=== PATIENT | male | born 1940 | race American Indian/Alaskan Native ===

== ENCOUNTER 2017-05-19 16:24 | Inpatient (IN) | payer MEDICARE, MEDICAID ==
[2017-05-19 16:25] VITALS: BMI 26.3
[2017-05-19 17:36] LABS: BASO # 0.1 K/uL (0.0-0.2); BASO % 0.5 % (0.0-2.0); EOS # 0.3 K/uL (0.0-0.7); EOS % 2.8 % (0.0-4.0); HEMATOCRIT 25.9 % (35.0-51.0); LYMPH # 1.9 K/uL (1.0-4.3); LYMPH % 16.9 % (20.0-40.0); MEAN CORPUSCULAR HEMOGLOBIN 28.7 pg (27.0-31.0); MEAN CORPUSCULAR HGB CONC 33.1 g/dL (33.0-37.0); MEAN PLATELET VOLUME 6.9 fL (7.2-11.7); MONO # 1.1 K/uL (0.0-0.8); MONO % 10.2 % (0.0-10.0); RED CELL DISTRIBUTION WIDTH 15.9 % (11.5-14.5); WHITE BLOOD COUNT 11.1 K/uL (4.8-10.8)
[2017-05-19 17:41] LABS: MEAN CELL VOLUME 86.6 fL (80.0-94.0)
[2017-05-19 17:45] LABS: CHLORIDE 104 mmol/L (98-107); INR 1.1; SODIUM 138 mmol/L (132-148)
[2017-05-19 17:46] LABS: POTASSIUM 4.1 mmol/L (3.6-5.2)
[2017-05-19 17:48] LABS: ALB/GLOB RATIO 0.7 (1.0-2.1); ALKALINE PHOSPHATASE 88 U/L (38-126); ALT/SGPT 19 U/L (21-72); AST/SGOT 24 U/L (17-59); BILIRUBIN,TOTAL 0.6 mg/dL (0.2-1.3); BLOOD UREA NITROGEN 15 mg/dL (9-20); CALCIUM 9.4 mg/dl (8.6-10.4); CARBON DIOXIDE 25 mmol/L (22-30); GFR AFRICAN-AMERICAN > 60; GLUCOSE,RANDOM 157 mg/dL (75-110); TOTAL PROTEIN 7.4 g/dL (6.3-8.3)
--- NOTE | 2017-05-19 18:21 | CT ---
PROCEDURE: CT HEAD WITHOUT CONTRAST. HISTORY: r/o ICH COMPARISON: 08/02/2016 comparison made with prior CT scan brain 08/02/2016 TECHNIQUE: Axial computed tomography images were obtained through the head/brain without intravenous contrast. Radiation dose: Total exam DLP = NA mGy-cm. This CT exam was performed using one or more of the following dose reduction techniques: Automated exposure control, adjustment of the mA and/or kV according to patient size, and/or use of iterative reconstruction technique. Note that the study is limited due to exclusion of a portion of the right thumb maxillofacial skeleton, including the anterior margin of the right orbit and contents as well as the right frontal calvarium and right frontal lobe. . Study is further limited by motion artifact The study should be repeated with proper sedation FINDINGS: HEMORRHAGE: No no acute parenchymal, subarachnoid or extra-axial hemorrhage. . BRAIN: re- demonstrated is old right MCA territory infarct which involves the right temporal, right frontal operculum and right posterior temporoparietal watershed zone. . . Additionally, moderate chronic periventricular white matter ischemic changes are present. Probable dilated perivascular space left inferior basal ganglia/temporal junction. Vascular calcifications are again noted. . . Moderate -significant generalized volume loss. VENTRICLES: The ventricles are dilated felt to be on ex vacuo basis. CALVARIUM: Small localized defect left parietal calvarium unchanged PARANASAL SINUSES: R over the fracture deformities of the left orbital floor as well as the anterior and posterolateral petersen of the left orbit of. Metallic fixation hardware from also noted along the medial margins of the anterior wall left maxillary sinus and nasal bones. MASTOID AIR CELLS: . The mastoid air complexes are clear. OTHER FINDINGS: None. IMPRESSION: Note that the study is limited due to exclusion of a portion of the right thumb maxillofacial skeleton, including the anterior margin of the right orbit and contents as well as the right frontal calvarium and right frontal lobe. This study should be repeated with proper sedation. Study is further limited by motion artifact. No definitive acute intracranial hemorrhage. Small localized defect in the left parietal calvarium seen on prior study. . e- demonstrated is old right MCA territory infarct which involves the right temporal, right frontal operculum and right posterior temporoparietal watershed zone. . . Additionally, moderate chronic periventricular white matter ischemic changes are present. Probable dilated perivascular space left inferior basal ganglia/temporal junction. Moderate to significant atrophy. ORIF changes chronic left facial bone fractures. Note that this study high and recommendations discussed emergency room practitioner Margot at approximately 6:10 p.m. with written down and read back verification.
--- NOTE | 2017-05-19 18:52 | C.PDOC ---
History Of Present Illness <Gabriel Ayala R - Last Filed: 05/20/17 08:57> <Nora STOVERObinna - Last Filed: 05/20/17 12:59> 76 y/o male brought in by EMS increasing confusion at home for 2 weeks. According to live in girlfriend spoken to on the phone, pt has been increasingly agitated and has been throwing his outpatient medication. Pt had a CVA 2 weeks ago and was treated at [facility]. Pt is a poor historian and offered no complaints or pain. (Obinna Melendez DO) <Gabriel Ayala R - Last Filed: 05/20/17 08:57> History Per: Patient, Other (Girlfriend) History/Exam Limitations: Other (Poor historian) Onset/Duration Of Symptoms: Days Current Symptoms Are (Timing): Still Present Speech Is: Normal Severity: Mild Recent travel outside of the [place]: No Additional History Per: Patient Associated Symptoms: denies: Fever, Chills, Sweating, Chest Pain <Nora STOVERObinna - Last Filed: 05/20/17 12:59> Time Seen by Provider: 05/19/17 16:35 Chief Complaint (Nursing): Altered Mental Status Past Medical History Reviewed: Historical Data, Nursing Documentation, Vital Signs - Medical History PMH: Arthritis, Diabetes, HTN, Hypercholesterolemia, Malignancy (renal CA), Chronic Kidney Disease, Seizures () Family History: States: Unknown Family Hx - Social History Hx Tobacco Use: No Hx Alcohol Use: No Hx Substance Use: No - Immunization History Hx Tetanus Toxoid Vaccination: No Hx Influenza Vaccination: Yes (08/2014) Hx Pneumococcal Vaccination: Yes (2012) <Nora STOVERObinna - Last Filed: 05/20/17 12:59> Vital Signs: Last Vital Signs Temp 98 F 05/20/17 08:00 Pulse 102 H 05/20/17 08:00 Resp 20 05/20/17 08:00 BP 179/90 H 05/20/17 08:00 Pulse Ox 96 05/20/17 08:00 - [facility] Procedures INCIS W REM OF FORIEGN BODY OR DEV FROM SKIN & SUBCUT TISSUE (10/12/13) Review Of Systems Review Of Systems: ROS cannot be obtained secondary to pt's inabilty to answer questions. Constitutional: Negative for: Fever, Chills Cardiovascular: Negative for: Chest Pain, Palpitations Gastrointestinal: Negative for: Nausea, Vomiting, Abdominal Pain, Diarrhea Neurological: Positive for: Confusion. Negative for: Headache <Nora STOVERObinna López Last Filed: 05/20/17 12:59> Physical Exam - Physical Exam Appears: Non-toxic, No Acute Distress Skin: Warm, Dry Head: Atraumatic, Normacephalic Eye(s): bilateral: Normal Inspection Oral Mucosa: Moist Chest: Symmetrical Cardiovascular: Rhythm Regular, No Murmur Respiratory: Normal Breath Sounds, No Accessory Muscle Use, No Rales, No Rhonchi , No Wheezing Gastrointestinal/Abdominal: Soft, No Tenderness Back: Normal Inspection, No CVA Tenderness Extremity: Normal ROM Neurological/Psych: Oriented x3, Normal Speech (No slurred speech), Normal Motor (5/5 strength), Normal Sensation, Other (Some questions answered appropriatly, but pt tend to repeat answers. No gaze. No facial droop) Gait: Steady Extremity: Right: No Drift, Left: No Drift, Upper: No Drift, Lower: No Drift <Nora STOVERObinna Last Filed: 05/20/17 12:59> ED Course And Treatment - Laboratory Results Result Diagrams: 05/20/17 07:39 05/20/17 07:39 ECG: Interpreted By Me, Viewed By Me ECG Rhythm: Sinus Tachycardia ECG Interpretation: Abnormal Interpretation Of ECG: poor R-wave prgression from V1 TO V6, LAHB Rate From EC <Gabriel Ayala - Last Filed: 05/20/17 08:57> - Laboratory Results Result Diagrams: 05/20/17 07:39 05/20/17 07:39 O2 Sat by Pulse Oximetry: 97 (RA) Pulse Ox Interpretation: Normal <Obinna Melendez DO Maribel Last Filed: 05/20/17 12:59> Medical Decision Making <Gabriel Ayala - Last Filed: 05/20/17 08:57> <Nora STOVERObinna Last Filed: 05/20/17 12:59> Medical Decision Making: Impression: 76 y/o male brought in by EMS increasing confusion at home for 2 weeks. Plans: EKG Blood labs CXR Catapres Lovenox Neurontin januvia Accuchek IV fluids Reassess Spoke to Dr. Venegas who knows pt well. 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 Dr. Venegas will admit pt to his service under observation. (Obinna Melendez DO) Disposition Discussed With : Nico Venegas - Disposition Disposition Time: 19:00 - POA Present On Arrival: None <Gabriel Ayala - Last Filed: 05/20/17 08:57> <Obinna Melendez DO - Last Filed: 05/20/17 12:59> - Disposition Disposition: HOSPITALIZED Condition: GOOD - Clinical Impression Clinical Impression: Dementia <Gabriel Ayala - Last Filed: 05/20/17 08:57> - Scribe Statement The provider has reviewed the documentation as recorded by the Scribe <Obinna Melendez DO - Last Filed: 05/20/17 12:59> - Scribe Statement Alise silverman All medical record entries made by the Scribe were at my direction and personally dictated by me. I have reviewed the chart and agree that the record accurately reflects my personal performance of the history, physical exam, medical decision making, and the department course for this patient. I have also personally directed, reviewed, and agree with the discharge instructions and disposition. (Obinna Melendez DO)
--- NOTE | 2017-05-19 20:45 | RAD ---
PROCEDURE: CHEST RADIOGRAPH, 1 VIEW HISTORY: r/o infiltrate COMPARISON: 08/02/2016 FINDINGS: LUNGS: Elevated right hemidiaphragm. Confluent increased markings at both lung bases ; right greater than left suggestive for infiltrate and or atelectasis. Question trace right pleural effusion. PLEURA: As above. CARDIOVASCULAR: Cardiomegaly. Tortuous ectatic aorta. OSSEOUS STRUCTURES: Degenerative changes in the spine and shoulders. Likely chronic deformity of the mid left clavicle. VISUALIZED UPPER ABDOMEN: Normal. OTHER FINDINGS: None. IMPRESSION: Elevated right hemidiaphragm. Confluent increased markings at both lung bases ; right greater than left suggestive for infiltrate and or atelectasis. Question trace right pleural effusion.
[2017-05-19] MEDS: (Novolog) Insulin Aspart, Recombinant 100 u/ml 10 ml vial SC SCH (21:57)
--- NOTE | 2017-05-19 23:06 | CP.PCM.HP ---
History of Present Illness - History of Present Illness History of Present Illness: CC: AMS HPI: 76 y/o AA male with h/o HTN, Type 2 DM, brought in by EMS increasing confusion at home for 2 weeks. According to live in girlfriend spoken to on the phone, pt has been increasingly agitated and has been throwing his outpatient medication. Pt had a CVA 2 weeks ago and was treated at [facility]. Pt is a poor historian and dependent on his GF for ADL , he is agitated and non cooperative Present on Admission - Present on Admission Any Indicators Present on Admission: Yes Review of Systems - Review of Systems Systems not reviewed;Unavailable: Altered Mental Status - Constitutional Constitutional: Fatigue, Lethargy, Malaise, Weakness - EENT Eyes: absent: As Per HPI, Blind Spots, Blurred Vision, Change in Vision, Decreased Night Vision, Diplopia, Discharge, Dry Eye, Exophthalmos, Floaters, Irritation, Itchy Eyes, Loss of Peripheral Vision, Pain, Photophobia, Requires Corrective Lenses, Sees Flashes, Spots in Vision, Tunnel Vision, Other Visual Disturbances, Loss of Vision, Other Nose/Mouth/Throat: absent: As Per HPI, Epistaxis, Nasal Congestion, Nasal Discharge, Nasal Obstruction, Nasal Trauma, Nose Pain, Post Nasal Drip, Sinus Pain, Sinus Pressure, Bleeding Gums, Change in Voice, Dental Pain, Dry Mouth, Dysphagia, Halitosis, Hoarsness, Lip Swelling, Mouth Lesions, Mouth Pain, Odynophagia, Sore Throat, Throat Swelling, Tongue Swelling, Facial Pain, Neck Pain, Neck Mass, Other - Gastrointestinal Gastrointestinal: absent: As Per HPI, Abdominal Pain, Belching, Bloating, Change in Bowel Habits, Change in Stool Character, Coffee Ground Emesis, Constipation, Cramping, Diarrhea, Dyspepsia, Dysphagia, Early Satiety, Excessive Flatus, Fecal Incontinence, Heartburn, Hematemesis, Hematochezia, Loose Stools, Melena, Nausea, Odynophagia, Temesmus, Vomiting, Other - Genitourinary Genitourinary: Urinary Frequency - Neurological Neurological: Memory Loss Past Patient History - Infectious Disease Hx of Infectious Diseases: None - Past Medical History & Family History Past Medical History?: Yes - Past Social History Smoking Status: Former Smoker - CARDIAC Hx Hypercholesterolemia: Yes Hx Hypertension: Yes - PULMONARY Hx Respiratory Disorders: No - NEUROLOGICAL Hx Dementia: Yes Hx Seizures: Yes () - HEENT Hx HEENT Problems: No - RENAL Hx Chronic Kidney Disease: Yes - ENDOCRINE/METABOLIC Hx Endocrine Disorders: Yes Hx Diabetes Mellitus Type 1: Yes - HEMATOLOGICAL/ONCOLOGICAL Hx Blood Disorders: Yes Hx Blood Transfusions: Yes Hx Cancer: Yes (RENAL) Hx Chemotherapy: Yes (2012) - INTEGUMENTARY Hx Dermatological Problems: No - MUSCULOSKELETAL/RHEUMATOLOGICAL Hx Arthritis: Yes Hx Falls: No - GASTROINTESTINAL Hx Gastrointestinal Disorders: Yes Hx Gastroesophageal Reflux: Yes - GENITOURINARY/GYNECOLOGICAL Hx Genitourinary Disorders: No - PSYCHIATRIC Hx Substance Use: No - SURGICAL HISTORY Hx Surgeries: Yes Hx Herniorrhaphy: Yes Other/Comment: left nephrectomy, left lung sx, - ANESTHESIA Hx Anesthesia: Yes Hx Anesthesia Reactions: No Hx Malignant Hyperthermia: No Meds Allergies/Adverse Reactions: Allergies Allergy/AdvReac Type Severity Reaction Status Date / Time acetaminophen [From Tylenol] Allergy Intermediate Tinnitus Verified 05/19/17 16: 43 aspirin Allergy Intermediate Tinnitus Verified 05/19/17 16:43 Physical Exam - Constitutional Appears: No Acute Distress, Agitated, Chronically Ill Additional comments: combative - Eye Exam Eye Exam: EOMI, Normal appearance, PERRL Pupil Exam: NORMAL ACCOMODATION, PERRL - Respiratory Exam Respiratory Exam: Clear to Auscultation Bilateral, NORMAL BREATHING PATTERN - Cardiovascular Exam Cardiovascular Exam: +S1, +S2, +S4, Systolic Murmur - GI/Abdominal Exam GI & Abdominal Exam: Normal Bowel Sounds, Soft. absent: Tenderness - Neurological Exam Additional comments: pt is agitated not orented to time, place, person'not able to do complte neuro exam - Psychiatric Exam Psychiatric exam: Agitated, Anxious Results - Vital Signs Recent Vital Signs: Last Vital Signs Temp 98.5 F 05/19/17 20:10 Pulse 70 05/19/17 20:10 Resp 18 05/19/17 20:10 BP 161/97 H 05/19/17 20:10 Pulse Ox 98 05/19/17 20:10 - Labs Result Diagrams: 05/20/17 07:39 05/20/17 07:39 Labs: Laboratory Results - last 24 hr 05/19/17 05/19/17 18:36 21:55 POC Glucose (mg/dL) 250 H Ammonia < 9 L Assessment & Plan (1) Altered mental status Status: Acute (2) Dementia Status: Acute (3) Diabetes Status: Acute
[2017-05-19 23:53] VITALS: RESP 20
[2017-05-20 07:50] LABS: HEMATOCRIT 26.8 % (35.0-51.0); MEAN CELL VOLUME 87.2 fL (80.0-94.0); MEAN CORPUSCULAR HEMOGLOBIN 28.1 pg (27.0-31.0); MEAN CORPUSCULAR HGB CONC 32.2 g/dL (33.0-37.0); MEAN PLATELET VOLUME 7.3 fL (7.2-11.7); RED CELL DISTRIBUTION WIDTH 15.7 % (11.5-14.5); WHITE BLOOD COUNT 10.1 K/uL (4.8-10.8)
[2017-05-20 08:02] LABS: CHLORIDE 101 mmol/L (98-107)
[2017-05-20 08:03] LABS: POTASSIUM 3.6 mmol/L (3.6-5.2); SODIUM 138 mmol/L (132-148)
[2017-05-20 08:05] LABS: GFR AFRICAN-AMERICAN > 60
[2017-05-20 08:06] LABS: BLOOD UREA NITROGEN 12 mg/dL (9-20); CALCIUM 9.2 mg/dl (8.6-10.4); CARBON DIOXIDE 27 mmol/L (22-30); GLUCOSE,RANDOM 156 mg/dL (75-110)
[2017-05-20 08:33] LABS: RBC URINE < 1 /hpf (0-3); URINE BILIRUBIN NEGATIVE (NEGATIVE); URINE BLOOD NEGATIVE (NEGATIVE); URINE COLOR Straw (YELLOW); URINE GLUCOSE (UA) 1+ mg/dL (Normal); URINE KETONE NEGATIVE (NEGATIVE); URINE LEUKOCYTE ESTERASE NEG Leu/uL (Negative); URINE PROTEIN 2+ mg/dL (NEGATIVE); URINE UROBILINOGEN NORMAL mg/dL (0.2-1.0); WBC URINE 1 /hpf (0-5)
[2017-05-20] MEDS: Enoxaparin 40 mg Syringe SC SCH (09:50)
[2017-05-20] MEDS: (Novolog) Insulin Aspart, Recombinant 100 u/ml 10 ml vial SC SCH ×4 (09:51→22:00)
--- NOTE | 2017-05-20 18:52 | CARD ---
APPROVED REPORT EKG Measurement Heart [id number] <Conclusion> Sinus tachycardia Left anterior fascicular block Anteroseptal infarct, age undetermined Abnormal ECG
--- NOTE | 2017-05-20 23:16 | CP.PCM.PN ---
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 Objective - Vital Signs/Intake and Output Vital Signs (last 24 hours): Temp Pulse Resp BP Pulse Ox 97.8 F 106 H 20 156/82 H 96 05/20/17 15:00 05/20/17 15:00 05/20/17 15:00 05/20/17 15:00 05/20/17 15:00 Intake and Output: 05/20/17 05/21/17 18:59 06:59 Intake Total 500 Output Total 400 Balance 100 - Medications Medications: Current Medications Clonidine HCl (Catapres) 0.2 mg PO BID [facility] Last Admin: 05/20/17 17:21 Dose: 0.2 mg Enoxaparin Sodium (Lovenox) 40 mg SC DAILY [facility] Last Admin: 05/20/17 09:50 Dose: 40 mg Gabapentin (Neurontin) 300 mg PO TID [facility] Last Admin: 05/20/17 17:21 Dose: 300 mg Insulin Aspart (Novolog) [address] [facility] PRN Reason: Protocol Last Admin: 05/20/17 22:00 Dose: Not Given Pneumococcal Polyvalent Vaccine (Pneumovax 23 Vaccine) 0.5 ml IM .ONCE ONE Stop: 05/21/17 10:01 Rosuvastatin Calcium (Crestor) 10 mg PO [facility] Last Admin: 05/20/17 21:20 Dose: 10 mg Sitagliptin Phosphate (Januvia) 50 mg PO DAILY [facility] Last Admin: 05/20/17 09:50 Dose: 50 mg - Labs Labs: PT 11.9 SECONDS (9.7-12.2) 05/19/17 17:32 INR 1.1 05/19/17 17:32 APTT 35 SECONDS (21-34) H 05/19/17 17:32 - Constitutional Appears: No Acute Distress - Head Exam Head Exam: ATRAUMATIC, NORMAL INSPECTION, NORMOCEPHALIC - ENT Exam ENT Exam: Mucous Membranes Moist, Normal Exam - Respiratory Exam Respiratory Exam: Clear to Ausculation Bilateral, NORMAL BREATHING PATTERN - Cardiovascular Exam Cardiovascular Exam: REGULAR RHYTHM, +S1, +S2, +S4, Murmur - GI/Abdominal Exam GI & Abdominal Exam: Soft, Normal Bowel Sounds. absent: Tenderness Assessment and Plan (1) Altered mental status Assessment & Plan: most likley due to metabolic encephalopathy Status: Acute (2) Dementia Status: Acute (3) Chronic renal failure Status: Acute (4) Constipation Status: Acute (5) Diabetes Status: Acute
[2017-05-21] MEDS: (Novolog) Insulin Aspart, Recombinant 100 u/ml 10 ml vial SC SCH ×4 (07:30→22:59)
[2017-05-21] MEDS ORDERED: Pneumococcal 23-Valent Vaccine IM ONE (10:00)
[2017-05-21] MEDS: Enoxaparin 40 mg Syringe SC SCH (10:38)
--- NOTE | 2017-05-21 14:53 | CON ---
DATE: 05/21/2017 CHIEF COMPLAINT AND REASON FOR CONSULTATION: The patient referred by Dr. Venegas as patient has hist ory of recent stroke. The patient was admitted here for increasing confusion at home and patient, as per chart, had history of alcohol dependence in the past. HISTORY OF PRESENT ILLNESS: This is the case of a 76-year-old male who lives with his girlfriend. T he patient was brought in by EMS for increasing confusion at home for 2 weeks. According to the girl friend, the patient has been increasingly agitated, has been throwing out his medication. The patien t was recently in a rehab. The patient had history of recent CAV. He was at [facility] for 3 weeks an d went home. The patient has been referred for comanagement as the patient has been having increasin g bouts of agitation. The patient is currently in mittens and wants to get out of bed and wants his mittens to be removed. The patient also states that he used to drink at home half a bottle of wine, but denies that he is an alcoholic. The patient is noted to be having intermittent periods of confus ion. He knows he is in the hospital, but states that he wants to get out of bed. He still has bouts of agitation and was given earlier Ativan. PAST PSYCHIATRIC HISTORY: The patient denies any prior inpatient treatment, although patient has his tory of alcohol dependence in the past. PAST MEDICAL HISTORY: History of diabetes, hypertension, history of recent CVA. The patient has his tory of renal CA, kidney disease. ALLERGIES: THE PATIENT IS ALLERGIC TO TYLENOL AND ASPIRIN. PSYCHOSOCIAL HISTORY: The patient lives with his girlfriend. The patient had a CAT scan of the head done on admission that showed the following results: The anna ent had an old right MCA territory infarct, which involved the right temporal, right frontal operculu m and right posterior temporoparietal watershed zone. Moderate chronic periventricular white matter ischemic changes as well as moderate to significant atrophy. LIST OF CURRENT MEDICATIONS: The patient is currently on clonidine, Januvia, Lovenox, Neurontin. Th e patient at home was taking Ambien 5 mg at bedtime. VITAL SIGNS: Temperature is 97.1, pulse rate is 101, blood pressure 151/84, respiration is 20, oxyge n sat is 97%. LABORATORIES: On review, the patient's blood sugar, the last one is 268. Urine is positive +2 for p rotein and glucose. Drug screen is negative. WBCs 11.1 on admission, H and H is 8.6/25.9. REVIEW OF SYSTEMS: GENERAL: The patient is alert, but with periods of confusion. He was seen in a 4-bedded room. The patient has hand mittens and want his mittens to be removed. He said he wants to eat and he wants to get out of the hospital. SKIN: No pruritus. HEENT: No headache or dizziness, no blurring vision. NECK: Supple. RESPIRATORY: No dyspnea. CARDIOVASCULAR: No chest pain. GASTROINTESTINAL: No nausea, no vomiting. EXTREMITIES: Complaining of weakness, although patient is moving his upper extremities. MUSCULOSKELETAL: Feels weak. NEUROLOGIC: Alert with periods of confusion. GENITOURINARY: No dysuria. MENTAL STATUS EXAMINATION: Elderly male who looks stated age, conversing in Slovenian. Speech spontan eous. Affect is reactive. Mood is irritable. He said he wants to get out of bed. He wants his sahra tens to be removed. Thought process: Confused off and on. Thought content: No paranoia, no hallu cinations. No suicidal or homicidal ideation. Attention and memory seem to be limited. Insight and judgment limited. Impulse control is guarded at this time. IMPRESSION: Possible metabolic encephalopathy superimposed on possible dementia secondary to recent cerebrovascular accident, vascular type, as well as consider mood disorder secondary to medical probl ems. PLAN AND RECOMMENDATION: The patient is seen, meds reviewed. Continue present management. We will keep the patient in the safety observation room for monitoring. We will give him Ambien 5 mg at bedt esteban p.r.n. and then Ativan 1 mg p.o. q. 6 p.r.n. for agitation. I did speak with the social work program coordinator. His girlfriend does not want him to go back for subacute rehab. Once the patient is medically stabl e, patient can go back home. The Ativan may be good for him to control his agitation, especially as the patient has history of alcoholism in the past. The patient states that he is no longer drinking, but did admit that he used to drink half a bottle of wine before. Thank you for the consult. Tera Lozano MD cc: [id number] TT: 05/21/2017 14:52:39 Confirmation # [id number] Dictation # [id number]
--- NOTE | 2017-05-21 15:23 | CON ---
DATE: 05/21/2017 ADDENDUM As the patient has history of chronic alcoholism, we will try to give him thiamine 100 mg p.o. b.i.d. and MVI one tab p.o. daily as supplements. Tera Lozano MD cc: [phone] TT: 05/21/2017 15:22:29 Confirmation # [id number] Dictation # [id number]
--- NOTE | 2017-05-21 16:52 | CP.PCM.PN ---
Subjective - Date & Time of Evaluation Date of Evaluation: 05/21/17 Time of Evaluation: 21:00 - Subjective Subjective: Pt is still disoreinted, is still agitated, seen by psyc and his medications has been adjusted Objective - Vital Signs/Intake and Output Vital Signs (last 24 hours): Temp Pulse Resp BP Pulse Ox 97.1 F L 101 H 20 151/84 H 97 05/20/17 23:38 05/20/17 23:38 05/20/17 23:38 05/20/17 23:38 05/20/17 23:38 Intake and Output: 05/21/17 05/21/17 06:59 18:59 Intake Total 500 Output Total 580 Balance -80 - Medications Medications: Current Medications Clonidine HCl (Catapres) 0.2 mg PO Q8 [facility] Last Admin: 05/21/17 13:37 Dose: 0.2 mg Enoxaparin Sodium (Lovenox) 40 mg SC DAILY [facility] Last Admin: 05/21/17 10:38 Dose: 40 mg Gabapentin (Neurontin) 300 mg PO TID [facility] Last Admin: 05/21/17 13:37 Dose: 300 mg Insulin Aspart (Novolog) 0 unit SC [facility]S [facility] PRN Reason: Protocol Last Admin: 05/21/17 11:30 Dose: 3 unit Lorazepam (Ativan) 1 mg PO Q6H PRN PRN Reason: Agitation Multivitamins (Hexavitamin) 1 tab PO DAILY [facility] Rosuvastatin Calcium (Crestor) 10 mg PO HS [facility] Last Admin: 05/20/17 21:20 Dose: 10 mg Sitagliptin Phosphate (Januvia) 50 mg PO DAILY [facility] Last Admin: 05/21/17 10:00 Dose: 50 mg Thiamine HCl (Vitamin B1 Tab) 100 mg PO BID [facility] Zolpidem Tartrate (Ambien) 5 mg PO HS PRN PRN Reason: Insomnia - Labs Labs: PT 11.9 SECONDS (9.7-12.2) 05/19/17 17:32 INR 1.1 05/19/17 17:32 APTT 35 SECONDS (21-34) H 05/19/17 17:32 - Constitutional Appears: No Acute Distress - Head Exam Head Exam: ATRAUMATIC, NORMAL INSPECTION, NORMOCEPHALIC - Eye Exam Eye Exam: EOMI, Normal appearance, PERRL Pupil Exam: NORMAL ACCOMODATION, PERRL - Respiratory Exam Respiratory Exam: Clear to Ausculation Bilateral, NORMAL BREATHING PATTERN - Cardiovascular Exam Cardiovascular Exam: REGULAR RHYTHM, +S1, +S2. absent: Murmur - GI/Abdominal Exam GI & Abdominal Exam: Soft, Normal Bowel Sounds. absent: Tenderness - Neurological Exam Neurological Exam: Altered - Psychiatric Exam Psychiatric exam: Anxious - Skin Skin Exam: Dry Assessment and Plan (1) Altered mental status Status: Acute (2) Dementia Status: Acute (3) Chronic renal failure Status: Acute (4) Constipation Status: Acute (5) Diabetes Status: Acute
[2017-05-22] MEDS: (Novolog) Insulin Aspart, Recombinant 100 u/ml 10 ml vial SC SCH ×4 (07:30→21:28)
[2017-05-22 07:37] LABS: POTASSIUM 4.1 mmol/L (3.6-5.2)
[2017-05-22] MEDS: Enoxaparin 40 mg Syringe SC SCH (09:43)
[2017-05-22] MEDS: Multiple Vitamins Tab PO SCH (09:49)
--- NOTE | 2017-05-22 15:52 | PN ---
DATE: 05/22/2017 SUBJECTIVE: The patient seen with his girlfriend. The patient has bouts of agitation and on Ativan p.r.n. According to the girlfriend, the patient has history of dementia for 1 year and has been havi ng intermittent bouts of visual hallucinations. He was seeing faces of persons related to him i n the past, even at home and also in the hospital. The patient denies hallucinations when seen. He is also trying to get out of bed and wants his mittens to removed. He is directable for most. His g irlfriend wants to take him home. She said she can handle him at home. 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 VITAL SIGNS: Temperature is 99, pulse rate is 80, blood pressure 110/69, respirations 20, oxygen sat s 96% room air. REVIEW OF SYSTEMS: GENERAL: The patient is alert, still confused, seen in the 4-bedded room. SKIN: No diaphoresis. HEENT: No headache, no dizziness. NECK: Supple. RESPIRATORY: No dyspnea. CARDIOVASCULAR: No chest pain. GASTROINTESTINAL: Very good appetite. EXTREMITIES: The patient moving extremities. MUSCULOSKELETAL: Feels weak. NEUROLOGIC: Alert with periods of confusion. Mental status seems to be waxing and waning. GENITOURINARY: Dysuria. MENTAL STATUS EXAMINATION: Elderly male who looks stated age, oriented to place and person. Seen wi th his girlfriend. Affect is reactive. Mood is irritable at times. Speech spontaneous. Thought pr ocess confused. Thought content: No overt hallucinations. No suicidal or homicidal ideation. Atte ntion and memory seems to be limited. Insight and judgment limited. Impulse control is improving at this time. IMPRESSION: Metabolic encephalopathy superimposed on dementia secondary to recent cerebrovascular ac cident. PLAN AND RECOMMENDATIONS: The patient seen, meds reviewed. We will keep patient in the 4-bedded [facility]. We will continue the Ambien 5 mg at bedtime p.r.n. and Ativan 1 mg p.o. q. 6 hours p.r.n. Since patient has history of dementia and the patient's family wants to keep him at home, we will try to st art him with Aricept 5 mg at bedtime for dementia. The patient has very good appetite according to h is girlfriend. Tera Lozano MD cc: [phone] TT: 05/22/2017 15:51:40 Confirmation # [id number] Dictation # [id number]
--- NOTE | 2017-05-22 23:16 | CP.PCM.PN ---
Subjective - Date & Time of Evaluation Date of Evaluation: 05/22/17 Time of Evaluation: 21:00 - Subjective Subjective: seen and examined Objective - Vital Signs/Intake and Output Vital Signs (last 24 hours): Temp Pulse Resp BP Pulse Ox 99.9 F H 84 20 145/80 100 05/22/17 15:41 05/22/17 15:41 05/22/17 15:41 05/22/17 15:41 05/22/17 15:41 Intake and Output: 05/22/17 05/23/17 18:59 06:59 Intake Total 300 Output Total 250 590 Balance -250 -290 - Medications Medications: Current Medications Clonidine HCl (Catapres) 0.2 mg PO Q8 [facility] Last Admin: 05/22/17 21:24 Dose: 0.2 mg Clopidogrel Bisulfate (Plavix) 75 mg PO DAILY [facility] Last Admin: 05/22/17 09:50 Dose: 75 mg Donepezil HCl (Aricept) 5 mg PO HS [facility] Last Admin: 05/22/17 21:23 Dose: 5 mg Enoxaparin Sodium (Lovenox) 40 mg SC DAILY [facility] Last Admin: 05/22/17 09:43 Dose: 40 mg Gabapentin (Neurontin) 300 mg PO TID [facility] Last Admin: 05/22/17 18:02 Dose: 300 mg Insulin Aspart (Novolog) 0 unit SC ACHS [facility] PRN Reason: Protocol Last Admin: 05/22/17 21:28 Dose: Not Given Lorazepam (Ativan) 1 mg PO Q6H PRN PRN Reason: Agitation Last Admin: 05/22/17 00:52 Dose: 1 mg Multivitamins (Hexavitamin) 1 tab PO DAILY [facility] Last Admin: 05/22/17 09:49 Dose: 1 tab Rosuvastatin Calcium (Crestor) 10 mg PO HS [facility] Last Admin: 05/22/17 21:23 Dose: 10 mg Sitagliptin Phosphate (Januvia) 50 mg PO DAILY [facility] Last Admin: 05/22/17 09:45 Dose: 50 mg Thiamine HCl (Vitamin B1 Tab) 100 mg PO BID [facility] Last Admin: 05/22/17 18:05 Dose: 100 mg Zolpidem Tartrate (Ambien) 5 mg PO HS PRN PRN Reason: Insomnia - Labs Labs: 05/22/17 07:11 PT 11.9 SECONDS (9.7-12.2) 05/19/17 17:32 INR 1.1 05/19/17 17:32 APTT 35 SECONDS (21-34) H 05/19/17 17:32 Assessment and Plan (1) Altered mental status Status: Acute (2) Dementia Status: Acute (3) Chronic renal failure Status: Acute (4) Constipation Status: Acute (5) Diabetes Status: Acute
[2017-05-23] MEDS: (Novolog) Insulin Aspart, Recombinant 100 u/ml 10 ml vial SC SCH ×4 (08:10→21:45)
[2017-05-23] MEDS: Enoxaparin 40 mg Syringe SC SCH (10:51)
[2017-05-23] MEDS: Multiple Vitamins Tab PO SCH (10:51)
[2017-05-24] MEDS: (Novolog) Insulin Aspart, Recombinant 100 u/ml 10 ml vial SC SCH ×3 (08:38→18:36)
[2017-05-24 09:30] VITALS: O2SAT 100
[2017-05-24] MEDS: Enoxaparin 40 mg Syringe SC SCH (10:04)
[2017-05-24] MEDS: Multiple Vitamins Tab PO SCH (10:05)
[2017-05-24 11:48] LABS: BASO % 0.3 % (0.0-2.0); EOS # 0.2 K/uL (0.0-0.7); EOS % 1.7 % (0.0-4.0); HEMATOCRIT 24.2 % (35.0-51.0); LYMPH % 9.4 % (20.0-40.0); MEAN CELL VOLUME 86.8 fL (80.0-94.0); MEAN CORPUSCULAR HEMOGLOBIN 28.5 pg (27.0-31.0); MEAN CORPUSCULAR HGB CONC 32.8 g/dL (33.0-37.0); MEAN PLATELET VOLUME 7.5 fL (7.2-11.7); MONO % 9.5 % (0.0-10.0); PLATELET COUNT 505 K/uL (130-400); RED CELL DISTRIBUTION WIDTH 15.8 % (11.5-14.5); WHITE BLOOD COUNT 10.8 K/uL (4.8-10.8)
[2017-05-24 12:02] LABS: CHLORIDE 102 mmol/L (98-107)
[2017-05-24 12:03] LABS: SODIUM 136 mmol/L (132-148)
[2017-05-24 12:05] LABS: GFR AFRICAN-AMERICAN > 60
[2017-05-24 12:06] LABS: BLOOD UREA NITROGEN 20 mg/dL (9-20); CALCIUM 9.1 mg/dl (8.6-10.4); CARBON DIOXIDE 26 mmol/L (22-30); GLUCOSE,RANDOM 237 mg/dL (75-110)
[2017-05-24 12:07] LABS: EOSINOPHIL 1 % (0-4); NEUTROPHIL 80 % (50-75); TOTAL CELLS COUNTED 100
[2017-05-24] MEDS ORDERED: Ferric Sodium Gluconat Complex 62.5 mg/5 ml Vial IVPB SCH (12:15)
[2017-05-24 12:20] VITALS: TEMP 98.3
--- NOTE | 2017-05-24 12:50 | CP.PCM.PN ---
Subjective - Date & Time of Evaluation Date of Evaluation: 05/24/17 Time of Evaluation: 12:00 - Subjective Subjective: Pt seen an d examined today ,alert, oriented to person ,confusion noted, calm , and co operative , denies any other complaints No overnight events reported by RN Objective - Vital Signs/Intake and Output Vital Signs (last 24 hours): Temp Pulse Resp BP Pulse Ox 98.3 F 86 20 153/82 H 100 05/24/17 12:19 05/24/17 12:19 05/24/17 12:19 05/24/17 12:19 05/24/17 12:19 Intake and Output: 05/24/17 05/24/17 06:59 18:59 Intake Total 180 Balance 180 - Medications Medications: Current Medications Clonidine HCl (Catapres) 0.2 mg PO Q8 [facility] Last Admin: 05/24/17 06:36 Dose: 0.2 mg Clopidogrel Bisulfate (Plavix) 75 mg PO DAILY [facility] Last Admin: 05/24/17 10:04 Dose: 75 mg Donepezil HCl (Aricept) 5 mg PO HS [facility] Last Admin: 05/23/17 21:43 Dose: 5 mg Enoxaparin Sodium (Lovenox) 40 mg SC DAILY [facility] Last Admin: 05/24/17 10:04 Dose: 40 mg Ferric Sodium Gluconate Complex (Ferrlecit) 125 mg IVPB DAILY [facility] Stop: 05/27/17 12:16 Gabapentin (Neurontin) 300 mg PO TID [facility] Last Admin: 05/24/17 10:04 Dose: 300 mg Insulin Aspart (Novolog) 0 unit SC ACHS [facility] PRN Reason: Protocol Last Admin: 05/24/17 08:38 Dose: 3 unit Lorazepam (Ativan) 1 mg PO Q6H PRN PRN Reason: Agitation Last Admin: 05/23/17 20:15 Dose: 1 mg Multivitamins (Hexavitamin) 1 tab PO DAILY [facility] Last Admin: 05/24/17 10:05 Dose: 1 tab Rosuvastatin Calcium (Crestor) 10 mg PO HS [facility] Last Admin: 05/23/17 21:43 Dose: 10 mg Sitagliptin Phosphate (Januvia) 50 mg PO DAILY [facility] Last Admin: 05/24/17 10:05 Dose: 50 mg Thiamine HCl (Vitamin B1 Tab) 100 mg PO BID [facility] Last Admin: 05/24/17 10:05 Dose: 100 mg Zolpidem Tartrate (Ambien) 5 mg PO HS PRN PRN Reason: Insomnia Last Admin: 05/24/17 00:13 Dose: 5 mg - Labs Labs: 05/24/17 11:42 05/22/17 07:11 PT 11.9 SECONDS (9.7-12.2) 05/19/17 17:32 INR 1.1 05/19/17 17:32 APTT 35 SECONDS (21-34) H 05/19/17 17:32 - Constitutional Appears: Non-toxic, No Acute Distress (comfortable ) - Respiratory Exam Respiratory Exam: Clear to Ausculation Bilateral, NORMAL BREATHING PATTERN - Cardiovascular Exam Cardiovascular Exam: REGULAR RHYTHM, +S1, +S2 - Neurological Exam Neurological Exam: Alert, Awake Assessment and Plan - Assessment and Plan (Free Text) Assessment: A/P 76 yr old male admitted for incr. confusion and agitation s/p CVA 2 weeks ago seeb by Dr. Blum and aricept started , Pt clinically improved and much calm , no agitation reported by staff As per CM patient significant other want to take care of patient at home and declined [facility]MAR D/W Dr. Venegas, stable for discharge home today and f/u with Dr. Venegas offic ein 1 week VNA service arranged by CM for home nursing home PT ,
--- NOTE | 2017-05-24 16:00 | PN ---
DATE: 05/24/2017 SUBJECTIVE: The patient is seen. The patient is very restless today, trying to climb out of bed and could hardly follow redirection, stating that his is downstairs and he wants to go home. The p atient continues to have confusion and needs redirection. The patient's wants to take him home, but once he is more medically stable. The patient was given Ativan p.r.n. VITAL SIGNS: Temperature is 98.3, pulse rate 86, blood pressure 153/82, respiration is 20, oxygen sa t is 100%. REVIEW OF SYSTEMS: GENERAL: The patient is alert, but confused, seen in a 4-bedded room, still restless, agitated and w ants to get out of bed, stating he wants to go home. SKIN: No diaphoresis. HEENT: No headache or dizziness. NECK: Supple. RESPIRATORY: No dyspnea. CARDIOVASCULAR: No chest pain. GASTROINTESTINAL: No nausea, no vomiting. EXTREMITIES: The patient moves extremities. MUSCULOSKELETAL: Feels weak. NEUROLOGIC: Alert with periods of confusion. GENITOURINARY: No dysuria. MENTAL STATUS EXAMINATION: Elderly male, in hospital [facility], looks stated age, seen in a 4-bedded room . Oriented to person, but not to place and time. Mood is irritable. Affect is reactive. Speech sp ontaneous. Thought process confused. Thought content: The patient wants to leave, insisting his wi fe is downstairs waiting for him. No paranoia. No suicidal or homicidal ideation. Attention and me jackie seem to be limited. Insight and judgment limited. Impulse control is guarded at this time. IMPRESSION: Possible metabolic encephalopathy superimposed on dementia, vascular type, secondary to recent cerebrovascular accident. PLAN AND RECOMMENDATIONS: The patient seen, meds reviewed. Continue Ativan p.r.n. as well as Ambien and also Aricept for dementia. The patient wants to go home and his wants to take him home onc e he is more medically stable. Tera Lozano MD cc: [phone] TT: 05/24/2017 15:59:47 Confirmation # [id number] Dictation # [id number]
[2017-05-24 16:31] VITALS: BP 131/78; PULSE 68
--- NOTE | 2017-05-24 22:36 | CP.PCM.PN ---
Subjective - Date & Time of Evaluation Date of Evaluation: 05/23/17 Time of Evaluation: 20:00 - Subjective Subjective: seen & examined Objective - Vital Signs/Intake and Output Vital Signs (last 24 hours): Temp Pulse Resp BP Pulse Ox 98.3 F 68 20 131/78 100 05/24/17 16:00 05/24/17 16:00 05/24/17 16:00 05/24/17 16:00 05/24/17 16:00 Intake and Output: 05/24/17 05/25/17 18:59 06:59 Intake Total 680 Output Total 500 Balance 180 - Labs Labs: 05/24/17 11:42 05/24/17 11:42 PT 11.9 SECONDS (9.7-12.2) 05/19/17 17:32 INR 1.1 05/19/17 17:32 APTT 35 SECONDS (21-34) H 05/19/17 17:32 Assessment and Plan (1) Altered mental status Status: Acute (2) Dementia Status: Acute (3) Chronic renal failure Status: Acute (4) Constipation Status: Acute (5) Diabetes Status: Acute
--- NOTE | 2017-05-24 22:37 | CP.PCM.DIS ---
Provider - Provider Date of Admission: 05/20/17 16:55 Attending physician: Nico Venegas MD Diagnosis - Discharge Diagnosis (1) Altered mental status Status: Acute (2) Dementia Status: Acute (3) Chronic renal failure Status: Acute (4) Constipation Status: Acute (5) Diabetes Status: Acute Hospital Course - Lab Results Lab Results: Most Recent Lab Values WBC 10.8 K/uL (4.8-10.8) 05/24/17 11:42 RBC 2.79 Mil/uL (4.40-5.90) L 05/24/17 11:42 Hgb 7.9 g/dL (12.0-18.0) L 05/24/17 11:42 Hct 24.2 % (35.0-51.0) L 05/24/17 11:42 MCV 86.8 fL (80.0-94.0) 05/24/17 11:42 MCH 28.5 pg (27.0-31.0) 05/24/17 11:42 MCHC 32.8 g/dL (33.0-37.0) L 05/24/17 11:42 RDW 15.8 % (11.5-14.5) H 05/24/17 11:42 Plt Count 505 K/uL (130-400) H 05/24/17 11:42 MPV 7.5 fL (7.2-11.7) 05/24/17 11:42 Neut % (Auto) 79.1 % (50.0-75.0) H 05/24/17 11:42 Lymph % (Auto) 9.4 % (20.0-40.0) L 05/24/17 11:42 Allen % (Auto) 9.5 % (0.0-10.0) 05/24/17 11:42 Eos % (Auto) 1.7 % (0.0-4.0) 05/24/17 11:42 Baso % (Auto) 0.3 % (0.0-2.0) 05/24/17 11:42 Neut # 8.6 K/uL (1.8-7.0) H 05/24/17 11:42 Lymph # 1.0 K/uL (1.0-4.3) 05/24/17 11:42 Allen # 1.0 K/uL (0.0-0.8) H 05/24/17 11:42 Eos # 0.2 K/uL (0.0-0.7) 05/24/17 11:42 Baso # 0.0 K/uL (0.0-0.2) 05/24/17 11:42 Neutrophils % (Manual) 80 % (50-75) H 05/24/17 11:42 Band Neutrophils % 1 % (0-2) 05/24/17 11:42 Lymphocytes % (Manual) 8 % (20-40) L 05/24/17 11:42 Monocytes % (Manual) 10 % (0-10) 05/24/17 11:42 Eosinophils % (Manual) 1 % (0-4) 05/24/17 11:42 Platelet Estimate Increased (NORMAL) H 05/24/17 11:42 Hypochromasia (manual) Slight 05/24/17 11:42 Anisocytosis (manual) Slight 05/24/17 11:42 PT 11.9 SECONDS (9.7-12.2) 05/19/17 17:32 INR 1.1 05/19/17 17:32 APTT 35 SECONDS (21-34) H 05/19/17 17:32 Sodium 136 mmol/L (132-148) 05/24/17 11:42 Potassium 4.0 mmol/L (3.6-5.2) 05/24/17 11:42 Chloride 102 mmol/L (98-107) 05/24/17 11:42 Carbon Dioxide 26 mmol/L (22-30) 05/24/17 11:42 Anion Gap 12 (10-20) 05/24/17 11:42 BUN 20 mg/dL (9-20) 05/24/17 11:42 Creatinine 1.3 MG/DL (0.8-1.5) 05/24/17 11:42 Est GFR ( Amer) > 60 05/24/17 11:42 Est GFR (Non-Af Amer) 54 05/24/17 11:42 POC Glucose (mg/dL) 278 mg/dL (65-110) H 05/24/17 16:37 Random Glucose 237 mg/dL (75-110) H 05/24/17 11:42 Calcium 9.1 mg/dl (8.6-10.4) 05/24/17 11:42 Total Bilirubin 0.6 mg/dL (0.2-1.3) 05/19/17 17:32 AST 24 U/L (17-59) 05/19/17 17:32 ALT 19 U/L (21-72) L 05/19/17 17:32 Alkaline Phosphatase 88 U/L (38-126) 05/19/17 17:32 Ammonia < 9 umol/L (9-33) L 05/19/17 18:36 Troponin I 0.0210 ng/mL (0.00-0.120) 05/20/17 17:04 Total Protein 7.4 g/dL (6.3-8.3) 05/19/17 17:32 Albumin 3.1 g/dL (3.5-5.0) L 05/19/17 17:32 Globulin 4.3 gm/dL (2.2-3.9) H 05/19/17 17:32 Albumin/Globulin Ratio 0.7 (1.0-2.1) L 05/19/17 17:32 Urine Color Straw (YELLOW) 05/20/17 08:05 Urine Clarity Clear (Clear) 05/20/17 08:05 Urine pH 7.0 (5.0-8.0) 05/20/17 08:05 Ur Specific [place] 1.009 (1.003-1.030) 05/20/17 08:05 Urine Protein 2+ mg/dL (NEGATIVE) H 05/20/17 08:05 Urine Glucose (UA) 1+ mg/dL (Normal) H 05/20/17 08:05 Urine Ketones Negative mg/dL (NEGATIVE) 05/20/17 08:05 Urine Blood Negative (NEGATIVE) 05/20/17 08:05 Urine Nitrate Negative (NEGATIVE) 05/20/17 08:05 Urine Bilirubin Negative (NEGATIVE) 05/20/17 08:05 Urine Urobilinogen Normal mg/dL (0.2-1.0) 05/20/17 08:05 Ur Leukocyte Esterase Neg Edwin/uL (Negative) 05/20/17 08:05 Urine WBC (Auto) 1 /hpf (0-5) 05/20/17 08:05 Urine RBC (Auto) < 1 /hpf (0-3) 05/20/17 08:05 Ur Squamous Epith Cells < 1 /hpf (0-5) 05/20/17 08:05 Urine Opiates Screen Negative (NEGATIVE) 05/20/17 08:05 Urine Methadone Screen Negative (NEGATIVE) 05/20/17 08:05 Ur Barbiturates Screen Negative (NEGATIVE) 05/20/17 08:05 Ur Phencyclidine Scrn Negative (NEGATIVE) 05/20/17 08:05 Ur Amphetamines Screen Negative (NEGATIVE) 05/20/17 08:05 U Benzodiazepines Scrn Negative (NEGATIVE) 05/20/17 08:05 U Oth Cocaine Metabols Negative (NEGATIVE) 05/20/17 08:05 U Cannabinoids Screen Negative (NEGATIVE) 05/20/17 08:05 Discharge Exam - Head Exam Head Exam: ATRAUMATIC, NORMAL INSPECTION, NORMOCEPHALIC Discharge Plan - Discharge Medications Prescriptions: Donepezil [Aricept] 5 mg PO HS #30 tab cloNIDine [Catapres] 0.2 mg PO Q8 #90 tab Multivitamins [Hexavitamin] 1 tab PO DAILY #30 tab Ferrous Sulfate [Iron] 325 mg PO BID #60 capsule.er Clopidogrel [Plavix] 75 mg PO DAILY #30 tab Thiamine [Vitamin B1 Tab] 100 mg PO BID #30 tab - Follow Up Plan Condition: GOOD Disposition: HOME/ ROUTINE Instructions: Iron Supplements (By mouth), Clonidine (By mouth), Thiamine ( Vitamin B-1) (By mouth), Multivitamins, Adult Formula (By mouth), Donepezil (By mouth), Clopidogrel (By mouth), Dementia (GEN) Additional Instructions: f/u with Dr. Venegas office in 1 week Continue medication as per Med. REc. Referrals: Nico Venegas MD [Family Provider] -
== END 2017-05-24 19:20 | disposition home or self-care (01) | DRG 884 ==
LOC: C.ER 16:24 → C.9E 18:32 → C.3T 19:32 → OBSVTOIN 05-20 16:55
PROVIDERS: ADMIT Internal Medicine; ATTEND Internal Medicine
DX: F01.51 Vascular dementia, unspecified severity, with behavioral disturbance (principal); G93.41 Metabolic encephalopathy; I69.919 Unspecified symptoms and signs involving cognitive functions following unspecified cerebrovascular disease; E11.22 Type 2 diabetes mellitus with diabetic chronic kidney disease; M19.90 Unspecified osteoarthritis, unspecified site; E78.00 Pure hypercholesterolemia, unspecified; I12.9 Hypertensive chronic kidney disease with stage 1 through stage 4 chronic kidney disease, or unspecified chronic kidney disease; N18.9 Chronic kidney disease, unspecified; Z85.53 Personal history of malignant neoplasm of renal pelvis; Z87.891 Personal history of nicotine dependence; Z79.4 Long term (current) use of insulin; F06.30 Mood disorder due to known physiological condition, unspecified; K59.00 Constipation, unspecified; F10.21 Alcohol dependence, in remission

== ENCOUNTER 2017-06-01 14:43 | Inpatient (IN) | payer MEDICARE, MEDICAID ==
[2017-06-01 14:43] VITALS: BMI 26.3
--- NOTE | 2017-06-01 15:01 | C.PDOC ---
History Of Present Illness 76 yr old male brought in via BLS, presents to the ER after falling off the bed today. As per EMS, patient called in. not in the ED with patient. ROS and history is unable to be obtained. - HPI Time Seen by Provider: 06/01/17 14:55 Chief Complaint (Nursing): Trauma History Per: EMS History/Exam Limitations: clinical condition Onset/Duration Of Symptoms: Sudden Onset (Today) Past Medical History Reviewed: Historical Data, Nursing Documentation, Vital Signs Vital Signs: Last Vital Signs Temp 98.6 F 06/01/17 15:54 Pulse 102 H 06/01/17 15:54 Resp 18 06/01/17 15:54 BP 176/75 H 06/01/17 15:54 Pulse Ox 98 06/01/17 17:21 - Medical History PMH: Arthritis, CVA, Dementia, Diabetes, HTN, Hypercholesterolemia, Malignancy ( renal CA), Chronic Kidney Disease - [facility] Procedures INCIS W REM OF FORIEGN BODY OR DEV FROM SKIN & SUBCUT TISSUE (10/12/13) Family History: States: No Known Family Hx - Social History Hx Tobacco Use: No Hx Alcohol Use: No Hx Substance Use: No - Immunization History Hx Tetanus Toxoid Vaccination: No Hx Influenza Vaccination: Yes (08/2014) Hx Pneumococcal Vaccination: Yes (2012) Review Of Systems Review Of Systems: ROS cannot be obtained secondary to pt's inabilty to answer questions. Physical Exam - Physical Exam Appears: Non-toxic, No Acute Distress Skin: Warm, Dry Head: Atraumatic, Normacephalic, No Swelling, No Abrasion, No Laceration Chest: Symmetrical, No Tenderness Cardiovascular: Rhythm Regular, No Murmur Respiratory: Normal Breath Sounds, No Rales, No Rhonchi, No Stridor, No Wheezing Gastrointestinal/Abdominal: Normal Exam, Soft, No Tenderness, No Guarding, No Rebound Extremity: No Tenderness, No Swelling Neurological/Psych: Other (Patient is awake and alert but is not answering question. Seems disoriented. ) ED Course And Treatment - Laboratory Results Result Diagrams: 06/01/17 15:35 06/01/17 15:35 Lab Interpretation: Abnormal (mild leukocytosis, no source, prob from fall this AM) ECG: Interpreted By Ut ECG Rhythm: Sinus Rhythm, Sinus Tachycardia ECG Interpretation: Normal, Abnormal Rate From EC O2 Sat by Pulse Oximetry: 98 (RA ) Pulse Ox Interpretation: Normal - Radiology CXR: Interpreted by Me, Viewed By Me CXR Interpretation: Yes: No Acute Disease - CT Scan/US CT - Head Other Rad Studies (CT/US): Read By Radiologist, Radiology Report Reviewed CT/US Interpretation: IMPRESSION: No acute intracranial hemorrhage. Chronic right frontal, right temporal and right anterolateral basal ganglia of infarct changes again noted. Moderate diffuse/ confluent chronic periventricular white matter ischemic changes. Moderate to significant generalized volume loss. Incomplete visualization of old left facial fracture deformities and ORIF changes Reevaluation Time: 17:19 Reassessment Condition: Improved - Physician Consult Information Outcome Of Conversation: 1530: d/w Dr. Venegas, PMD- ok to med/surg obs. Medical Decision Making Medical Decision Making: PLAN: * CT - Head * CXR * EKG * Troponin * CBC * CMP * Urinalysis NOTE: Fall home, ? unsafe @ home, who is caring for this elderly man with recent CVA? Disposition Doctor Will See Patient In The: Hospital Counseled Patient/Family Regarding: Studies Performed, Diagnosis - Disposition Disposition: HOSPITALIZED Disposition Time: 17:20 Condition: GOOD - Clinical Impression Clinical Impression: Fall, Gait apraxia - Scribe Statement The provider has reviewed the documentation as recorded by the Efrain Newton Provider Attestation: All medical record entries made by the Efrain were at my direction and personally dictated by me. I have reviewed the chart and agree that the record accurately reflects my personal performance of the history, physical exam, medical decision making, and the department course for this patient. I have also personally directed, reviewed, and agree with the discharge instructions and disposition.
[2017-06-01 15:43] LABS: BASO # 0.1 K/uL (0.0-0.2); BASO % 1.2 % (0.0-2.0); EOS # 0.1 K/uL (0.0-0.7); EOS % 0.9 % (0.0-4.0); HEMOGLOBIN 9.4 g/dL (12.0-18.0); LYMPH # 1.5 K/uL (1.0-4.3); LYMPH % 13.1 % (20.0-40.0); MEAN CELL VOLUME 88.9 fL (80.0-94.0); MEAN CORPUSCULAR HEMOGLOBIN 27.4 pg (27.0-31.0); MEAN CORPUSCULAR HGB CONC 30.9 g/dL (33.0-37.0); MEAN PLATELET VOLUME 7.5 fL (7.2-11.7); MONO % 8.1 % (0.0-10.0); NEUT % 76.7 % (50.0-75.0); RBC 3.44 Mil/uL (4.40-5.90); RED CELL DISTRIBUTION WIDTH 16.6 % (11.5-14.5); WHITE BLOOD COUNT 11.8 K/uL (4.8-10.8)
[2017-06-01 15:47] LABS: ALBUMIN 3.5 g/dL (3.5-5.0)
[2017-06-01 15:50] LABS: ALB/GLOB RATIO 0.7 (1.0-2.1); AST/SGOT 31 U/L (17-59); BLOOD UREA NITROGEN 16 mg/dL (9-20); GFR AFRICAN-AMERICAN > 60; GFR NON-AFRICAN AMERICAN 59
[2017-06-01 15:51] LABS: ALT/SGPT 21 U/L (21-72); CALCIUM 10.1 mg/dl (8.6-10.4)
--- NOTE | 2017-06-01 15:59 | CT ---
PROCEDURE: CT HEAD WITHOUT CONTRAST. HISTORY: fell out of bed, ? [facility] COMPARISON: None available. TECHNIQUE: Axial computed tomography images were obtained through the head/brain without intravenous contrast. Radiation dose: Total exam DLP = 1066.1 mGy-cm. This CT exam was performed using one or more of the following dose reduction techniques: Automated exposure control, adjustment of the mA and/or kV according to patient size, and/or use of iterative reconstruction technique. FINDINGS: HEMORRHAGE: No acute parenchymal, subarachnoid or extra-axial hemorrhage. Hemorrhage. BRAIN: Large chronic right temporal, frontal, and right anterolateral basal ganglia infarct again noted unchanged. . Additionally, moderate diffuse/confluent chronic periventricular white matter ischemic changes are also seen extending peripherally into the deep and subcortical white matter both cerebral hemispheres. . Associated ex vacuo dilatation of the right lateral ventricle. Significant generalized volume loss again noted. Extensive vascular calcifications of the carotid siphons and to a lesser degree and left vertebral and proximal basilar arteries VENTRICLES: As mentioned above, there is ex vacuo dilatation of the right lateral ventricle however no evidence of obstructive type hydrocephalus. CALVARIUM: Re- demonstrated are ORIF changes of the left superolateral orbital rim. Incomplete visualization of the remaining left maxillofacial skeletal fracture and ORIF changes. PARANASAL SINUSES: Unremarkable as visualized. No significant inflammatory changes. MASTOID AIR CELLS: Unremarkable as visualized. No inflammatory changes. OTHER FINDINGS: Changes of bilateral cataract surgery again noted. IMPRESSION: No acute intracranial hemorrhage. Chronic right frontal, right temporal and right anterolateral basal ganglia of infarct changes again noted. Moderate diffuse/ confluent chronic periventricular white matter ischemic changes. Moderate to significant generalized volume loss. Incomplete visualization of old left facial fracture deformities and ORIF changes
--- NOTE | 2017-06-01 16:35 | RAD ---
PROCEDURE: CHEST RADIOGRAPH, 1 VIEW HISTORY: SOB COMPARISON: Comparison chest dated 05/19/2017 Comparison also made with CT scan abdomen pelvis 08/27/2017 15 which also image both lung bases. FINDINGS: LUNGS: Scarring/ fibrosis and possibly pleural thickening right mid to lower lung field adjacent to an apparent thoracotomy defect involving seventh rib. Clinical correlation with surgical history. Mild bibasilar atelectasis/ scarring right greater than left. There may also be some mild pleural thickening right CP angle PLEURA: No apparent pneumothorax. Suspect mild biapical pleural thickening CARDIOVASCULAR: Normal. OSSEOUS STRUCTURES: No significant abnormalities. VISUALIZED UPPER ABDOMEN: Normal. OTHER FINDINGS: None. IMPRESSION: Scarring/ fibrosis and possibly pleural thickening right mid to lower lung field adjacent to an apparent thoracotomy defect involving seventh rib. Clinical correlation with surgical history. Mild bibasilar atelectasis/ scarring right greater than left. There may also be some mild pleural thickening right CP angle
[2017-06-01] MEDS: (Novolog) Insulin Aspart, Recombinant 100 u/ml 10 ml vial SC SCH ×2 (16:53→22:30)
[2017-06-01 17:10] LABS: SQUAMOUS EPITHIAL 1 /hpf (0-5); URINE AMORPHOUS SEDIMENT RARE /ul (<OCC); URINE BACTERIA RARE (<OCC); URINE BILIRUBIN NEGATIVE (NEGATIVE); URINE CLARITY Hazy (Clear); URINE COLOR Yellow (YELLOW); URINE GLUCOSE (UA) 1+ mg/dL (Normal); URINE LEUKOCYTE ESTERASE NEG Leu/uL (Negative); URINE NITRATE NEGATIVE (NEGATIVE); URINE PROTEIN 3+ mg/dL (NEGATIVE); URINE UROBILINOGEN NORMAL mg/dL (0.2-1.0)
[2017-06-01 17:11] LABS: URINE BLOOD 3+ (NEGATIVE)
[2017-06-01] MEDS: diltiaZEM 180 mg/24 Hours CD Cap PO SCH (17:25)
--- NOTE | 2017-06-01 21:54 | CP.PCM.HP ---
History of Present Illness - History of Present Illness History of Present Illness: CC: fall HPI: 76 yr old male well known to me with h/o type 2 DM, stage 4 tracey\nal cell CA , pt refused chemo, recent CVA which affwected his GAIT and weakness, non complaint eiyj fdiet and medications brought in via BLS, presents to the ER after falling off the bed today. As per EMS, patient called in. not in the ED with patient. ROS and history is unable to be obtained. Present on Admission - Present on Admission Any Indicators Present on Admission: Yes Review of Systems - Review of Systems Systems not reviewed;Unavailable: Acuity of Condition - Constitutional Constitutional: Chills - EENT Eyes: absent: As Per HPI, Blind Spots, Blurred Vision, Change in Vision, Decreased Night Vision, Diplopia, Discharge, Dry Eye, Exophthalmos, Floaters, Irritation, Itchy Eyes, Loss of Peripheral Vision, Pain, Photophobia, Requires Corrective Lenses, Sees Flashes, Spots in Vision, Tunnel Vision, Other Visual Disturbances, Loss of Vision, Other Ears: Dizziness Nose/Mouth/Throat: absent: As Per HPI, Epistaxis, Nasal Congestion, Nasal Discharge, Nasal Obstruction, Nasal Trauma, Nose Pain, Post Nasal Drip, Sinus Pain, Sinus Pressure, Bleeding Gums, Change in Voice, Dental Pain, Dry Mouth, Dysphagia, Halitosis, Hoarsness, Lip Swelling, Mouth Lesions, Mouth Pain, Odynophagia, Sore Throat, Throat Swelling, Tongue Swelling, Facial Pain, Neck Pain, Neck Mass, Other - Respiratory Respiratory: Cough, Dyspnea - Gastrointestinal Gastrointestinal: absent: As Per HPI, Abdominal Pain, Belching, Bloating, Change in Bowel Habits, Change in Stool Character, Coffee Ground Emesis, Constipation, Cramping, Diarrhea, Dyspepsia, Dysphagia, Early Satiety, Excessive Flatus, Fecal Incontinence, Heartburn, Hematemesis, Hematochezia, Loose Stools, Melena, Nausea, Odynophagia, Temesmus, Vomiting, Other - Genitourinary Genitourinary: absent: As Per HPI, Change in Urinary Stream, Difficulty Urinating, Dysuria, Flank Pain, Hematuria, Pyuria, Nocturia, Urinary Incontinence, Urinary Frequency, Urinary Hesitance, Urinary Urgency, Voiding Freq/Small Amts, Freq UTI, Hx Renal/Bladder Calculi, Hx /Renal Surgery, Bladder Distension, Other - Neurological Neurological: Dizziness, Frequent Falls, Tingling, Weakness Past Patient History - Infectious Disease Hx of Infectious Diseases: None - Past Medical History & Family History Past Medical History?: Yes - Past Social History Smoking Status: Former Smoker - CARDIAC Hx Hypercholesterolemia: Yes Hx Hypertension: Yes - PULMONARY Hx Tuberculosis: No - NEUROLOGICAL Hx Dementia: Yes - HEENT Hx HEENT Problems: No - RENAL Hx Chronic Kidney Disease: Yes - ENDOCRINE/METABOLIC Hx Endocrine Disorders: Yes Hx Diabetes Mellitus Type 1: Yes - HEMATOLOGICAL/ONCOLOGICAL Hx Cancer: Yes (Renal Cancer) Hx Human Immunodeficiency Virus (HIV): No - INTEGUMENTARY Hx Dermatological Problems: No - MUSCULOSKELETAL/RHEUMATOLOGICAL Hx Arthritis: Yes - GASTROINTESTINAL Hx Gastrointestinal Disorders: Yes Hx Gastroesophageal Reflux: Yes - GENITOURINARY/GYNECOLOGICAL Hx Sexually Transmitted Disorders: No - PSYCHIATRIC Hx Substance Use: No - SURGICAL HISTORY Hx Surgeries: Yes Hx Herniorrhaphy: Yes Other/Comment: left nephrectomy, left lung sx, - ANESTHESIA Hx Anesthesia: Yes Hx Anesthesia Reactions: No Hx Malignant Hyperthermia: No Meds Allergies/Adverse Reactions: Allergies Allergy/AdvReac Type Severity Reaction Status Date / Time acetaminophen [From Tylenol] Allergy Intermediate Tinnitus Verified 05/19/17 16: 43 aspirin Allergy Intermediate Tinnitus Verified 05/19/17 16:43 Physical Exam - Constitutional Appears: No Acute Distress, Chronically Ill Additional comments: elderly male looks weak, frail - Head Exam Head Exam: ATRAUMATIC, NORMAL INSPECTION, NORMOCEPHALIC - Eye Exam Eye Exam: EOMI, Normal appearance, PERRL Pupil Exam: NORMAL ACCOMODATION, PERRL - ENT Exam ENT Exam: Mucous Membranes Moist, Normal Exam - Respiratory Exam Respiratory Exam: Clear to Auscultation Bilateral - Cardiovascular Exam Cardiovascular Exam: REGULAR RHYTHM, +S1, +S2, Systolic Murmur Additional comments: 2/6 ESM s3 positive - GI/Abdominal Exam GI & Abdominal Exam: Normal Bowel Sounds, Soft. absent: Tenderness - Neurological Exam Neurological exam: Abnormal Gait - Psychiatric Exam Psychiatric exam: Depressed - Skin Skin Exam: Dry, Warm Results - Vital Signs Recent Vital Signs: Last Vital Signs Temp 97.9 F 06/01/17 20:32 Pulse 110 H 06/01/17 20:32 Resp 18 06/01/17 20:32 BP 156/95 H 06/01/17 20:32 Pulse Ox 100 06/01/17 20:32 - Labs Result Diagrams: 06/01/17 15:35 06/01/17 15:35 Labs: Laboratory Results - last 24 hr 06/01/17 06/01/17 06/01/17 15:52 16:39 16:50 POC Glucose (mg/dL) 166 H 145 H Urine Color Yellow Urine Clarity Hazy Urine pH 5.0 Ur Specific [place] 1.017 Urine Protein 3+ H Urine Glucose (UA) 1+ H Urine Ketones 1+ H Urine Blood 3+ H Urine Nitrate Negative Urine Bilirubin Negative Urine Urobilinogen Normal Ur Leukocyte Esterase Neg Urine WBC (Auto) 3 Urine RBC (Auto) 25 H Ur Squamous Epith Cells 1 Amorphous Sediment Rare H Urine Bacteria Rare Assessment & Plan (1) Fall Status: Acute (2) Abdominal pain Status: Acute (3) Renal cell carcinoma Status: Acute (4) Weakness due to cerebrovascular accident Status: Acute
[2017-06-02] MEDS: (Novolog) Insulin Aspart, Recombinant 100 u/ml 10 ml vial SC SCH ×4 (09:05→21:53)
[2017-06-02] MEDS: Multiple Vitamins Tab PO SCH (10:56)
[2017-06-02] MEDS: Enoxaparin 30 mg Syringe SC SCH (10:56)
[2017-06-02] MEDS: diltiaZEM 180 mg/24 Hours CD Cap PO SCH (10:56)
--- NOTE | 2017-06-02 13:56 | CP.PCM.CON ---
History of Present Illness - History of Present Illness History of Present Illness: This is a case of 76 year old male currently admitted to for gait apraxia and frequent falls. Patient referred by Dr. Venegas for evaluation and comanagement of dementia with bouts of agitation. Patient is well known to me from previous consult last month. Patient has hx of delirium and dementia. Patient was in [facility] before for OMAR. Patient on his last admission, went homw with his significant other but his girlfriend is havign ahard time dealing with him at home due to his gait problems. Patient now willing to go for another OMAR. Patient still confused and eating slowly his lunch when seen. Patient used to take Ativan prn in the past. Has hx of alcoholism in the past and recent CVA. 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 MSE- elderly male, alert but confused seen in a 4 bedded room, oriented to person and place, affect is reactive. Mood is dysphoric. speech is slow. TP - confused off and on. TC- no si or hi, no overt psychosis. Attention/ Memory limited. Insight and Judgment limited. Impulse control guarded. Review of Systems - Review of Systems Systems not reviewed;Unavailable: Altered Mental Status, Uncooperative - Constitutional Constitutional: Weakness - EENT Additional comments: no headache, no blurring of vision - Cardiovascular Additional comments: no chest pain - Respiratory Additional comments: no dyspnea - Gastrointestinal Additional comments: appetite is variable, no nausea or vomiting - Genitourinary Additional comments: no dysuria - Musculoskeletal Musculoskeletal: Muscle Weakness - Integumentary Additional comments: no pruritus or diaphoresis - Neurological Neurological: Abnormal Gait, Frequent Falls, Lack of Coordination, Weakness - Psychiatric Psychiatric: Confusion, Irritability, Memory Loss Past Patient History - Infectious Disease Hx of Infectious Diseases: None - Past Medical History & Family History Past Medical History?: Yes - Past Social History Smoking Status: Former Smoker - CARDIAC Hx Hypercholesterolemia: Yes Hx Hypertension: Yes - PULMONARY Hx Tuberculosis: No - NEUROLOGICAL Hx Dementia: Yes - HEENT Hx HEENT Problems: No - RENAL Hx Chronic Kidney Disease: Yes - ENDOCRINE/METABOLIC Hx Endocrine Disorders: Yes Hx Diabetes Mellitus Type 1: Yes - HEMATOLOGICAL/ONCOLOGICAL Hx Cancer: Yes (Renal Cancer) Hx Human Immunodeficiency Virus (HIV): No - INTEGUMENTARY Hx Dermatological Problems: No - MUSCULOSKELETAL/RHEUMATOLOGICAL Hx Arthritis: Yes - GASTROINTESTINAL Hx Gastrointestinal Disorders: Yes Hx Gastroesophageal Reflux: Yes - GENITOURINARY/GYNECOLOGICAL Hx Sexually Transmitted Disorders: No - PSYCHIATRIC Hx Substance Use: No - SURGICAL HISTORY Hx Surgeries: Yes Hx Herniorrhaphy: Yes Other/Comment: left nephrectomy, left lung sx, - ANESTHESIA Hx Anesthesia: Yes Hx Anesthesia Reactions: No Hx Malignant Hyperthermia: No Meds Allergies/Adverse Reactions: Allergies Allergy/AdvReac Type Severity Reaction Status Date / Time acetaminophen [From Tylenol] Allergy Intermediate Tinnitus Verified 05/19/17 16: 43 aspirin Allergy Intermediate Tinnitus Verified 05/19/17 16:43 - Medications Medications: Current Medications Clonidine HCl (Catapres) 0.2 mg PO Q8 [facility] Last Admin: 06/02/17 06:03 Dose: Not Given Clopidogrel Bisulfate (Plavix) 75 mg PO DAILY [facility] Last Admin: 06/02/17 10:56 Dose: 75 mg Diltiazem HCl (Cardizem Cd) 180 mg PO DAILY [facility] Last Admin: 06/02/17 10:56 Dose: 180 mg Donepezil HCl (Aricept) 5 mg PO HS [facility] Last Admin: 06/01/17 22:44 Dose: 5 mg Enoxaparin Sodium (Lovenox) 30 mg SC DAILY [facility] Last Admin: 06/02/17 10:56 Dose: 30 mg Famotidine (Pepcid) 20 mg PO BID [facility] Last Admin: 06/02/17 12:30 Dose: 20 mg Ferrous Sulfate (Feosol) 325 mg PO TID [facility] Last Admin: 06/02/17 10:56 Dose: 325 mg Insulin Aspart (Novolog) 0 unit SC [facility] PRN Reason: Protocol Last Admin: 06/02/17 09:05 Dose: 1 unit Lorazepam (Ativan) 1 mg PO Q6H PRN PRN Reason: Agitation Multivitamins (Hexavitamin) 1 tab PO DAILY [facility] Last Admin: 06/02/17 10:56 Dose: 1 tab Rosuvastatin Calcium (Crestor) 10 mg PO HS [facility] Last Admin: 06/01/17 22:44 Dose: 10 mg Sitagliptin Phosphate (Januvia) 50 mg PO DAILY [facility] Last Admin: 06/02/17 10:56 Dose: 50 mg Thiamine HCl (Vitamin B1 Tab) 100 mg PO BID [facility] Last Admin: 06/02/17 10:56 Dose: 100 mg Zolpidem Tartrate (Ambien) 5 mg PO HS [facility] Last Admin: 06/01/17 22:44 Dose: 5 mg Results - Vital Signs Recent Vital Signs: Last Vital Signs Temp 97.9 F 06/02/17 08:26 Pulse 77 06/02/17 08:26 Resp 20 06/02/17 08:26 BP 150/89 06/02/17 08:26 Pulse Ox 96 06/02/17 08:26 - Labs Result Diagrams: 06/01/17 15:35 06/01/17 15:35 Labs: Laboratory Results - last 24 hr 06/01/17 06/01/17 06/01/17 15:52 16:39 16:50 POC Glucose (mg/dL) 166 H 145 H Urine Color Yellow Urine Clarity Hazy Urine pH 5.0 Ur Specific [place] 1.017 Urine Protein 3+ H Urine Glucose (UA) 1+ H Urine Ketones 1+ H Urine Blood 3+ H Urine Nitrate Negative Urine Bilirubin Negative Urine Urobilinogen Normal Ur Leukocyte Esterase Neg Urine WBC (Auto) 3 Urine RBC (Auto) 25 H Ur Squamous Epith Cells 1 Amorphous Sediment Rare H Urine Bacteria Rare 06/01/17 06/02/17 06/02/17 22:29 06:34 11:31 POC Glucose (mg/dL) 190 H 122 H 242 H Urine Color Urine Clarity Urine pH Ur Specific [place] Urine Protein Urine Glucose (UA) Urine Ketones Urine Blood Urine Nitrate Urine Bilirubin Urine Urobilinogen Ur Leukocyte Esterase Urine WBC (Auto) Urine RBC (Auto) Ur Squamous Epith Cells Amorphous Sediment Urine Bacteria Assessment & Plan - Assessment and Plan (Free Text) Assessment: Dementia Delirium Metabolic encephalopahy CVA Plan: Keep pt in 4 bedded room for closer monitoring.Continue Aricept and Ambien as ordered. May have Ativan 1 mg po q6h prn for agitation. May benefit from OMAR for reconditioning once medically cleared. - Date & Time Date: 06/02/17 Time: 14:03
--- NOTE | 2017-06-02 21:27 | CARD ---
APPROVED REPORT EKG Measurement Heart [id number] <Conclusion> Sinus tachycardia Left anterior fascicular block Minimal voltage criteria for LVH, may be normal variant Septal infarct, age undetermined Abnormal ECG
--- NOTE | 2017-06-02 22:42 | CP.PCM.PN ---
Subjective - Date & Time of Evaluation Date of Evaluation: 06/02/17 Time of Evaluation: 17:00 - Subjective Subjective: Pt is seen and examined, he wants to go home, awake , alert, afebrile denies any nausea, vomitting, is calm and quite, cy wong is here to pick him up Objective - Vital Signs/Intake and Output Vital Signs (last 24 hours): Temp Pulse Resp BP Pulse Ox 97.9 F 77 20 150/89 96 06/02/17 08:26 06/02/17 08:26 06/02/17 08:26 06/02/17 08:26 06/02/17 08:26 - Medications Medications: Current Medications Clonidine HCl (Catapres) 0.2 mg PO Q8 [facility] Last Admin: 06/02/17 21:53 Dose: 0.2 mg Clopidogrel Bisulfate (Plavix) 75 mg PO DAILY [facility] Last Admin: 06/02/17 10:56 Dose: 75 mg Diltiazem HCl (Cardizem Cd) 180 mg PO DAILY [facility] Last Admin: 06/02/17 10:56 Dose: 180 mg Donepezil HCl (Aricept) 5 mg PO [facility] Last Admin: 06/02/17 21:53 Dose: 5 mg Enoxaparin Sodium (Lovenox) 30 mg SC DAILY [facility] Last Admin: 06/02/17 10:56 Dose: 30 mg Famotidine (Pepcid) 20 mg PO BID [facility] Last Admin: 06/02/17 18:46 Dose: 20 mg Ferrous Sulfate (Feosol) 325 mg PO TID [facility] Last Admin: 06/02/17 18:46 Dose: 325 mg Insulin Aspart (Novolog) 0 unit SC [facility] PRN Reason: Protocol Last Admin: 06/02/17 21:53 Dose: Not Given Lorazepam (Ativan) 1 mg PO Q6H PRN PRN Reason: Agitation Multivitamins (Hexavitamin) 1 tab PO DAILY [facility] Last Admin: 06/02/17 10:56 Dose: 1 tab Rosuvastatin Calcium (Crestor) 10 mg PO HS [facility] Last Admin: 06/02/17 21:53 Dose: 10 mg Sitagliptin Phosphate (Januvia) 50 mg PO DAILY [facility] Last Admin: 06/02/17 10:56 Dose: 50 mg Thiamine HCl (Vitamin B1 Tab) 100 mg PO BID [facility] Last Admin: 06/02/17 18:46 Dose: 100 mg Zolpidem Tartrate (Ambien) 5 mg PO HS [facility] Last Admin: 06/02/17 21:53 Dose: 5 mg - Constitutional Appears: No Acute Distress - Head Exam Head Exam: ATRAUMATIC, NORMAL INSPECTION, NORMOCEPHALIC - Eye Exam Eye Exam: EOMI, Normal appearance, PERRL Pupil Exam: NORMAL ACCOMODATION, PERRL - Respiratory Exam Respiratory Exam: Clear to Ausculation Bilateral, NORMAL BREATHING PATTERN - Cardiovascular Exam Cardiovascular Exam: REGULAR RHYTHM, +S1, +S2. absent: Murmur - GI/Abdominal Exam GI & Abdominal Exam: Soft, Normal Bowel Sounds. absent: Tenderness - Rectal Exam Rectal Exam: Deferred Assessment and Plan (1) Fall Status: Acute (2) Abdominal pain Status: Acute (3) Renal cell carcinoma Status: Acute (4) Weakness due to cerebrovascular accident Status: Acute
[2017-06-03] MEDS: (Novolog) Insulin Aspart, Recombinant 100 u/ml 10 ml vial SC SCH ×2 (07:30→12:55)
[2017-06-03] MEDS: Multiple Vitamins Tab PO SCH (09:06)
[2017-06-03] MEDS: Enoxaparin 30 mg Syringe SC SCH (09:06)
[2017-06-03] MEDS: diltiaZEM 180 mg/24 Hours CD Cap PO SCH (09:06)
--- NOTE | 2017-06-03 12:24 | CP.PCM.PN ---
Subjective - Date & Time of Evaluation Date of Evaluation: 06/03/17 Time of Evaluation: 12:19 - Subjective Subjective: PT CLEARED FOR D/C TODAY TO [facility] AND DR. SQUIRES IN AGREEMENT. PT HAS NO COMPLAINTS AND IS RESTING COMFORTABLY IN BED UPON EXAM. SW TO ARRANGE TRANSPORTATION TO FACILITY THIS AFTERNOON AND PT WILL BE PLACED UNDER DR. SQUIRES'S SERVICE. NO FURTHER ORDERS. Objective - Vital Signs/Intake and Output Vital Signs (last 24 hours): Temp Pulse Resp BP Pulse Ox 97.5 F L 55 L 19 113/69 98 06/03/17 08:30 06/03/17 08:30 06/03/17 08:30 06/03/17 08:30 06/03/17 08:30 Intake and Output: 06/03/17 06/03/17 06:59 18:59 Intake Total 300 Balance 300 - Medications Medications: Current Medications Clonidine HCl (Catapres) 0.2 mg PO Q8 [facility] Last Admin: 06/03/17 05:51 Dose: 0.2 mg Clopidogrel Bisulfate (Plavix) 75 mg PO DAILY [facility] Last Admin: 06/03/17 09:06 Dose: 75 mg Diltiazem HCl (Cardizem Cd) 180 mg PO DAILY [facility] Last Admin: 06/03/17 09:06 Dose: 180 mg Donepezil HCl (Aricept) 5 mg PO HS [facility] Last Admin: 06/02/17 21:53 Dose: 5 mg Enoxaparin Sodium (Lovenox) 30 mg SC DAILY [facility] Last Admin: 06/03/17 09:06 Dose: 30 mg Famotidine (Pepcid) 20 mg PO BID [facility] Last Admin: 06/03/17 09:06 Dose: 20 mg Ferrous Sulfate (Feosol) 325 mg PO TID [facility] Last Admin: 06/03/17 09:06 Dose: 325 mg Insulin Aspart (Novolog) 0 unit SC [facility] PRN Reason: Protocol Last Admin: 06/03/17 07:30 Dose: 1 unit Lorazepam (Ativan) 1 mg PO Q6H PRN PRN Reason: Agitation Multivitamins (Hexavitamin) 1 tab PO DAILY [facility] Last Admin: 06/03/17 09:06 Dose: 1 tab Rosuvastatin Calcium (Crestor) 10 mg PO HS [facility] Last Admin: 06/02/17 21:53 Dose: 10 mg Sitagliptin Phosphate (Januvia) 50 mg PO DAILY [facility] Last Admin: 06/03/17 09:06 Dose: 50 mg Thiamine HCl (Vitamin B1 Tab) 100 mg PO BID [facility] Last Admin: 06/03/17 09:06 Dose: 100 mg Zolpidem Tartrate (Ambien) 5 mg PO [facility] Last Admin: 06/02/17 21:53 Dose: 5 mg
--- NOTE | 2017-06-03 13:40 | CP.PCM.DIS ---
Provider - Provider Date of Admission: 06/02/17 17:40 Attending physician: Nico Venegas MD Time Spent in preparation of Discharge (in minutes): 56 Diagnosis - Discharge Diagnosis (1) Fall Status: Acute (2) Abdominal pain Status: Acute (3) Renal cell carcinoma Status: Acute (4) Weakness due to cerebrovascular accident Status: Acute Hospital Course - Lab Results Lab Results: Most Recent Lab Values WBC 11.8 K/uL (4.8-10.8) H 06/01/17 15:35 RBC 3.44 Mil/uL (4.40-5.90) L 06/01/17 15:35 Hgb 9.4 g/dL (12.0-18.0) L 06/01/17 15:35 Hct 30.5 % (35.0-51.0) L 06/01/17 15:35 MCV 88.9 fL (80.0-94.0) D 06/01/17 15:35 MCH 27.4 pg (27.0-31.0) 06/01/17 15:35 MCHC 30.9 g/dL (33.0-37.0) L 06/01/17 15:35 RDW 16.6 % (11.5-14.5) H 06/01/17 15:35 Plt Count 545 K/uL (130-400) H 06/01/17 15:35 MPV 7.5 fL (7.2-11.7) 06/01/17 15:35 Neut % (Auto) 76.7 % (50.0-75.0) H 06/01/17 15:35 Lymph % (Auto) 13.1 % (20.0-40.0) L 06/01/17 15:35 [place] % (Auto) 8.1 % (0.0-10.0) 06/01/17 15:35 Eos % (Auto) 0.9 % (0.0-4.0) 06/01/17 15:35 Baso % (Auto) 1.2 % (0.0-2.0) 06/01/17 15:35 Neut # 9.0 K/uL (1.8-7.0) H 06/01/17 15:35 Lymph # 1.5 K/uL (1.0-4.3) 06/01/17 15:35 [place] # 1.0 K/uL (0.0-0.8) H 06/01/17 15:35 Eos # 0.1 K/uL (0.0-0.7) 06/01/17 15:35 Baso # 0.1 K/uL (0.0-0.2) 06/01/17 15:35 Sodium 141 mmol/L (132-148) 06/01/17 15:35 Potassium 4.7 mmol/L (3.6-5.2) 06/01/17 15:35 Chloride 102 mmol/L (98-107) 06/01/17 15:35 Carbon Dioxide 25 mmol/L (22-30) 06/01/17 15:35 Anion Gap 19 (10-20) 06/01/17 15:35 BUN 16 mg/dL (9-20) 06/01/17 15:35 Creatinine 1.2 MG/DL (0.8-1.5) 06/01/17 15:35 Est GFR ( Amer) > 60 06/01/17 15:35 Est GFR (Non-Af Amer) 59 06/01/17 15:35 POC Glucose (mg/dL) 268 mg/dL (65-110) H 06/03/17 11:36 Random Glucose 143 mg/dL (75-110) H 06/01/17 15:35 Calcium 10.1 mg/dl (8.6-10.4) 06/01/17 15:35 Total Bilirubin 0.9 mg/dL (0.2-1.3) 06/01/17 15:35 AST 31 U/L (17-59) 06/01/17 15:35 ALT 21 U/L (21-72) 06/01/17 15:35 Alkaline Phosphatase 107 U/L (38-126) 06/01/17 15:35 Troponin I 0.0560 ng/mL (0.00-0.120) 06/01/17 15:35 Total Protein 8.8 g/dL (6.3-8.3) H 06/01/17 15:35 Albumin 3.5 g/dL (3.5-5.0) 06/01/17 15:35 Globulin 5.2 gm/dL (2.2-3.9) H 06/01/17 15:35 Albumin/Globulin Ratio 0.7 (1.0-2.1) L 06/01/17 15:35 Urine Color Yellow (YELLOW) 06/01/17 16:39 Urine Clarity Hazy (Clear) 06/01/17 16:39 Urine pH 5.0 (5.0-8.0) 06/01/17 16:[address] 1.017 (1.003-1.030) 06/01/17 16:39 Urine Protein 3+ mg/dL (NEGATIVE) H 06/01/17 16:39 Urine Glucose (UA) 1+ mg/dL (Normal) H 06/01/17 16:39 Urine Ketones 1+ mg/dL (NEGATIVE) H 06/01/17 16:39 Urine Blood 3+ (NEGATIVE) H 06/01/17 16:39 Urine Nitrate Negative (NEGATIVE) 06/01/17 16:39 Urine Bilirubin Negative (NEGATIVE) 06/01/17 16:39 Urine Urobilinogen Normal mg/dL (0.2-1.0) 06/01/17 16:39 Ur Leukocyte Esterase Neg Edwin/uL (Negative) 06/01/17 16:39 Urine WBC (Auto) 3 /hpf (0-5) 06/01/17 16:39 Urine RBC (Auto) 25 /hpf (0-3) H 06/01/17 16:39 Ur Squamous Epith Cells 1 /hpf (0-5) 06/01/17 16:39 Amorphous Sediment Rare /ul (<OCC) H 06/01/17 16:39 Urine Bacteria Rare (<OCC) 06/01/17 16:39 - Hospital Course Hospital Course: PT CLEARED FOR D/C TODAY TO [facility] AND DR. VENEGAS IN AGREEMENT. PT HAS NO COMPLAINTS AND IS RESTING COMFORTABLY IN BED UPON EXAM. TO ARRANGE TRANSPORTATION TO FACILITY THIS AFTERNOON AND PT WILL BE PLACED UNDER DR. VENEGAS'S SERVICE. NO FURTHER ORDERS. Discharge Exam - Head Exam Head Exam: ATRAUMATIC, NORMAL INSPECTION, NORMOCEPHALIC - Eye Exam Eye Exam: EOMI, Normal appearance, PERRL Pupil Exam: NORMAL ACCOMODATION, PERRL - ENT Exam ENT Exam: Mucous Membranes Moist - Respiratory Exam Respiratory Exam: Clear to PA & Lateral, NORMAL BREATHING PATTERN - Cardiovascular Exam Cardiovascular Exam: REGULAR RHYTHM, +S1, +S2 - GI/Abdominal Exam GI & Abdominal Exam: Normal Bowel Sounds Discharge Plan - Follow Up Plan Condition: GOOD Disposition: REHAB FACILITY/REHAB UNIT Instructions: Fall Prevention for Older Adults (GEN), Fall Prevention (DC), Fall Prevention (GEN) Additional Instructions: PLACE UNDER THE SERVICE OF DR. VENEGAS WHILE AT [facility] AND CALL UPON ARRIVAL FOR ORDERS. CONTINUE MEDICATIONS PER THE MED REC. CHANGES CAN BE MADE BY MD. FALL PRECAUTIONS PER FACILITY PROTOCOL. FURTHER ORDERS PER MD. Referrals: Tera Garcia MD [Staff Provider] - Nico Venegas MD [Staff Provider] -
[2017-06-03 16:20] VITALS: BP 144/85; PULSE 54; RESP 20; TEMP 97.4; O2SAT 97
--- NOTE | 2017-06-03 17:13 | CP.PCM.PN ---
Subjective - Date & Time of Evaluation Date of Evaluation: 06/03/17 Time of Evaluation: 17:11 - Subjective Subjective: Patient seen today , still confused off and on but willing to go to [facility] for OMAR. Continues to have gait problems and will be leaving later this pm. MSE- elderly male, seen in the 4 bedded room oriented x 2. mood is calm. affect is reactive. speech is slow. TP- confused off and on. TC- no si or hi. no psychosis. Attention and Memory- limited. Insight and Judgment limited. Impulse control fair. Objective - Vital Signs/Intake and Output Vital Signs (last 24 hours): Temp Pulse Resp BP Pulse Ox 97.4 F L 54 L 20 144/85 97 06/03/17 16:19 06/03/17 16:19 06/03/17 16:19 06/03/17 16:19 06/03/17 16:19 Intake and Output: 06/03/17 06/03/17 06:59 18:59 Intake Total 300 480 Balance 300 480 - Medications Medications: Current Medications Clonidine HCl (Catapres) 0.2 mg PO Q8 [facility] Last Admin: 06/03/17 13:05 Dose: Not Given Clopidogrel Bisulfate (Plavix) 75 mg PO DAILY [facility] Last Admin: 06/03/17 09:06 Dose: 75 mg Diltiazem HCl (Cardizem Cd) 180 mg PO DAILY [facility] Last Admin: 06/03/17 09:06 Dose: 180 mg Donepezil HCl (Aricept) 5 mg PO HS [facility] Last Admin: 06/02/17 21:53 Dose: 5 mg Enoxaparin Sodium (Lovenox) 30 mg SC DAILY [facility] Last Admin: 06/03/17 09:06 Dose: 30 mg Famotidine (Pepcid) 20 mg PO BID [facility] Last Admin: 06/03/17 09:06 Dose: 20 mg Ferrous Sulfate (Feosol) 325 mg PO TID [facility] Last Admin: 06/03/17 13:05 Dose: Not Given Insulin Aspart (Novolog) 0 unit SC ACHS [facility] PRN Reason: Protocol Last Admin: 06/03/17 12:55 Dose: 3 unit Lorazepam (Ativan) 1 mg PO Q6H PRN PRN Reason: Agitation Multivitamins (Hexavitamin) 1 tab PO DAILY [facility] Last Admin: 06/03/17 09:06 Dose: 1 tab Rosuvastatin Calcium (Crestor) 10 mg PO [facility] Last Admin: 06/02/17 21:53 Dose: 10 mg Sitagliptin Phosphate (Januvia) 50 mg PO DAILY [facility] Last Admin: 06/03/17 09:06 Dose: 50 mg Thiamine HCl (Vitamin B1 Tab) 100 mg PO BID [facility] Last Admin: 06/03/17 09:06 Dose: 100 mg Zolpidem Tartrate (Ambien) 5 mg PO [facility] Last Admin: 06/02/17 21:53 Dose: 5 mg - Constitutional Appears: No Acute Distress, Confused, Chronically Ill - Head Exam Head Exam: NORMOCEPHALIC - Eye Exam Pupil Exam: NORMAL ACCOMODATION - ENT Exam ENT Exam: Normal Exam - Neck Exam Neck Exam: Full ROM - Respiratory Exam Respiratory Exam: NORMAL BREATHING PATTERN - GI/Abdominal Exam Additional comments: no abdominal pain, eats well - Exam Additional comments: no dysuria - Extremities Exam Additional comments: has unsteady gait - Neurological Exam Neurological Exam: Alert, Awake - Psychiatric Exam Psychiatric exam: Normal Affect, Normal Mood Assessment and Plan - Assessment and Plan (Free Text) Assessment: Dementia Delirium Gait dysfunction hx of CVA Plan: Continue Ativan prn, Aricept and Ambien as ordered. Psych ochoa, stable to go for [facility] at [facility].
== END 2017-06-03 17:15 | DRG 391 ==
LOC: C.ER 14:43 → C.9E 15:49 → C.5T 22:09 → OBSVTOIN 06-02 17:40
PROVIDERS: ADMIT Internal Medicine; ATTEND Internal Medicine
DX: R10.9 Unspecified abdominal pain (principal); G93.41 Metabolic encephalopathy; F05 Delirium due to known physiological condition; C64.9 Malignant neoplasm of unspecified kidney, except renal pelvis; E10.22 Type 1 diabetes mellitus with diabetic chronic kidney disease; F03.91 Unspecified dementia, unspecified severity, with behavioral disturbance; W06.XXXA Fall from bed, initial encounter; E78.00 Pure hypercholesterolemia, unspecified; I12.9 Hypertensive chronic kidney disease with stage 1 through stage 4 chronic kidney disease, or unspecified chronic kidney disease; N18.9 Chronic kidney disease, unspecified; K21.9 Gastro-esophageal reflux disease without esophagitis; I69.30 Unspecified sequelae of cerebral infarction; Z91.81 History of falling; R26.0 Ataxic gait

== ENCOUNTER 2017-07-01 05:09 | Inpatient (IN) | payer MEDICARE, MEDICAID ==
[2017-07-01 05:10] VITALS: BMI 26.3
[2017-07-01] MEDS ORDERED: EPINEPHrine 1 mg/ml (1:1000) Inj IV ONE ×2 (05:25→05:28)
[2017-07-01] MEDS ORDERED: EPINEPHrine 1 mg/ml (1:1000) Inj SC ONE (05:28)
[2017-07-01] MEDS ORDERED: Sodium Chloride 0.9% 1,000 ML IV ONE ×4 (05:35→10:33)
[2017-07-01] MEDS ORDERED: Pantoprazole 80 MG in Sodium Chloride 0.9% 100 ML IV STA (05:35)
--- NOTE | 2017-07-01 05:37 | C.PDOC ---
History Of Present Illness pt from de brought for coffee ground emesis. Pt agonal, , unresponsive. Pt intubated in the ed. Lost pulse, cpr initiated. Have ROSC Time Seen by Provider: 07/01/17 05:34 Chief Complaint (Nursing): Respiratory Distress History Per: EMS History/Exam Limitations: clinical condition Onset/Duration Of Symptoms: Unknown Current Symptoms Are (Timing): Worse Number Of Bleeding Episodes: Unknown Amount of Blood Loss: Medium Severity: Severe Pain Scale Rating Of: 10 Quality Of Discomfort: Unable To Describe Associated Symptoms: Nausea, Vomiting, Coffee Ground material Recent travel outside of the [place]: No Additional History Per: [facility] Past Medical History Reviewed: Historical Data, Nursing Documentation, Vital Signs Vital Signs: Last Vital Signs Temp 99 F 07/01/17 05:40 Pulse 135 H 07/01/17 05:40 Resp 22 07/01/17 05:40 BP 148/108 H 07/01/17 05:40 Pulse Ox 86 L 07/01/17 06:26 - Medical History PMH: Arthritis, CVA, Dementia, Diabetes, HTN, Hypercholesterolemia, Malignancy ( renal CA), Chronic Kidney Disease Denies: Hepatitis, HIV, Seizures, Sexually Transmitted Disease - [facility] Procedures INCIS W REM OF FORIEGN BODY OR DEV FROM SKIN & SUBCUT TISSUE (10/12/13) Family History: States: No Known Family Hx - Social History Hx Tobacco Use: No Hx Alcohol Use: No Hx Substance Use: No - Immunization History Hx Tetanus Toxoid Vaccination: No Hx Influenza Vaccination: Yes (08/2014) Hx Pneumococcal Vaccination: Yes (2012) Review Of Systems Review Of Systems: ROS cannot be obtained secondary to pt's inabilty to answer questions. Physical Exam - Physical Exam Appears: In Acute Distress Skin: Diaphoretic, Pale Head: Normacephalic Eye(s): bilateral: Other (fixed, dilated) Oral Mucosa: Dry Teeth: Other (poor dentition) Neck: Trachea Midline, Supple Chest: Symmetrical Cardiovascular: Rhythm Regular (tachy(after epi)) Respiratory: Decreased Breath Sounds, No Rales, Rhonchi Gastrointestinal/Abdominal: Soft, No Distention Back: Normal Inspection Extremity: No Pedal Edema Neurological/Psych: Other (intubated, unresponsive) Gait: Unable To Assess ED Course And Treatment - Laboratory Results Result Diagrams: 07/01/17 05:56 07/01/17 05:56 ECG: Interpreted By Me, Viewed By Me ECG Rhythm: Sinus Tachycardia (116), Nonspecific Changes O2 Sat by Pulse Oximetry: 86 Pulse Ox Interpretation: Abnormal - Radiology CXR: Interpreted by Me, Viewed By Me CXR Interpretation: Yes: Cardiomegaly, Other (ett in place, not much changed since 06/01/17(except the ett)). No: Fracture Progress Note: pt brought in agonal, intubated. pt lost pulse and cpr initiated. - see code sheet. pt with pulses and rosc. shayla placed 45 mm IO right humerus. I've did femoral stick for blood Critical Care Time - Critical Care Note Total Time (in mins): 30 Documented critical care: time excludes all time spent performing seperately billable procedures. Endotracheal Intubation - Endotracheal Intubation Intubated With ETT Size: 75 Indication: Respiratory Failure Intubated: Orally Pre-Intubation Airway Assessment: Ventilated And Oxygenated Post-Intubation Assessment: ETT Secured AT (cm): (2), Breath Sounds Equal Bilat , Placement Confirmed Via CXR, Color Change W/End Tidal CO2 Detector, Oxygen Saturation: (95) Disposition Discussed With DrDavid: Nico Venegas Comment: accepted the pt on his service and took over the care at 6:15 AM Doctor Will See Patient In The: ED Counseled Patient/Family Regarding: Studies Performed, Diagnosis - Disposition Disposition: HOSPITALIZED Disposition Time: 05:35 Condition: CRITICAL - Clinical Impression Clinical Impression: GI bleed, Respiratory failure, Cardiac arrest Decision To Admit - Pt Status Changed To: Hospital Disposition Of: Inpatient - Admit Certification Admit to Inpatient:: After my assessment, the patient will require hospitalization for at least two midnights. This is because of the severity of symptoms shown, intensity of services needed, and/or the medical risk in this patient being treated as an outpatient. - InPatient: Physician Admission Certification: I certify that this patient requires 2 or more midnights of care for the following reason:: After my assessment, the patient will require hospitalization for at least two midnights. This is because of the severity of symptoms shown, intensity of services needed, and/or the medical risk in this patient being treated as an outpatient. - . Bed Request Type: ICU Admitting Physician: Nico Venegas Patient Diagnosis: GI bleed, Respiratory failure, Cardiac arrest
[2017-07-01 05:59] LABS: BASO # 0.2 K/uL (0.0-0.2); BASO % 0.5 % (0.0-2.0); HEMATOCRIT 34.4 % (35.0-51.0); LYMPH # 2.4 K/uL (1.0-4.3); LYMPH % 7.1 % (20.0-40.0); MEAN CELL VOLUME 91.4 fL (80.0-94.0); MEAN CORPUSCULAR HEMOGLOBIN 28.5 pg (27.0-31.0); MEAN CORPUSCULAR HGB CONC 31.1 g/dL (33.0-37.0); MEAN PLATELET VOLUME 9.5 fL (7.2-11.7); MONO # 1.6 K/uL (0.0-0.8); MONO % 4.8 % (0.0-10.0); PLATELET COUNT 571 K/uL (130-400); RED CELL DISTRIBUTION WIDTH 17.1 % (11.5-14.5)
[2017-07-01 06:06] LABS: RBC URINE 1 /hpf (0-3); URINE BILIRUBIN NEGATIVE (NEGATIVE); URINE BLOOD NEGATIVE (NEGATIVE); URINE COLOR Amber (YELLOW); URINE GLUCOSE (UA) 1+ mg/dL (Normal); URINE HYALINE CAST 0-2 /lpf (0-2); URINE KETONE TRACE mg/dL (NEGATIVE); URINE LEUKOCYTE ESTERASE NEG Leu/uL (Negative); URINE PROTEIN 3+ mg/dL (NEGATIVE); URINE UROBILINOGEN NORMAL mg/dL (0.2-1.0); WBC URINE 2 /hpf (0-5)
[2017-07-01 06:13] LABS: BILIRUBIN,TOTAL 0.9 mg/dL (0.2-1.3)
[2017-07-01 06:14] LABS: ALB/GLOB RATIO 0.7 (1.0-2.1); CALCIUM 9.5 mg/dl (8.6-10.4)
[2017-07-01] MEDS ORDERED: Piperacillin/Tazobact 3.375 gm 100 ML IVPB STA (06:14)
[2017-07-01 06:26] LABS: INR 1.2
[2017-07-01] MEDS ORDERED: Piperacillin/Tazobact 3.375 gm 100 ML IVPB ONE (06:41)
[2017-07-01] MEDS ORDERED: DOPamine 400mg/250ml D5W 400 MG/250 ML BAG IV ONE (06:46)
[2017-07-01] MEDS: DOPamine 400mg/250ml D5W 400 MG/250 ML BAG IV PRN ×2 (06:50→10:47)
[2017-07-01 06:52] LABS: ABG ALLEN TEST POS; ABG MECHANICAL RATE 18; ARTERIAL BLOOD GAS MODE PRVC; ATERIAL BLOOD GAS PEEP 5; DRAW SITE L RAD
[2017-07-01 06:55] LABS: POTASSIUM 6.1 mmol/L (3.6-5.2)
[2017-07-01] MEDS ORDERED: Vancomycin 1 GM 1 GM/250 ML BAG IVPB ONE (06:56)
[2017-07-01] MEDS: Vancomycin 1 gm/NS 200 ml 1 GM/200 ML BAG IVPB SCH (06:58)
[2017-07-01] MEDS ORDERED: Calcium Gluconate 4.65 MEQ in Dextrose 5% In Water 100 ML IVPB STA (06:58)
[2017-07-01] MEDS ORDERED: Calcium Gluconate 4.65 mEq/10 ml Inj ONE (07:01)
[2017-07-01] MEDS ORDERED: Sodium Chloride 0.9% 1,000 ML ONE (07:02)
[2017-07-01 07:26] LABS: NEUTROPHIL 76 % (50-75); TOTAL CELLS COUNTED 100
--- NOTE | 2017-07-01 09:06 | RAD ---
PROCEDURE: CHEST RADIOGRAPH, 1 VIEW HISTORY: GI Bleeding COMPARISON: 06/01/2017 FINDINGS: LUNGS: Endotracheal tube extending into the mid thoracic trachea. Patchy confluent somewhat ill-defined airspace consolidative changes in the right mid to lower lung zone with elevated right hemidiaphragm. Bilateral hilar prominence ; left greater than right. PLEURA: No pneumothorax or pleural fluid seen. CARDIOVASCULAR: Tortuous aorta. Calcification at the aortic knob. OSSEOUS STRUCTURES: Degenerative changes in the spine and shoulders. VISUALIZED UPPER ABDOMEN: Normal. OTHER FINDINGS: None. IMPRESSION: Endotracheal tube extending into the mid thoracic trachea. Patchy confluent somewhat ill-defined airspace consolidative changes in the right mid to lower lung zone with elevated right hemidiaphragm. Bilateral hilar prominence ; left greater than right.
[2017-07-01] MEDS ORDERED: Sod Polystyrene Sulf 15 gm/60 ml Oral Susp PO ONE (09:52)
[2017-07-01] MEDS ORDERED: Dextrose 50% SYRINGE Inj (50 ml) IV STA (09:55)
[2017-07-01] MEDS ORDERED: (Novolin R) Insulin Human Regular 100 units/ml vial IV ONE (09:57)
[2017-07-01] MEDS: Sodium Chloride 0.9% 1,000 ML IV SCH ×3 (10:24→20:00)
[2017-07-01] MEDS ORDERED: Norepinephrine 8 MG in Sodium Chloride 0.9% 242 ML IV PRN (10:28)
[2017-07-01 10:31] LABS: ABG MECHANICAL RATE 12; ARTERIAL BLOOD GAS MODE PRVC; ATERIAL BLOOD GAS PEEP 5; DRAW SITE RB
[2017-07-01 11:10] LABS: TROPONIN I 0.102 ng/mL (0.00-0.120)
[2017-07-01] MEDS: Piperacill/Tazo 2.25gm in Dex 2.25 GM/50 ML BAG IVPB SCH ×3 (11:19→22:46)
[2017-07-01] MEDS ORDERED: (Novolin R) Insulin Human Regular 100 units/ml vial SC SCH (11:30)
[2017-07-01] MEDS ORDERED: Midazolam 2 MG/2 ML VIAL IVP ONE (11:50)
--- NOTE | 2017-07-01 12:08 | CP.PCM.CON ---
<Caro Martinez - Last Filed: 07/01/17 17:36> History of Present Illness - History of Present Illness History of Present Illness: Patient is a 76 year old male with a medical history of CVA, Dementia, DM, Hypertension, hypercholesteremia, CKD, and renal carcinoma, presents to the ED from a fdc with coffee ground emesis. In the ED, he was unresponsive, intubated and went into cardiac arrest. CPR was given and patient had return of spontaneous circulation. Patient was transferred and consulted in the ICU for respiratory failure and cardiac arrest. The patient is intubated and not able to follow commands, therefore, history and review of systems was not obtained. PMHx: CVA, Dementia, DM, Hypertension, hypercholesteremia, CKD, renal carcinoma , arthritis (as per previous visits and fdc notes) Allergies: Acetaminophen, ASA Review of Systems - Review of Systems Systems not reviewed;Unavailable: Intubated Past Patient History - Infectious Disease Hx of Infectious Diseases: None - Past Medical History & Family History Past Medical History?: Yes - Past Social History Smoking Status: Former Smoker - CARDIAC Hx Hypercholesterolemia: Yes Hx Hypertension: Yes - PULMONARY Hx Tuberculosis: No - NEUROLOGICAL Hx Dementia: Yes Hx Seizures: No - HEENT Hx HEENT Problems: No - RENAL Hx Chronic Kidney Disease: Yes - ENDOCRINE/METABOLIC Hx Endocrine Disorders: Yes Hx Diabetes Mellitus Type 1: Yes - HEMATOLOGICAL/ONCOLOGICAL Hx Human Immunodeficiency Virus (HIV): No - INTEGUMENTARY Hx Dermatological Problems: No - MUSCULOSKELETAL/RHEUMATOLOGICAL Hx Arthritis: Yes - GASTROINTESTINAL Hx Gastrointestinal Disorders: Yes Hx Gastroesophageal Reflux: Yes - GENITOURINARY/GYNECOLOGICAL Hx Sexually Transmitted Disorders: No - PSYCHIATRIC Hx Substance Use: No - SURGICAL HISTORY Hx Surgeries: Yes Hx Herniorrhaphy: Yes Other/Comment: left nephrectomy, left lung sx, - ANESTHESIA Hx Anesthesia: Yes Hx Anesthesia Reactions: No Hx Malignant Hyperthermia: No Meds Allergies/Adverse Reactions: Allergies Allergy/AdvReac Type Severity Reaction Status Date / Time acetaminophen [From Tylenol] Allergy Intermediate Tinnitus Verified 07/01/17 05: 32 aspirin Allergy Intermediate Tinnitus Verified 07/01/17 05:32 - Medications Medications: Current Medications Vancomycin/Sodium Chloride (Vancocin) 1 gm in 200 mls @ 166.667 mls/hr IVPB STAT [facility] Stop: 07/06/17 06:16 Last Admin: 07/01/17 06:58 Dose: 166.667 mls/hr Dopamine HCl/Dextrose (Dopamine 400mg/250ml D5w) 400 mg in 250 mls @ 59.534 mls /hr IV .Q4H12M PRN; 20 MCG/KG/MIN PRN Reason: TITRATE PER MD ORDER Last Admin: 07/01/17 10:47 Dose: 59.534 mls/hr Sodium Chloride (Sodium Chloride 0.9%) 1,000 mls @ 100 mls/hr IV .Q10H [facility] Last Admin: 07/01/17 10:24 Dose: 100 mls/hr Norepinephrine Bitartrate 8 mg (/ Sodium Chloride) 250 mls @ 7.5 mls/hr IV .Q24H PRN; Protocol; 4 MCG/MIN PRN Reason: TITRATE PER MD ORDER Last Titration: 07/01/17 11:40 Dose: 0 mcg/min, 0 mls/hr Piperacillin Sod/Tazobactam Sod (Zosyn 2.25 Gm Iv Premix) 2.25 gm in 50 mls @ 100 mls/hr IVPB Q6H [facility] Last Admin: 07/01/17 11:19 Dose: 100 mls/hr Insulin Human Regular (Novolin R) 0 unit SC ACHS [facility] PRN Reason: Protocol Pantoprazole Sodium (Protonix Inj) 40 mg IVP Q12 [facility] Last Admin: 07/01/17 10:44 Dose: 40 mg Physical Exam - Constitutional Appears: Chronically Ill - Head Exam Head Exam: ATRAUMATIC, NORMAL INSPECTION - Eye Exam Eye Exam: Normal appearance. absent: EOMI (tracking; unable to follow commands) - ENT Exam ENT Exam: Mucous Membranes Dry - Respiratory Exam Respiratory Exam: Decreased Breath Sounds, Rales, Wheezes. absent: Clear to Auscultation Bilateral - Cardiovascular Exam Cardiovascular Exam: +S1, +S2 - GI/Abdominal Exam GI & Abdominal Exam: Normal Bowel Sounds, Soft - Extremities Exam Extremities exam: Negative for: pedal edema, pedal pulses present (diminished pulses) - Neurological Exam Neurological exam: Alert - Skin Skin Exam: Dry, Normal Color Results - Vital Signs Recent Vital Signs: Last Vital Signs Temp 95 F L 07/01/17 07:20 Pulse 114 H 07/01/17 11:20 Resp 30 H 07/01/17 11:20 BP 140/70 07/01/17 11:20 Pulse Ox 99 07/01/17 11:20 - Labs Result Diagrams: 07/01/17 13:05 07/01/17 13:05 Labs: Laboratory Results - last 24 hr 07/01/17 07/01/17 06:47 10:27 Puncture Site L rad Rb pCO2 11 L* 30 L pO2 178 H 58 L HCO3 18.6 L 12.2 L ABG pH 7.57 H 7.18 L* ABG Total CO2 10.4 L 12.1 L ABG O2 Saturation 100.6 H 91.1 L ABG Base Excess -8.2 L -15.8 L Wilner Test Pos Na ABG Potassium 3.4 L 3.7 A-a O2 Difference 521.0 404.0 Respiratory Index 2.9 7.0 Sodium 153.0 H 147.0 Chloride 122.0 H 114.0 H Glucose 247 H 332 H Lactate 8.7 H* 9.8 H* Vent Mode Prvc Prvc Mechanical Rate 18 12 FiO2 100.0 70.0 Tidal Volume 450 450 PEEP 5 5 Crit Value Called To Dr yan olvera Crit Value Called By Kristin rocha rt Jasmin boyd sail lay out worker Crit Value Read Back Y Y Blood Gas Notified Time 653 1032 Arterial Blood Potassium 3.4 L 3.7 Assessment & Plan (1) Severe sepsis Assessment and Plan: Neuro: - Alert, not oriented. Eyes are tracking but unable to follow commands. - Left sided weakness, likely secondary to history of CVA Pulm: - Pressure support trial - CXR: patchy confluent ill defined airspace consolidative changes in right mid to lower lung zone with elevated right hemidiaphragm; bilateral hilar prominence ; left greater than right - ABG: pH 7.57, pCO2 11 - Repeat ABG: pH 7.18, pCO2 30 - Repeat ABG (#3): f/u CV: - Hypotension, likely secondary to sepsis - Dopamine 400mg IV - Levophed 8mg in NS IV - Monitor vitals - ROMIs: negative, 0.1020 - ECHO: f/u, pending official report; EF 37.4% - WBC 34, Bandemia 10 (repeat CBC-9) - C.Diff: f/u - Zosyn 2.25gm IV Q6 - Vanco 1gm IV - Blood cx: f/u - Urine cx: f/u Endo: - History of DM - Monitor blood glucose, Accuchecks Q6 - ISS GI: - Bloody output in OG tube - WBC 34, Bandemia 10 (repeat CBC-9) - C.Diff: f/u Renal: - Acute kidney failure, possibly secondary to hyperkalemia. - Hyperkalemia (6.1)- calcium gluconate given in ED; Kayexalate given once - Repeat CMP: K+ 3.0 - Metabolic acidosis - Anion gap 30 - Anion gap after repeat CMP, 19 Prophylaxis: DVT: contraindicated- increased risk bleed, GI bleed GI: Protonix 40mg IV Q12 PT/OT Status: Acute <Albert Olvera - Last Filed: 07/01/17 18:38> Meds - Medications Medications: Current Medications Vancomycin/Sodium Chloride (Vancocin) 1 gm in 200 mls @ 166.667 mls/hr IVPB STAT [facility] Stop: 07/06/17 06:16 Last Admin: 07/01/17 06:58 Dose: 166.667 mls/hr Sodium Chloride (Sodium Chloride 0.9%) 1,000 mls @ 100 mls/hr IV .Q10H [facility] Last Admin: 07/01/17 10:24 Dose: 100 mls/hr Norepinephrine Bitartrate 8 mg (/ Sodium Chloride) 250 mls @ 7.5 mls/hr IV .Q24H PRN; Protocol; 4 MCG/MIN PRN Reason: TITRATE PER MD ORDER Last Titration: 07/01/17 17:53 Dose: 10 mcg/min, 18.75 mls/hr Piperacillin Sod/Tazobactam Sod (Zosyn 2.25 Gm Iv Premix) 2.25 gm in 50 mls @ 100 mls/hr IVPB Q6H [facility] Last Admin: 07/01/17 16:42 Dose: 100 mls/hr Sodium Chloride (Sodium Chloride 0.9%) 1,000 mls @ 100 mls/hr IV .Q10H [facility] Insulin Human Regular (Novolin R) 0 unit SC Q6H [facility] PRN Reason: Protocol Last Admin: 07/01/17 17:57 Dose: 4 unit Pantoprazole Sodium (Protonix Inj) 40 mg IVP Q12 [facility] Last Admin: 07/01/17 10:44 Dose: 40 mg Results - Vital Signs Recent Vital Signs: Last Vital Signs Temp 94.6 F L 07/01/17 13:00 Pulse 115 H 07/01/17 18:00 Resp 32 H 07/01/17 18:00 BP 141/69 07/01/17 17:17 Pulse Ox 98 07/01/17 18:00 - Labs Result Diagrams: 07/01/17 13:05 07/01/17 13:05 Labs: Laboratory Results - last 24 hr 07/01/17 07/01/17 07/01/17 06:47 10:27 11:33 WBC RBC Hgb Hct MCV MCH MCHC RDW Plt Count MPV Neut % (Auto) Lymph % (Auto) [place]in % (Auto) Eos % (Auto) Baso % (Auto) Neut # Lymph # Hardin # Eos # Baso # Neutrophils % (Manual) Band Neutrophils % Lymphocytes % (Manual) Monocytes % (Manual) Platelet Estimate Large Platelets Giant Platelets Hypochromasia (manual) Poikilocytosis (manual Anisocytosis (manual) Kavin Cells Puncture Site L rad Rb pCO2 11 L* 30 L pO2 178 H 58 L HCO3 18.6 L 12.2 L ABG pH 7.57 H 7.18 L* ABG Total CO2 10.4 L 12.1 L ABG O2 Saturation 100.6 H 91.1 L ABG Base Excess -8.2 L -15.8 L Wilner Test Pos Na ABG Potassium 3.4 L 3.7 A-a O2 Difference 521.0 404.0 Respiratory Index 2.9 7.0 Sodium 153.0 H 147.0 Chloride 122.0 H 114.0 H Glucose 247 H 332 H Lactate 8.7 H* 9.8 H* Vent Mode Prvc Prvc Mechanical Rate 18 12 FiO2 100.0 70.0 Tidal Volume 450 450 PEEP 5 5 Crit Value Called To Dr yan olvera Crit Value Called By Kristin rocha rt Jasmin boyd sail lay out worker Crit Value Read Back Y Y Blood Gas Notified Time 653 1032 Potassium Carbon Dioxide Anion Gap BUN Creatinine Est GFR ( Amer) Est GFR (Non-Af Amer) POC Glucose (mg/dL) 393 H Random Glucose Lactic Acid Calcium Phosphorus Magnesium Total Bilirubin AST ALT Alkaline Phosphatase Total Protein Albumin Globulin Albumin/Globulin Ratio Arterial Blood Potassium 3.4 L 3.7 07/01/17 07/01/17 07/01/17 13:05 13:05 14:42 WBC 34.1 H RBC 3.39 L Hgb 9.5 L Hct 30.9 L MCV 91.3 MCH 28.0 MCHC 30.6 L RDW 16.7 H Plt Count 423 H D MPV 9.0 Neut % (Auto) 91.4 H Lymph % (Auto) 1.3 L Hardin % (Auto) 7.3 Eos % (Auto) 0.0 Baso % (Auto) 0.0 Neut # 31.1 H Lymph # 0.4 L Hardin # 2.5 H Eos # 0.0 Baso # 0.0 Neutrophils % (Manual) 79 H Band Neutrophils % 9 H Lymphocytes % (Manual) 7 L Monocytes % (Manual) 5 Platelet Estimate Normal Large Platelets Present Giant Platelets Present Hypochromasia (manual) Slight Poikilocytosis (manual Slight Anisocytosis (manual) Slight [place] Cells Slight Puncture Site pCO2 pO2 HCO3 ABG pH ABG Total CO2 ABG O2 Saturation ABG Base Excess Wilner Test ABG Potassium A-a O2 Difference Respiratory Index Sodium 146 Chloride 111 H Glucose Lactate Vent Mode Mechanical Rate FiO2 Tidal Volume PEEP Crit Value Called To Crit Value Called By Crit Value Read Back Blood Gas Notified Time Potassium 3.0 L Carbon Dioxide 16 L Anion Gap 22 H BUN 20 Creatinine 1.8 H Est GFR ( Amer) 44 Est GFR (Non-Af Amer) 37 POC Glucose (mg/dL) Random Glucose 363 H Lactic Acid 6.3 H* Calcium 8.3 L Phosphorus 3.8 Magnesium 1.9 Total Bilirubin 0.5 AST 75 H D ALT 83 H Alkaline Phosphatase 139 H Total Protein 5.7 L Albumin 2.2 L D Globulin 3.5 Albumin/Globulin Ratio 0.6 L Arterial Blood Potassium 07/01/17 07/01/17 17:50 18:25 WBC RBC Hgb Hct MCV MCH MCHC RDW Plt Count MPV Neut % (Auto) Lymph % (Auto) Hardin % (Auto) Eos % (Auto) Baso % (Auto) Neut # Lymph # Hardin # Eos # Baso # Neutrophils % (Manual) Band Neutrophils % Lymphocytes % (Manual) Monocytes % (Manual) Platelet Estimate Large Platelets Giant Platelets Hypochromasia (manual) Poikilocytosis (manual Anisocytosis (manual) Kavin Cells Puncture Site Rra pCO2 30 L pO2 60 L HCO3 21.2 ABG pH 7.41 ABG Total CO2 19.9 L ABG O2 Saturation 96.7 ABG Base Excess -4.5 L Wilner Test Pos ABG Potassium 3.4 L A-a O2 Difference 402.0 Respiratory Index 6.7 Sodium 147.0 Chloride 118.0 H Glucose 287 H Lactate 3.5 H Vent Mode A/c Mechanical Rate FiO2 70.0 Tidal Volume 450 PEEP 5 Crit Value Called To Crit Value Called By Crit Value Read Back Blood Gas Notified Time Potassium Carbon Dioxide Anion Gap BUN Creatinine Est GFR ( Amer) Est GFR (Non-Af Amer) POC Glucose (mg/dL) 296 H Random Glucose Lactic Acid Calcium Phosphorus Magnesium Total Bilirubin AST ALT Alkaline Phosphatase Total Protein Albumin Globulin Albumin/Globulin Ratio Arterial Blood Potassium 3.4 L Attending/Attestation - Attestation I have personally seen and examined this patient.: Yes I have fully participated in the care of the patient.: Yes I have reviewed all pertinent clinical information: Yes Notes (Text): 07/01/17 18:36 I have seen and examined the patient. Medical records, lab studies, and imaging were reviewed by me and a management plan was formulated on multidisciplinary rounds with resident Dr. Jenkins. I agree with their above documented assessment and plan. Patient is in hypovolemic shock, improving with aggresive fluid resuscitation. Possible septic shock but source undetermined. Empiric broad spectrum coverage with Vanco and Zosyn. SAYDA with hyperkalemia now improving. Patient is alert and tracking, but not following commands, baseline was poor according to partner. Critical Care Time 35 minutes. Multi-disciplinary rounds were performed with house staff, nursing, speech therapy, respiratory therapy, pharmacy and nutrition with integrated input from the primary team/attending and other consulting services. The documented time is cumulative and includes review of patient data/exams/labs/chart review and examination of the patient on rounds and throughout the day; time is exclusive of any procedures or teaching time.
--- NOTE | 2017-07-01 12:47 | PCM.PROC ---
<Vy Gayle - Last Filed: 07/01/17 12:45> Procedures Attestation:: I certify that I have explained the specified Operation(s) or Procedure(s), risks, benefits and reasonable alternatives to the Patient and/or other person responsible. The opportunity was given to ask questions and all questions answered - Central Line Placement Left Subclavian Aseptic technique was employed throughout the procedure: Hand Hygiene done prior to procedure, Full sterile barriers (mask, hair cover, sterile gown, sterile gloves), Full body sterile drape, Chloraprep Antiseptic: 30 second prep for IJ or SC sites CVP Time Out Performed: Yes Pt. Placed on Pulse Ox Monitor: Yes Central Line Prep: Chlorhexidine-Alcohol Combination Local Anesthesia Used: Lidocaine 2% Ultrasound Used for Placement: Yes Central Line Lumen Inserted: triple Central Line Length: 20 cm Post Procedure: Sutured in Place, Good Blood Return, All Ports Aspirated, Flushed, Capped, Sterile Dressing Applied Secured by: Suture Post procedure dressing: Gauze, Chlorhexidine disc (Biopatch) Post Procedure X-Ray: Yes Patient Tolerated Procedure: Well Immediate Complications: None <Albert Olvera - Last Filed: 07/01/17 15:29> Attending/Attestation - Attestation I have personally seen and examined this patient.: Yes I have fully participated in the care of the patient.: Yes I have reviewed all pertinent clinical information, including history, physical exam and plan: Yes Notes (Text): 07/01/17 15:28 This procedure was performed with my assistance and supervision with resident Dr. Kajal Gayle. The procedure was tolerated well, no complications.
[2017-07-01 13:17] LABS: HEMATOCRIT 30.9 % (35.0-51.0); LYMPH # 0.4 K/uL (1.0-4.3); LYMPH % 1.3 % (20.0-40.0); MEAN CELL VOLUME 91.3 fL (80.0-94.0); MEAN CORPUSCULAR HGB CONC 30.6 g/dL (33.0-37.0); MONO # 2.5 K/uL (0.0-0.8); MONO % 7.3 % (0.0-10.0); RED CELL DISTRIBUTION WIDTH 16.7 % (11.5-14.5); WHITE BLOOD COUNT 34.1 K/uL (4.8-10.8)
[2017-07-01 13:26] LABS: PLATELET COUNT 423 K/uL (130-400)
[2017-07-01 13:37] LABS: ALB/GLOB RATIO 0.6 (1.0-2.1); BILIRUBIN,TOTAL 0.5 mg/dL (0.2-1.3); TOTAL PROTEIN 5.7 g/dL (6.3-8.3)
[2017-07-01 13:38] LABS: CALCIUM 8.3 mg/dl (8.6-10.4); MAGNESIUM 1.9 mg/dL (1.6-2.3); PHOSPHOROUS 3.8 mg/dL (2.5-4.5)
[2017-07-01 13:48] LABS: NEUTROPHIL 79 % (50-75); TOTAL CELLS COUNTED 100
[2017-07-01 13:49] LABS: GIANT PLATELETS PRESENT; LARGE PLATELETS PRESENT
--- NOTE | 2017-07-01 16:33 | RAD ---
HISTORY: s/p subclavian central line COMPARISON: Chest x-ray performed 07/01/17 TECHNIQUE: Chest, one view. FINDINGS: Endotracheal tube terminates approximately 2.3 cm from the herberth. Nasogastric tube terminates within the esophagus and should be advanced approximately 16 cm. Left-sided central venous catheter terminates at the brachiocephalic/SVC junction. Numerous external wires and leads as well as external defibrillator pads obscure evaluation. Heart size appears top normal. Interval increase in ill-defined inferior right upper lobe consolidative changes. No large pleural effusion or definite pneumothorax identified. Degenerative changes of the spine. IMPRESSION: Endotracheal tube terminates approximately 2.3 cm from the herberth. Nasogastric tube terminates within the esophagus and should be advanced approximately 16 cm. Left-sided central venous catheter terminates at the brachiocephalic/SVC junction. Interval increase in ill-defined inferior right upper lobe consolidative changes. Line placement discussed with the patient's CUPOLA TAPPERNELSY Vanessa on 07/01/17 at 4:30 p.m.
[2017-07-01] MEDS: (Novolin R) Insulin Human Regular 100 units/ml vial SC SCH (17:57)
[2017-07-01 18:31] LABS: ABG ALLEN TEST POS; ARTERIAL BLOOD GAS MODE A/C; ATERIAL BLOOD GAS PEEP 5; DRAW SITE RRA
--- NOTE | 2017-07-01 19:04 | PCM.SEPTIC ---
<Caro Martinez - Last Filed: 07/01/17 19:01> Sepsis Progress Note - Reassessment Type Date of Evaluation: 07/01/17 Time of Evaluation: 10:30 Reassessment Type: Invasive reassessment - Non Invasive Reassessment Were the most recent vital sign reviewed: Yes Vital Sign (Latest): Temp Pulse Resp BP Pulse Ox 94.6 F L 115 H 32 H 141/69 98 07/01/17 13:00 07/01/17 18:00 07/01/17 18:00 07/01/17 17:17 07/01/17 18:00 Cardiovascular: Yes: Chest Non Tender, Tachycardia. No: Edema Respiratory: Yes: Decreased Breath Sounds, Wheezing, Respiratory Distress Capillary Refill: Normal (Less than 2 sec) Pulses: Decreased Dorsalis Pedis, Decreased Posterior Tibialis Skin: Normal Color, Dry, Other (cold lower extremeties) - Invasive Reassessment (complete 2 of 4) Was a Central Venous Pressure Measurement obtained within 6 Hours after the presentation of septic shock: No Was a central venous oxygen measurement obtained within 6 hours after the presentation of septic shock: No Was a bedside cardiovascular ultrasound performed within 6 hours after the presentation of septic shock: Yes Type performed: Echocardiogram Was a passive leg raise performed or was a fluid challenge performed within 6 hrs of the initial fluid bolus: Yes Passive Leg Raise Result: Not Applicable Fluid Challenge performed: Yes <Albert Olvera - Last Filed: 07/03/17 14:17> Sepsis Progress Note - Non Invasive Reassessment Vital Sign (Latest): Temp Pulse Resp BP Pulse Ox 98 F 110 H 22 133/77 100 07/03/17 07:38 07/03/17 13:00 07/03/17 13:00 07/03/17 12:17 07/03/17 13:00 Attending/Attestation - Attestation I have personally seen and examined this patient.: Yes I have fully participated in the care of the patient.: Yes I have reviewed all pertinent clinical information, including history, physical exam and plan: Yes
--- NOTE | 2017-07-01 22:23 | CP.PCM.HP ---
History of Present Illness - History of Present Illness History of Present Illness: 76 Y/O BM WITH RENAL CELL CA, T2DM,HTN, LOW BACK PAIN, DEMENTIA, DEPRESSION AND SHE HAS H/O ETOH IN THE PAST, NOW HE IS IN [facility] AND THIS MORNING RN CALLED ME HE HAD COFFEE GROUND EMESIS AND LATER ON IN ER HE WENT IN CARDIOPULMONARY ARREST AND REVIVED AND NOW HE IS ON VENTILATOR, FEVER, CHILLS AND PALLOR, POOR IV ACCESS Present on Admission - Present on Admission Any Indicators Present on Admission: Yes History of DVT/PE: No History of Uncontrolled Diabetes: Yes Urinary Catheter: No Decubitus Ulcer Present: No Review of Systems - Review of Systems Systems not reviewed;Unavailable: Unstable Vital Signs - Constitutional Constitutional: Chills, Frequent Falls, Headache - EENT Eyes: Blurred Vision - Neurological Neurological: Abnormal Gait, Behavioral Changes, Weakness Past Patient History - Infectious Disease Hx of Infectious Diseases: None - Past Medical History & Family History Past Medical History?: Yes - Past Social History Smoking Status: Former Smoker - CARDIAC Hx Hypercholesterolemia: Yes Hx Hypertension: Yes - PULMONARY Hx Tuberculosis: No - NEUROLOGICAL Hx Dementia: Yes Hx Seizures: No - HEENT Hx HEENT Problems: No - RENAL Hx Chronic Kidney Disease: Yes - ENDOCRINE/METABOLIC Hx Endocrine Disorders: Yes Hx Diabetes Mellitus Type 1: Yes - HEMATOLOGICAL/ONCOLOGICAL Hx Human Immunodeficiency Virus (HIV): No - INTEGUMENTARY Hx Dermatological Problems: No - MUSCULOSKELETAL/RHEUMATOLOGICAL Hx Arthritis: Yes - GASTROINTESTINAL Hx Gastrointestinal Disorders: Yes Hx Gastroesophageal Reflux: Yes - GENITOURINARY/GYNECOLOGICAL Hx Sexually Transmitted Disorders: No - PSYCHIATRIC Hx Substance Use: No - SURGICAL HISTORY Hx Surgeries: Yes Hx Herniorrhaphy: Yes Other/Comment: left nephrectomy, left lung sx, - ANESTHESIA Hx Anesthesia: Yes Hx Anesthesia Reactions: No Hx Malignant Hyperthermia: No Meds Allergies/Adverse Reactions: Allergies Allergy/AdvReac Type Severity Reaction Status Date / Time acetaminophen [From Tylenol] Allergy Intermediate Tinnitus Verified 07/01/17 05: 32 aspirin Allergy Intermediate Tinnitus Verified 07/01/17 05:32 Physical Exam - Constitutional Appears: In Acute Distress - Head Exam Head Exam: ATRAUMATIC, NORMAL INSPECTION, NORMOCEPHALIC (ORALLY INTUBATED) - ENT Exam ENT Exam: Mucous Membranes Moist - Respiratory Exam Respiratory Exam: Decreased Breath Sounds, Rales, Rhonchi - Cardiovascular Exam Cardiovascular Exam: Tachycardia, +S1, +S2 - GI/Abdominal Exam GI & Abdominal Exam: Normal Bowel Sounds, Soft - Rectal Exam Rectal Exam: NORMAL INSPECTION - Exam Exam: NORMAL INSPECTION - Extremities Exam Extremities exam: Positive for: normal capillary refill, pedal edema - Neurological Exam Neurological exam: Abnormal Gait, Altered - Skin Skin Exam: Cyanosis, Dry Results - Vital Signs Recent Vital Signs: Last Vital Signs Temp 94.6 F L 07/01/17 13:00 Pulse 109 H 07/01/17 22:00 Resp 26 H 07/01/17 22:00 BP 127/76 07/01/17 21:16 Pulse Ox 99 07/01/17 22:00 - Labs Result Diagrams: 07/01/17 13:05 07/01/17 13:05 Labs: Laboratory Results - last 24 hr 07/01/17 07/01/17 07/01/17 06:47 10:27 11:33 WBC RBC Hgb Hct MCV MCH MCHC RDW Plt Count MPV Neut % (Auto) Lymph % (Auto) [place] % (Auto) Eos % (Auto) Baso % (Auto) Neut # Lymph # [place] # Eos # Baso # Neutrophils % (Manual) Band Neutrophils % Lymphocytes % (Manual) Monocytes % (Manual) Platelet Estimate Large Platelets Giant Platelets Hypochromasia (manual) Poikilocytosis (manual Anisocytosis (manual) [place] Cells Puncture Site L rad Rb pCO2 11 L* 30 L pO2 178 H 58 L HCO3 18.6 L 12.2 L ABG pH 7.57 H 7.18 L* ABG Total CO2 10.4 L 12.1 L ABG O2 Saturation 100.6 H 91.1 L ABG Base Excess -8.2 L -15.8 L Wilner Test Pos Na ABG Potassium 3.4 L 3.7 A-a O2 Difference 521.0 404.0 Respiratory Index 2.9 7.0 Sodium 153.0 H 147.0 Chloride 122.0 H 114.0 H Glucose 247 H 332 H Lactate 8.7 H* 9.8 H* Vent Mode Prvc Prvc Mechanical Rate 18 12 FiO2 100.0 70.0 Tidal Volume 450 450 PEEP 5 5 Crit Value Called To Dr yan britt Crit Value Called By Kristin rocha rt 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 Crit Value Read Back Y Y Blood Gas Notified Time [id number] Potassium Carbon Dioxide Anion Gap BUN Creatinine Est GFR ( Amer) Est GFR (Non-Af Amer) POC Glucose (mg/dL) 393 H Random Glucose Lactic Acid Calcium Phosphorus Magnesium Total Bilirubin AST ALT Alkaline Phosphatase Total Protein Albumin Globulin Albumin/Globulin Ratio Arterial Blood Potassium 3.4 L 3.7 07/01/17 07/01/17 07/01/17 13:05 13:05 14:42 WBC 34.1 H RBC 3.39 L Hgb 9.5 L Hct 30.9 L MCV 91.3 MCH 28.0 MCHC 30.6 L RDW 16.7 H Plt Count 423 H D MPV 9.0 Neut % (Auto) 91.4 H Lymph % (Auto) 1.3 L [place] % (Auto) 7.3 Eos % (Auto) 0.0 Baso % (Auto) 0.0 Neut # 31.1 H Lymph # 0.4 L [place] # 2.5 H Eos # 0.0 Baso # 0.0 Neutrophils % (Manual) 79 H Band Neutrophils % 9 H Lymphocytes % (Manual) 7 L Monocytes % (Manual) 5 Platelet Estimate Normal Large Platelets Present Giant Platelets Present Hypochromasia (manual) Slight Poikilocytosis (manual Slight Anisocytosis (manual) Slight [place] Cells Slight Puncture Site pCO2 pO2 HCO3 ABG pH ABG Total CO2 ABG O2 Saturation ABG Base Excess Wilner Test ABG Potassium A-a O2 Difference Respiratory Index Sodium 146 Chloride 111 H Glucose Lactate Vent Mode Mechanical Rate FiO2 Tidal Volume PEEP Crit Value Called To Crit Value Called By Crit Value Read Back Blood Gas Notified Time Potassium 3.0 L Carbon Dioxide 16 L Anion Gap 22 H BUN 20 Creatinine 1.8 H Est GFR ( Amer) 44 Est GFR (Non-Af Amer) 37 POC Glucose (mg/dL) Random Glucose 363 H Lactic Acid 6.3 H* Calcium 8.3 L Phosphorus 3.8 Magnesium 1.9 Total Bilirubin 0.5 AST 75 H D ALT 83 H Alkaline Phosphatase 139 H Total Protein 5.7 L Albumin 2.2 L D Globulin 3.5 Albumin/Globulin Ratio 0.6 L Arterial Blood Potassium 07/01/17 07/01/17 17:50 18:25 WBC RBC Hgb Hct MCV MCH MCHC RDW Plt Count MPV Neut % (Auto) Lymph % (Auto) [place] % (Auto) Eos % (Auto) Baso % (Auto) Neut # Lymph # [place] # Eos # Baso # Neutrophils % (Manual) Band Neutrophils % Lymphocytes % (Manual) Monocytes % (Manual) Platelet Estimate Large Platelets Giant Platelets Hypochromasia (manual) Poikilocytosis (manual Anisocytosis (manual) [place] Cells Puncture Site Rra pCO2 30 L pO2 60 L HCO3 21.2 ABG pH 7.41 ABG Total CO2 19.9 L ABG O2 Saturation 96.7 ABG Base Excess -4.5 L Wilner Test Pos ABG Potassium 3.4 L A-a O2 Difference 402.0 Respiratory Index 6.7 Sodium 147.0 Chloride 118.0 H Glucose 287 H Lactate 3.5 H Vent Mode A/c Mechanical Rate FiO2 70.0 Tidal Volume 450 PEEP 5 Crit Value Called To Crit Value Called By Crit Value Read Back Blood Gas Notified Time Potassium Carbon Dioxide Anion Gap BUN Creatinine Est GFR ( Amer) Est GFR (Non-Af Amer) POC Glucose (mg/dL) 296 H Random Glucose Lactic Acid Calcium Phosphorus Magnesium Total Bilirubin AST ALT Alkaline Phosphatase Total Protein Albumin Globulin Albumin/Globulin Ratio Arterial Blood Potassium 3.4 L Assessment & Plan (1) Cardiac arrest Assessment and Plan: REVIVED, ON MV AND HE IS UNRESPONSIVE Status: Acute (2) GI bleed Assessment and Plan: R/O PUD, STRESS GASTRITIS Status: Acute (3) Respiratory failure Status: Acute (4) Acute on chronic renal insufficiency Status: Acute (5) Diabetes Status: Chronic
[2017-07-02] MEDS: (Novolin R) Insulin Human Regular 100 units/ml vial SC SCH ×4 (00:17→17:52)
[2017-07-02] MEDS: Piperacill/Tazo 2.25gm in Dex 2.25 GM/50 ML BAG IVPB SCH ×4 (04:31→22:04)
[2017-07-02] MEDS: Sodium Chloride 0.9% 1,000 ML IV SCH ×2 (04:45→06:18)
[2017-07-02 06:29] LABS: ABG ALLEN TEST POS; ABG MECHANICAL RATE 12; ARTERIAL BLOOD GAS MODE PRVC; ARTERIAL BLOOD HGB O2 SAT 96.9 % (95.0-98.0); ATERIAL BLOOD GAS PEEP 5; CARBOXYHEMOGLOBIN 1.8 % (0.5-1.5); DRAW SITE L RAD; HHB -0.1 % (0.0-5.0); METHEMOGLOBIN 1.3 % (0.0-3.0)
[2017-07-02 06:41] LABS: ALB/GLOB RATIO 0.7 (1.0-2.1); BILIRUBIN,TOTAL 0.5 mg/dL (0.2-1.3); CALCIUM 7.6 mg/dl (8.6-10.4); MAGNESIUM 1.8 mg/dL (1.6-2.3); PHOSPHOROUS 3.6 mg/dL (2.5-4.5); POTASSIUM 3.9 mmol/L (3.6-5.2); TOTAL PROTEIN 5.5 g/dL (6.3-8.3)
[2017-07-02 06:42] LABS: BASO % 0.1 % (0.0-2.0); HEMATOCRIT 27.5 % (35.0-51.0); LYMPH # 0.8 K/uL (1.0-4.3); MEAN CELL VOLUME 88.5 fL (80.0-94.0); MEAN CORPUSCULAR HEMOGLOBIN 27.9 pg (27.0-31.0); MEAN CORPUSCULAR HGB CONC 31.5 g/dL (33.0-37.0); MEAN PLATELET VOLUME 9.6 fL (7.2-11.7); MONO # 1.6 K/uL (0.0-0.8); MONO % 5.8 % (0.0-10.0); PLATELET COUNT 402 K/uL (130-400); RED CELL DISTRIBUTION WIDTH 17.1 % (11.5-14.5); WHITE BLOOD COUNT 26.9 K/uL (4.8-10.8)
--- NOTE | 2017-07-02 08:55 | RAD ---
HISTORY: ff-up COMPARISON: Chest x-ray performed 07/01/17 TECHNIQUE: Chest, one view. FINDINGS: Numerous external wires and leads. Endotracheal tube terminates approximately 3.5 cm above the herberth. Nasogastric tube extends the expected location of the stomach. LUNGS: Persistent inferior right upper lobe consolidative changes. Small right pleural effusion. No definite pneumothorax. Please note that chest x-ray has limited sensitivity for the detection of pulmonary masses. CARDIOVASCULAR: Heart size appears within normal limits. Dense atherosclerotic of the aorta. OSSEOUS STRUCTURES: Degenerative changes of the spine. VISUALIZED UPPER ABDOMEN: Unremarkable. OTHER FINDINGS: None. IMPRESSION: Endotracheal tube terminates approximately 3.5 cm above the herberth. Nasogastric tube extends the expected location of the stomach. Persistent inferior right upper lobe consolidative changes. Small right pleural effusion.
[2017-07-02 09:36] LABS: LARGE PLATELETS PRESENT; NEUTROPHIL 74 % (50-75); TOTAL CELLS COUNTED 100
[2017-07-02] MEDS ORDERED: Vancomycin 1 gm/NS 200 ml 1 GM/200 ML BAG IVPB SCH (12:00)
[2017-07-02] MEDS: Vancomycin 1 gm/NS 200 ml 1 GM/200 ML BAG IVPB SCH (12:34)
--- NOTE | 2017-07-02 12:50 | CARD ---
APPROVED REPORT EKG Measurement Heart [id number] <Conclusion> Sinus tachycardia Left axis deviation Nonspecific ST abnormality Abnormal ECG
--- NOTE | 2017-07-02 13:13 | CP.CCUPN ---
<Caro Martinez - Last Filed: 07/02/17 14:09> CCU Subjective - Physician Review Subjective (Free Text): Patient was seen and examined at bedside in the morning. Patient is alert but unresponsive to commands and questions. Patient is intubated. Unable to obtain review of systems. 07/02/17 13:10 CCU Objective - Vital Signs / Intake & Output Vital Signs (Last 4 hours): Vital Signs BP 07/02/17 11:06 146/80 Intake and Output (Last 8hrs): Intake & Output 07/01/17 07/02/17 07/02/17 22:59 06:59 14:59 Intake Total 1495.0 943.1 100 Output Total 1365 240 5 Balance 130.0 703.1 95 Intake: IV 60 Intake, IV Amount 1435.0 943.1 100 Left Distal Port 135.0 43.1 Subclavian Left Medial Port 800 900 100 Subclavian Left Proximal Port 500 Subclavian Oral 0 Output: Gastric Amount 1300 200 Stomach 1300 200 Urine 65 40 5 Urethral ([place]) 65 40 5 Other: # Bowel Movements 1 1 - Physical Exam Head: Positive for: Atraumatic, Normocephalic Extroacular Muscles: Positive for: Other (opens eyes, looks at you, does not follow commands) Mouth: Positive for: Dry Respiratory/Chest: Positive for: Decreased Breath Sounds, Rhonchi Cardiovascular: Positive for: Regular Rate and Rhythm, Normal S1, S2 Abdomen: Positive for: Distention, Normal Bowel Sounds Upper Extremity: Positive for: Normal Inspection. Negative for: Edema, Swelling Lower Extremity: Positive for: Normal Inspection. Negative for: Edema, Swelling Skin: Positive for: Warm, Dry, Normal Color Psychiatric: Positive for: Alert. Negative for: Oriented x 3 - Medications Active Medications: Active Medications Generic Name Dose Route Start Last Admin Trade Name Freq PRN Reason Stop Dose Admin Albuterol/Ipratropium 3 ml 07/02/17 14:00 Duoneb 3 Mg/0.5 Mg (3 Ml) Ud INH RQ6 KESHA Heparin Sodium (Porcine) 5,000 units 07/02/17 22:00 Heparin SC Q12 KESHA Vancomycin/Sodium Chloride 1 gm in 200 mls @ 166.667 mls/hr 07/01/17 06:15 12:34 Vancocin IVPB 07/06/17 06:16 166.667 mls/hr STAT KESHA Administration Norepinephrine Bitartrate 8 mg 250 mls @ 7.5 mls/hr 07/01/17 10:28 07/01/17 18:30 / Sodium Chloride IV 8 mcg/min .Q24H PRN 15 mls/hr TITRATE PER MD ORDER Titration Protocol 4 MCG/MIN Piperacillin Sod/Tazobactam Sod 2.25 gm in 50 mls @ 100 mls/hr 07/01/17 11:00 07/02/17 11:07 Zosyn 2.25 Gm Iv Premix IVPB 100 mls/hr Q6H KESHA Administration Vancomycin/Sodium Chloride 1 gm in 200 mls @ 133.333 mls/hr 07/02/17 12:00 Vancocin IVPB Q24H KESHA Insulin Human Regular 0 unit 07/01/17 18:00 07/02/17 12:34 Novolin R SC 3 unit Q6H KESHA Administration Protocol Pantoprazole Sodium 40 mg 07/01/17 10:45 07/02/17 11:07 Protonix Inj IVP 40 mg Q12 KESHA Administration - Patient Studies Lab Studies: Microbiology Studies 07/01/17 09:10 MRSA Culture (Admit) - Final [place]aris MRSA NOT DETECTED 07/01/17 Unknown Urine Culture - Final Urine,[place] No Growth (<1,000 CFU/ML) Lab Studies 07/02/17 07/02/17 07/02/17 Range/Units 11:42 06:19 06:17 WBC 26.9 H (4.8-10.8) K/uL RBC 3.11 L (4.40-5.90) Mil/uL Hgb 8.7 L (12.0-18.0) g/dL Hct 27.5 L (35.0-51.0) % MCV 88.5 D (80.0-94.0) fL MCH 27.9 (27.0-31.0) pg MCHC 31.5 L (33.0-37.0) g/dL RDW 17.1 H (11.5-14.5) % Plt Count 402 H (130-400) K/uL MPV 9.6 (7.2-11.7) fL Neut % (Auto) 91.1 H (50.0-75.0) % Lymph % (Auto) 3.0 L (20.0-40.0) % [place] % (Auto) 5.8 (0.0-10.0) % Eos % (Auto) 0.0 (0.0-4.0) % Baso % (Auto) 0.1 (0.0-2.0) % Neut # 24.5 H (1.8-7.0) K/uL Lymph # 0.8 L (1.0-4.3) K/uL [place] # 1.6 H (0.0-0.8) K/uL Eos # 0.0 (0.0-0.7) K/uL Baso # 0.0 (0.0-0.2) K/uL Neutrophils % (Manual) 74 (50-75) % Band Neutrophils % 15 H* (0-2) % Lymphocytes % (Manual) 4 L (20-40) % Monocytes % (Manual) 7 (0-10) % Platelet Estimate Normal (NORMAL) Large Platelets Present Giant Platelets Hypochromasia (manual) Slight Poikilocytosis (manual Slight Anisocytosis (manual) Slight [place] Cells Slight Puncture Site pCO2 (35-45) mm/Hg pO2 (80-100) mm/Hg HCO3 (21-28) mmol/L ABG pH (7.35-7.45) ABG Total CO2 (22-28) mmol/L ABG O2 Saturation (95-98) % ABG Base Excess (-2.0-3.0) mmol/L ABG Hemoglobin (11.7-17.4) g/dL ABG Carboxyhemoglobin (0.5-1.5) % POC ABG HHb (Measured) (0.0-5.0) % ABG Methemoglobin (0.0-3.0) % Wilner Test ABG Potassium (3.6-5.2) mmol/L A-a O2 Difference mm/Hg Respiratory Index Hgb O2 Saturation (95.0-98.0) % Glucose (75-110) mg/dl Lactate (0.7-2.1) mmol/L Vent Mode Mechanical Rate FiO2 % Tidal Volume PEEP Sodium 146 (132-148) mmol/L Potassium 3.9 (3.6-5.2) mmol/L Chloride 109 H (98-107) mmol/L Carbon Dioxide 22 (22-30) mmol/L Anion Gap 19 (10-20) BUN 29 H (9-20) mg/dL Creatinine 2.4 H (0.8-1.5) MG/DL Est GFR ( Amer) 32 Est GFR (Non-Af Amer) 26 POC Glucose (mg/dL) 200 H (65-110) mg/dL Random Glucose 175 H (75-110) mg/dL Lactic Acid (0.7-2.1) mmol/L Calcium 7.6 L (8.6-10.4) mg/dl Phosphorus 3.6 (2.5-4.5) mg/dL Magnesium 1.8 (1.6-2.3) mg/dL Total Bilirubin 0.5 (0.2-1.3) mg/dL AST 43 (17-59) U/L ALT 69 (21-72) U/L Alkaline Phosphatase 108 (38-126) U/L Total Protein 5.5 L (6.3-8.3) g/dL Albumin 2.3 L (3.5-5.0) g/dL Globulin 3.2 (2.2-3.9) gm/dL Albumin/Globulin Ratio 0.7 L (1.0-2.1) Arterial Blood Potassium (3.6-5.2) mmol/L 07/02/17 07/02/17 07/02/17 Range/Units 06:14 06:04 00:16 WBC (4.8-10.8) K/uL RBC (4.40-5.90) Mil/uL Hgb (12.0-18.0) g/dL Hct (35.0-51.0) % MCV (80.0-94.0) fL MCH (27.0-31.0) pg MCHC (33.0-37.0) g/dL RDW (11.5-14.5) % Plt Count (130-400) K/uL MPV (7.2-11.7) fL Neut % (Auto) (50.0-75.0) % Lymph % (Auto) (20.0-40.0) % [place] % (Auto) (0.0-10.0) % Eos % (Auto) (0.0-4.0) % Baso % (Auto) (0.0-2.0) % Neut # (1.8-7.0) K/uL Lymph # (1.0-4.3) K/uL [place] # (0.0-0.8) K/uL Eos # (0.0-0.7) K/uL Baso # (0.0-0.2) K/uL Neutrophils % (Manual) (50-75) % Band Neutrophils % (0-2) % Lymphocytes % (Manual) (20-40) % Monocytes % (Manual) (0-10) % Platelet Estimate (NORMAL) Large Platelets Giant Platelets Hypochromasia (manual) Poikilocytosis (manual Anisocytosis (manual) Kavin Cells Puncture Site L rad pCO2 30 L (35-45) mm/Hg pO2 124 H (80-100) mm/Hg HCO3 23.0 (21-28) mmol/L ABG pH 7.45 (7.35-7.45) ABG Total CO2 21.8 L (22-28) mmol/L ABG O2 Saturation 100.1 H (95-98) % ABG Base Excess -2.5 L (-2.0-3.0) mmol/L ABG Hemoglobin 9.0 L (11.7-17.4) g/dL ABG Carboxyhemoglobin 1.8 H (0.5-1.5) % POC ABG HHb (Measured) -0.1 L (0.0-5.0) % ABG Methemoglobin 1.3 (0.0-3.0) % Wilner Test Pos ABG Potassium (3.6-5.2) mmol/L A-a O2 Difference 338.0 mm/Hg Respiratory Index 2.7 Hgb O2 Saturation 96.9 (95.0-98.0) % Glucose (75-110) mg/dl Lactate (0.7-2.1) mmol/L Vent Mode Prvc Mechanical Rate 12 FiO2 70.0 % Tidal Volume 450 PEEP 5 Sodium (132-148) mmol/L Potassium (3.6-5.2) mmol/L Chloride (98-107) mmol/L Carbon Dioxide (22-30) mmol/L Anion Gap (10-20) BUN (9-20) mg/dL Creatinine (0.8-1.5) MG/DL Est GFR ( Amer) Est GFR (Non-Af Amer) POC Glucose (mg/dL) 212 H 207 H (65-110) mg/dL Random Glucose (75-110) mg/dL Lactic Acid (0.7-2.1) mmol/L Calcium (8.6-10.4) mg/dl Phosphorus (2.5-4.5) mg/dL Magnesium (1.6-2.3) mg/dL Total Bilirubin (0.2-1.3) mg/dL AST (17-59) U/L ALT (21-72) U/L Alkaline Phosphatase (38-126) U/L Total Protein (6.3-8.3) g/dL Albumin (3.5-5.0) g/dL Globulin (2.2-3.9) gm/dL Albumin/Globulin Ratio (1.0-2.1) Arterial Blood Potassium (3.6-5.2) mmol/L 07/01/17 07/01/17 07/01/17 Range/Units 18:25 17:50 14:42 WBC (4.8-10.8) K/uL RBC (4.40-5.90) Mil/uL Hgb (12.0-18.0) g/dL Hct (35.0-51.0) % MCV (80.0-94.0) fL MCH (27.0-31.0) pg MCHC (33.0-37.0) g/dL RDW (11.5-14.5) % Plt Count (130-400) K/uL MPV (7.2-11.7) fL Neut % (Auto) (50.0-75.0) % Lymph % (Auto) (20.0-40.0) % [place] % (Auto) (0.0-10.0) % Eos % (Auto) (0.0-4.0) % Baso % (Auto) (0.0-2.0) % Neut # (1.8-7.0) K/uL Lymph # (1.0-4.3) K/uL [place] # (0.0-0.8) K/uL Eos # (0.0-0.7) K/uL Baso # (0.0-0.2) K/uL Neutrophils % (Manual) (50-75) % Band Neutrophils % (0-2) % Lymphocytes % (Manual) (20-40) % Monocytes % (Manual) (0-10) % Platelet Estimate (NORMAL) Large Platelets Giant Platelets Hypochromasia (manual) Poikilocytosis (manual Anisocytosis (manual) [place] Cells Puncture Site Rra pCO2 30 L (35-45) mm/Hg pO2 60 L (80-100) mm/Hg HCO3 21.2 (21-28) mmol/L ABG pH 7.41 (7.35-7.45) ABG Total CO2 19.9 L (22-28) mmol/L ABG O2 Saturation 96.7 (95-98) % ABG Base Excess -4.5 L (-2.0-3.0) mmol/L ABG Hemoglobin (11.7-17.4) g/dL ABG Carboxyhemoglobin (0.5-1.5) % POC ABG HHb (Measured) (0.0-5.0) % ABG Methemoglobin (0.0-3.0) % Wilner Test Pos ABG Potassium 3.4 L (3.6-5.2) mmol/L A-a O2 Difference 402.0 mm/Hg Respiratory Index 6.7 Hgb O2 Saturation (95.0-98.0) % Glucose 287 H (75-110) mg/dl Lactate 3.5 H (0.7-2.1) mmol/L Vent Mode A/c Mechanical Rate FiO2 70.0 % Tidal Volume 450 PEEP 5 Sodium 147.0 (132-148) mmol/L Potassium (3.6-5.2) mmol/L Chloride 118.0 H (98-107) mmol/L Carbon Dioxide (22-30) mmol/L Anion Gap (10-20) BUN (9-20) mg/dL Creatinine (0.8-1.5) MG/DL Est GFR ( Amer) Est GFR (Non-Af Amer) POC Glucose (mg/dL) 296 H (65-110) mg/dL Random Glucose (75-110) mg/dL Lactic Acid 6.3 H* (0.7-2.1) mmol/L Calcium (8.6-10.4) mg/dl Phosphorus (2.5-4.5) mg/dL Magnesium (1.6-2.3) mg/dL Total Bilirubin (0.2-1.3) mg/dL AST (17-59) U/L ALT (21-72) U/L Alkaline Phosphatase (38-126) U/L Total Protein (6.3-8.3) g/dL Albumin (3.5-5.0) g/dL Globulin (2.2-3.9) gm/dL Albumin/Globulin Ratio (1.0-2.1) Arterial Blood Potassium 3.4 L (3.6-5.2) mmol/L 07/01/17 07/01/17 07/01/17 Range/Units 13:05 13:05 11:33 WBC 34.1 H (4.8-10.8) K/uL RBC 3.39 L (4.40-5.90) Mil/uL Hgb 9.5 L (12.0-18.0) g/dL Hct 30.9 L (35.0-51.0) % MCV 91.3 (80.0-94.0) fL MCH 28.0 (27.0-31.0) pg MCHC 30.6 L (33.0-37.0) g/dL RDW 16.7 H (11.5-14.5) % Plt Count 423 H D (130-400) K/uL MPV 9.0 (7.2-11.7) fL Neut % (Auto) 91.4 H (50.0-75.0) % Lymph % (Auto) 1.3 L (20.0-40.0) % [place] % (Auto) 7.3 (0.0-10.0) % Eos % (Auto) 0.0 (0.0-4.0) % Baso % (Auto) 0.0 (0.0-2.0) % Neut # 31.1 H (1.8-7.0) K/uL Lymph # 0.4 L (1.0-4.3) K/uL [place] # 2.5 H (0.0-0.8) K/uL Eos # 0.0 (0.0-0.7) K/uL Baso # 0.0 (0.0-0.2) K/uL Neutrophils % (Manual) 79 H (50-75) % Band Neutrophils % 9 H (0-2) % Lymphocytes % (Manual) 7 L (20-40) % Monocytes % (Manual) 5 (0-10) % Platelet Estimate Normal (NORMAL) Large Platelets Present Giant Platelets Present Hypochromasia (manual) Slight Poikilocytosis (manual Slight Anisocytosis (manual) Slight [place] Cells Slight Puncture Site pCO2 (35-45) mm/Hg pO2 (80-100) mm/Hg HCO3 (21-28) mmol/L ABG pH (7.35-7.45) ABG Total CO2 (22-28) mmol/L ABG O2 Saturation (95-98) % ABG Base Excess (-2.0-3.0) mmol/L ABG Hemoglobin (11.7-17.4) g/dL ABG Carboxyhemoglobin (0.5-1.5) % POC ABG HHb (Measured) (0.0-5.0) % ABG Methemoglobin (0.0-3.0) % Wilner Test ABG Potassium (3.6-5.2) mmol/L A-a O2 Difference mm/Hg Respiratory Index Hgb O2 Saturation (95.0-98.0) % Glucose (75-110) mg/dl Lactate (0.7-2.1) mmol/L Vent Mode Mechanical Rate FiO2 % Tidal Volume PEEP Sodium 146 (132-148) mmol/L Potassium 3.0 L (3.6-5.2) mmol/L Chloride 111 H (98-107) mmol/L Carbon Dioxide 16 L (22-30) mmol/L Anion Gap 22 H (10-20) BUN 20 (9-20) mg/dL Creatinine 1.8 H (0.8-1.5) MG/DL Est GFR ( Amer) 44 Est GFR (Non-Af Amer) 37 POC Glucose (mg/dL) 393 H (65-110) mg/dL Random Glucose 363 H (75-110) mg/dL Lactic Acid (0.7-2.1) mmol/L Calcium 8.3 L (8.6-10.4) mg/dl Phosphorus 3.8 (2.5-4.5) mg/dL Magnesium 1.9 (1.6-2.3) mg/dL Total Bilirubin 0.5 (0.2-1.3) mg/dL AST 75 H D (17-59) U/L ALT 83 H (21-72) U/L Alkaline Phosphatase 139 H (38-126) U/L Total Protein 5.7 L (6.3-8.3) g/dL Albumin 2.2 L D (3.5-5.0) g/dL Globulin 3.5 (2.2-3.9) gm/dL Albumin/Globulin Ratio 0.6 L (1.0-2.1) Arterial Blood Potassium (3.6-5.2) mmol/L Laboratory Results - last 24 hr 07/01/17 07/01/17 07/01/17 11:33 13:05 13:05 WBC 34.1 H RBC 3.39 L Hgb 9.5 L Hct 30.9 L MCV 91.3 MCH 28.0 MCHC 30.6 L RDW 16.7 H Plt Count 423 H D MPV 9.0 Neut % (Auto) 91.4 H Lymph % (Auto) 1.3 L [place] % (Auto) 7.3 Eos % (Auto) 0.0 Baso % (Auto) 0.0 Neut # 31.1 H Lymph # 0.4 L [place] # 2.5 H Eos # 0.0 Baso # 0.0 Neutrophils % (Manual) 79 H Band Neutrophils % 9 H Lymphocytes % (Manual) 7 L Monocytes % (Manual) 5 Platelet Estimate Normal Large Platelets Present Giant Platelets Present Hypochromasia (manual) Slight Poikilocytosis (manual Slight Anisocytosis (manual) Slight [place] Cells Slight Puncture Site pCO2 pO2 HCO3 ABG pH ABG Total CO2 ABG O2 Saturation ABG Base Excess ABG Hemoglobin ABG Carboxyhemoglobin POC ABG HHb (Measured) ABG Methemoglobin [place] Test ABG Potassium A-a O2 Difference Respiratory Index Hgb O2 Saturation Glucose Lactate Vent Mode Mechanical Rate FiO2 Tidal Volume PEEP Sodium 146 Potassium 3.0 L Chloride 111 H Carbon Dioxide 16 L Anion Gap 22 H BUN 20 Creatinine 1.8 H Est GFR ( Amer) 44 Est GFR (Non-Af Amer) 37 POC Glucose (mg/dL) 393 H Random Glucose 363 H Lactic Acid Calcium 8.3 L Phosphorus 3.8 Magnesium 1.9 Total Bilirubin 0.5 AST 75 H D ALT 83 H Alkaline Phosphatase 139 H Total Protein 5.7 L Albumin 2.2 L D Globulin 3.5 Albumin/Globulin Ratio 0.6 L Arterial Blood Potassium 07/01/17 07/01/17 07/01/17 14:42 17:50 18:25 WBC RBC Hgb Hct MCV MCH MCHC RDW Plt Count MPV Neut % (Auto) Lymph % (Auto) [place] % (Auto) Eos % (Auto) Baso % (Auto) Neut # Lymph # [place] # Eos # Baso # Neutrophils % (Manual) Band Neutrophils % Lymphocytes % (Manual) Monocytes % (Manual) Platelet Estimate Large Platelets Giant Platelets Hypochromasia (manual) Poikilocytosis (manual Anisocytosis (manual) [place] Cells Puncture Site Rra pCO2 30 L pO2 60 L HCO3 21.2 ABG pH 7.41 ABG Total CO2 19.9 L ABG O2 Saturation 96.7 ABG Base Excess -4.5 L ABG Hemoglobin ABG Carboxyhemoglobin POC ABG HHb (Measured) ABG Methemoglobin Wilner Test Pos ABG Potassium 3.4 L A-a O2 Difference 402.0 Respiratory Index 6.7 Hgb O2 Saturation Glucose 287 H Lactate 3.5 H Vent Mode A/c Mechanical Rate FiO2 70.0 Tidal Volume 450 PEEP 5 Sodium 147.0 Potassium Chloride 118.0 H Carbon Dioxide Anion Gap BUN Creatinine Est GFR ( Amer) Est GFR (Non-Af Amer) POC Glucose (mg/dL) 296 H Random Glucose Lactic Acid 6.3 H* Calcium Phosphorus Magnesium Total Bilirubin AST ALT Alkaline Phosphatase Total Protein Albumin Globulin Albumin/Globulin Ratio Arterial Blood Potassium 3.4 L 07/02/17 07/02/17 07/02/17 00:16 06:04 06:14 WBC RBC Hgb Hct MCV MCH MCHC RDW Plt Count MPV Neut % (Auto) Lymph % (Auto) [place] % (Auto) Eos % (Auto) Baso % (Auto) Neut # Lymph # [place] # Eos # Baso # Neutrophils % (Manual) Band Neutrophils % Lymphocytes % (Manual) Monocytes % (Manual) Platelet Estimate Large Platelets Giant Platelets Hypochromasia (manual) Poikilocytosis (manual Anisocytosis (manual) [place] Cells Puncture Site L rad pCO2 30 L pO2 124 H HCO3 23.0 ABG pH 7.45 ABG Total CO2 21.8 L ABG O2 Saturation 100.1 H ABG Base Excess -2.5 L ABG Hemoglobin 9.0 L ABG Carboxyhemoglobin 1.8 H POC ABG HHb (Measured) -0.1 L ABG Methemoglobin 1.3 Wilner Test Pos ABG Potassium A-a O2 Difference 338.0 Respiratory Index 2.7 Hgb O2 Saturation 96.9 Glucose Lactate Vent Mode Prvc Mechanical Rate 12 FiO2 70.0 Tidal Volume 450 PEEP 5 Sodium Potassium Chloride Carbon Dioxide Anion Gap BUN Creatinine Est GFR ( Amer) Est GFR (Non-Af Amer) POC Glucose (mg/dL) 207 H 212 H Random Glucose Lactic Acid Calcium Phosphorus Magnesium Total Bilirubin AST ALT Alkaline Phosphatase Total Protein Albumin Globulin Albumin/Globulin Ratio Arterial Blood Potassium 07/02/17 07/02/17 07/02/17 06:17 06:19 11:42 WBC 26.9 H RBC 3.11 L Hgb 8.7 L Hct 27.5 L MCV 88.5 D MCH 27.9 MCHC 31.5 L RDW 17.1 H Plt Count 402 H MPV 9.6 Neut % (Auto) 91.1 H Lymph % (Auto) 3.0 L [place] % (Auto) 5.8 Eos % (Auto) 0.0 Baso % (Auto) 0.1 Neut # 24.5 H Lymph # 0.8 L [place] # 1.6 H Eos # 0.0 Baso # 0.0 Neutrophils % (Manual) 74 Band Neutrophils % 15 H* Lymphocytes % (Manual) 4 L Monocytes % (Manual) 7 Platelet Estimate Normal Large Platelets Present Giant Platelets Hypochromasia (manual) Slight Poikilocytosis (manual Slight Anisocytosis (manual) Slight [place] Cells Slight Puncture Site pCO2 pO2 HCO3 ABG pH ABG Total CO2 ABG O2 Saturation ABG Base Excess ABG Hemoglobin ABG Carboxyhemoglobin POC ABG HHb (Measured) ABG Methemoglobin Wilner Test ABG Potassium A-a O2 Difference Respiratory Index Hgb O2 Saturation Glucose Lactate Vent Mode Mechanical Rate FiO2 Tidal Volume PEEP Sodium 146 Potassium 3.9 Chloride 109 H Carbon Dioxide 22 Anion Gap 19 BUN 29 H Creatinine 2.4 H Est GFR ( Amer) 32 Est GFR (Non-Af Amer) 26 POC Glucose (mg/dL) 200 H Random Glucose 175 H Lactic Acid Calcium 7.6 L Phosphorus 3.6 Magnesium 1.8 Total Bilirubin 0.5 AST 43 ALT 69 Alkaline Phosphatase 108 Total Protein 5.5 L Albumin 2.3 L Globulin 3.2 Albumin/Globulin Ratio 0.7 L Arterial Blood Potassium Fingerstick Blood Sugar Results: 200 Review of Systems - Review of Systems Systems not reviewed;Unavailable: Intubated Critical Care Progress Note - Vent Settings TIDAL VOLUME:: 450 RESP RATE:: 12 FIO2:: 70 PEEP:: 5 PRESSURE SUPPORT:: 10 Assessment/Plan (1) Severe sepsis Assessment and plan: Neuro: - Alert, not oriented. Eyes are tracking but unable to follow commands. 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 - Lasix 40mg IV given once, monitor and reevaluate I/O - ABG: pH 7.57, pCO2 11 lactate 8.7 - Repeat ABG: pH 7.18, pCO2 30, lactate 9.8 - Repeat ABG (#3): pH 7.41, pCO2 30 lactate 3.5 - ABG (07/02): pH 7.45, pCO2 30 CV: - Hypotension, likely secondary to sepsis - Hypotension resolved - Dopamine 400mg IV--> discontinued - Levophed 8mg in NS IV--> discontinued - Monitor vitals - ROMIs: negative, 0.1020 - ECHO: f/u, pending official report; EF 37.4% Endo: - History of DM - Monitor blood glucose, Accuchecks Q6 - ISS GI: - Bloody output in OG tube - WBC 34, Bandemia 10 (repeat CBC-9) - C.Diff: f/u - Tube feeding Heme: - Monitor H/H - Hgb trending down, 8.7 on 07/02 Renal: - Acute kidney failure, possibly secondary to hyperkalemia. - Hyperkalemia (6.1)- calcium gluconate given in ED; Kayexalate given once - Repeat CMP: K+ 3.0 - Metabolic acidosis - Anion gap 30 - Anion gap after repeat CMP, 19 - Matabolic acidosis improving- (07/02) anion gap 15 ID: - ID consulted- Dr. Booker, help appreciated - WBC 34, Bandemia 10 (repeat CBC-9) - WBC (07/02): 26.9, Bandemia 15 - Zosyn 2.25gm IV Q6 - Vanco 1gm IV - Blood cx: no growth for 24hr - Urine cx: f/u - C.Diff: f/u Prophylaxis: DVT: contraindicated- increased risk bleed, GI bleed - SCDs GI: Protonix 40mg IV Q12 PT/OT Current Visit: Yes Status: Acute <Albert Olvera - Last Filed: 07/02/17 16:11> CCU Objective - Vital Signs / Intake & Output Vital Signs (Last 4 hours): Vital Signs Temp Pulse Resp BP Pulse Ox 07/02/17 14:16 117 H 17 158/80 H 100 07/02/17 14:00 97.7 F 07/02/17 13:16 120 H 22 156/90 H 100 07/02/17 13:10 119 H 10 L 99 07/02/17 12:16 118 H 15 136/84 99 Intake and Output (Last 8hrs): Intake & Output 07/02/17 07/02/17 07/02/17 06:59 14:59 22:59 Intake Total 943.1 610 Output Total 240 210 Balance 703.1 400 Weight 169 lb Intake: Intake, IV Amount 943.1 550 Left Distal Port 43.1 Subclavian Left Medial Port 900 550 Subclavian Oral 0 Tube Feeding 60 Output: Gastric Amount 200 50 Stomach 200 50 Urine 40 160 Urethral ([place]) 40 160 Other: # Bowel Movements 1 - Medications Active Medications: Active Medications Generic Name Dose Route Start Last Admin Trade Name Freq PRN Reason Stop Dose Admin Albuterol/Ipratropium 3 ml 07/02/17 14:00 07/02/17 14:01 Duoneb 3 Mg/0.5 Mg (3 Ml) Ud INH 3 ml RQ6 KESHA Administration Furosemide 40 mg 07/02/17 22:00 Lasix IVP Q12 KESHA Heparin Sodium (Porcine) 5,000 units 07/02/17 22:00 Heparin SC Q12 KESHA Vancomycin/Sodium Chloride 1 gm in 200 mls @ 166.667 mls/hr 07/01/17 06:15 12:34 Vancocin IVPB 07/06/17 06:16 166.667 mls/hr STAT KESHA Administration Norepinephrine Bitartrate 8 mg 250 mls @ 7.5 mls/hr 07/01/17 10:28 07/01/17 18:30 / Sodium Chloride IV 8 mcg/min .Q24H PRN 15 mls/hr TITRATE PER MD ORDER Titration Protocol 4 MCG/MIN Piperacillin Sod/Tazobactam Sod 2.25 gm in 50 mls @ 100 mls/hr 07/01/17 11:00 07/02/17 11:07 Zosyn 2.25 Gm Iv Premix IVPB 100 mls/hr Q6H KESHA Administration Vancomycin/Sodium Chloride 1 gm in 200 mls @ 133.333 mls/hr 07/02/17 12:00 12:00 Vancocin IVPB 133.333 mls/hr Q24H KESHA Administration Insulin Human Regular 0 unit 07/01/17 18:00 07/02/17 12:34 Novolin R SC 3 unit Q6H KESHA Administration Protocol Pantoprazole Sodium 40 mg 07/01/17 10:45 07/02/17 11:07 Protonix Inj IVP 40 mg Q12 KESHA Administration - Patient Studies Lab Studies: Microbiology Studies 07/01/17 06:30 Blood Culture - Preliminary Blood-Venous NO GROWTH AFTER 24 HOURS 07/01/17 09:10 MRSA Culture (Admit) - Final [place] MRSA NOT DETECTED 07/01/17 Unknown Urine Culture - Final Urine,[place] No Growth (<1,000 CFU/ML) Lab Studies 07/02/17 07/02/17 07/02/17 Range/Units 11:42 06:19 06:17 WBC 26.9 H (4.8-10.8) K/uL RBC 3.11 L (4.40-5.90) Mil/uL Hgb 8.7 L (12.0-18.0) g/dL Hct 27.5 L (35.0-51.0) % MCV 88.5 D (80.0-94.0) fL MCH 27.9 (27.0-31.0) pg MCHC 31.5 L (33.0-37.0) g/dL RDW 17.1 H (11.5-14.5) % Plt Count 402 H (130-400) K/uL MPV 9.6 (7.2-11.7) fL Neut % (Auto) 91.1 H (50.0-75.0) % Lymph % (Auto) 3.0 L (20.0-40.0) % [place] % (Auto) 5.8 (0.0-10.0) % Eos % (Auto) 0.0 (0.0-4.0) % Baso % (Auto) 0.1 (0.0-2.0) % Neut # 24.5 H (1.8-7.0) K/uL Lymph # 0.8 L (1.0-4.3) K/uL [place] # 1.6 H (0.0-0.8) K/uL Eos # 0.0 (0.0-0.7) K/uL Baso # 0.0 (0.0-0.2) K/uL Neutrophils % (Manual) 74 (50-75) % Band Neutrophils % 15 H* (0-2) % Lymphocytes % (Manual) 4 L (20-40) % Monocytes % (Manual) 7 (0-10) % Platelet Estimate Normal (NORMAL) Large Platelets Present Hypochromasia (manual) Slight Poikilocytosis (manual Slight Anisocytosis (manual) Slight [place] Cells Slight Puncture Site pCO2 (35-45) mm/Hg pO2 (80-100) mm/Hg HCO3 (21-28) mmol/L ABG pH (7.35-7.45) ABG Total CO2 (22-28) mmol/L ABG O2 Saturation (95-98) % ABG Base Excess (-2.0-3.0) mmol/L ABG Hemoglobin (11.7-17.4) g/dL ABG Carboxyhemoglobin (0.5-1.5) % POC ABG HHb (Measured) (0.0-5.0) % ABG Methemoglobin (0.0-3.0) % [place] Test ABG Potassium (3.6-5.2) mmol/L A-a O2 Difference mm/Hg Respiratory Index Hgb O2 Saturation (95.0-98.0) % Sodium 146 (132-148) mmol/l Chloride 109 H (98-107) mmol/L Glucose (75-110) mg/dl Lactate (0.7-2.1) mmol/L Vent Mode Mechanical Rate FiO2 % [place] Volume PEEP Potassium 3.9 (3.6-5.2) mmol/L Carbon Dioxide 22 (22-30) mmol/L Anion Gap 19 (10-20) BUN 29 H (9-20) mg/dL Creatinine 2.4 H (0.8-1.5) MG/DL Est GFR ( Amer) 32 Est GFR (Non-Af Amer) 26 POC Glucose (mg/dL) 200 H (65-110) mg/dL Random Glucose 175 H (75-110) mg/dL Calcium 7.6 L (8.6-10.4) mg/dl Phosphorus 3.6 (2.5-4.5) mg/dL Magnesium 1.8 (1.6-2.3) mg/dL Total Bilirubin 0.5 (0.2-1.3) mg/dL AST 43 (17-59) U/L ALT 69 (21-72) U/L Alkaline Phosphatase 108 (38-126) U/L Total Protein 5.5 L (6.3-8.3) g/dL Albumin 2.3 L (3.5-5.0) g/dL Globulin 3.2 (2.2-3.9) gm/dL Albumin/Globulin Ratio 0.7 L (1.0-2.1) Arterial Blood Potassium (3.6-5.2) mmol/L 07/02/17 07/02/17 07/02/17 Range/Units 06:14 06:04 00:16 WBC (4.8-10.8) K/uL RBC (4.40-5.90) Mil/uL Hgb (12.0-18.0) g/dL Hct (35.0-51.0) % MCV (80.0-94.0) fL MCH (27.0-31.0) pg MCHC (33.0-37.0) g/dL RDW (11.5-14.5) % Plt Count (130-400) K/uL MPV (7.2-11.7) fL Neut % (Auto) (50.0-75.0) % Lymph % (Auto) (20.0-40.0) % [place] % (Auto) (0.0-10.0) % Eos % (Auto) (0.0-4.0) % Baso % (Auto) (0.0-2.0) % Neut # (1.8-7.0) K/uL Lymph # (1.0-4.3) K/uL [place] # (0.0-0.8) K/uL Eos # (0.0-0.7) K/uL Baso # (0.0-0.2) K/uL Neutrophils % (Manual) (50-75) % Band Neutrophils % (0-2) % Lymphocytes % (Manual) (20-40) % Monocytes % (Manual) (0-10) % Platelet Estimate (NORMAL) Large Platelets Hypochromasia (manual) Poikilocytosis (manual Anisocytosis (manual) [place] Cells Puncture Site L rad pCO2 30 L (35-45) mm/Hg pO2 124 H (80-100) mm/Hg HCO3 23.0 (21-28) mmol/L ABG pH 7.45 (7.35-7.45) ABG Total CO2 21.8 L (22-28) mmol/L ABG O2 Saturation 100.1 H (95-98) % ABG Base Excess -2.5 L (-2.0-3.0) mmol/L ABG Hemoglobin 9.0 L (11.7-17.4) g/dL ABG Carboxyhemoglobin 1.8 H (0.5-1.5) % POC ABG HHb (Measured) -0.1 L (0.0-5.0) % ABG Methemoglobin 1.3 (0.0-3.0) % Wilner Test Pos ABG Potassium (3.6-5.2) mmol/L A-a O2 Difference 338.0 mm/Hg Respiratory Index 2.7 Hgb O2 Saturation 96.9 (95.0-98.0) % Sodium (132-148) mmol/l Chloride (98-107) mmol/L Glucose (75-110) mg/dl Lactate (0.7-2.1) mmol/L Vent Mode Prvc Mechanical Rate 12 FiO2 70.0 % Tidal Volume 450 PEEP 5 Potassium (3.6-5.2) mmol/L Carbon Dioxide (22-30) mmol/L Anion Gap (10-20) BUN (9-20) mg/dL Creatinine (0.8-1.5) MG/DL Est GFR ( Amer) Est GFR (Non-Af Amer) POC Glucose (mg/dL) 212 H 207 H (65-110) mg/dL Random Glucose (75-110) mg/dL Calcium (8.6-10.4) mg/dl Phosphorus (2.5-4.5) mg/dL Magnesium (1.6-2.3) mg/dL Total Bilirubin (0.2-1.3) mg/dL AST (17-59) U/L ALT (21-72) U/L Alkaline Phosphatase (38-126) U/L Total Protein (6.3-8.3) g/dL Albumin (3.5-5.0) g/dL Globulin (2.2-3.9) gm/dL Albumin/Globulin Ratio (1.0-2.1) Arterial Blood Potassium (3.6-5.2) mmol/L 07/01/17 07/01/17 07/01/17 Range/Units 18:25 17:50 11:33 WBC (4.8-10.8) K/uL RBC (4.40-5.90) Mil/uL Hgb (12.0-18.0) g/dL Hct (35.0-51.0) % MCV (80.0-94.0) fL MCH (27.0-31.0) pg MCHC (33.0-37.0) g/dL RDW (11.5-14.5) % Plt Count (130-400) K/uL MPV (7.2-11.7) fL Neut % (Auto) (50.0-75.0) % Lymph % (Auto) (20.0-40.0) % [place] % (Auto) (0.0-10.0) % Eos % (Auto) (0.0-4.0) % Baso % (Auto) (0.0-2.0) % Neut # (1.8-7.0) K/uL Lymph # (1.0-4.3) K/uL [place] # (0.0-0.8) K/uL Eos # (0.0-0.7) K/uL Baso # (0.0-0.2) K/uL Neutrophils % (Manual) (50-75) % Band Neutrophils % (0-2) % Lymphocytes % (Manual) (20-40) % Monocytes % (Manual) (0-10) % Platelet Estimate (NORMAL) Large Platelets Hypochromasia (manual) Poikilocytosis (manual Anisocytosis (manual) [place] Cells Puncture Site Rra pCO2 30 L (35-45) mm/Hg pO2 60 L (80-100) mm/Hg HCO3 21.2 (21-28) mmol/L ABG pH 7.41 (7.35-7.45) ABG Total CO2 19.9 L (22-28) mmol/L ABG O2 Saturation 96.7 (95-98) % ABG Base Excess -4.5 L (-2.0-3.0) mmol/L ABG Hemoglobin (11.7-17.4) g/dL ABG Carboxyhemoglobin (0.5-1.5) % POC ABG HHb (Measured) (0.0-5.0) % ABG Methemoglobin (0.0-3.0) % Wilner Test Pos ABG Potassium 3.4 L (3.6-5.2) mmol/L A-a O2 Difference 402.0 mm/Hg Respiratory Index 6.7 Hgb O2 Saturation (95.0-98.0) % Sodium 147.0 (132-148) mmol/l Chloride 118.0 H (98-107) mmol/L Glucose 287 H (75-110) mg/dl Lactate 3.5 H (0.7-2.1) mmol/L Vent Mode A/c Mechanical Rate FiO2 70.0 % Tidal Volume 450 PEEP 5 Potassium (3.6-5.2) mmol/L Carbon Dioxide (22-30) mmol/L Anion Gap (10-20) BUN (9-20) mg/dL Creatinine (0.8-1.5) MG/DL Est GFR ( Amer) Est GFR (Non-Af Amer) POC Glucose (mg/dL) 296 H 393 H (65-110) mg/dL Random Glucose (75-110) mg/dL Calcium (8.6-10.4) mg/dl Phosphorus (2.5-4.5) mg/dL Magnesium (1.6-2.3) mg/dL Total Bilirubin (0.2-1.3) mg/dL AST (17-59) U/L ALT (21-72) U/L Alkaline Phosphatase (38-126) U/L Total Protein (6.3-8.3) g/dL Albumin (3.5-5.0) g/dL Globulin (2.2-3.9) gm/dL Albumin/Globulin Ratio (1.0-2.1) Arterial Blood Potassium 3.4 L (3.6-5.2) mmol/L Laboratory Results - last 24 hr 07/01/17 07/01/17 07/01/17 11:33 17:50 18:25 WBC RBC Hgb Hct MCV MCH MCHC RDW Plt Count MPV Neut % (Auto) Lymph % (Auto) [place] % (Auto) Eos % (Auto) Baso % (Auto) Neut # Lymph # [place] # Eos # Baso # Neutrophils % (Manual) Band Neutrophils % Lymphocytes % (Manual) Monocytes % (Manual) Platelet Estimate Large Platelets Hypochromasia (manual) Poikilocytosis (manual Anisocytosis (manual) [place] Cells Puncture Site Rra pCO2 30 L pO2 60 L HCO3 21.2 ABG pH 7.41 ABG Total CO2 19.9 L ABG O2 Saturation 96.7 ABG Base Excess -4.5 L ABG Hemoglobin ABG Carboxyhemoglobin POC ABG HHb (Measured) ABG Methemoglobin Wilner Test Pos ABG Potassium 3.4 L A-a O2 Difference 402.0 Respiratory Index 6.7 Hgb O2 Saturation Sodium 147.0 Chloride 118.0 H Glucose 287 H Lactate 3.5 H Vent Mode A/c Mechanical Rate FiO2 70.0 Tidal Volume 450 PEEP 5 Potassium Carbon Dioxide Anion Gap BUN Creatinine Est GFR ( Amer) Est GFR (Non-Af Amer) POC Glucose (mg/dL) 393 H 296 H Random Glucose Calcium Phosphorus Magnesium Total Bilirubin AST ALT Alkaline Phosphatase Total Protein Albumin Globulin Albumin/Globulin Ratio Arterial Blood Potassium 3.4 L 07/02/17 07/02/17 07/02/17 00:16 06:04 06:14 WBC RBC Hgb Hct MCV MCH MCHC RDW Plt Count MPV Neut % (Auto) Lymph % (Auto) [place] % (Auto) Eos % (Auto) Baso % (Auto) Neut # Lymph # [place] # Eos # Baso # Neutrophils % (Manual) Band Neutrophils % Lymphocytes % (Manual) Monocytes % (Manual) Platelet Estimate Large Platelets Hypochromasia (manual) Poikilocytosis (manual Anisocytosis (manual) [place] Cells Puncture Site L rad pCO2 30 L pO2 124 H HCO3 23.0 ABG pH 7.45 ABG Total CO2 21.8 L ABG O2 Saturation 100.1 H ABG Base Excess -2.5 L ABG Hemoglobin 9.0 L ABG Carboxyhemoglobin 1.8 H POC ABG HHb (Measured) -0.1 L ABG Methemoglobin 1.3 Wilner Test Pos ABG Potassium A-a O2 Difference 338.0 Respiratory Index 2.7 Hgb O2 Saturation 96.9 Sodium Chloride Glucose Lactate Vent Mode Prvc Mechanical Rate 12 FiO2 70.0 Tidal Volume 450 PEEP 5 Potassium Carbon Dioxide Anion Gap BUN Creatinine Est GFR ( Amer) Est GFR (Non-Af Amer) POC Glucose (mg/dL) 207 H 212 H Random Glucose Calcium Phosphorus Magnesium Total Bilirubin AST ALT Alkaline Phosphatase Total Protein Albumin Globulin Albumin/Globulin Ratio Arterial Blood Potassium 07/02/17 07/02/17 07/02/17 06:17 06:19 11:42 WBC 26.9 H RBC 3.11 L Hgb 8.7 L Hct 27.5 L MCV 88.5 D MCH 27.9 MCHC 31.5 L RDW 17.1 H Plt Count 402 H MPV 9.6 Neut % (Auto) 91.1 H Lymph % (Auto) 3.0 L [place] % (Auto) 5.8 Eos % (Auto) 0.0 Baso % (Auto) 0.1 Neut # 24.5 H Lymph # 0.8 L [place] # 1.6 H Eos # 0.0 Baso # 0.0 Neutrophils % (Manual) 74 Band Neutrophils % 15 H* Lymphocytes % (Manual) 4 L Monocytes % (Manual) 7 Platelet Estimate Normal Large Platelets Present Hypochromasia (manual) Slight Poikilocytosis (manual Slight Anisocytosis (manual) Slight [place] Cells Slight Puncture Site pCO2 pO2 HCO3 ABG pH ABG Total CO2 ABG O2 Saturation ABG Base Excess ABG Hemoglobin ABG Carboxyhemoglobin POC ABG HHb (Measured) ABG Methemoglobin Wilner Test ABG Potassium A-a O2 Difference Respiratory Index Hgb O2 Saturation Sodium 146 Chloride 109 H Glucose Lactate Vent Mode Mechanical Rate FiO2 Tidal Volume PEEP Potassium 3.9 Carbon Dioxide 22 Anion Gap 19 BUN 29 H Creatinine 2.4 H Est GFR ( Amer) 32 Est GFR (Non-Af Amer) 26 POC Glucose (mg/dL) 200 H Random Glucose 175 H Calcium 7.6 L Phosphorus 3.6 Magnesium 1.8 Total Bilirubin 0.5 AST 43 ALT 69 Alkaline Phosphatase 108 Total Protein 5.5 L Albumin 2.3 L Globulin 3.2 Albumin/Globulin Ratio 0.7 L Arterial Blood Potassium Attending/Attestation - Attestation I have personally seen and examined this patient.: Yes I have fully participated in the care of the patient.: Yes I have reviewed all pertinent clinical information: Yes Notes (Text): 07/02/17 16:08 I have seen and examined the patient. Medical records, lab studies, and imaging were reviewed by me and a management plan was formulated on multidisciplinary rounds with resident Dr. Jenkins. I agree with their above documented assessment and plan. Patient is off pressors, acidosis and elevated lactate have corrected. Septic shock from health care associated pneumonia, Continue Vanco and Zosyn. ID consulted, Dr. Booker. PS trials started. Patient will need diuresis s/p aggressive fluid resuscitation. Critical Care Time 35 minutes. Multi-disciplinary rounds were performed with house staff, nursing, speech therapy, respiratory therapy, pharmacy and nutrition with integrated input from the primary team/attending and other consulting services. The documented time is cumulative and includes review of patient data/exams/labs/chart review and examination of the patient on rounds and throughout the day; time is exclusive of any procedures or teaching time. 07/02/17 16:10
[2017-07-02] MEDS ORDERED: Albumin Human 5% (12.5 gm/250 ml) IV SCH (14:00)
[2017-07-02] MEDS: Albuterol-Ipratrop 3 mg / 0.5 (3 ml) UD INH SCH ×2 (14:01→20:03)
--- NOTE | 2017-07-02 17:36 | CP.PCM.CON ---
History of Present Illness - History of Present Illness History of Present Illness: 76 year old male presents to the ED from a snf with coffee ground emesis. In the ED, he was unresponsive, intubated and went into cardiac arrest. CPR was given and patient had return of spontaneous circulation. Patient was transferred and consulted in the ICU for respiratory failure and cardiac arrest. The patient is intubated and not able to follow commands, therefore, history and review of systems was not obtained. ID consulted for rx of pneumonia/ antibiotic management - cultures pending empiric rx in progress PMHx: CVA, Dementia, DM, Hypertension, hypercholesteremia, CKD, renal carcinoma , arthritis (as per previous visits and snf notes) Allergies: Acetaminophen, ASA Review of Systems - Review of Systems Systems not reviewed;Unavailable: Altered Mental Status, Intubated - Constitutional Constitutional: As Per HPI - EENT Eyes: absent: As Per HPI, Blind Spots, Blurred Vision, Change in Vision, Decreased Night Vision, Diplopia, Discharge, Dry Eye, Exophthalmos, Floaters, Irritation, Itchy Eyes, Loss of Peripheral Vision, Pain, Photophobia, Requires Corrective Lenses, Sees Flashes, Spots in Vision, Tunnel Vision, Other Visual Disturbances, Loss of Vision, Other Ears: absent: As Per HPI, Decreased Hearing, Ear Discharge, Ear Pain, Tinnitus, Abnormal Hearing, Disequilibrium, Dizziness, Other Nose/Mouth/Throat: absent: As Per HPI, Epistaxis, Nasal Congestion, Nasal Discharge, Nasal Obstruction, Nasal Trauma, Nose Pain, Post Nasal Drip, Sinus Pain, Sinus Pressure, Bleeding Gums, Change in Voice, Dental Pain, Dry Mouth, Dysphagia, Halitosis, Hoarsness, Lip Swelling, Mouth Lesions, Mouth Pain, Odynophagia, Sore Throat, Throat Swelling, Tongue Swelling, Facial Pain, Neck Pain, Neck Mass, Other - Cardiovascular Cardiovascular: As Per HPI - Respiratory Respiratory: As Per HPI - Gastrointestinal Gastrointestinal: As Per HPI - Genitourinary Genitourinary: absent: As Per HPI, Change in Urinary Stream, Difficulty Urinating, Dysuria, Flank Pain, Hematuria, Pyuria, Nocturia, Urinary Incontinence, Urinary Frequency, Urinary Hesitance, Urinary Urgency, Voiding Freq/Small Amts, Freq UTI, Hx Renal/Bladder Calculi, Hx /Renal Surgery, Bladder Distension, Other - Musculoskeletal Musculoskeletal: absent: As Per HPI, Abnormal Gait, Arthralgias, Atrophy, Back Pain, Deformity, Joint Swelling, Limited Range of Motion, Loss of Height, Muscle Cramps, Muscle Weakness, Myalgias, Neck Pain, Numbness, Radiating Pain into Limb, Stiffness, Tingling, Other - Integumentary Integumentary: absent: As Per HPI, Acne, Alopecia, Bleeding Lesions, Change in Hair, Change in Nails, Change in Pigmentation, Changing Lesions, Dry Skin, Erythema, Furuncle, Hirsutism, Lesions, New Lesions, Non-Healing Lesions, Photosensitivity, Pruritus, Rash, Skin Pain, Skin Ulcer, Sores, Striae, Swelling , Unusual Bruising, Wounds, Jaundice, Other - Neurological Neurological: absent: As Per HPI, Abnormal Gait, Abnormal Hearing, Abnormal Movements, Abnormal Speech, Behavioral Changes, Burning Sensations, Confusion, Convulsions, Disequilibrium, Dizziness, Numbness, Focal Weakness, Frequent Falls , Headaches, Lack of Coordination, Loss of Vision, Memory Loss, Paresthesias, Radicular Pain, Restless Legs, Sensory Deficit, Syncope, Tingling, Tremor, Vertigo, Weakness, Other Visual Disturbances, Other - Psychiatric Psychiatric: absent: As Per HPI, Abnormal Sleep Pattern, Anhedonia, Anxiety, Auditory Hallucinations, Behavioral Changes, Change in Appetite, Change in Libido, Confusion, Depression, Difficulty Concentrating, Hallucinations, Homicidal Ideation, Hopelessness, Irritability, Memory Loss, Mood Swings, Panic Attacks, Paranoia, Suicidal Ideation, Visual Hallucinations, Tactile Hallucinations, Other - Endocrine Endocrine: absent: As Per HPI, Change in Body Appearance, Change in Libido, Cold Intolorance, Deepening of Voice, Excessive Sweating, Fatigue, Flushing, Heat Intolorance, Increase in Ring/Shoe/Hat Size, Palpitations, Polydipsia, Polyphagia, Polyuria, Other - Hematologic/Lymphatic Hematologic: absent: As Per HPI, Easy Bleeding, Easy Bruising, Lymphadenopathy, Other Past Patient History - Infectious Disease Hx of Infectious Diseases: None - Past Medical History & Family History Past Medical History?: Yes - Past Social History Smoking Status: Former Smoker - CARDIAC Hx Hypercholesterolemia: Yes Hx Hypertension: Yes - PULMONARY Hx Tuberculosis: No - NEUROLOGICAL Hx Dementia: Yes Hx Seizures: No - HEENT Hx HEENT Problems: No - RENAL Hx Chronic Kidney Disease: Yes - ENDOCRINE/METABOLIC Hx Endocrine Disorders: Yes Hx Diabetes Mellitus Type 1: Yes - HEMATOLOGICAL/ONCOLOGICAL Hx Human Immunodeficiency Virus (HIV): No - INTEGUMENTARY Hx Dermatological Problems: No - MUSCULOSKELETAL/RHEUMATOLOGICAL Hx Arthritis: Yes - GASTROINTESTINAL Hx Gastrointestinal Disorders: Yes Hx Gastroesophageal Reflux: Yes - GENITOURINARY/GYNECOLOGICAL Hx Sexually Transmitted Disorders: No - PSYCHIATRIC Hx Substance Use: No - SURGICAL HISTORY Hx Surgeries: Yes Hx Herniorrhaphy: Yes Other/Comment: left nephrectomy, left lung sx, - ANESTHESIA Hx Anesthesia: Yes Hx Anesthesia Reactions: No Hx Malignant Hyperthermia: No Meds Allergies/Adverse Reactions: Allergies Allergy/AdvReac Type Severity Reaction Status Date / Time acetaminophen [From Tylenol] Allergy Intermediate Tinnitus Verified 07/01/17 05: 32 aspirin Allergy Intermediate Tinnitus Verified 07/01/17 05:32 - Medications Medications: Current Medications Albuterol/Ipratropium (Duoneb 3 Mg/0.5 Mg (3 Ml) Ud) 3 ml INH RQ6 [facility] Last Admin: 07/02/17 14:01 Dose: 3 ml Furosemide (Lasix) 40 mg IVP Q12 [facility] Heparin Sodium (Porcine) (Heparin) 5,000 units SC Q12 [facility] Vancomycin/Sodium Chloride (Vancocin) 1 gm in 200 mls @ 166.667 mls/hr IVPB STAT [facility] Stop: 07/06/17 06:16 Last Admin: 07/02/17 12:34 Dose: 166.667 mls/hr Norepinephrine Bitartrate 8 mg (/ Sodium Chloride) 250 mls @ 7.5 mls/hr IV .Q24H PRN; Protocol; 4 MCG/MIN PRN Reason: TITRATE PER MD ORDER Last Titration: 07/01/17 18:30 Dose: 8 mcg/min, 15 mls/hr Piperacillin Sod/Tazobactam Sod (Zosyn 2.25 Gm Iv Premix) 2.25 gm in 50 mls @ 100 mls/hr IVPB Q6H [facility] Last Admin: 07/02/17 11:07 Dose: 100 mls/hr Vancomycin/Sodium Chloride (Vancocin) 1 gm in 200 mls @ 133.333 mls/hr IVPB Q24H [facility] Last Admin: 07/02/17 12:00 Dose: 133.333 mls/hr Insulin Human Regular (Novolin R) 0 unit SC Q6H [facility] PRN Reason: Protocol Last Admin: 07/02/17 12:34 Dose: 3 unit Pantoprazole Sodium (Protonix Inj) 40 mg IVP Q12 [facility] Last Admin: 07/02/17 11:07 Dose: 40 mg Physical Exam - Constitutional Appears: Confused, Cachectic, Chronically Ill - Head Exam Head Exam: ATRAUMATIC, NORMAL INSPECTION, NORMOCEPHALIC - Eye Exam Eye Exam: PERRL. absent: Scleral icterus - ENT Exam ENT Exam: Mucous Membranes Dry, Normal External Ear Exam - Neck Exam Neck exam: Negative for: Lymphadenopathy, Thyromegaly - Respiratory Exam Respiratory Exam: Decreased Breath Sounds, Prolonged Expiratory Phase, Rhonchi - Cardiovascular Exam Cardiovascular Exam: REGULAR RHYTHM, +S1, +S2 - GI/Abdominal Exam GI & Abdominal Exam: Diminished Bowel Sounds, Distended, Soft. absent: Tenderness - Rectal Exam Rectal Exam: Deferred - Exam Exam: NORMAL INSPECTION - Extremities Exam Extremities exam: Positive for: pedal pulses present. Negative for: calf tenderness, pedal edema, tenderness - Back Exam Back exam: absent: CVA tenderness (L), CVA tenderness (R), paraspinal tenderness - Neurological Exam Neurological exam: Alert, CN II-XII Intact, Oriented x3, Reflexes Normal Additional comments: left sided weakness - Psychiatric Exam Psychiatric exam: Depressed - Skin Skin Exam: Dry, Intact Results - Vital Signs Recent Vital Signs: Last Vital Signs Temp 97.7 F 07/02/17 14:00 Pulse 117 H 07/02/17 14:16 Resp 17 07/02/17 14:16 BP 158/80 H 07/02/17 14:16 Pulse Ox 100 07/02/17 14:16 - Labs Result Diagrams: 07/02/17 06:19 07/02/17 06:17 Labs: Laboratory Results - last 24 hr 07/01/17 07/01/17 07/02/17 17:50 18:25 00:16 WBC RBC Hgb Hct MCV MCH MCHC RDW Plt Count MPV Neut % (Auto) Lymph % (Auto) [place] % (Auto) Eos % (Auto) Baso % (Auto) Neut # Lymph # [place] # Eos # Baso # Neutrophils % (Manual) Band Neutrophils % Lymphocytes % (Manual) Monocytes % (Manual) Platelet Estimate Large Platelets Hypochromasia (manual) Poikilocytosis (manual Anisocytosis (manual) [place] Cells Puncture Site Rra pCO2 30 L pO2 60 L HCO3 21.2 ABG pH 7.41 ABG Total CO2 19.9 L ABG O2 Saturation 96.7 ABG Base Excess -4.5 L ABG Hemoglobin ABG Carboxyhemoglobin POC ABG HHb (Measured) ABG Methemoglobin [place] Test Pos ABG Potassium 3.4 L A-a O2 Difference 402.0 Respiratory Index 6.7 Hgb O2 Saturation Sodium 147.0 Chloride 118.0 H Glucose 287 H Lactate 3.5 H Vent Mode A/c Mechanical Rate FiO2 70.0 Tidal Volume 450 PEEP 5 Potassium Carbon Dioxide Anion Gap BUN Creatinine Est GFR ( Amer) Est GFR (Non-Af Amer) POC Glucose (mg/dL) 296 H 207 H Random Glucose Calcium Phosphorus Magnesium Total Bilirubin AST ALT Alkaline Phosphatase Total Protein Albumin Globulin Albumin/Globulin Ratio Arterial Blood Potassium 3.4 L 07/02/17 07/02/17 07/02/17 06:04 06:14 06:17 WBC RBC Hgb Hct MCV MCH MCHC RDW Plt Count MPV Neut % (Auto) Lymph % (Auto) [place] % (Auto) Eos % (Auto) Baso % (Auto) Neut # Lymph # [place] # Eos # Baso # Neutrophils % (Manual) Band Neutrophils % Lymphocytes % (Manual) Monocytes % (Manual) Platelet Estimate Large Platelets Hypochromasia (manual) Poikilocytosis (manual Anisocytosis (manual) [place] Cells Puncture Site L rad pCO2 30 L pO2 124 H HCO3 23.0 ABG pH 7.45 ABG Total CO2 21.8 L ABG O2 Saturation 100.1 H ABG Base Excess -2.5 L ABG Hemoglobin 9.0 L ABG Carboxyhemoglobin 1.8 H POC ABG HHb (Measured) -0.1 L ABG Methemoglobin 1.3 [place]ner Test Pos ABG Potassium A-a O2 Difference 338.0 Respiratory Index 2.7 Hgb O2 Saturation 96.9 Sodium 146 Chloride 109 H Glucose Lactate Vent Mode Prvc Mechanical Rate 12 FiO2 70.0 Tidal Volume 450 PEEP 5 Potassium 3.9 Carbon Dioxide 22 Anion Gap 19 BUN 29 H Creatinine 2.4 H Est GFR ( Amer) 32 Est GFR (Non-Af Amer) 26 POC Glucose (mg/dL) 212 H Random Glucose 175 H Calcium 7.6 L Phosphorus 3.6 Magnesium 1.8 Total Bilirubin 0.5 AST 43 ALT 69 Alkaline Phosphatase 108 Total Protein 5.5 L Albumin 2.3 L Globulin 3.2 Albumin/Globulin Ratio 0.7 L Arterial Blood Potassium 07/02/17 07/02/17 06:19 11:42 WBC 26.9 H RBC 3.11 L Hgb 8.7 L Hct 27.5 L MCV 88.5 D MCH 27.9 MCHC 31.5 L RDW 17.1 H Plt Count 402 H MPV 9.6 Neut % (Auto) 91.1 H Lymph % (Auto) 3.0 L [place] % (Auto) 5.8 Eos % (Auto) 0.0 Baso % (Auto) 0.1 Neut # 24.5 H Lymph # 0.8 L [place] # 1.6 H Eos # 0.0 Baso # 0.0 Neutrophils % (Manual) 74 Band Neutrophils % 15 H* Lymphocytes % (Manual) 4 L Monocytes % (Manual) 7 Platelet Estimate Normal Large Platelets Present Hypochromasia (manual) Slight Poikilocytosis (manual Slight Anisocytosis (manual) Slight [place] Cells Slight Puncture Site pCO2 pO2 HCO3 ABG pH ABG Total CO2 ABG O2 Saturation ABG Base Excess ABG Hemoglobin ABG Carboxyhemoglobin POC ABG HHb (Measured) ABG Methemoglobin Wilner Test ABG Potassium A-a O2 Difference Respiratory Index Hgb O2 Saturation Sodium Chloride Glucose Lactate Vent Mode Mechanical Rate FiO2 Tidal Volume PEEP Potassium Carbon Dioxide Anion Gap BUN Creatinine Est GFR ( Amer) Est GFR (Non-Af Amer) POC Glucose (mg/dL) 200 H Random Glucose Calcium Phosphorus Magnesium Total Bilirubin AST ALT Alkaline Phosphatase Total Protein Albumin Globulin Albumin/Globulin Ratio Arterial Blood Potassium Assessment & Plan (1) Pneumonia Status: Acute (2) Pneumonia Status: Acute (3) Cardiac arrest Status: Acute (4) GI bleed Status: Acute (5) Respiratory failure Status: Acute (6) Sepsis Status: Acute (7) Acute on chronic renal insufficiency Status: Acute (8) Anemia Status: Acute (9) Chronic renal disease, stage 2, mildly decreased glomerular filtration rate between 60-89 mL/min/1.73 square meter Status: Acute (10) Leukocytosis Status: Acute (11) Renal cell carcinoma Status: Acute - Assessment and Plan (Free Text) Assessment: cultures pending await culture reports cont empiric coverage
--- NOTE | 2017-07-02 23:04 | CP.PCM.PN ---
Subjective - Date & Time of Evaluation Date of Evaluation: 07/02/17 Time of Evaluation: 20:18 - Subjective Subjective: ON MV, NO NEW CHANGES Objective - Vital Signs/Intake and Output Vital Signs (last 24 hours): Temp Pulse Resp BP Pulse Ox 98.6 F 116 H 22 141/73 100 07/02/17 22:00 07/02/17 22:20 07/02/17 22:20 07/02/17 22:16 07/02/17 22:20 Intake and Output: 07/02/17 07/03/17 18:59 06:59 Intake Total 705 0 Output Total 330 65 Balance 375 -65 - Medications Medications: Current Medications Albuterol/Ipratropium (Duoneb 3 Mg/0.5 Mg (3 Ml) Ud) 3 ml INH RQ6 [facility]ES[facility] Last Admin: 07/02/17 20:03 Dose: 3 ml Furosemide (Lasix) 40 mg IVP Q12 [facility] Last Admin: 07/02/17 22:04 Dose: 40 mg Heparin Sodium (Porcine) (Heparin) 5,000 units SC Q12 [facility] Last Admin: 07/02/17 22:04 Dose: 5,000 units Vancomycin/Sodium Chloride (Vancocin) 1 gm in 200 mls @ 166.667 mls/hr IVPB STAT [facility] Stop: 07/06/17 06:16 Last Admin: 07/02/17 12:34 Dose: 166.667 mls/hr Norepinephrine Bitartrate 8 mg (/ Sodium Chloride) 250 mls @ 7.5 mls/hr IV .Q24H PRN; Protocol; 4 MCG/MIN PRN Reason: TITRATE PER MD ORDER Last Titration: 07/01/17 18:30 Dose: 8 mcg/min, 15 mls/hr Piperacillin Sod/Tazobactam Sod (Zosyn 2.25 Gm Iv Premix) 2.25 gm in 50 mls @ 100 mls/hr IVPB Q6H [facility] Last Admin: 07/02/17 22:04 Dose: 100 mls/hr Vancomycin/Sodium Chloride (Vancocin) 1 gm in 200 mls @ 133.333 mls/hr IVPB Q24H [facility] Last Admin: 07/02/17 12:00 Dose: 133.333 mls/hr Insulin Human Regular (Novolin R) 0 unit SC Q6H [facility] PRN Reason: Protocol Last Admin: 07/02/17 17:52 Dose: 3 unit Pantoprazole Sodium (Protonix Inj) 40 mg IVP Q12 [facility] Last Admin: 07/02/17 22:04 Dose: 40 mg - Labs Labs: 07/02/17 06:19 07/02/17 06:17 PT 13.8 SECONDS (9.7-12.2) H 07/01/17 05:56 INR 1.2 07/01/17 05:56 APTT 28 SECONDS (21-34) 07/01/17 05:56 - Constitutional Appears: Non-toxic, In Acute Distress, Chronically Ill - Head Exam Head Exam: ATRAUMATIC, NORMAL INSPECTION, NORMOCEPHALIC (ORALLY) - Eye Exam Pupil Exam: NORMAL ACCOMODATION - ENT Exam ENT Exam: Mucous Membranes Moist, Normal Exam, Normal Oropharynx, TM's Normal Bilaterally - Neck Exam Neck Exam: Normal Inspection - Respiratory Exam Respiratory Exam: Decreased Breath Sounds, Rales, Rhonchi - Cardiovascular Exam Cardiovascular Exam: Tachycardia - GI/Abdominal Exam GI & Abdominal Exam: Soft, Normal Bowel Sounds - Rectal Exam Rectal Exam: NORMAL INSPECTION - Extremities Exam Extremities Exam: Full ROM, Normal Capillary Refill - Neurological Exam Neurological Exam: Abnormal Gait, Altered Assessment and Plan (1) Cardiac arrest Status: Resolved (2) GI bleed Status: Resolved (3) Respiratory failure Status: Resolved (4) Acute on chronic renal insufficiency Status: Acute (5) Diabetes Status: Chronic
[2017-07-03] MEDS: Albuterol-Ipratrop 3 mg / 0.5 (3 ml) UD INH SCH ×4 (02:28→19:06)
[2017-07-03] MEDS: Piperacill/Tazo 2.25gm in Dex 2.25 GM/50 ML BAG IVPB SCH ×4 (04:49→22:30)
[2017-07-03 05:54] LABS: ABG MECHANICAL RATE 12; ARTERIAL BLOOD GAS MODE PRVC; ARTERIAL BLOOD HGB O2 SAT 97.4 % (95.0-98.0); ATERIAL BLOOD GAS PEEP 5; CARBOXYHEMOGLOBIN 1.9 % (0.5-1.5); DRAW SITE RB; HHB -0.8 % (0.0-5.0); METHEMOGLOBIN 1.4 % (0.0-3.0)
[2017-07-03] MEDS: (Novolin R) Insulin Human Regular 100 units/ml vial SC SCH ×4 (06:20→18:10)
[2017-07-03 06:46] LABS: POTASSIUM 3.4 mmol/L (3.6-5.2)
[2017-07-03 06:48] LABS: ALB/GLOB RATIO 0.7 (1.0-2.1); BILIRUBIN,TOTAL 0.7 mg/dL (0.2-1.3); TOTAL PROTEIN 5.8 g/dL (6.3-8.3)
[2017-07-03 06:49] LABS: CALCIUM 8.2 mg/dl (8.6-10.4); MAGNESIUM 1.9 mg/dL (1.6-2.3)
[2017-07-03 08:03] LABS: BASO # 0.1 K/uL (0.0-0.2); BASO % 0.3 % (0.0-2.0); HEMATOCRIT 26.5 % (35.0-51.0); LYMPH % 4.2 % (20.0-40.0); MEAN CORPUSCULAR HEMOGLOBIN 27.8 pg (27.0-31.0); MEAN CORPUSCULAR HGB CONC 31.9 g/dL (33.0-37.0); MEAN PLATELET VOLUME 9.4 fL (7.2-11.7); MONO # 1.1 K/uL (0.0-0.8); PLATELET COUNT 347 K/uL (130-400); RED CELL DISTRIBUTION WIDTH 17.1 % (11.5-14.5); WHITE BLOOD COUNT 23.1 K/uL (4.8-10.8)
--- NOTE | 2017-07-03 08:26 | RAD ---
HISTORY: intubated COMPARISON: 07/01/2017 FINDINGS: LUNGS: Endotracheal tube extending into the mid thoracic trachea. NG tube extending into the stomach. Prominent confluent consolidative opacities throughout the right lung with more linear consolidative changes in the right mid to lower lung zone and bilateral hilar regions. Left basilar patchy increased markings. Biapical pleural thickening. PLEURA: As above. CARDIOVASCULAR: Normal. OSSEOUS STRUCTURES: Deformity of the mid left clavicle. VISUALIZED UPPER ABDOMEN: Normal. OTHER FINDINGS: None. IMPRESSION: Endotracheal tube extending into the mid thoracic trachea. NG tube extending into the stomach. Prominent confluent consolidative opacities throughout the right lung with more linear consolidative changes in the right mid to lower lung zone and bilateral hilar regions. Left basilar patchy increased markings. Biapical pleural thickening.
[2017-07-03 08:50] LABS: NEUTROPHIL 80 % (50-75); TOTAL CELLS COUNTED 100
[2017-07-03 08:53] LABS: LARGE PLATELETS PRESENT; PLATELET CLUMPS PRESENT
[2017-07-03] MEDS: guaiFENesin 600 mg ER Tab PO SCH ×2 (12:02→18:09)
--- NOTE | 2017-07-03 16:13 | CP.CCUPN ---
CCU Subjective - Physician Review Events Since Last Encounter (Free Text): 07/03/17 16:13 alert and follows simple commands. CCU Objective - Vital Signs / Intake & Output Vital Signs (Last 4 hours): Vital Signs Pulse Resp BP Pulse Ox 07/03/17 13:00 110 H 22 100 07/03/17 12:17 109 H 18 133/77 100 Intake and Output (Last 8hrs): Intake & Output 07/03/17 07/03/17 07/03/17 06:59 14:59 22:59 Intake Total 155 490 Output Total 305 660 Balance -150 -170 Intake: Intake, IV Amount 50 50 Left Distal Port 50 Subclavian Left Medial Port 50 Subclavian Tube Feeding 105 440 Output: Urine 305 660 Urethral ([place]) 305 660 Oral Regurgitation 0 Other: # Bowel Movements 1 - Physical Exam Head: Positive for: Atraumatic, Normocephalic Extroacular Muscles: Positive for: Other (opens eyes, looks at you, does not follow commands) Mouth: Positive for: Dry Respiratory/Chest: Positive for: Decreased Breath Sounds, Rhonchi Cardiovascular: Positive for: Regular Rate and Rhythm, Normal S1, S2 Abdomen: Positive for: Distention, Normal Bowel Sounds Upper Extremity: Positive for: Normal Inspection. Negative for: Edema, Swelling Lower Extremity: Positive for: Normal Inspection. Negative for: Edema, Swelling Skin: Positive for: Warm, Dry, Normal Color Psychiatric: Positive for: Alert. Negative for: Oriented x 3 - Medications Active Medications: Active Medications Generic Name Dose Route Start Last Admin Trade Name Freq PRN Reason Stop Dose Admin Albuterol/Ipratropium 3 ml 07/02/17 14:00 07/03/17 13:29 Duoneb 3 Mg/0.5 Mg (3 Ml) Ud INH 3 ml RQ6 KESHA Administration Furosemide 60 mg 07/03/17 10:15 Lasix IVP Q12 KESHA Guaifenesin 600 mg 07/03/17 10:00 07/03/17 12:02 Mucinex La PO 600 mg BID KESHA Administration Heparin Sodium (Porcine) 5,000 units 07/02/17 22:00 07/03/17 11:13 Heparin SC 5,000 units Q12 KESHA Administration Hydrochlorothiazide 50 mg 07/03/17 16:00 Microzide PO DAILY KESHA Vancomycin/Sodium Chloride 1 gm in 200 mls @ 166.667 mls/hr 07/01/17 06:15 12:34 Vancocin IVPB 07/06/17 06:16 166.667 mls/hr STAT KESHA Administration Norepinephrine Bitartrate 8 mg 250 mls @ 7.5 mls/hr 07/01/17 10:28 07/01/17 18:30 / Sodium Chloride IV 8 mcg/min .Q24H PRN 15 mls/hr TITRATE PER MD ORDER Titration Protocol 4 MCG/MIN Piperacillin Sod/Tazobactam Sod 2.25 gm in 50 mls @ 100 mls/hr 07/01/17 11:00 07/03/17 11:13 Zosyn 2.25 Gm Iv Premix IVPB 100 mls/hr Q6H KESHA Administration Vancomycin/Sodium Chloride 1 gm in 200 mls @ 133.333 mls/hr 07/02/17 12:00 12:00 Vancocin IVPB 133.333 mls/hr Q24H KESHA Administration Insulin Human Regular 0 unit 07/01/17 18:00 07/03/17 11:59 Novolin R SC 3 unit Q6H KESHA Administration Protocol Pantoprazole Sodium 40 mg 07/01/17 10:45 07/03/17 11:12 Protonix Inj IVP 40 mg Q12 KESHA Administration - Patient Studies Lab Studies: Microbiology Studies 07/01/17 06:30 Blood Culture - Preliminary Blood-Venous NO GROWTH AFTER 48 HOURS 07/01/17 09:10 MRSA Culture (Admit) - Final Naris MRSA NOT DETECTED Lab Studies 07/03/17 07/03/17 07/03/17 Range/Units Unknown 11:51 06:19 WBC 23.1 H (4.8-10.8) K/uL RBC 3.05 L (4.40-5.90) Mil/uL Hgb 8.5 L (12.0-18.0) g/dL Hct 26.5 L (35.0-51.0) % MCV 87.0 (80.0-94.0) fL MCH 27.8 (27.0-31.0) pg MCHC 31.9 L (33.0-37.0) g/dL RDW 17.1 H (11.5-14.5) % Plt Count 347 (130-400) K/uL MPV 9.4 (7.2-11.7) fL Neut % (Auto) 90.5 H (50.0-75.0) % Lymph % (Auto) 4.2 L (20.0-40.0) % [place] % (Auto) 5.0 (0.0-10.0) % Eos % (Auto) 0.0 (0.0-4.0) % Baso % (Auto) 0.3 (0.0-2.0) % Neut # 20.9 H (1.8-7.0) K/uL Lymph # 1.0 (1.0-4.3) K/uL [place] # 1.1 H (0.0-0.8) K/uL Eos # 0.0 (0.0-0.7) K/uL Baso # 0.1 (0.0-0.2) K/uL Neutrophils % (Manual) 80 H (50-75) % Band Neutrophils % 9 H (0-2) % Lymphocytes % (Manual) 3 L (20-40) % Monocytes % (Manual) 8 (0-10) % Platelet Estimate Normal (NORMAL) Plt Clumps, EDTA Present Large Platelets Present Polychromasia Slight Hypochromasia (manual) Slight Poikilocytosis (manual Slight Anisocytosis (manual) Slight Ovalocytes Slight Kavin Cells Slight Puncture Site pCO2 (35-45) mm/Hg pO2 (80-100) mm/Hg HCO3 (21-28) mmol/L ABG pH (7.35-7.45) ABG Total CO2 (22-28) mmol/L ABG O2 Saturation (95-98) % ABG Base Excess (-2.0-3.0) mmol/L ABG Hemoglobin (11.7-17.4) g/dL ABG Carboxyhemoglobin (0.5-1.5) % POC ABG HHb (Measured) (0.0-5.0) % ABG Methemoglobin (0.0-3.0) % Wilner Test A-a O2 Difference mm/Hg Respiratory Index Hgb O2 Saturation (95.0-98.0) % Vent Mode Mechanical Rate FiO2 % Tidal Volume PEEP Sodium (132-148) mmol/L Potassium (3.6-5.2) mmol/L Chloride (98-107) mmol/L Carbon Dioxide (22-30) mmol/L Anion Gap (10-20) BUN (9-20) mg/dL Creatinine (0.8-1.5) MG/DL Est GFR ( Amer) Est GFR (Non-Af Amer) POC Glucose (mg/dL) 202 H (65-110) mg/dL Random Glucose (75-110) mg/dL Calcium (8.6-10.4) mg/dl Phosphorus (2.5-4.5) mg/dL Magnesium (1.6-2.3) mg/dL Total Bilirubin (0.2-1.3) mg/dL AST (17-59) U/L ALT (21-72) U/L Alkaline Phosphatase (38-126) U/L Total Protein (6.3-8.3) g/dL Albumin (3.5-5.0) g/dL Globulin (2.2-3.9) gm/dL Albumin/Globulin Ratio (1.0-2.1) Vancomycin Trough (5.0-10.0) ug/mL C. difficile Ag & Toxin (NEGATIVE) Ur L.pneumophila Ag Negative (NEGATIVE) 07/03/17 07/03/17 07/03/17 Range/Units 06:15 06:14 06:11 WBC (4.8-10.8) K/uL RBC (4.40-5.90) Mil/uL Hgb (12.0-18.0) g/dL Hct (35.0-51.0) % MCV (80.0-94.0) fL MCH (27.0-31.0) pg MCHC (33.0-37.0) g/dL RDW (11.5-14.5) % Plt Count (130-400) K/uL MPV (7.2-11.7) fL Neut % (Auto) (50.0-75.0) % Lymph % (Auto) (20.0-40.0) % [place] % (Auto) (0.0-10.0) % Eos % (Auto) (0.0-4.0) % Baso % (Auto) (0.0-2.0) % Neut # (1.8-7.0) K/uL Lymph # (1.0-4.3) K/uL [place] # (0.0-0.8) K/uL Eos # (0.0-0.7) K/uL Baso # (0.0-0.2) K/uL Neutrophils % (Manual) (50-75) % Band Neutrophils % (0-2) % Lymphocytes % (Manual) (20-40) % Monocytes % (Manual) (0-10) % Platelet Estimate (NORMAL) Plt Clumps, EDTA Large Platelets Polychromasia Hypochromasia (manual) Poikilocytosis (manual Anisocytosis (manual) Ovalocytes [place] Cells Puncture Site pCO2 (35-45) mm/Hg pO2 (80-100) mm/Hg HCO3 (21-28) mmol/L ABG pH (7.35-7.45) ABG Total CO2 (22-28) mmol/L ABG O2 Saturation (95-98) % ABG Base Excess (-2.0-3.0) mmol/L ABG Hemoglobin (11.7-17.4) g/dL ABG Carboxyhemoglobin (0.5-1.5) % POC ABG HHb (Measured) (0.0-5.0) % ABG Methemoglobin (0.0-3.0) % Wilner Test A-a O2 Difference mm/Hg Respiratory Index Hgb O2 Saturation (95.0-98.0) % Vent Mode Mechanical Rate FiO2 % Tidal Volume PEEP Sodium 150 H (132-148) mmol/L Potassium 3.4 L (3.6-5.2) mmol/L Chloride 110 H (98-107) mmol/L Carbon Dioxide 23 (22-30) mmol/L Anion Gap 20 (10-20) BUN 42 H (9-20) mg/dL Creatinine 3.2 H (0.8-1.5) MG/DL Est GFR ( Amer) 23 Est GFR (Non-Af Amer) 19 POC Glucose (mg/dL) 254 H (65-110) mg/dL Random Glucose 198 H (75-110) mg/dL Calcium 8.2 L (8.6-10.4) mg/dl Phosphorus 4.0 (2.5-4.5) mg/dL Magnesium 1.9 (1.6-2.3) mg/dL Total Bilirubin 0.7 (0.2-1.3) mg/dL AST 72 H D (17-59) U/L ALT 66 (21-72) U/L Alkaline Phosphatase 135 H D (38-126) U/L Total Protein 5.8 L (6.3-8.3) g/dL Albumin 2.3 L (3.5-5.0) g/dL Globulin 3.4 (2.2-3.9) gm/dL Albumin/Globulin Ratio 0.7 L (1.0-2.1) Vancomycin Trough 19.6 H (5.0-10.0) ug/mL C. difficile Ag & Toxin (NEGATIVE) Ur L.pneumophila Ag (NEGATIVE) 07/03/17 07/03/17 07/02/17 Range/Units 05:20 00:29 17:49 WBC (4.8-10.8) K/uL RBC (4.40-5.90) Mil/uL Hgb (12.0-18.0) g/dL Hct (35.0-51.0) % MCV (80.0-94.0) fL MCH (27.0-31.0) pg MCHC (33.0-37.0) g/dL RDW (11.5-14.5) % Plt Count (130-400) K/uL MPV (7.2-11.7) fL Neut % (Auto) (50.0-75.0) % Lymph % (Auto) (20.0-40.0) % [place] % (Auto) (0.0-10.0) % Eos % (Auto) (0.0-4.0) % Baso % (Auto) (0.0-2.0) % Neut # (1.8-7.0) K/uL Lymph # (1.0-4.3) K/uL [place] # (0.0-0.8) K/uL Eos # (0.0-0.7) K/uL Baso # (0.0-0.2) K/uL Neutrophils % (Manual) (50-75) % Band Neutrophils % (0-2) % Lymphocytes % (Manual) (20-40) % Monocytes % (Manual) (0-10) % Platelet Estimate (NORMAL) Plt Clumps, EDTA Large Platelets Polychromasia Hypochromasia (manual) Poikilocytosis (manual Anisocytosis (manual) Ovalocytes [place] Cells Puncture Site Rb pCO2 27 L (35-45) mm/Hg pO2 184 H (80-100) mm/Hg HCO3 21.9 (21-28) mmol/L ABG pH 7.46 H (7.35-7.45) ABG Total CO2 20.0 L (22-28) mmol/L ABG O2 Saturation 100.8 H (95-98) % ABG Base Excess -3.9 L (-2.0-3.0) mmol/L ABG Hemoglobin 8.3 L (11.7-17.4) g/dL ABG Carboxyhemoglobin 1.9 H (0.5-1.5) % POC ABG HHb (Measured) -0.8 L (0.0-5.0) % ABG Methemoglobin 1.4 (0.0-3.0) % Wilner Test Na A-a O2 Difference 281.0 mm/Hg Respiratory Index 1.5 Hgb O2 Saturation 97.4 (95.0-98.0) % Vent Mode Prvc Mechanical Rate 12 FiO2 70.0 % Tidal Volume 450 PEEP 5 Sodium (132-148) mmol/L Potassium (3.6-5.2) mmol/L Chloride (98-107) mmol/L Carbon Dioxide (22-30) mmol/L Anion Gap (10-20) BUN (9-20) mg/dL Creatinine (0.8-1.5) MG/DL Est GFR ( Amer) Est GFR (Non-Af Amer) POC Glucose (mg/dL) 197 H 236 H (65-110) mg/dL Random Glucose (75-110) mg/dL Calcium (8.6-10.4) mg/dl Phosphorus (2.5-4.5) mg/dL Magnesium (1.6-2.3) mg/dL Total Bilirubin (0.2-1.3) mg/dL AST (17-59) U/L ALT (21-72) U/L Alkaline Phosphatase (38-126) U/L Total Protein (6.3-8.3) g/dL Albumin (3.5-5.0) g/dL Globulin (2.2-3.9) gm/dL Albumin/Globulin Ratio (1.0-2.1) Vancomycin Trough (5.0-10.0) ug/mL C. difficile Ag & Toxin (NEGATIVE) Ur L.pneumophila Ag (NEGATIVE) 07/01/17 Range/Units Unknown WBC (4.8-10.8) K/uL RBC (4.40-5.90) Mil/uL Hgb (12.0-18.0) g/dL Hct (35.0-51.0) % MCV (80.0-94.0) fL MCH (27.0-31.0) pg MCHC (33.0-37.0) g/dL RDW (11.5-14.5) % Plt Count (130-400) K/uL MPV (7.2-11.7) fL Neut % (Auto) (50.0-75.0) % Lymph % (Auto) (20.0-40.0) % [place] % (Auto) (0.0-10.0) % Eos % (Auto) (0.0-4.0) % Baso % (Auto) (0.0-2.0) % Neut # (1.8-7.0) K/uL Lymph # (1.0-4.3) K/uL [place] # (0.0-0.8) K/uL Eos # (0.0-0.7) K/uL Baso # (0.0-0.2) K/uL Neutrophils % (Manual) (50-75) % Band Neutrophils % (0-2) % Lymphocytes % (Manual) (20-40) % Monocytes % (Manual) (0-10) % Platelet Estimate (NORMAL) Plt Clumps, EDTA Large Platelets Polychromasia Hypochromasia (manual) Poikilocytosis (manual Anisocytosis (manual) Ovalocytes [place] Cells Puncture Site pCO2 (35-45) mm/Hg pO2 (80-100) mm/Hg HCO3 (21-28) mmol/L ABG pH (7.35-7.45) ABG Total CO2 (22-28) mmol/L ABG O2 Saturation (95-98) % ABG Base Excess (-2.0-3.0) mmol/L ABG Hemoglobin (11.7-17.4) g/dL ABG Carboxyhemoglobin (0.5-1.5) % POC ABG HHb (Measured) (0.0-5.0) % ABG Methemoglobin (0.0-3.0) % Wilner Test A-a O2 Difference mm/Hg Respiratory Index Hgb O2 Saturation (95.0-98.0) % Vent Mode Mechanical Rate FiO2 % Tidal Volume PEEP Sodium (132-148) mmol/L Potassium (3.6-5.2) mmol/L Chloride (98-107) mmol/L Carbon Dioxide (22-30) mmol/L Anion Gap (10-20) BUN (9-20) mg/dL Creatinine (0.8-1.5) MG/DL Est GFR ( Amer) Est GFR (Non-Af Amer) POC Glucose (mg/dL) (65-110) mg/dL Random Glucose (75-110) mg/dL Calcium (8.6-10.4) mg/dl Phosphorus (2.5-4.5) mg/dL Magnesium (1.6-2.3) mg/dL Total Bilirubin (0.2-1.3) mg/dL AST (17-59) U/L ALT (21-72) U/L Alkaline Phosphatase (38-126) U/L Total Protein (6.3-8.3) g/dL Albumin (3.5-5.0) g/dL Globulin (2.2-3.9) gm/dL Albumin/Globulin Ratio (1.0-2.1) Vancomycin Trough (5.0-10.0) ug/mL C. difficile Ag & Toxin Negative (NEGATIVE) Ur L.pneumophila Ag (NEGATIVE) Laboratory Results - last 24 hr 07/01/17 07/02/17 07/03/17 Unknown 17:49 00:29 WBC RBC Hgb Hct MCV MCH MCHC RDW Plt Count MPV Neut % (Auto) Lymph % (Auto) [place] % (Auto) Eos % (Auto) Baso % (Auto) Neut # Lymph # [place] # Eos # Baso # Neutrophils % (Manual) Band Neutrophils % Lymphocytes % (Manual) Monocytes % (Manual) Platelet Estimate Plt Clumps, EDTA Large Platelets Polychromasia Hypochromasia (manual) Poikilocytosis (manual Anisocytosis (manual) Ovalocytes [place] Cells Puncture Site pCO2 pO2 HCO3 ABG pH ABG Total CO2 ABG O2 Saturation ABG Base Excess ABG Hemoglobin ABG Carboxyhemoglobin POC ABG HHb (Measured) ABG Methemoglobin Wilner Test A-a O2 Difference Respiratory Index Hgb O2 Saturation Vent Mode Mechanical Rate FiO2 Tidal Volume PEEP Sodium Potassium Chloride Carbon Dioxide Anion Gap BUN Creatinine Est GFR ( Amer) Est GFR (Non-Af Amer) POC Glucose (mg/dL) 236 H 197 H Random Glucose Calcium Phosphorus Magnesium Total Bilirubin AST ALT Alkaline Phosphatase Total Protein Albumin Globulin Albumin/Globulin Ratio Vancomycin Trough C. difficile Ag & Toxin Negative Ur L.pneumophila Ag 07/03/17 07/03/17 07/03/17 05:20 06:11 06:14 WBC RBC Hgb Hct MCV MCH MCHC RDW Plt Count MPV Neut % (Auto) Lymph % (Auto) [place] % (Auto) Eos % (Auto) Baso % (Auto) Neut # Lymph # [place] # Eos # Baso # Neutrophils % (Manual) Band Neutrophils % Lymphocytes % (Manual) Monocytes % (Manual) Platelet Estimate Plt Clumps, EDTA Large Platelets Polychromasia Hypochromasia (manual) Poikilocytosis (manual Anisocytosis (manual) Ovalocytes Kavin Cells Puncture Site Rb pCO2 27 L pO2 184 H HCO3 21.9 ABG pH 7.46 H ABG Total CO2 20.0 L ABG O2 Saturation 100.8 H ABG Base Excess -3.9 L ABG Hemoglobin 8.3 L ABG Carboxyhemoglobin 1.9 H POC ABG HHb (Measured) -0.8 L ABG Methemoglobin 1.4 Wilner Test Na A-a O2 Difference 281.0 Respiratory Index 1.5 Hgb O2 Saturation 97.4 Vent Mode Prvc Mechanical Rate 12 FiO2 70.0 Tidal Volume 450 PEEP 5 Sodium 150 H Potassium 3.4 L Chloride 110 H Carbon Dioxide 23 Anion Gap 20 BUN 42 H Creatinine 3.2 H Est GFR ( Amer) 23 Est GFR (Non-Af Amer) 19 POC Glucose (mg/dL) 254 H Random Glucose 198 H Calcium 8.2 L Phosphorus 4.0 Magnesium 1.9 Total Bilirubin 0.7 AST 72 H D ALT 66 Alkaline Phosphatase 135 H D Total Protein 5.8 L Albumin 2.3 L Globulin 3.4 Albumin/Globulin Ratio 0.7 L Vancomycin Trough C. difficile Ag & Toxin Ur L.pneumophila Ag 07/03/17 07/03/17 07/03/17 06:15 06:19 11:51 WBC 23.1 H RBC 3.05 L Hgb 8.5 L Hct 26.5 L MCV 87.0 MCH 27.8 MCHC 31.9 L RDW 17.1 H Plt Count 347 MPV 9.4 Neut % (Auto) 90.5 H Lymph % (Auto) 4.2 L [place] % (Auto) 5.0 Eos % (Auto) 0.0 Baso % (Auto) 0.3 Neut # 20.9 H Lymph # 1.0 [place] # 1.1 H Eos # 0.0 Baso # 0.1 Neutrophils % (Manual) 80 H Band Neutrophils % 9 H Lymphocytes % (Manual) 3 L Monocytes % (Manual) 8 Platelet Estimate Normal Plt Clumps, EDTA Present Large Platelets Present Polychromasia Slight Hypochromasia (manual) Slight Poikilocytosis (manual Slight Anisocytosis (manual) Slight Ovalocytes Slight [place] Cells Slight Puncture Site pCO2 pO2 HCO3 ABG pH ABG Total CO2 ABG O2 Saturation ABG Base Excess ABG Hemoglobin ABG Carboxyhemoglobin POC ABG HHb (Measured) ABG Methemoglobin Wilner Test A-a O2 Difference Respiratory Index Hgb O2 Saturation Vent Mode Mechanical Rate FiO2 Tidal Volume PEEP Sodium Potassium Chloride Carbon Dioxide Anion Gap BUN Creatinine Est GFR ( Amer) Est GFR (Non-Af Amer) POC Glucose (mg/dL) 202 H Random Glucose Calcium Phosphorus Magnesium Total Bilirubin AST ALT Alkaline Phosphatase Total Protein Albumin Globulin Albumin/Globulin Ratio Vancomycin Trough 19.6 H C. difficile Ag & Toxin Ur L.pneumophila Ag 07/03/17 Unknown WBC RBC Hgb Hct MCV MCH MCHC RDW Plt Count MPV Neut % (Auto) Lymph % (Auto) [place] % (Auto) Eos % (Auto) Baso % (Auto) Neut # Lymph # [place] # Eos # Baso # Neutrophils % (Manual) Band Neutrophils % Lymphocytes % (Manual) Monocytes % (Manual) Platelet Estimate Plt Clumps, EDTA Large Platelets Polychromasia Hypochromasia (manual) Poikilocytosis (manual Anisocytosis (manual) Ovalocytes Kavin Cells Puncture Site pCO2 pO2 HCO3 ABG pH ABG Total CO2 ABG O2 Saturation ABG Base Excess ABG Hemoglobin ABG Carboxyhemoglobin POC ABG HHb (Measured) ABG Methemoglobin Wilner Test A-a O2 Difference Respiratory Index Hgb O2 Saturation Vent Mode Mechanical Rate FiO2 Tidal Volume PEEP Sodium Potassium Chloride Carbon Dioxide Anion Gap BUN Creatinine Est GFR ( Amer) Est GFR (Non-Af Amer) POC Glucose (mg/dL) Random Glucose Calcium Phosphorus Magnesium Total Bilirubin AST ALT Alkaline Phosphatase Total Protein Albumin Globulin Albumin/Globulin Ratio Vancomycin Trough C. difficile Ag & Toxin Ur L.pneumophila Ag Negative Fingerstick Blood Sugar Results: 202 Review of Systems - Review of Systems Systems not reviewed;Unavailable: Intubated Assessment/Plan (1) Pneumonia Assessment and plan: 76 year old male with a medical history of CVA, Dementia, DM, Hypertension, hypercholesteremia, CKD, and renal carcinoma. presented in cardiac arrest s/p CPR with ROSC, intubated in ED (07/01), and coffee ground emesis. Neuro: Alert and follows simple commands. All sedation held. Pulm: Acute respiratory failure secondary to pneumonia. Intubated on vent. Pressure support trials started. CV: Hemodynamically stable, off pressors. Hem: Anemia of critical illness and dilutional, will monitor. Renal: Hypernatremic secondary to diuresis. Will stop diuretics. Given 1 dose of Diamox for metabolic alkalosis also secondary to diuresis. Considering giving HCTZ. Endo: DM type II with Hyperglycemia, and regular insulin sliding scale for coverage. GI: Nothing by mouth, tube feeds, SUPLENA. High-dose Protonix for suspected upper GI bleed, now stable, patient will likely need EGD, we'll consult GI. ID: Severe sepsis secondary to pneumonia, continue Vanco and Zosyn. ID following , Dr. Booker. DVT proph - heparin subcutaneous GI proph - Protonix IV every 12 hours. alex for strict I/O's during acute illness Code status - full code Critical Care Time spent 35 minutes Multi-disciplinary rounds were performed with house staff, nursing, speech therapy, respiratory therapy, pharmacy and nutrition with integrated input from the primary team/attending and other consulting services. The documented time is cumulative and includes review of patient data/exams/labs/chart review and examination of the patient on rounds and throughout the day; time is exclusive of any procedures or teaching time. Current Visit: Yes Status: Acute
[2017-07-03] MEDS ORDERED: Albumin Human 5% (12.5 gm/250 ml) IV ONE (16:59)
[2017-07-04] MEDS: Albuterol-Ipratrop 3 mg / 0.5 (3 ml) UD INH SCH ×4 (02:09→19:33)
[2017-07-04] MEDS: Piperacill/Tazo 2.25gm in Dex 2.25 GM/50 ML BAG IVPB SCH ×4 (04:45→23:00)
[2017-07-04 06:00] LABS: ABG MECHANICAL RATE 12; ARTERIAL BLOOD GAS MODE PRVC; ARTERIAL BLOOD HGB O2 SAT 96.2 % (95.0-98.0); ATERIAL BLOOD GAS PEEP 5; CARBOXYHEMOGLOBIN 1.4 % (0.5-1.5); DRAW SITE RB; HHB 0.7 % (0.0-5.0); METHEMOGLOBIN 1.7 % (0.0-3.0)
[2017-07-04] MEDS: (Novolin R) Insulin Human Regular 100 units/ml vial SC SCH ×4 (06:10→17:56)
[2017-07-04 06:44] LABS: BASO % 0.1 % (0.0-2.0); HEMATOCRIT 24.8 % (35.0-51.0); LYMPH # 1.1 K/uL (1.0-4.3); LYMPH % 4.6 % (20.0-40.0); MEAN CELL VOLUME 87.3 fL (80.0-94.0); MEAN CORPUSCULAR HEMOGLOBIN 28.4 pg (27.0-31.0); MEAN CORPUSCULAR HGB CONC 32.5 g/dL (33.0-37.0); MEAN PLATELET VOLUME 9.4 fL (7.2-11.7); MONO # 1.1 K/uL (0.0-0.8); MONO % 4.8 % (0.0-10.0); PLATELET COUNT 320 K/uL (130-400); RED CELL DISTRIBUTION WIDTH 17.4 % (11.5-14.5); WHITE BLOOD COUNT 23.4 K/uL (4.8-10.8)
[2017-07-04 06:58] LABS: ALB/GLOB RATIO 0.8 (1.0-2.1); BILIRUBIN,TOTAL 0.5 mg/dL (0.2-1.3); CALCIUM 8.7 mg/dl (8.6-10.4); POTASSIUM 2.8 mmol/L (3.6-5.2); TOTAL PROTEIN 5.9 g/dL (6.3-8.3)
[2017-07-04] MEDS ORDERED: Potassium Chloride 20 mEq/15 ml LIQ UD PO STA (07:21)
[2017-07-04 08:57] LABS: NEUTROPHIL 90 % (50-75); TOTAL CELLS COUNTED 100
[2017-07-04 08:58] LABS: LARGE PLATELETS PRESENT
--- NOTE | 2017-07-04 09:08 | RAD ---
Chest x-ray single frontal view History: Intubated. Comparison: 07/03/2017 Findings: Endotracheal tube somewhat low lying approximately 1.3 centimeters above the herberth. NG tube extending into the stomach. Left central venous catheter extending to the confluence of the left SVC/ brachiocephalic junction. Advancement may be helpful. Multiple externally overlying wires and tubes. Dense confluent consolidative changes seen within the right mid to lower lung zone with adjacent prominent confluent areas of linear consolidative changes as well as more focal nodular consolidative changes at the right lung base laterally. Elevated right hemidiaphragm with adjacent small right pleural effusion. Nodular opacifications seen within the right lung apex with adjacent granulomatous changes more superiorly in the right lung apex. Cardiomegaly. Calcification at the aortic knob. Degenerative changes in the spine and shoulders. Deformity of the mid left clavicle. Impression: Endotracheal tube somewhat low lying approximately 1.3 centimeters above the herberth. NG tube extending into the stomach. Left central venous catheter extending to the confluence of the left SVC/ brachiocephalic junction. Advancement may be helpful. Multiple externally overlying wires and tubes. Dense confluent consolidative changes seen within the right mid to lower lung zone with adjacent prominent confluent areas of linear consolidative changes as well as more focal nodular consolidative changes at the right lung base laterally. Elevated right hemidiaphragm with adjacent small right pleural effusion. Nodular opacifications seen within the right lung apex with adjacent granulomatous changes more superiorly in the right lung apex. Cardiomegaly. Calcification at the aortic knob. Degenerative changes in the spine and shoulders. Deformity of the mid left clavicle.
[2017-07-04] MEDS: guaiFENesin 600 mg ER Tab PO SCH ×2 (09:49→17:57)
--- NOTE | 2017-07-04 13:45 | CP.PCM.PN ---
Subjective - Date & Time of Evaluation Date of Evaluation: 07/04/17 Time of Evaluation: 09:00 - Subjective Subjective: s/p resp arrest extubated remains weak, lethargic and confused negative cultures thus far PMHx: CVA, Dementia, DM, Hypertension, hypercholesteremia, CKD, renal carcinoma , arthritis (as per previous visits and fpc notes) Objective - Vital Signs/Intake and Output Vital Signs (last 24 hours): Temp Pulse Resp BP Pulse Ox 97.8 F 112 H 20 150/81 100 07/04/17 08:00 07/04/17 08:17 07/04/17 08:17 07/04/17 08:17 07/04/17 08:17 Intake and Output: 07/04/17 07/04/17 06:59 18:59 Intake Total 400 200 Output Total 900 1200 Balance -500 -1000 - Medications Medications: Current Medications Albuterol/Ipratropium (Duoneb 3 Mg/0.5 Mg (3 Ml) Ud) 3 ml INH RQ6 [facility] Last Admin: 07/04/17 13:25 Dose: 3 ml Guaifenesin (Mucinex La) 600 mg PO BID [facility] Last Admin: 07/04/17 09:49 Dose: 600 mg Heparin Sodium (Porcine) (Heparin) 5,000 units SC Q12 [facility] Last Admin: 07/04/17 09:48 Dose: 5,000 units Hydrochlorothiazide (Hydrodiuril) 50 mg PO DAILY [facility] Last Admin: 07/04/17 10:24 Dose: 50 mg Vancomycin/Sodium Chloride (Vancocin) 1 gm in 200 mls @ 166.667 mls/hr IVPB STAT KESHA Stop: 07/06/17 06:16 Last Admin: 07/02/17 12:34 Dose: 166.667 mls/hr Norepinephrine Bitartrate 8 mg (/ Sodium Chloride) 250 mls @ 7.5 mls/hr IV .Q24H PRN; Protocol; 4 MCG/MIN PRN Reason: TITRATE PER MD ORDER Last Titration: 07/01/17 18:30 Dose: 8 mcg/min, 15 mls/hr Piperacillin Sod/Tazobactam Sod (Zosyn 2.25 Gm Iv Premix) 2.25 gm in 50 mls @ 100 mls/hr IVPB Q6H [facility] Last Admin: 07/04/17 10:43 Dose: 100 mls/hr Vancomycin/Sodium Chloride (Vancocin) 1 gm in 200 mls @ 133.333 mls/hr IVPB Q24H [facility] Last Admin: 07/02/17 12:00 Dose: 133.333 mls/hr Insulin Human Regular (Novolin R) 0 unit SC Q6 [facility] PRN Reason: Protocol Last Admin: 07/04/17 12:37 Dose: Not Given Pantoprazole Sodium (Protonix Inj) 40 mg IVP Q12 [facility] Last Admin: 07/04/17 09:48 Dose: 40 mg - Labs Labs: 07/04/17 06:31 07/04/17 06:31 PT 13.8 SECONDS (9.7-12.2) H 07/01/17 05:56 INR 1.2 07/01/17 05:56 APTT 28 SECONDS (21-34) 07/01/17 05:56 - Constitutional Appears: Non-toxic, Confused, Cachectic, Chronically Ill - Head Exam Head Exam: NORMOCEPHALIC - Eye Exam Eye Exam: PERRL. absent: Scleral icterus - ENT Exam ENT Exam: Mucous Membranes Dry - Neck Exam Neck Exam: absent: Lymphadenopathy - Respiratory Exam Respiratory Exam: Decreased Breath Sounds, Rhonchi - Cardiovascular Exam Cardiovascular Exam: REGULAR RHYTHM, +S1, +S2 - GI/Abdominal Exam GI & Abdominal Exam: Distended, Soft. absent: Tenderness - Rectal Exam Rectal Exam: Deferred - Exam Exam: NORMAL INSPECTION - Extremities Exam Extremities Exam: absent: Calf Tenderness, Pedal Edema, Tenderness - Back Exam Back Exam: absent: CVA tenderness (L), CVA tenderness (R) - Neurological Exam Neurological Exam: Altered, CN II-XII Intact - Psychiatric Exam Psychiatric exam: Depressed - Skin Skin Exam: Dry Assessment and Plan (1) Pneumonia Status: Acute (2) Pneumonia Status: Acute (3) Cardiac arrest Status: Acute (4) GI bleed Status: Acute (5) Respiratory failure Status: Acute (6) Sepsis Status: Acute (7) Acute on chronic renal insufficiency Status: Acute (8) Anemia Status: Acute (9) Chronic renal disease, stage 2, mildly decreased glomerular filtration rate between 60-89 mL/min/1.73 square meter Status: Acute (10) Leukocytosis Status: Acute (11) Renal cell carcinoma Status: Acute - Assessment and Plan (Free Text) Assessment: PMHx: CVA, Dementia, DM, Hypertension, hypercholesteremia, CKD, renal carcinoma , arthritis (as per previous visits and [facility] notes) 76 yo male admitted from [place] with sepsis and resp failure improving on empiric IV antibiotics for sepsis/ pneumonia cultures so afar are negative
[2017-07-04 14:26] LABS: POTASSIUM 3.5 mmol/L (3.6-5.2)
[2017-07-04 14:30] LABS: CALCIUM 9.2 mg/dl (8.6-10.4)
[2017-07-04] MEDS ORDERED: Vancomycin 1 gm/NS 200 ml 1 GM/200 ML BAG IVPB SCH (15:00)
[2017-07-04] MEDS ORDERED: Vancomycin 1 GM in Sodium Chloride 0.9% 200 ML IVPB SCH (15:00)
--- NOTE | 2017-07-04 16:46 | CP.CCUPN ---
CCU Subjective - Physician Review Events Since Last Encounter (Free Text): 07/04/17 16:42 the patient is alert and following commands. Appears much better today. CCU Objective - Vital Signs / Intake & Output Vital Signs (Last 4 hours): Vital Signs Pulse Resp BP Pulse Ox 07/04/17 14:17 107 H 25 H 142/76 100 07/04/17 13:17 109 H 27 H 147/80 95 Intake and Output (Last 8hrs): Intake & Output 07/04/17 07/04/17 07/04/17 06:59 14:59 22:59 Intake Total 300 1100 283 Output Total 0 1200 Balance 300 -100 283 Intake: Intake, IV Amount 300 250 133 Left Distal Port 200 100 Subclavian Left Medial Port 100 150 133 Subclavian Tube Feeding 0 850 150 Output: Urine 1200 Urethral ([place]) 1200 Oral Regurgitation 0 Other: # Bowel Movements 0 0 - Physical Exam Head: Positive for: Atraumatic, Normocephalic Extroacular Muscles: Positive for: Other (opens eyes, looks at you, does not follow commands) Mouth: Positive for: Dry Respiratory/Chest: Positive for: Decreased Breath Sounds, Rhonchi Cardiovascular: Positive for: Regular Rate and Rhythm, Normal S1, S2 Abdomen: Positive for: Distention, Normal Bowel Sounds Upper Extremity: Positive for: Normal Inspection. Negative for: Edema, Swelling Lower Extremity: Positive for: Normal Inspection. Negative for: Edema, Swelling Skin: Positive for: Warm, Dry, Normal Color Psychiatric: Positive for: Alert. Negative for: Oriented x 3 - Medications Active Medications: Active Medications Generic Name Dose Route Start Last Admin Trade Name Vincenzoq PRN Reason Stop Dose Admin Albuterol/Ipratropium 3 ml 07/02/17 14:00 07/04/17 13:25 Duoneb 3 Mg/0.5 Mg (3 Ml) Ud INH 3 ml RQ6 [facility] Administration Guaifenesin 600 mg 07/03/17 10:00 07/04/17 09:49 Mucinex La PO 600 mg BID K[facility] Administration Heparin Sodium (Porcine) 5,000 units 07/02/17 22:00 07/04/17 09:48 Heparin SC 5,000 units Q12 [facility] Administration Hydrochlorothiazide 50 mg 07/04/17 10:30 07/04/17 10:24 Hydrodiuril PO 50 mg DAILY [facility] Administration Norepinephrine Bitartrate 8 mg 250 mls @ 7.5 mls/hr 07/01/17 10:28 07/01/17 18:30 / Sodium Chloride IV 8 mcg/min .Q24H PRN 15 mls/hr TITRATE PER MD ORDER Titration Protocol 4 MCG/MIN Piperacillin Sod/Tazobactam Sod 2.25 gm in 50 mls @ 100 mls/hr 07/01/17 11:00 07/04/17 10:43 Zosyn 2.25 Gm Iv Premix IVPB 100 mls/hr Q6H [facility] Administration Vancomycin/Sodium Chloride 1 gm in 200 mls @ 133 mls/hr 07/04/17 15:00 14:53 Vancocin IVPB 133 mls/hr Q24H [facility] Administration Insulin Human Regular 0 unit 07/03/17 18:00 07/04/17 12:37 Novolin R SC Not Given Q6 [facility] Protocol Pantoprazole Sodium 40 mg 07/01/17 10:45 07/04/17 09:48 Protonix Inj IVP 40 mg Q12 [facility] Administration - Patient Studies Lab Studies: Microbiology Studies 07/01/17 06:30 Blood Culture - Preliminary Blood-Venous NO GROWTH AFTER 3 DAYS Lab Studies 07/04/17 07/04/17 07/04/17 Range/Units 14:09 11:34 07:37 WBC (4.8-10.8) K/uL RBC (4.40-5.90) Mil/uL Hgb (12.0-18.0) g/dL Hct (35.0-51.0) % MCV (80.0-94.0) fL MCH (27.0-31.0) pg MCHC (33.0-37.0) g/dL RDW (11.5-14.5) % Plt Count (130-400) K/uL MPV (7.2-11.7) fL Neut % (Auto) (50.0-75.0) % Lymph % (Auto) (20.0-40.0) % Mcminn % (Auto) (0.0-10.0) % Eos % (Auto) (0.0-4.0) % Baso % (Auto) (0.0-2.0) % Neut # (1.8-7.0) K/uL Lymph # (1.0-4.3) K/uL Mcminn # (0.0-0.8) K/uL Eos # (0.0-0.7) K/uL Baso # (0.0-0.2) K/uL Neutrophils % (Manual) (50-75) % Band Neutrophils % (0-2) % Lymphocytes % (Manual) (20-40) % Monocytes % (Manual) (0-10) % Platelet Estimate (NORMAL) Large Platelets Poikilocytosis (manual Anisocytosis (manual) Ovalocytes Puncture Site pCO2 (35-45) mm/Hg pO2 (80-100) mm/Hg HCO3 (21-28) mmol/L ABG pH (7.35-7.45) ABG Total CO2 (22-28) mmol/L ABG O2 Saturation (95-98) % ABG Base Excess (-2.0-3.0) mmol/L ABG Hemoglobin (11.7-17.4) g/dL ABG Carboxyhemoglobin (0.5-1.5) % POC ABG HHb (Measured) (0.0-5.0) % ABG Methemoglobin (0.0-3.0) % Wilner Test A-a O2 Difference mm/Hg Respiratory Index Hgb O2 Saturation (95.0-98.0) % Vent Mode Mechanical Rate FiO2 % Tidal Volume PEEP Sodium 152 H (132-148) mmol/L Potassium 3.5 L (3.6-5.2) mmol/L Chloride 109 H (98-107) mmol/L Carbon Dioxide 25 (22-30) mmol/L Anion Gap 22 H (10-20) BUN 45 H (9-20) mg/dL Creatinine 3.5 H (0.8-1.5) MG/DL Est GFR ( Amer) 21 Est GFR (Non-Af Amer) 17 POC Glucose (mg/dL) 156 H (65-110) mg/dL Random Glucose 172 H (75-110) mg/dL Calcium 9.2 (8.6-10.4) mg/dl Magnesium 1.8 (1.6-2.3) mg/dL Total Bilirubin (0.2-1.3) mg/dL AST (17-59) U/L ALT (21-72) U/L Alkaline Phosphatase (38-126) U/L Total Protein (6.3-8.3) g/dL Albumin (3.5-5.0) g/dL Globulin (2.2-3.9) gm/dL Albumin/Globulin Ratio (1.0-2.1) Vancomycin Trough (5.0-10.0) ug/mL 07/04/17 07/04/17 07/04/17 Range/Units 06:31 06:31 06:31 WBC 23.4 H (4.8-10.8) K/uL RBC 2.84 L (4.40-5.90) Mil/uL Hgb 8.1 L (12.0-18.0) g/dL Hct 24.8 L (35.0-51.0) % MCV 87.3 (80.0-94.0) fL MCH 28.4 (27.0-31.0) pg MCHC 32.5 L (33.0-37.0) g/dL RDW 17.4 H (11.5-14.5) % Plt Count 320 (130-400) K/uL MPV 9.4 (7.2-11.7) fL Neut % (Auto) 90.5 H (50.0-75.0) % Lymph % (Auto) 4.6 L (20.0-40.0) % Mcminn % (Auto) 4.8 (0.0-10.0) % Eos % (Auto) 0.0 (0.0-4.0) % Baso % (Auto) 0.1 (0.0-2.0) % Neut # 21.2 H (1.8-7.0) K/uL Lymph # 1.1 (1.0-4.3) K/uL Mcminn # 1.1 H (0.0-0.8) K/uL Eos # 0.0 (0.0-0.7) K/uL Baso # 0.0 (0.0-0.2) K/uL Neutrophils % (Manual) 90 H (50-75) % Band Neutrophils % 1 (0-2) % Lymphocytes % (Manual) 5 L (20-40) % Monocytes % (Manual) 4 (0-10) % Platelet Estimate Normal (NORMAL) Large Platelets Present Poikilocytosis (manual Slight Anisocytosis (manual) Slight Ovalocytes Slight Puncture Site pCO2 (35-45) mm/Hg pO2 (80-100) mm/Hg HCO3 (21-28) mmol/L ABG pH (7.35-7.45) ABG Total CO2 (22-28) mmol/L ABG O2 Saturation (95-98) % ABG Base Excess (-2.0-3.0) mmol/L ABG Hemoglobin (11.7-17.4) g/dL ABG Carboxyhemoglobin (0.5-1.5) % POC ABG HHb (Measured) (0.0-5.0) % ABG Methemoglobin (0.0-3.0) % Wilner Test A-a O2 Difference mm/Hg Respiratory Index Hgb O2 Saturation (95.0-98.0) % Vent Mode Mechanical Rate FiO2 % Tidal Volume PEEP Sodium 151 H (132-148) mmol/L Potassium 2.8 L (3.6-5.2) mmol/L Chloride 107 (98-107) mmol/L Carbon Dioxide 26 (22-30) mmol/L Anion Gap 21 H (10-20) BUN 45 H (9-20) mg/dL Creatinine 3.4 H (0.8-1.5) MG/DL Est GFR ( Amer) 21 Est GFR (Non-Af Amer) 18 POC Glucose (mg/dL) (65-110) mg/dL Random Glucose 241 H (75-110) mg/dL Calcium 8.7 (8.6-10.4) mg/dl Magnesium (1.6-2.3) mg/dL Total Bilirubin 0.5 (0.2-1.3) mg/dL AST 61 H (17-59) U/L ALT 64 (21-72) U/L Alkaline Phosphatase 173 H D (38-126) U/L Total Protein 5.9 L (6.3-8.3) g/dL Albumin 2.6 L (3.5-5.0) g/dL Globulin 3.4 (2.2-3.9) gm/dL Albumin/Globulin Ratio 0.8 L (1.0-2.1) Vancomycin Trough 13.7 H (5.0-10.0) ug/mL 07/04/17 07/04/17 07/03/17 Range/Units 06:05 05:31 23:14 WBC (4.8-10.8) K/uL RBC (4.40-5.90) Mil/uL Hgb (12.0-18.0) g/dL Hct (35.0-51.0) % MCV (80.0-94.0) fL MCH (27.0-31.0) pg MCHC (33.0-37.0) g/dL RDW (11.5-14.5) % Plt Count (130-400) K/uL MPV (7.2-11.7) fL Neut % (Auto) (50.0-75.0) % Lymph % (Auto) (20.0-40.0) % Mcminn % (Auto) (0.0-10.0) % Eos % (Auto) (0.0-4.0) % Baso % (Auto) (0.0-2.0) % Neut # (1.8-7.0) K/uL Lymph # (1.0-4.3) K/uL Mcminn # (0.0-0.8) K/uL Eos # (0.0-0.7) K/uL Baso # (0.0-0.2) K/uL Neutrophils % (Manual) (50-75) % Band Neutrophils % (0-2) % Lymphocytes % (Manual) (20-40) % Monocytes % (Manual) (0-10) % Platelet Estimate (NORMAL) Large Platelets Poikilocytosis (manual Anisocytosis (manual) Ovalocytes Puncture Site Rb pCO2 30 L (35-45) mm/Hg pO2 111 H (80-100) mm/Hg HCO3 23.8 (21-28) mmol/L ABG pH 7.47 H (7.35-7.45) ABG Total CO2 22.7 (22-28) mmol/L ABG O2 Saturation 99.3 H (95-98) % ABG Base Excess -1.5 (-2.0-3.0) mmol/L ABG Hemoglobin 8.1 L (11.7-17.4) g/dL ABG Carboxyhemoglobin 1.4 (0.5-1.5) % POC ABG HHb (Measured) 0.7 (0.0-5.0) % ABG Methemoglobin 1.7 (0.0-3.0) % Wilner Test Na A-a O2 Difference 208.0 mm/Hg Respiratory Index 1.9 Hgb O2 Saturation 96.2 (95.0-98.0) % Vent Mode Prvc Mechanical Rate 12 FiO2 50.0 % Tidal Volume 450 PEEP 5 Sodium (132-148) mmol/L Potassium (3.6-5.2) mmol/L Chloride (98-107) mmol/L Carbon Dioxide (22-30) mmol/L Anion Gap (10-20) BUN (9-20) mg/dL Creatinine (0.8-1.5) MG/DL Est GFR ( Amer) Est GFR (Non-Af Amer) POC Glucose (mg/dL) 289 H 211 H (65-110) mg/dL Random Glucose (75-110) mg/dL Calcium (8.6-10.4) mg/dl Magnesium (1.6-2.3) mg/dL Total Bilirubin (0.2-1.3) mg/dL AST (17-59) U/L ALT (21-72) U/L Alkaline Phosphatase (38-126) U/L Total Protein (6.3-8.3) g/dL Albumin (3.5-5.0) g/dL Globulin (2.2-3.9) gm/dL Albumin/Globulin Ratio (1.0-2.1) Vancomycin Trough (5.0-10.0) ug/mL 07/03/17 Range/Units 17:32 WBC (4.8-10.8) K/uL RBC (4.40-5.90) Mil/uL Hgb (12.0-18.0) g/dL Hct (35.0-51.0) % MCV (80.0-94.0) fL MCH (27.0-31.0) pg MCHC (33.0-37.0) g/dL RDW (11.5-14.5) % Plt Count (130-400) K/uL MPV (7.2-11.7) fL Neut % (Auto) (50.0-75.0) % Lymph % (Auto) (20.0-40.0) % Mcminn % (Auto) (0.0-10.0) % Eos % (Auto) (0.0-4.0) % Baso % (Auto) (0.0-2.0) % Neut # (1.8-7.0) K/uL Lymph # (1.0-4.3) K/uL Mcminn # (0.0-0.8) K/uL Eos # (0.0-0.7) K/uL Baso # (0.0-0.2) K/uL Neutrophils % (Manual) (50-75) % Band Neutrophils % (0-2) % Lymphocytes % (Manual) (20-40) % Monocytes % (Manual) (0-10) % Platelet Estimate (NORMAL) Large Platelets Poikilocytosis (manual Anisocytosis (manual) Ovalocytes Puncture Site pCO2 (35-45) mm/Hg pO2 (80-100) mm/Hg HCO3 (21-28) mmol/L ABG pH (7.35-7.45) ABG Total CO2 (22-28) mmol/L ABG O2 Saturation (95-98) % ABG Base Excess (-2.0-3.0) mmol/L ABG Hemoglobin (11.7-17.4) g/dL ABG Carboxyhemoglobin (0.5-1.5) % POC ABG HHb (Measured) (0.0-5.0) % ABG Methemoglobin (0.0-3.0) % Wilner Test A-a O2 Difference mm/Hg Respiratory Index Hgb O2 Saturation (95.0-98.0) % Vent Mode Mechanical Rate FiO2 % Tidal Volume PEEP Sodium (132-148) mmol/L Potassium (3.6-5.2) mmol/L Chloride (98-107) mmol/L Carbon Dioxide (22-30) mmol/L Anion Gap (10-20) BUN (9-20) mg/dL Creatinine (0.8-1.5) MG/DL Est GFR ( Amer) Est GFR (Non-Af Amer) POC Glucose (mg/dL) 247 H (65-110) mg/dL Random Glucose (75-110) mg/dL Calcium (8.6-10.4) mg/dl Magnesium (1.6-2.3) mg/dL Total Bilirubin (0.2-1.3) mg/dL AST (17-59) U/L ALT (21-72) U/L Alkaline Phosphatase (38-126) U/L Total Protein (6.3-8.3) g/dL Albumin (3.5-5.0) g/dL Globulin (2.2-3.9) gm/dL Albumin/Globulin Ratio (1.0-2.1) Vancomycin Trough (5.0-10.0) ug/mL Laboratory Results - last 24 hr 07/03/17 07/03/17 07/04/17 17:32 23:14 05:31 WBC RBC Hgb Hct MCV MCH MCHC RDW Plt Count MPV Neut % (Auto) Lymph % (Auto) Mcminn % (Auto) Eos % (Auto) Baso % (Auto) Neut # Lymph # Mcminn # Eos # Baso # Neutrophils % (Manual) Band Neutrophils % Lymphocytes % (Manual) Monocytes % (Manual) Platelet Estimate Large Platelets Poikilocytosis (manual Anisocytosis (manual) Ovalocytes Puncture Site Rb pCO2 30 L pO2 111 H HCO3 23.8 ABG pH 7.47 H ABG Total CO2 22.7 ABG O2 Saturation 99.3 H ABG Base Excess -1.5 ABG Hemoglobin 8.1 L ABG Carboxyhemoglobin 1.4 POC ABG HHb (Measured) 0.7 ABG Methemoglobin 1.7 Wilner Test Na A-a O2 Difference 208.0 Respiratory Index 1.9 Hgb O2 Saturation 96.2 Vent Mode Prvc Mechanical Rate 12 FiO2 50.0 Tidal Volume 450 PEEP 5 Sodium Potassium Chloride Carbon Dioxide Anion Gap BUN Creatinine Est GFR ( Amer) Est GFR (Non-Af Amer) POC Glucose (mg/dL) 247 H 211 H Random Glucose Calcium Magnesium Total Bilirubin AST ALT Alkaline Phosphatase Total Protein Albumin Globulin Albumin/Globulin Ratio Vancomycin Trough 07/04/17 07/04/17 07/04/17 06:05 06:31 06:31 WBC 23.4 H RBC 2.84 L Hgb 8.1 L Hct 24.8 L MCV 87.3 MCH 28.4 MCHC 32.5 L RDW 17.4 H Plt Count 320 MPV 9.4 Neut % (Auto) 90.5 H Lymph % (Auto) 4.6 L Mcminn % (Auto) 4.8 Eos % (Auto) 0.0 Baso % (Auto) 0.1 Neut # 21.2 H Lymph # 1.1 Mcminn # 1.1 H Eos # 0.0 Baso # 0.0 Neutrophils % (Manual) 90 H Band Neutrophils % 1 Lymphocytes % (Manual) 5 L Monocytes % (Manual) 4 Platelet Estimate Normal Large Platelets Present Poikilocytosis (manual Slight Anisocytosis (manual) Slight Ovalocytes Slight Puncture Site pCO2 pO2 HCO3 ABG pH ABG Total CO2 ABG O2 Saturation ABG Base Excess ABG Hemoglobin ABG Carboxyhemoglobin POC ABG HHb (Measured) ABG Methemoglobin Wilner Test A-a O2 Difference Respiratory Index Hgb O2 Saturation Vent Mode Mechanical Rate FiO2 Tidal Volume PEEP Sodium Potassium Chloride Carbon Dioxide Anion Gap BUN Creatinine Est GFR ( Amer) Est GFR (Non-Af Amer) POC Glucose (mg/dL) 289 H Random Glucose Calcium Magnesium Total Bilirubin AST ALT Alkaline Phosphatase Total Protein Albumin Globulin Albumin/Globulin Ratio Vancomycin Trough 13.7 H 07/04/17 07/04/17 07/04/17 06:31 07:37 11:34 WBC RBC Hgb Hct MCV MCH MCHC RDW Plt Count MPV Neut % (Auto) Lymph % (Auto) Mcminn % (Auto) Eos % (Auto) Baso % (Auto) Neut # Lymph # Mcminn # Eos # Baso # Neutrophils % (Manual) Band Neutrophils % Lymphocytes % (Manual) Monocytes % (Manual) Platelet Estimate Large Platelets Poikilocytosis (manual Anisocytosis (manual) Ovalocytes Puncture Site pCO2 pO2 HCO3 ABG pH ABG Total CO2 ABG O2 Saturation ABG Base Excess ABG Hemoglobin ABG Carboxyhemoglobin POC ABG HHb (Measured) ABG Methemoglobin Wilner Test A-a O2 Difference Respiratory Index Hgb O2 Saturation Vent Mode Mechanical Rate FiO2 Tidal Volume PEEP Sodium 151 H Potassium 2.8 L Chloride 107 Carbon Dioxide 26 Anion Gap 21 H BUN 45 H Creatinine 3.4 H Est GFR ( Amer) 21 Est GFR (Non-Af Amer) 18 POC Glucose (mg/dL) 156 H Random Glucose 241 H Calcium 8.7 Magnesium 1.8 Total Bilirubin 0.5 AST 61 H ALT 64 Alkaline Phosphatase 173 H D Total Protein 5.9 L Albumin 2.6 L Globulin 3.4 Albumin/Globulin Ratio 0.8 L Vancomycin Trough 07/04/17 14:09 WBC RBC Hgb Hct MCV MCH MCHC RDW Plt Count MPV Neut % (Auto) Lymph % (Auto) Mcminn % (Auto) Eos % (Auto) Baso % (Auto) Neut # Lymph # Mcminn # Eos # Baso # Neutrophils % (Manual) Band Neutrophils % Lymphocytes % (Manual) Monocytes % (Manual) Platelet Estimate Large Platelets Poikilocytosis (manual Anisocytosis (manual) Ovalocytes Puncture Site pCO2 pO2 HCO3 ABG pH ABG Total CO2 ABG O2 Saturation ABG Base Excess ABG Hemoglobin ABG Carboxyhemoglobin POC ABG HHb (Measured) ABG Methemoglobin Wilner Test A-a O2 Difference Respiratory Index Hgb O2 Saturation Vent Mode Mechanical Rate FiO2 Tidal Volume PEEP Sodium 152 H Potassium 3.5 L Chloride 109 H Carbon Dioxide 25 Anion Gap 22 H BUN 45 H Creatinine 3.5 H Est GFR ( Amer) 21 Est GFR (Non-Af Amer) 17 POC Glucose (mg/dL) Random Glucose 172 H Calcium 9.2 Magnesium Total Bilirubin AST ALT Alkaline Phosphatase Total Protein Albumin Globulin Albumin/Globulin Ratio Vancomycin Trough Fingerstick Blood Sugar Results: 156 Review of Systems - Review of Systems Systems not reviewed;Unavailable: Other (aphasic) Assessment/Plan (1) Pneumonia Assessment and plan: 76 year old male with a medical history of CVA, Dementia, DM, Hypertension, hypercholesteremia, CKD, and renal carcinoma. presented in cardiac arrest s/p CPR with ROSC, intubated in ED (07/01), and coffee ground emesis. extubated (). Neuro: Alert and follows simple commands. All sedation held. Pulm: Acute respiratory failure secondary to pneumonia, tolerating pressure support trials, extubated today. CV: Hemodynamically stable, off pressors. Hem: Anemia of critical illness and dilutional, will monitor. Renal: hypernatremic and alkalotic secondary to aggressive diuresis. Stopped loop diuretics, gave Diamox and HCTZ. Endo: DM type II with Hyperglycemia, and regular insulin sliding scale for coverage. GI: Nothing by mouth. obtain swallow eval tomorrow. High-dose Protonix for suspected upper GI bleed, now stable, patient will likely need EGD, will consult GI. ID: Severe sepsis secondary to pneumonia, continue Vanco and Zosyn. ID following , Dr. Booker. DVT proph - heparin subcutaneous GI proph - Protonix IV every 12 hours. alex for strict I/O's during acute illness Code status - full code Critical Care Time spent 35 minutes Multi-disciplinary rounds were performed with house staff, nursing, speech therapy, respiratory therapy, pharmacy and nutrition with integrated input from the primary team/attending and other consulting services. The documented time is cumulative and includes review of patient data/exams/labs/chart review and examination of the patient on rounds and throughout the day; time is exclusive of any procedures or teaching time. Current Visit: Yes Status: Acute
--- NOTE | 2017-07-04 21:31 | CP.PCM.PN ---
Subjective - Date & Time of Evaluation Date of Evaluation: 07/03/17 Time of Evaluation: 20:19 - Subjective Subjective: ON MV, NO DISTRESS, NO SOB, NO FEVER, ON ANTIBIOTICS Objective - Vital Signs/Intake and Output Vital Signs (last 24 hours): Temp Pulse Resp BP Pulse Ox 98.2 F 113 H 22 158/85 H 99 07/04/17 20:00 07/04/17 21:00 07/04/17 21:00 07/04/17 20:20 07/04/17 21:00 Intake and Output: 07/04/17 07/05/17 18:59 06:59 Intake Total 599 0 Output Total 2300 215 Balance -1701 -215 - Medications Medications: Current Medications Albuterol/Ipratropium (Duoneb 3 Mg/0.5 Mg (3 Ml) Ud) 3 ml INH RQ6 [facility] Last Admin: 07/04/17 19:33 Dose: 3 ml Guaifenesin (Mucinex La) 600 mg PO BID [facility] Last Admin: 07/04/17 17:57 Dose: Not Given Heparin Sodium (Porcine) (Heparin) 5,000 units SC Q12 [facility] Last Admin: 07/04/17 09:48 Dose: 5,000 units Hydrochlorothiazide (Hydrodiuril) 50 mg PO DAILY [facility] Last Admin: 07/04/17 10:24 Dose: 50 mg Norepinephrine Bitartrate 8 mg (/ Sodium Chloride) 250 mls @ 7.5 mls/hr IV .Q24H PRN; Protocol; 4 MCG/MIN PRN Reason: TITRATE PER MD ORDER Last Titration: 07/01/17 18:30 Dose: 8 mcg/min, 15 mls/hr Piperacillin Sod/Tazobactam Sod (Zosyn 2.25 Gm Iv Premix) 2.25 gm in 50 mls @ 100 mls/hr IVPB Q6H [facility] Last Admin: 07/04/17 17:56 Dose: 100 mls/hr Vancomycin/Sodium Chloride (Vancocin) 1 gm in 200 mls @ 133 mls/hr IVPB Q24H [facility] Last Admin: 07/04/17 14:53 Dose: 133 mls/hr Insulin Human Regular (Novolin R) 0 unit SC Q6 [facility] PRN Reason: Protocol Last Admin: 07/04/17 17:56 Dose: 4 unit Pantoprazole Sodium (Protonix Inj) 40 mg IVP Q12 [facility] Last Admin: 07/04/17 09:48 Dose: 40 mg - Labs Labs: 07/04/17 06:31 07/04/17 14:09 PT 13.8 SECONDS (9.7-12.2) H 07/01/17 05:56 INR 1.2 07/01/17 05:56 APTT 28 SECONDS (21-34) 07/01/17 05:56 - Constitutional Appears: Non-toxic, No Acute Distress, Chronically Ill - Head Exam Head Exam: ATRAUMATIC, NORMAL INSPECTION, NORMOCEPHALIC (ORALLY INTUBATED) - ENT Exam ENT Exam: Mucous Membranes Moist, Normal Exam - Neck Exam Neck Exam: Full ROM - Respiratory Exam Respiratory Exam: Decreased Breath Sounds, Prolonged Expiratory Phase, Wheezes - Cardiovascular Exam Cardiovascular Exam: Tachycardia, REGULAR RHYTHM, +S1, +S2 - GI/Abdominal Exam GI & Abdominal Exam: Normal Bowel Sounds - Rectal Exam Rectal Exam: NORMAL INSPECTION - Exam Exam: NORMAL INSPECTION - Extremities Exam Extremities Exam: Pedal Edema - Back Exam Back Exam: NORMAL INSPECTION Assessment and Plan (1) Cardiac arrest Status: Resolved (2) GI bleed Status: Resolved (3) Respiratory failure Assessment & Plan: ON MV, TO ATTEMPT WEANING Status: Resolved (4) Acute on chronic renal insufficiency Status: Acute (5) Diabetes Status: Chronic
--- NOTE | 2017-07-04 22:06 | CP.PCM.PN ---
Subjective - Date & Time of Evaluation Date of Evaluation: 07/04/17 Time of Evaluation: 20:20 - Subjective Subjective: S/P EXTUBATED AND HE IS AWAKE, COMBATIVE, NO CHEST PAIN, AND IS BREATHING WELL. NO FEVER Objective - Vital Signs/Intake and Output Vital Signs (last 24 hours): Temp Pulse Resp BP Pulse Ox 98.2 F 113 H 22 158/85 H 99 07/04/17 20:00 07/04/17 21:00 07/04/17 21:00 07/04/17 20:20 07/04/17 21:00 Intake and Output: 07/04/17 07/05/17 18:59 06:59 Intake Total 599 0 Output Total 2300 215 Balance -1701 -215 - Medications Medications: Current Medications Albuterol/Ipratropium (Duoneb 3 Mg/0.5 Mg (3 Ml) Ud) 3 ml INH RQ6 [facility] Last Admin: 07/04/17 19:33 Dose: 3 ml Guaifenesin (Mucinex La) 600 mg PO BID [facility] Last Admin: 07/04/17 17:57 Dose: Not Given Heparin Sodium (Porcine) (Heparin) 5,000 units SC Q12 [facility] Last Admin: 07/04/17 09:48 Dose: 5,000 units Hydrochlorothiazide (Hydrodiuril) 50 mg PO DAILY [facility] Last Admin: 07/04/17 10:24 Dose: 50 mg Norepinephrine Bitartrate 8 mg (/ Sodium Chloride) 250 mls @ 7.5 mls/hr IV .Q24H PRN; Protocol; 4 MCG/MIN PRN Reason: TITRATE PER MD ORDER Last Titration: 07/01/17 18:30 Dose: 8 mcg/min, 15 mls/hr Piperacillin Sod/Tazobactam Sod (Zosyn 2.25 Gm Iv Premix) 2.25 gm in 50 mls @ 100 mls/hr IVPB Q6H [facility] Last Admin: 07/04/17 17:56 Dose: 100 mls/hr Vancomycin/Sodium Chloride (Vancocin) 1 gm in 200 mls @ 133 mls/hr IVPB Q24H [facility] Last Admin: 07/04/17 14:53 Dose: 133 mls/hr Insulin Human Regular (Novolin R) 0 unit SC Q6 [facility] PRN Reason: Protocol Last Admin: 07/04/17 17:56 Dose: 4 unit Pantoprazole Sodium (Protonix Inj) 40 mg IVP Q12 [facility] Last Admin: 07/04/17 09:48 Dose: 40 mg - Labs Labs: 07/04/17 06:31 07/04/17 14:09 PT 13.8 SECONDS (9.7-12.2) H 07/01/17 05:56 INR 1.2 07/01/17 05:56 APTT 28 SECONDS (21-34) 07/01/17 05:56 - Constitutional Appears: Non-toxic, In Acute Distress, Older Than Stated Age, Chronically Ill - Head Exam Head Exam: ATRAUMATIC, NORMAL INSPECTION, NORMOCEPHALIC - Eye Exam Eye Exam: EOMI, Normal appearance Pupil Exam: NORMAL ACCOMODATION, PERRL - ENT Exam ENT Exam: Mucous Membranes Moist, Normal Exam - Respiratory Exam Respiratory Exam: Clear to Ausculation Bilateral, Prolonged Expiratory Phase, Rhonchi - Cardiovascular Exam Cardiovascular Exam: REGULAR RHYTHM, +S1, +S2 - GI/Abdominal Exam GI & Abdominal Exam: Normal Bowel Sounds - Rectal Exam Rectal Exam: NORMAL INSPECTION - Exam External exam: NORMAL EXTERNAL EXAM - Extremities Exam Extremities Exam: Full ROM, Normal Capillary Refill, Normal Inspection - Back Exam Back Exam: NORMAL INSPECTION - Neurological Exam Neurological Exam: Abnormal Gait, Altered, Reflexes Normal Neuro motor strength exam: Left Upper Extremity: 5, Right Upper Extremity: 5, Left Lower Extremity: 5, Right Lower Extremity: 5 - Psychiatric Exam Psychiatric exam: Anxious, Depressed, Flat Affect Assessment and Plan (1) Cardiac arrest Status: Resolved (2) GI bleed Status: Resolved (3) Respiratory failure Assessment & Plan: EXTUBATED, ON O2 Status: Resolved (4) Acute on chronic renal insufficiency Status: Acute (5) Diabetes Status: Chronic
[2017-07-04] MEDS: Metoprolol 1 mg/ml Inj IVP SCH (23:21)
[2017-07-05] MEDS ORDERED: Sodium Chloride 0.9% 1,000 ML IV SCH (00:45)
[2017-07-05] MEDS: Albuterol-Ipratrop 3 mg / 0.5 (3 ml) UD INH SCH ×4 (01:12→19:11)
[2017-07-05] MEDS: Piperacill/Tazo 2.25gm in Dex 2.25 GM/50 ML BAG IVPB SCH ×5 (05:00→23:53)
[2017-07-05] MEDS: (Novolin R) Insulin Human Regular 100 units/ml vial SC SCH ×5 (05:28→23:54)
[2017-07-05] MEDS: Metoprolol 1 mg/ml Inj IVP SCH ×3 (05:38→17:13)
[2017-07-05 06:25] LABS: BASO # 0.1 K/uL (0.0-0.2); BASO % 0.3 % (0.0-2.0); HEMATOCRIT 25.8 % (35.0-51.0); LYMPH # 0.9 K/uL (1.0-4.3); LYMPH % 4.3 % (20.0-40.0); MEAN CELL VOLUME 88.4 fL (80.0-94.0); MEAN CORPUSCULAR HEMOGLOBIN 27.9 pg (27.0-31.0); MEAN CORPUSCULAR HGB CONC 31.5 g/dL (33.0-37.0); MEAN PLATELET VOLUME 9.9 fL (7.2-11.7); MONO # 1.5 K/uL (0.0-0.8); MONO % 6.7 % (0.0-10.0); NRBC % 0.2 % (0.0-2.0); PLATELET COUNT 305 K/uL (130-400); RED CELL DISTRIBUTION WIDTH 17.9 % (11.5-14.5); WHITE BLOOD COUNT 21.8 K/uL (4.8-10.8)
[2017-07-05 07:33] LABS: POTASSIUM 3.2 mmol/L (3.6-5.2)
[2017-07-05 07:35] LABS: BILIRUBIN,TOTAL 0.7 mg/dL (0.2-1.3)
[2017-07-05 07:36] LABS: ALB/GLOB RATIO 0.7 (1.0-2.1); CALCIUM 9.1 mg/dl (8.6-10.4); PHOSPHOROUS 4.2 mg/dL (2.5-4.5); TOTAL PROTEIN 6.5 g/dL (6.3-8.3)
[2017-07-05 07:37] LABS: MAGNESIUM 1.9 mg/dL (1.6-2.3)
[2017-07-05 08:32] LABS: NEUTROPHIL 95 % (50-75); TOTAL CELLS COUNTED 100
--- NOTE | 2017-07-05 12:23 | CP.PCM.PN ---
Subjective - Date & Time of Evaluation Date of Evaluation: 07/05/17 Time of Evaluation: 07:00 - Subjective Subjective: vanco held will adjust Objective - Vital Signs/Intake and Output Vital Signs (last 24 hours): Temp Pulse Resp BP Pulse Ox 97.6 F 97 H 27 H 128/64 99 07/05/17 08:00 07/05/17 09:00 07/05/17 09:00 07/05/17 08:20 07/05/17 09:00 Intake and Output: 07/05/17 07/05/17 06:59 18:59 Intake Total 410 180 Output Total 990 100 Balance -580 80 - Medications Medications: Current Medications Albuterol/Ipratropium (Duoneb 3 Mg/0.5 Mg (3 Ml) Ud) 3 ml INH RQ6 KESHA Last Admin: 07/05/17 07:47 Dose: 3 ml Heparin Sodium (Porcine) (Heparin) 5,000 units SC Q12 KESHA Last Admin: 07/05/17 10:49 Dose: 5,000 units Piperacillin Sod/Tazobactam Sod (Zosyn 2.25 Gm Iv Premix) 2.25 gm in 50 mls @ 100 mls/hr IVPB Q6H KESHA Last Admin: 07/05/17 10:48 Dose: 100 mls/hr Vancomycin/Sodium Chloride (Vancocin) 1 gm in 200 mls @ 133 mls/hr IVPB Q24H KESHA Last Admin: 07/04/17 14:53 Dose: 133 mls/hr Sodium Chloride (Sodium Chloride 0.45%) 500 mls @ 50 mls/hr IV .Q10H KESHA Last Admin: 07/05/17 10:52 Dose: 50 mls/hr Insulin Human Regular (Novolin R) 0 unit SC Q6 KESHA PRN Reason: Protocol Last Admin: 07/05/17 05:28 Dose: Not Given Metoprolol Tartrate (Lopressor) 2.5 mg IVP Q6 KESHA Last Admin: 07/05/17 05:38 Dose: 2.5 mg Pantoprazole Sodium (Protonix Inj) 40 mg IVP Q12 KESHA Last Admin: 07/05/17 10:49 Dose: 40 mg - Labs Labs: 07/05/17 06:16 07/05/17 07:04 PT 13.8 SECONDS (9.7-12.2) H 07/01/17 05:56 INR 1.2 07/01/17 05:56 APTT 28 SECONDS (21-34) 07/01/17 05:56 Assessment and Plan (1) Pneumonia Status: Acute (2) Pneumonia Status: Acute (3) Cardiac arrest Status: Resolved (4) GI bleed Status: Acute (5) Respiratory failure Status: Suspected (6) Sepsis Status: Acute (7) Acute on chronic renal insufficiency Status: Acute (8) Anemia Status: Acute (9) Chronic renal disease, stage 2, mildly decreased glomerular filtration rate between 60-89 mL/min/1.73 square meter Status: Acute (10) Leukocytosis Status: Acute (11) Renal cell carcinoma Status: Acute
--- NOTE | 2017-07-05 14:26 | CP.CCUPN ---
<Caro Martinez - Last Filed: 07/05/17 14:24> CCU Subjective - Physician Review Subjective (Free Text): Patient was seen and examined at bedside in the morning. Patient is alert but unresponsive to commands and questions. Patient is extubated and on nasal canula. 07/05/17 14:24 CCU Objective - Vital Signs / Intake & Output Vital Signs (Last 4 hours): Vital Signs Temp Pulse Resp BP Pulse Ox 07/05/17 12:17 98 H 30 H 145/73 100 07/05/17 12:00 98.1 F 07/05/17 11:00 102 H 25 H 99 Intake and Output (Last 8hrs): Intake & Output 07/04/17 07/05/17 07/05/17 22:59 06:59 14:59 Intake Total 249 410 415 Output Total 1360 730 100 Balance -1111 -320 315 Intake: Intake, IV Amount 249 410 415 Left Distal Port 360 415 Subclavian Left Medial Port 249 50 Subclavian Oral 0 0 Output: Urine 1360 730 100 Urethral ([place]) 1360 730 100 Other: # Bowel Movements 0 0 - Physical Exam Head: Positive for: Atraumatic, Normocephalic Extroacular Muscles: Positive for: EOMI Mouth: Positive for: Moist Mucous Membranes Respiratory/Chest: Positive for: Decreased Breath Sounds, Rhonchi. Negative for : Wheezes Cardiovascular: Positive for: Regular Rate and Rhythm, Normal S1, S2 Abdomen: Positive for: Normal Bowel Sounds. Negative for: Tenderness, Distention Rectal: Positive for: Other (visible loose stool) Upper Extremity: Positive for: Normal Inspection. Negative for: Edema, Swelling Lower Extremity: Positive for: Normal Inspection. Negative for: Edema, Swelling Skin: Positive for: Warm, Dry, Normal Color Psychiatric: Positive for: Alert. Negative for: Oriented x 3 - Medications Active Medications: Active Medications Generic Name Dose Route Start Last Admin Trade Name Freq PRN Reason Stop Dose Admin Albuterol/Ipratropium 3 ml 07/02/17 14:00 07/05/17 13:12 Duoneb 3 Mg/0.5 Mg (3 Ml) Ud INH 3 ml RQ6 KESHA Administration Heparin Sodium (Porcine) 5,000 units 07/02/17 22:00 07/05/17 10:49 Heparin SC 5,000 units Q12 KESHA Administration Piperacillin Sod/Tazobactam Sod 2.25 gm in 50 mls @ 100 mls/hr 07/01/17 11:00 07/05/17 10:48 Zosyn 2.25 Gm Iv Premix IVPB 100 mls/hr Q6H KESHA Administration Vancomycin/Sodium Chloride 1 gm in 200 mls @ 133 mls/hr 07/04/17 15:00 14:53 Vancocin IVPB 133 mls/hr Q24H KESHA Administration Sodium Chloride 500 mls @ 50 mls/hr 07/05/17 09:36 07/05/17 10:52 Sodium Chloride 0.45% IV 50 mls/hr .Q10H KESHA Administration Insulin Human Regular 0 unit 07/03/17 18:00 07/05/17 12:42 Novolin R SC 6 unit Q6 KESHA Administration Protocol Metoprolol Tartrate 2.5 mg 07/05/17 00:00 07/05/17 12:42 Lopressor IVP 2.5 mg Q6 KESHA Administration Pantoprazole Sodium 40 mg 07/01/17 10:45 07/05/17 10:49 Protonix Inj IVP 40 mg Q12 KESHA Administration - Patient Studies Lab Studies: Microbiology Studies 07/01/17 06:30 Blood Culture - Preliminary Blood-Venous NO GROWTH AFTER 3 DAYS Lab Studies 07/05/17 07/05/17 07/05/17 Range/Units 11:58 07:04 06:16 WBC 21.8 H (4.8-10.8) K/uL RBC 2.92 L (4.40-5.90) Mil/uL Hgb 8.2 L (12.0-18.0) g/dL Hct 25.8 L (35.0-51.0) % MCV 88.4 (80.0-94.0) fL MCH 27.9 (27.0-31.0) pg MCHC 31.5 L (33.0-37.0) g/dL RDW 17.9 H (11.5-14.5) % Plt Count 305 (130-400) K/uL MPV 9.9 (7.2-11.7) fL Neut % (Auto) 88.7 H (50.0-75.0) % Lymph % (Auto) 4.3 L (20.0-40.0) % Alfalfa % (Auto) 6.7 (0.0-10.0) % Eos % (Auto) 0.0 (0.0-4.0) % Baso % (Auto) 0.3 (0.0-2.0) % Neut # 19.3 H (1.8-7.0) K/uL Lymph # 0.9 L (1.0-4.3) K/uL Alfalfa # 1.5 H (0.0-0.8) K/uL Eos # 0.0 (0.0-0.7) K/uL Baso # 0.1 (0.0-0.2) K/uL Neutrophils % (Manual) 95 H (50-75) % Band Neutrophils % 1 (0-2) % Lymphocytes % (Manual) 2 L (20-40) % Monocytes % (Manual) 2 (0-10) % Platelet Estimate Normal (NORMAL) Anisocytosis (manual) Slight Kavin Cells Slight Sodium 154 H (132-148) mmol/L Potassium 3.2 L (3.6-5.2) mmol/L Chloride 109 H (98-107) mmol/L Carbon Dioxide 22 (22-30) mmol/L Anion Gap 26 H (10-20) BUN 44 H (9-20) mg/dL Creatinine 3.7 H (0.8-1.5) MG/DL Est GFR ( Amer) 19 Est GFR (Non-Af Amer) 16 POC Glucose (mg/dL) 265 H (65-110) mg/dL Random Glucose 181 H (75-110) mg/dL Calcium 9.1 (8.6-10.4) mg/dl Phosphorus 4.2 (2.5-4.5) mg/dL Magnesium 1.9 (1.6-2.3) mg/dL Total Bilirubin 0.7 (0.2-1.3) mg/dL AST 35 (17-59) U/L ALT 51 (21-72) U/L Alkaline Phosphatase 199 H (38-126) U/L Total Protein 6.5 (6.3-8.3) g/dL Albumin 2.7 L (3.5-5.0) g/dL Globulin 3.8 (2.2-3.9) gm/dL Albumin/Globulin Ratio 0.7 L (1.0-2.1) Random Vancomycin ug/mL Hepatitis A IgM Ab (NEGATIVE) Hep Bs Antigen (NEGATIVE) Hep B Core IgM Ab (NEGATIVE) Hepatitis C Antibody (NEGATIVE) 07/05/17 07/05/17 07/05/17 Range/Units 06:15 06:15 05:59 WBC (4.8-10.8) K/uL RBC (4.40-5.90) Mil/uL Hgb (12.0-18.0) g/dL Hct (35.0-51.0) % MCV (80.0-94.0) fL MCH (27.0-31.0) pg MCHC (33.0-37.0) g/dL RDW (11.5-14.5) % Plt Count (130-400) K/uL MPV (7.2-11.7) fL Neut % (Auto) (50.0-75.0) % Lymph % (Auto) (20.0-40.0) % Alfalfa % (Auto) (0.0-10.0) % Eos % (Auto) (0.0-4.0) % Baso % (Auto) (0.0-2.0) % Neut # (1.8-7.0) K/uL Lymph # (1.0-4.3) K/uL Alfalfa # (0.0-0.8) K/uL Eos # (0.0-0.7) K/uL Baso # (0.0-0.2) K/uL Neutrophils % (Manual) (50-75) % Band Neutrophils % (0-2) % Lymphocytes % (Manual) (20-40) % Monocytes % (Manual) (0-10) % Platelet Estimate (NORMAL) Anisocytosis (manual) Kavin Cells Sodium (132-148) mmol/L Potassium (3.6-5.2) mmol/L Chloride (98-107) mmol/L Carbon Dioxide (22-30) mmol/L Anion Gap (10-20) BUN (9-20) mg/dL Creatinine (0.8-1.5) MG/DL Est GFR ( Amer) Est GFR (Non-Af Amer) POC Glucose (mg/dL) 233 H (65-110) mg/dL Random Glucose (75-110) mg/dL Calcium (8.6-10.4) mg/dl Phosphorus (2.5-4.5) mg/dL Magnesium (1.6-2.3) mg/dL Total Bilirubin (0.2-1.3) mg/dL AST (17-59) U/L ALT (21-72) U/L Alkaline Phosphatase (38-126) U/L Total Protein (6.3-8.3) g/dL Albumin (3.5-5.0) g/dL Globulin (2.2-3.9) gm/dL Albumin/Globulin Ratio (1.0-2.1) Random Vancomycin 26.49 ug/mL Hepatitis A IgM Ab Negative (NEGATIVE) Hep Bs Antigen Negative (NEGATIVE) Hep B Core IgM Ab Negative (NEGATIVE) Hepatitis C Antibody Negative (NEGATIVE) 07/05/17 07/04/17 07/04/17 Range/Units 04:52 23:57 17:30 WBC (4.8-10.8) K/uL RBC (4.40-5.90) Mil/uL Hgb (12.0-18.0) g/dL Hct (35.0-51.0) % MCV (80.0-94.0) fL MCH (27.0-31.0) pg MCHC (33.0-37.0) g/dL RDW (11.5-14.5) % Plt Count (130-400) K/uL MPV (7.2-11.7) fL Neut % (Auto) (50.0-75.0) % Lymph % (Auto) (20.0-40.0) % Alfalfa % (Auto) (0.0-10.0) % Eos % (Auto) (0.0-4.0) % Baso % (Auto) (0.0-2.0) % Neut # (1.8-7.0) K/uL Lymph # (1.0-4.3) K/uL Alfalfa # (0.0-0.8) K/uL Eos # (0.0-0.7) K/uL Baso # (0.0-0.2) K/uL Neutrophils % (Manual) (50-75) % Band Neutrophils % (0-2) % Lymphocytes % (Manual) (20-40) % Monocytes % (Manual) (0-10) % Platelet Estimate (NORMAL) Anisocytosis (manual) Kavin Cells Sodium (132-148) mmol/L Potassium (3.6-5.2) mmol/L Chloride (98-107) mmol/L Carbon Dioxide (22-30) mmol/L Anion Gap (10-20) BUN (9-20) mg/dL Creatinine (0.8-1.5) MG/DL Est GFR ( Amer) Est GFR (Non-Af Amer) POC Glucose (mg/dL) 221 H 212 H 215 H (65-110) mg/dL Random Glucose (75-110) mg/dL Calcium (8.6-10.4) mg/dl Phosphorus (2.5-4.5) mg/dL Magnesium (1.6-2.3) mg/dL Total Bilirubin (0.2-1.3) mg/dL AST (17-59) U/L ALT (21-72) U/L Alkaline Phosphatase (38-126) U/L Total Protein (6.3-8.3) g/dL Albumin (3.5-5.0) g/dL Globulin (2.2-3.9) gm/dL Albumin/Globulin Ratio (1.0-2.1) Random Vancomycin ug/mL Hepatitis A IgM Ab (NEGATIVE) Hep Bs Antigen (NEGATIVE) Hep B Core IgM Ab (NEGATIVE) Hepatitis C Antibody (NEGATIVE) 07/04/17 Range/Units 14:09 WBC (4.8-10.8) K/uL RBC (4.40-5.90) Mil/uL Hgb (12.0-18.0) g/dL Hct (35.0-51.0) % MCV (80.0-94.0) fL MCH (27.0-31.0) pg MCHC (33.0-37.0) g/dL RDW (11.5-14.5) % Plt Count (130-400) K/uL MPV (7.2-11.7) fL Neut % (Auto) (50.0-75.0) % Lymph % (Auto) (20.0-40.0) % Alfalfa % (Auto) (0.0-10.0) % Eos % (Auto) (0.0-4.0) % Baso % (Auto) (0.0-2.0) % Neut # (1.8-7.0) K/uL Lymph # (1.0-4.3) K/uL Alfalfa # (0.0-0.8) K/uL Eos # (0.0-0.7) K/uL Baso # (0.0-0.2) K/uL Neutrophils % (Manual) (50-75) % Band Neutrophils % (0-2) % Lymphocytes % (Manual) (20-40) % Monocytes % (Manual) (0-10) % Platelet Estimate (NORMAL) Anisocytosis (manual) Cook Cells Sodium 152 H (132-148) mmol/L Potassium 3.5 L (3.6-5.2) mmol/L Chloride 109 H (98-107) mmol/L Carbon Dioxide 25 (22-30) mmol/L Anion Gap 22 H (10-20) BUN 45 H (9-20) mg/dL Creatinine 3.5 H (0.8-1.5) MG/DL Est GFR ( Amer) 21 Est GFR (Non-Af Amer) 17 POC Glucose (mg/dL) (65-110) mg/dL Random Glucose 172 H (75-110) mg/dL Calcium 9.2 (8.6-10.4) mg/dl Phosphorus (2.5-4.5) mg/dL Magnesium (1.6-2.3) mg/dL Total Bilirubin (0.2-1.3) mg/dL AST (17-59) U/L ALT (21-72) U/L Alkaline Phosphatase (38-126) U/L Total Protein (6.3-8.3) g/dL Albumin (3.5-5.0) g/dL Globulin (2.2-3.9) gm/dL Albumin/Globulin Ratio (1.0-2.1) Random Vancomycin ug/mL Hepatitis A IgM Ab (NEGATIVE) Hep Bs Antigen (NEGATIVE) Hep B Core IgM Ab (NEGATIVE) Hepatitis C Antibody (NEGATIVE) Laboratory Results - last 24 hr 07/04/17 07/04/17 07/04/17 14:09 17:30 23:57 WBC RBC Hgb Hct MCV MCH MCHC RDW Plt Count MPV Neut % (Auto) Lymph % (Auto) Alfalfa % (Auto) Eos % (Auto) Baso % (Auto) Neut # Lymph # Alfalfa # Eos # Baso # Neutrophils % (Manual) Band Neutrophils % Lymphocytes % (Manual) Monocytes % (Manual) Platelet Estimate Anisocytosis (manual) Kavin Cells Sodium 152 H Potassium 3.5 L Chloride 109 H Carbon Dioxide 25 Anion Gap 22 H BUN 45 H Creatinine 3.5 H Est GFR ( Amer) 21 Est GFR (Non-Af Amer) 17 POC Glucose (mg/dL) 215 H 212 H Random Glucose 172 H Calcium 9.2 Phosphorus Magnesium Total Bilirubin AST ALT Alkaline Phosphatase Total Protein Albumin Globulin Albumin/Globulin Ratio Random Vancomycin Hepatitis A IgM Ab Hep Bs Antigen Hep B Core IgM Ab Hepatitis C Antibody 07/05/17 07/05/17 07/05/17 04:52 05:59 06:15 WBC RBC Hgb Hct MCV MCH MCHC RDW Plt Count MPV Neut % (Auto) Lymph % (Auto) Alfalfa % (Auto) Eos % (Auto) Baso % (Auto) Neut # Lymph # Alfalfa # Eos # Baso # Neutrophils % (Manual) Band Neutrophils % Lymphocytes % (Manual) Monocytes % (Manual) Platelet Estimate Anisocytosis (manual) Cook Cells Sodium Potassium Chloride Carbon Dioxide Anion Gap BUN Creatinine Est GFR ( Amer) Est GFR (Non-Af Amer) POC Glucose (mg/dL) 221 H 233 H Random Glucose Calcium Phosphorus Magnesium Total Bilirubin AST ALT Alkaline Phosphatase Total Protein Albumin Globulin Albumin/Globulin Ratio Random Vancomycin 26.49 Hepatitis A IgM Ab Hep Bs Antigen Hep B Core IgM Ab Hepatitis C Antibody 07/05/17 07/05/17 07/05/17 06:15 06:16 07:04 WBC 21.8 H RBC 2.92 L Hgb 8.2 L Hct 25.8 L MCV 88.4 MCH 27.9 MCHC 31.5 L RDW 17.9 H Plt Count 305 MPV 9.9 Neut % (Auto) 88.7 H Lymph % (Auto) 4.3 L Alfalfa % (Auto) 6.7 Eos % (Auto) 0.0 Baso % (Auto) 0.3 Neut # 19.3 H Lymph # 0.9 L Alfalfa # 1.5 H Eos # 0.0 Baso # 0.1 Neutrophils % (Manual) 95 H Band Neutrophils % 1 Lymphocytes % (Manual) 2 L Monocytes % (Manual) 2 Platelet Estimate Normal Anisocytosis (manual) Slight Cook Cells Slight Sodium 154 H Potassium 3.2 L Chloride 109 H Carbon Dioxide 22 Anion Gap 26 H BUN 44 H Creatinine 3.7 H Est GFR ( Amer) 19 Est GFR (Non-Af Amer) 16 POC Glucose (mg/dL) Random Glucose 181 H Calcium 9.1 Phosphorus 4.2 Magnesium 1.9 Total Bilirubin 0.7 AST 35 ALT 51 Alkaline Phosphatase 199 H Total Protein 6.5 Albumin 2.7 L Globulin 3.8 Albumin/Globulin Ratio 0.7 L Random Vancomycin Hepatitis A IgM Ab Negative Hep Bs Antigen Negative Hep B Core IgM Ab Negative Hepatitis C Antibody Negative 07/05/17 11:58 WBC RBC Hgb Hct MCV MCH MCHC RDW Plt Count MPV Neut % (Auto) Lymph % (Auto) Alfalfa % (Auto) Eos % (Auto) Baso % (Auto) Neut # Lymph # Alfalfa # Eos # Baso # Neutrophils % (Manual) Band Neutrophils % Lymphocytes % (Manual) Monocytes % (Manual) Platelet Estimate Anisocytosis (manual) Cook Cells Sodium Potassium Chloride Carbon Dioxide Anion Gap BUN Creatinine Est GFR ( Amer) Est GFR (Non-Af Amer) POC Glucose (mg/dL) 265 H Random Glucose Calcium Phosphorus Magnesium Total Bilirubin AST ALT Alkaline Phosphatase Total Protein Albumin Globulin Albumin/Globulin Ratio Random Vancomycin Hepatitis A IgM Ab Hep Bs Antigen Hep B Core IgM Ab Hepatitis C Antibody Fingerstick Blood Sugar Results: 265 Review of Systems - Review of Systems Systems not reviewed;Unavailable: Altered Mental Status Assessment/Plan (1) Severe sepsis Assessment and plan: Neuro: - Alert, not oriented. Eyes are tracking but unable to follow commands. 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 - Lasix 40mg IV given once, monitor and reevaluate I/O - ABG: pH 7.57, pCO2 11 lactate 8.7 - Repeat ABG: pH 7.18, pCO2 30, lactate 9.8 - Repeat ABG (#3): pH 7.41, pCO2 30 lactate 3.5 - ABG (07/02): pH 7.45, pCO2 30 - Swallow eval: f/u CV: - Hypotension, likely secondary to sepsis - Hypotension resolved - Dopamine 400mg IV--> discontinued - Levophed 8mg in NS IV--> discontinued - Monitor vitals - ROMIs: negative, 0.1020 - ECHO: f/u, pending official report; EF 37.4% Endo: - History of DM - Monitor blood glucose, Accuchecks Q6 - ISS GI: - Bloody output in OG tube - WBC 34, Bandemia 10 (repeat CBC-9) - C.Diff: negative - Tube feeding Heme: - Monitor H/H - Hgb trending down Renal: - Acute kidney failure, possibly secondary to hyperkalemia. - Hyperkalemia (6.1)- calcium gluconate given in ED; Kayexalate given once - Matabolic acidosis - Hypernatremic: discontinued NS and starts 1/2NS ID: - ID consulted- Dr. Booker, help appreciated - WBC 34, Bandemia 10 (repeat CBC-9) - WBC (07/02): 26.9, Bandemia 15 - Zosyn 2.25gm IV Q6 - Vanco 1gm IV - Blood cx: no growth for 3 days - Urine cx: no growth - C.Diff: negative - Hepatitis panel: negative - L.pneumophilia Ag: negative Prophylaxis: DVT: contraindicated- increased risk bleed, GI bleed - SCDs GI: Protonix 40mg IV Q12 PT/OT Current Visit: Yes Status: Acute <Babs Thomas - Last Filed: 07/05/17 19:02> CCU Objective - Vital Signs / Intake & Output Vital Signs (Last 4 hours): Vital Signs Temp Pulse Resp BP Pulse Ox 07/05/17 18:20 91 H 26 H 140/77 100 07/05/17 17:46 85 27 H 143/69 99 07/05/17 16:20 100 H 24 149/85 100 07/05/17 16:01 100 H 25 H 150/81 99 07/05/17 16:00 97.8 F Intake and Output (Last 8hrs): Intake & Output 07/05/17 07/05/17 07/05/17 06:59 14:59 22:59 Intake Total 410 465 225 Output Total 730 450 200 Balance -320 15 25 Intake: Intake, IV Amount 410 465 225 Left Distal Port 360 465 225 Subclavian Left Medial Port 50 Subclavian Oral 0 Output: Urine 730 450 200 Urethral ([place]) 730 450 200 Other: # Bowel Movements 0 - Medications Active Medications: Active Medications Generic Name Dose Route Start Last Admin Trade Name Freq PRN Reason Stop Dose Admin Albuterol/Ipratropium 3 ml 07/02/17 14:00 07/05/17 13:12 Duoneb 3 Mg/0.5 Mg (3 Ml) Ud INH 3 ml RQ6 KESHA Administration Heparin Sodium (Porcine) 5,000 units 07/02/17 22:00 07/05/17 10:49 Heparin SC 5,000 units Q12 KESHA Administration Piperacillin Sod/Tazobactam Sod 2.25 gm in 50 mls @ 100 mls/hr 07/01/17 11:00 07/05/17 17:14 Zosyn 2.25 Gm Iv Premix IVPB 100 mls/hr Q6H KESHA Administration Vancomycin/Sodium Chloride 1 gm in 200 mls @ 133 mls/hr 07/04/17 15:00 14:53 Vancocin IVPB 133 mls/hr Q24H KESHA Administration Sodium Chloride 500 mls @ 50 mls/hr 07/05/17 09:36 07/05/17 10:52 Sodium Chloride 0.45% IV 50 mls/hr .Q10H KESHA Administration Insulin Human Regular 0 unit 07/03/17 18:00 07/05/17 17:37 Novolin R SC 4 unit Q6 KESHA Administration Protocol Metoprolol Tartrate 2.5 mg 07/05/17 00:00 07/05/17 17:13 Lopressor IVP 2.5 mg Q6 KESHA Administration Pantoprazole Sodium 40 mg 07/01/17 10:45 07/05/17 10:49 Protonix Inj IVP 40 mg Q12 KESHA Administration - Patient Studies Lab Studies: Microbiology Studies 07/01/17 06:30 Blood Culture - Preliminary Blood-Venous NO GROWTH AFTER 4 DAYS Lab Studies 07/05/17 07/05/17 07/05/17 Range/Units 17:31 11:58 07:04 WBC (4.8-10.8) K/uL RBC (4.40-5.90) Mil/uL Hgb (12.0-18.0) g/dL Hct (35.0-51.0) % MCV (80.0-94.0) fL MCH (27.0-31.0) pg MCHC (33.0-37.0) g/dL RDW (11.5-14.5) % Plt Count (130-400) K/uL MPV (7.2-11.7) fL Neut % (Auto) (50.0-75.0) % Lymph % (Auto) (20.0-40.0) % Alfalfa % (Auto) (0.0-10.0) % Eos % (Auto) (0.0-4.0) % Baso % (Auto) (0.0-2.0) % Neut # (1.8-7.0) K/uL Lymph # (1.0-4.3) K/uL Alfalfa # (0.0-0.8) K/uL Eos # (0.0-0.7) K/uL Baso # (0.0-0.2) K/uL Neutrophils % (Manual) (50-75) % Band Neutrophils % (0-2) % Lymphocytes % (Manual) (20-40) % Monocytes % (Manual) (0-10) % Platelet Estimate (NORMAL) Anisocytosis (manual) Kavin Cells Sodium 154 H (132-148) mmol/L Potassium 3.2 L (3.6-5.2) mmol/L Chloride 109 H (98-107) mmol/L Carbon Dioxide 22 (22-30) mmol/L Anion Gap 26 H (10-20) BUN 44 H (9-20) mg/dL Creatinine 3.7 H (0.8-1.5) MG/DL Est GFR ( Amer) 19 Est GFR (Non-Af Amer) 16 POC Glucose (mg/dL) 204 H 265 H (65-110) mg/dL Random Glucose 181 H (75-110) mg/dL Calcium 9.1 (8.6-10.4) mg/dl Phosphorus 4.2 (2.5-4.5) mg/dL Magnesium 1.9 (1.6-2.3) mg/dL Total Bilirubin 0.7 (0.2-1.3) mg/dL AST 35 (17-59) U/L ALT 51 (21-72) U/L Alkaline Phosphatase 199 H (38-126) U/L Total Protein 6.5 (6.3-8.3) g/dL Albumin 2.7 L (3.5-5.0) g/dL Globulin 3.8 (2.2-3.9) gm/dL Albumin/Globulin Ratio 0.7 L (1.0-2.1) Random Vancomycin ug/mL Hepatitis A IgM Ab (NEGATIVE) Hep Bs Antigen (NEGATIVE) Hep B Core IgM Ab (NEGATIVE) Hepatitis C Antibody (NEGATIVE) 07/05/17 07/05/17 07/05/17 Range/Units 06:16 06:15 06:15 WBC 21.8 H (4.8-10.8) K/uL RBC 2.92 L (4.40-5.90) Mil/uL Hgb 8.2 L (12.0-18.0) g/dL Hct 25.8 L (35.0-51.0) % MCV 88.4 (80.0-94.0) fL MCH 27.9 (27.0-31.0) pg MCHC 31.5 L (33.0-37.0) g/dL RDW 17.9 H (11.5-14.5) % Plt Count 305 (130-400) K/uL MPV 9.9 (7.2-11.7) fL Neut % (Auto) 88.7 H (50.0-75.0) % Lymph % (Auto) 4.3 L (20.0-40.0) % Alfalfa % (Auto) 6.7 (0.0-10.0) % Eos % (Auto) 0.0 (0.0-4.0) % Baso % (Auto) 0.3 (0.0-2.0) % Neut # 19.3 H (1.8-7.0) K/uL Lymph # 0.9 L (1.0-4.3) K/uL Alfalfa # 1.5 H (0.0-0.8) K/uL Eos # 0.0 (0.0-0.7) K/uL Baso # 0.1 (0.0-0.2) K/uL Neutrophils % (Manual) 95 H (50-75) % Band Neutrophils % 1 (0-2) % Lymphocytes % (Manual) 2 L (20-40) % Monocytes % (Manual) 2 (0-10) % Platelet Estimate Normal (NORMAL) Anisocytosis (manual) Slight Cook Cells Slight Sodium (132-148) mmol/L Potassium (3.6-5.2) mmol/L Chloride (98-107) mmol/L Carbon Dioxide (22-30) mmol/L Anion Gap (10-20) BUN (9-20) mg/dL Creatinine (0.8-1.5) MG/DL Est GFR ( Amer) Est GFR (Non-Af Amer) POC Glucose (mg/dL) (65-110) mg/dL Random Glucose (75-110) mg/dL Calcium (8.6-10.4) mg/dl Phosphorus (2.5-4.5) mg/dL Magnesium (1.6-2.3) mg/dL Total Bilirubin (0.2-1.3) mg/dL AST (17-59) U/L ALT (21-72) U/L Alkaline Phosphatase (38-126) U/L Total Protein (6.3-8.3) g/dL Albumin (3.5-5.0) g/dL Globulin (2.2-3.9) gm/dL Albumin/Globulin Ratio (1.0-2.1) Random Vancomycin 26.49 ug/mL Hepatitis A IgM Ab Negative (NEGATIVE) Hep Bs Antigen Negative (NEGATIVE) Hep B Core IgM Ab Negative (NEGATIVE) Hepatitis C Antibody Negative (NEGATIVE) 07/05/17 07/05/17 07/04/17 Range/Units 05:59 04:52 23:57 WBC (4.8-10.8) K/uL RBC (4.40-5.90) Mil/uL Hgb (12.0-18.0) g/dL Hct (35.0-51.0) % MCV (80.0-94.0) fL MCH (27.0-31.0) pg MCHC (33.0-37.0) g/dL RDW (11.5-14.5) % Plt Count (130-400) K/uL MPV (7.2-11.7) fL Neut % (Auto) (50.0-75.0) % Lymph % (Auto) (20.0-40.0) % Alfalfa % (Auto) (0.0-10.0) % Eos % (Auto) (0.0-4.0) % Baso % (Auto) (0.0-2.0) % Neut # (1.8-7.0) K/uL Lymph # (1.0-4.3) K/uL Alfalfa # (0.0-0.8) K/uL Eos # (0.0-0.7) K/uL Baso # (0.0-0.2) K/uL Neutrophils % (Manual) (50-75) % Band Neutrophils % (0-2) % Lymphocytes % (Manual) (20-40) % Monocytes % (Manual) (0-10) % Platelet Estimate (NORMAL) Anisocytosis (manual) Kavin Cells Sodium (132-148) mmol/L Potassium (3.6-5.2) mmol/L Chloride (98-107) mmol/L Carbon Dioxide (22-30) mmol/L Anion Gap (10-20) BUN (9-20) mg/dL Creatinine (0.8-1.5) MG/DL Est GFR ( Amer) Est GFR (Non-Af Amer) POC Glucose (mg/dL) 233 H 221 H 212 H (65-110) mg/dL Random Glucose (75-110) mg/dL Calcium (8.6-10.4) mg/dl Phosphorus (2.5-4.5) mg/dL Magnesium (1.6-2.3) mg/dL Total Bilirubin (0.2-1.3) mg/dL AST (17-59) U/L ALT (21-72) U/L Alkaline Phosphatase (38-126) U/L Total Protein (6.3-8.3) g/dL Albumin (3.5-5.0) g/dL Globulin (2.2-3.9) gm/dL Albumin/Globulin Ratio (1.0-2.1) Random Vancomycin ug/mL Hepatitis A IgM Ab (NEGATIVE) Hep Bs Antigen (NEGATIVE) Hep B Core IgM Ab (NEGATIVE) Hepatitis C Antibody (NEGATIVE) Laboratory Results - last 24 hr 07/04/17 07/05/1707/05/17 23:57 04:52 05:59 WBC RBC Hgb Hct MCV MCH MCHC RDW Plt Count MPV Neut % (Auto) Lymph % (Auto) Alfalfa % (Auto) Eos % (Auto) Baso % (Auto) Neut # Lymph # Alfalfa # Eos # Baso # Neutrophils % (Manual) Band Neutrophils % Lymphocytes % (Manual) Monocytes % (Manual) Platelet Estimate Anisocytosis (manual) Cook Cells Sodium Potassium Chloride Carbon Dioxide Anion Gap BUN Creatinine Est GFR ( Amer) Est GFR (Non-Af Amer) POC Glucose (mg/dL) 212 H 221 H 233 H Random Glucose Calcium Phosphorus Magnesium Total Bilirubin AST ALT Alkaline Phosphatase Total Protein Albumin Globulin Albumin/Globulin Ratio Random Vancomycin Hepatitis A IgM Ab Hep Bs Antigen Hep B Core IgM Ab Hepatitis C Antibody 07/05/17 07/05/17 07/05/17 06:15 06:15 06:16 WBC 21.8 H RBC 2.92 L Hgb 8.2 L Hct 25.8 L MCV 88.4 MCH 27.9 MCHC 31.5 L RDW 17.9 H Plt Count 305 MPV 9.9 Neut % (Auto) 88.7 H Lymph % (Auto) 4.3 L Alfalfa % (Auto) 6.7 Eos % (Auto) 0.0 Baso % (Auto) 0.3 Neut # 19.3 H Lymph # 0.9 L Alfalfa # 1.5 H Eos # 0.0 Baso # 0.1 Neutrophils % (Manual) 95 H Band Neutrophils % 1 Lymphocytes % (Manual) 2 L Monocytes % (Manual) 2 Platelet Estimate Normal Anisocytosis (manual) Slight Cook Cells Slight Sodium Potassium Chloride Carbon Dioxide Anion Gap BUN Creatinine Est GFR ( Amer) Est GFR (Non-Af Amer) POC Glucose (mg/dL) Random Glucose Calcium Phosphorus Magnesium Total Bilirubin AST ALT Alkaline Phosphatase Total Protein Albumin Globulin Albumin/Globulin Ratio Random Vancomycin 26.49 Hepatitis A IgM Ab Negative Hep Bs Antigen Negative Hep B Core IgM Ab Negative Hepatitis C Antibody Negative 07/05/17 07/05/17 07/05/17 07:04 11:58 17:31 WBC RBC Hgb Hct MCV MCH MCHC RDW Plt Count MPV Neut % (Auto) Lymph % (Auto) Alfalfa % (Auto) Eos % (Auto) Baso % (Auto) Neut # Lymph # Alfalfa # Eos # Baso # Neutrophils % (Manual) Band Neutrophils % Lymphocytes % (Manual) Monocytes % (Manual) Platelet Estimate Anisocytosis (manual) Cook Cells Sodium 154 H Potassium 3.2 L Chloride 109 H Carbon Dioxide 22 Anion Gap 26 H BUN 44 H Creatinine 3.7 H Est GFR ( Amer) 19 Est GFR (Non-Af Amer) 16 POC Glucose (mg/dL) 265 H 204 H Random Glucose 181 H Calcium 9.1 Phosphorus 4.2 Magnesium 1.9 Total Bilirubin 0.7 AST 35 ALT 51 Alkaline Phosphatase 199 H Total Protein 6.5 Albumin 2.7 L Globulin 3.8 Albumin/Globulin Ratio 0.7 L Random Vancomycin Hepatitis A IgM Ab Hep Bs Antigen Hep B Core IgM Ab Hepatitis C Antibody Attending/Attestation - Attestation I have personally seen and examined this patient.: Yes I have fully participated in the care of the patient.: Yes I have reviewed all pertinent clinical information: Yes Notes (Text): Patient is awake and responding. But easily sleeping. Poor intake. Swallow evaluation currently pending. Elevated WBC noted. Patient got extubated yesterday. Diarrhea still noted, G evaluation appreciated. Continue the current treatment. Physical therapy. drug abuse worker evaluation
--- NOTE | 2017-07-05 23:28 | CP.PCM.PN ---
Subjective - Date & Time of Evaluation Date of Evaluation: 07/05/17 Time of Evaluation: 20:23 - Subjective Subjective: MORE ALERT, NOT TALKING, NO FEVER, ON IV ANTIBIOTICS, NO DISTRESS Objective - Vital Signs/Intake and Output Vital Signs (last 24 hours): Temp Pulse Resp BP Pulse Ox 98.3 F 111 H 17 130/83 96 07/05/17 20:00 07/05/17 22:20 07/05/17 22:20 07/05/17 22:20 07/05/17 22:20 Intake and Output: 07/05/17 07/06/17 18:59 06:59 Intake Total 690 202 Output Total 650 200 Balance 40 2 - Medications Medications: Current Medications Albuterol/Ipratropium (Duoneb 3 Mg/0.5 Mg (3 Ml) Ud) 3 ml INH RQ6 [facility] Last Admin: 07/05/17 19:11 Dose: 3 ml Heparin Sodium (Porcine) (Heparin) 5,000 units SC Q12 [facility] Last Admin: 07/05/17 21:31 Dose: 5,000 units Piperacillin Sod/Tazobactam Sod (Zosyn 2.25 Gm Iv Premix) 2.25 gm in 50 mls @ 100 mls/hr IVPB Q6H [facility] Last Admin: 07/05/17 17:14 Dose: 100 mls/hr Vancomycin/Sodium Chloride (Vancocin) 1 gm in 200 mls @ 133 mls/hr IVPB Q24H [facility] Last Admin: 07/04/17 14:53 Dose: 133 mls/hr Sodium Chloride (Sodium Chloride 0.45%) 500 mls @ 50 mls/hr IV .Q10H [facility] Last Admin: 07/05/17 21:32 Dose: Not Given Insulin Human Regular (Novolin R) 0 unit SC Q6 [facility] PRN Reason: Protocol Last Admin: 07/05/17 17:37 Dose: 4 unit Metoprolol Tartrate (Lopressor) 2.5 mg IVP Q6 [facility] Last Admin: 07/05/17 17:13 Dose: 2.5 mg Pantoprazole Sodium (Protonix Inj) 40 mg IVP Q12 [facility] Last Admin: 07/05/17 21:31 Dose: 40 mg - Labs Labs: 07/05/17 06:16 07/05/17 07:04 PT 13.8 SECONDS (9.7-12.2) H 07/01/17 05:56 INR 1.2 07/01/17 05:56 APTT 28 SECONDS (21-34) 07/01/17 05:56 - Constitutional Appears: Non-toxic, No Acute Distress, Older Than Stated Age, Chronically Ill - Head Exam Head Exam: NORMAL INSPECTION, NORMOCEPHALIC - Eye Exam Eye Exam: EOMI, Normal appearance, PERRL Pupil Exam: NORMAL ACCOMODATION, PERRL - ENT Exam ENT Exam: Mucous Membranes Moist, Normal Exam - Neck Exam Neck Exam: Normal Inspection - Respiratory Exam Respiratory Exam: Clear to Ausculation Bilateral, NORMAL BREATHING PATTERN - Cardiovascular Exam Cardiovascular Exam: REGULAR RHYTHM, +S1, +S2 - GI/Abdominal Exam GI & Abdominal Exam: Soft, Normal Bowel Sounds - Neurological Exam Neurological Exam: Alert, Awake Neuro motor strength exam: Left Upper Extremity: 5, Right Upper Extremity: 5, Left Lower Extremity: 5, Right Lower Extremity: 5 - Psychiatric Exam Psychiatric exam: Anxious, Depressed, Flat Affect - Skin Skin Exam: Intact Assessment and Plan (1) Cardiac arrest Status: Resolved (2) GI bleed Status: Resolved (3) Respiratory failure Status: Resolved (4) Acute on chronic renal insufficiency Status: Acute (5) Diabetes Status: Chronic
[2017-07-06] MEDS: Metoprolol 1 mg/ml Inj IVP SCH ×4 (01:00→17:50)
[2017-07-06] MEDS: Albuterol-Ipratrop 3 mg / 0.5 (3 ml) UD INH SCH ×4 (01:43→19:43)
[2017-07-06] MEDS: Piperacill/Tazo 2.25gm in Dex 2.25 GM/50 ML BAG IVPB SCH ×4 (04:11→22:00)
[2017-07-06 06:31] LABS: BASO % 0.2 % (0.0-2.0); EOS % 0.2 % (0.0-4.0); HEMATOCRIT 25.1 % (35.0-51.0); MEAN CELL VOLUME 88.6 fL (80.0-94.0); MEAN CORPUSCULAR HEMOGLOBIN 28.4 pg (27.0-31.0); MEAN PLATELET VOLUME 9.4 fL (7.2-11.7); MONO # 1.4 K/uL (0.0-0.8); MONO % 7.5 % (0.0-10.0); NRBC % 0.1 % (0.0-2.0); PLATELET COUNT 290 K/uL (130-400); RED CELL DISTRIBUTION WIDTH 17.3 % (11.5-14.5); WHITE BLOOD COUNT 19.2 K/uL (4.8-10.8)
[2017-07-06] MEDS: (Novolin R) Insulin Human Regular 100 units/ml vial SC SCH ×3 (06:42→17:50)
[2017-07-06 06:55] LABS: ALB/GLOB RATIO 0.8 (1.0-2.1); BILIRUBIN,TOTAL 0.6 mg/dL (0.2-1.3); CALCIUM 8.9 mg/dl (8.6-10.4); MAGNESIUM 2.1 mg/dL (1.6-2.3); PHOSPHOROUS 4.1 mg/dL (2.5-4.5); TOTAL PROTEIN 6.1 g/dL (6.3-8.3)
[2017-07-06 08:34] LABS: NEUTROPHIL 85 % (50-75); TOTAL CELLS COUNTED 100
[2017-07-06 08:35] LABS: LARGE PLATELETS PRESENT
--- NOTE | 2017-07-06 11:10 | CP.PCM.PN ---
Subjective - Date & Time of Evaluation Date of Evaluation: 07/06/17 Time of Evaluation: 10:00 - Subjective Subjective: lethargic arousable confused iv rx renewed Objective - Vital Signs/Intake and Output Vital Signs (last 24 hours): Temp Pulse Resp BP Pulse Ox 98.6 F 97 H 19 143/72 97 07/06/17 08:00 07/06/17 10:00 07/06/17 10:00 07/06/17 09:01 07/06/17 10:00 Intake and Output: 07/06/17 07/06/17 06:59 18:59 Intake Total 702 500 Output Total 610 240 Balance 92 260 - Medications Medications: Current Medications Albuterol/Ipratropium (Duoneb 3 Mg/0.5 Mg (3 Ml) Ud) 3 ml INH RQ6 [facility] Last Admin: 07/06/17 07:55 Dose: 3 ml Heparin Sodium (Porcine) (Heparin) 5,000 units SC Q12 [facility] Last Admin: 07/06/17 09:20 Dose: 5,000 units Piperacillin Sod/Tazobactam Sod (Zosyn 2.25 Gm Iv Premix) 2.25 gm in 50 mls @ 100 mls/hr IVPB Q6H [facility] Last Admin: 07/06/17 10:17 Dose: 100 mls/hr Vancomycin/Sodium Chloride (Vancocin) 1 gm in 200 mls @ 133 mls/hr IVPB Q24H [facility] Last Admin: 07/04/17 14:53 Dose: 133 mls/hr Potassium Chloride (Potassium Chloride 20 Meq/100 Ml) 20 meq in 100 mls @ 50 mls/hr IVPB ONCE ONE Stop: 07/06/17 11:46 Last Admin: 07/06/17 10:17 Dose: 50 mls/hr Sodium Chloride (Sodium Chloride 0.45%) 500 mls @ 100 mls/hr IV .Q5H [facility] Insulin Human Regular (Novolin R) 0 unit SC Q6 [facility] PRN Reason: Protocol Metoprolol Tartrate (Lopressor) 2.5 mg IVP Q6 [facility] Last Admin: 07/06/17 07:00 Dose: 2.5 mg Pantoprazole Sodium (Protonix Inj) 40 mg IVP Q12 [facility] Last Admin: 07/06/17 09:20 Dose: 40 mg - Labs Labs: 07/06/17 06:24 07/06/17 06:24 PT 13.8 SECONDS (9.7-12.2) H 07/01/17 05:56 INR 1.2 07/01/17 05:56 APTT 28 SECONDS (21-34) 07/01/17 05:56 - Constitutional Appears: Confused, Cachectic, Chronically Ill - Head Exam Head Exam: NORMOCEPHALIC - Eye Exam Eye Exam: PERRL - ENT Exam ENT Exam: Mucous Membranes Dry, Normal External Ear Exam - Neck Exam Neck Exam: absent: Lymphadenopathy - Respiratory Exam Respiratory Exam: Decreased Breath Sounds, Rhonchi - Cardiovascular Exam Cardiovascular Exam: REGULAR RHYTHM, +S1, +S2 - GI/Abdominal Exam GI & Abdominal Exam: Distended, Soft Assessment and Plan (1) Pneumonia Status: Acute (2) Pneumonia Status: Acute (3) Cardiac arrest Status: Resolved (4) GI bleed Status: Resolved (5) Respiratory failure Status: Suspected (6) Sepsis Status: Acute (7) Acute on chronic renal insufficiency Status: Acute (8) Anemia Status: Acute (9) Chronic renal disease, stage 2, mildly decreased glomerular filtration rate between 60-89 mL/min/1.73 square meter Status: Acute (10) Leukocytosis Status: Acute (11) Renal cell carcinoma Status: Acute
--- NOTE | 2017-07-06 13:56 | CT ---
CT chest without IV contrast Indication: Effusions Technique: Contiguous axial images were obtained through the chest without intravenous contrast enhancement. Sagittal and coronal reconstructions were generated and reviewed. This CT exam was performed using 1 or more of the falling dose reduction techniques: Automated exposure control, adjustment of the MAA and/or kV according to patient size, and/or use of iterative reconstruction technique. Radiation dose (DLP): 581.97 MGy-cm. Comparison: Multiple prior chest x-rays the most recent chest x-ray performed 07/04/17, CT abdomen and pelvis without IV contrast performed 08/27/15. Findings: Left-sided central venous catheter terminates at the proximal SVC. Visualized portions of the inferior thyroid gland appear heterogeneous with suspected 1.2 cm left lower pole nodule. The unenhanced mediastinal and hilar vascular structures appear unremarkable. And mild cardiomegaly. Coronary artery calcifications. Atherosclerotic calcifications of the aorta. Right middle lobe consolidation may reflect pneumonia or atelectasis. Mild bibasilar atelectasis. Mild patchy infiltrate within the inferior right upper lobe. No pleural effusion. No pneumothorax. Limited visualization of the noncontrast upper abdomen demonstrates distended gallbladder with gallstones. Small perihepatic ascites. Absence of the left kidney. Surgical clips indicating nephrectomy. Prominent mesenteric and retroperitoneal lymph nodes, nonspecific. Partially imaged fluid collection in the right retroperitoneum measuring approximately 2.8 cm (AP dimension) by 3.1 cm (transverse dimension) by at least 8.4 cm (cc dimension incompletely imaged). Right 6th and 7th rib fracture deformity. Deformity of the left clavicle. Impression: Right middle lobe consolidation may reflect pneumonia or atelectasis. Mild bibasilar atelectasis. Mild patchy infiltrate within the inferior right upper lobe. Distended gallbladder with gallstones. Correlate clinically for possibility of cholecystitis. Small perihepatic ascites. Left nephrectomy. Prominent mesenteric and retroperitoneal lymph nodes, nonspecific. Partially imaged fluid collection in the right retroperitoneum as above appears minimally increased in extent as compared to prior study. This finding is of uncertain significance/etiology. Considerations include but not limited to necrotic lymph nodes, lymphocele, etc. Left-sided central venous catheter. Heterogeneous appearance of the included portions inferior thyroid gland with suspected 1.2 cm left lower pole nodule. Additional findings as above.
--- NOTE | 2017-07-06 15:20 | CP.CCUPN ---
<Caro Martinez - Last Filed: 07/06/17 15:17> CCU Subjective - Physician Review Subjective (Free Text): Patient was seen and examined at bedside in the morning. Patient is alert, listens to commands, but unresponsive to questions. Patient is extubated and on nasal canula. 07/06/17 15:17 CCU Objective - Vital Signs / Intake & Output Vital Signs (Last 4 hours): Vital Signs Temp Pulse Resp BP Pulse Ox 07/06/17 14:01 89 21 170/83 H 100 07/06/17 13:06 92 H 18 159/91 H 99 07/06/17 12:51 90 22 161/79 H 100 07/06/17 12:02 91 H 21 163/81 H 99 07/06/17 12:00 97.5 F L Intake and Output (Last 8hrs): Intake & Output 07/06/17 07/06/17 07/06/17 06:59 14:59 22:59 Intake Total 500 800 Output Total 410 295 Balance 90 505 Weight 166 lb 3.657 oz Intake: Intake, IV Amount 500 800 Left Distal Port 400 650 Subclavian Left Medial Port 100 150 Subclavian Oral 0 Output: Urine 410 295 Urethral ([place]) 410 295 Other: # Bowel Movements 1 0 - Physical Exam Head: Positive for: Atraumatic, Normocephalic Extroacular Muscles: Positive for: EOMI Mouth: Positive for: Moist Mucous Membranes Respiratory/Chest: Positive for: Decreased Breath Sounds, Rhonchi. Negative for : Wheezes Cardiovascular: Positive for: Regular Rate and Rhythm, Normal S1, S2 Abdomen: Positive for: Normal Bowel Sounds. Negative for: Tenderness, Distention Upper Extremity: Positive for: Normal Inspection. Negative for: Edema, Swelling Lower Extremity: Positive for: Normal Inspection. Negative for: Edema, Swelling Skin: Positive for: Warm, Dry, Normal Color Psychiatric: Positive for: Alert. Negative for: Oriented x 3 - Medications Active Medications: Active Medications Generic Name Dose Route Start Last Admin Trade Name Freq PRN Reason Stop Dose Admin Albuterol/Ipratropium 3 ml 07/02/17 14:00 07/06/17 13:57 Duoneb 3 Mg/0.5 Mg (3 Ml) Ud INH 3 ml RQ6 KESHA Administration Heparin Sodium (Porcine) 5,000 units 07/02/17 22:00 07/06/17 09:20 Heparin SC 5,000 units Q12 KESHA Administration Piperacillin Sod/Tazobactam Sod 2.25 gm in 50 mls @ 100 mls/hr 07/01/17 11:00 07/06/17 10:17 Zosyn 2.25 Gm Iv Premix IVPB 100 mls/hr Q6H KESHA Administration Vancomycin/Sodium Chloride 1 gm in 200 mls @ 133 mls/hr 07/04/17 15:00 14:53 Vancocin IVPB 133 mls/hr Q24H KESHA Administration Sodium Chloride 500 mls @ 100 mls/hr 07/06/17 09:49 07/06/17 11:22 Sodium Chloride 0.45% IV 100 mls/hr .Q5H KESHA Administration Insulin Human Regular 0 unit 07/06/17 09:47 07/06/17 12:08 Novolin R SC 2 unit Q6 KESHA Administration Protocol Metoprolol Tartrate 2.5 mg 07/05/17 00:00 07/06/17 11:22 Lopressor IVP 2.5 mg Q6 KESHA Administration Pantoprazole Sodium 40 mg 07/01/17 10:45 07/06/17 09:20 Protonix Inj IVP 40 mg Q12 KESHA Administration - Patient Studies Lab Studies: Microbiology Studies 07/01/17 06:30 Blood Culture - Preliminary Blood-Venous NO GROWTH AFTER 4 DAYS Lab Studies 07/06/17 07/06/17 07/06/17 Range/Units 11:50 10:51 06:24 WBC (4.8-10.8) K/uL RBC (4.40-5.90) Mil/uL Hgb (12.0-18.0) g/dL Hct (35.0-51.0) % MCV (80.0-94.0) fL MCH (27.0-31.0) pg MCHC (33.0-37.0) g/dL RDW (11.5-14.5) % Plt Count (130-400) K/uL MPV (7.2-11.7) fL Neut % (Auto) (50.0-75.0) % Lymph % (Auto) (20.0-40.0) % [place] % (Auto) (0.0-10.0) % Eos % (Auto) (0.0-4.0) % Baso % (Auto) (0.0-2.0) % Neut # (1.8-7.0) K/uL Lymph # (1.0-4.3) K/uL [place] # (0.0-0.8) K/uL Eos # (0.0-0.7) K/uL Baso # (0.0-0.2) K/uL Neutrophils % (Manual) (50-75) % Lymphocytes % (Manual) (20-40) % Monocytes % (Manual) (0-10) % Platelet Estimate (NORMAL) Large Platelets Hypochromasia (manual) Poikilocytosis (manual Anisocytosis (manual) Target Cells [place]avin Cells Sodium 154 H (132-148) mmol/L Potassium 3.0 L (3.6-5.2) mmol/L Chloride 111 H (98-107) mmol/L Carbon Dioxide 22 (22-30) mmol/L Anion Gap 24 H (10-20) BUN 50 H (9-20) mg/dL Creatinine 3.7 H (0.8-1.5) MG/DL Est GFR ( Amer) 19 Est GFR (Non-Af Amer) 16 POC Glucose (mg/dL) 243 H (65-110) mg/dL Random Glucose 200 H (75-110) mg/dL Calcium 8.9 (8.6-10.4) mg/dl Phosphorus 4.1 (2.5-4.5) mg/dL Magnesium 2.1 (1.6-2.3) mg/dL Total Bilirubin 0.6 (0.2-1.3) mg/dL AST 21 (17-59) U/L ALT 41 (21-72) U/L Alkaline Phosphatase 160 H (38-126) U/L Total Protein 6.1 L (6.3-8.3) g/dL Albumin 2.7 L (3.5-5.0) g/dL Globulin 3.5 (2.2-3.9) gm/dL Albumin/Globulin Ratio 0.8 L (1.0-2.1) Procalcitonin 7.53 H (0.19-0.49) NG/ML Random Vancomycin ug/mL 07/06/17 07/06/17 07/06/17 Range/Units 06:24 06:24 05:51 WBC 19.2 H (4.8-10.8) K/uL RBC 2.83 L (4.40-5.90) Mil/uL Hgb 8.0 L (12.0-18.0) g/dL Hct 25.1 L (35.0-51.0) % MCV 88.6 (80.0-94.0) fL MCH 28.4 (27.0-31.0) pg MCHC 32.0 L (33.0-37.0) g/dL RDW 17.3 H (11.5-14.5) % Plt Count 290 (130-400) K/uL MPV 9.4 (7.2-11.7) fL Neut % (Auto) 87.1 H (50.0-75.0) % Lymph % (Auto) 5.0 L (20.0-40.0) % [place] % (Auto) 7.5 (0.0-10.0) % Eos % (Auto) 0.2 (0.0-4.0) % Baso % (Auto) 0.2 (0.0-2.0) % Neut # 16.8 H (1.8-7.0) K/uL Lymph # 1.0 (1.0-4.3) K/uL [place] # 1.4 H (0.0-0.8) K/uL Eos # 0.0 (0.0-0.7) K/uL Baso # 0.0 (0.0-0.2) K/uL Neutrophils % (Manual) 85 H (50-75) % Lymphocytes % (Manual) 7 L (20-40) % Monocytes % (Manual) 8 (0-10) % Platelet Estimate Normal (NORMAL) Large Platelets Present Hypochromasia (manual) Slight Poikilocytosis (manual Slight Anisocytosis (manual) Slight Target Cells Slight [place] Cells Slight Sodium (132-148) mmol/L Potassium (3.6-5.2) mmol/L Chloride (98-107) mmol/L Carbon Dioxide (22-30) mmol/L Anion Gap (10-20) BUN (9-20) mg/dL Creatinine (0.8-1.5) MG/DL Est GFR ( Amer) Est GFR (Non-Af Amer) POC Glucose (mg/dL) 217 H (65-110) mg/dL Random Glucose (75-110) mg/dL Calcium (8.6-10.4) mg/dl Phosphorus (2.5-4.5) mg/dL Magnesium (1.6-2.3) mg/dL Total Bilirubin (0.2-1.3) mg/dL AST (17-59) U/L ALT (21-72) U/L Alkaline Phosphatase (38-126) U/L Total Protein (6.3-8.3) g/dL Albumin (3.5-5.0) g/dL Globulin (2.2-3.9) gm/dL Albumin/Globulin Ratio (1.0-2.1) Procalcitonin (0.19-0.49) NG/ML Random Vancomycin 20.64 ug/mL 07/05/17 07/05/17 Range/Units 23:48 17:31 WBC (4.8-10.8) K/uL RBC (4.40-5.90) Mil/uL Hgb (12.0-18.0) g/dL Hct (35.0-51.0) % MCV (80.0-94.0) fL MCH (27.0-31.0) pg MCHC (33.0-37.0) g/dL RDW (11.5-14.5) % Plt Count (130-400) K/uL MPV (7.2-11.7) fL Neut % (Auto) (50.0-75.0) % Lymph % (Auto) (20.0-40.0) % [place] % (Auto) (0.0-10.0) % Eos % (Auto) (0.0-4.0) % Baso % (Auto) (0.0-2.0) % Neut # (1.8-7.0) K/uL Lymph # (1.0-4.3) K/uL [place] # (0.0-0.8) K/uL Eos # (0.0-0.7) K/uL Baso # (0.0-0.2) K/uL Neutrophils % (Manual) (50-75) % Lymphocytes % (Manual) (20-40) % Monocytes % (Manual) (0-10) % Platelet Estimate (NORMAL) Large Platelets Hypochromasia (manual) Poikilocytosis (manual Anisocytosis (manual) Target Cells [place]avin Cells Sodium (132-148) mmol/L Potassium (3.6-5.2) mmol/L Chloride (98-107) mmol/L Carbon Dioxide (22-30) mmol/L Anion Gap (10-20) BUN (9-20) mg/dL Creatinine (0.8-1.5) MG/DL Est GFR ( Amer) Est GFR (Non-Af Amer) POC Glucose (mg/dL) 211 H 204 H (65-110) mg/dL Random Glucose (75-110) mg/dL Calcium (8.6-10.4) mg/dl Phosphorus (2.5-4.5) mg/dL Magnesium (1.6-2.3) mg/dL Total Bilirubin (0.2-1.3) mg/dL AST (17-59) U/L ALT (21-72) U/L Alkaline Phosphatase (38-126) U/L Total Protein (6.3-8.3) g/dL Albumin (3.5-5.0) g/dL Globulin (2.2-3.9) gm/dL Albumin/Globulin Ratio (1.0-2.1) Procalcitonin (0.19-0.49) NG/ML Random Vancomycin ug/mL Laboratory Results - last 24 hr 07/05/17 07/05/17 07/06/17 17:31 23:48 05:51 WBC RBC Hgb Hct MCV MCH MCHC RDW Plt Count MPV Neut % (Auto) Lymph % (Auto) [place] % (Auto) Eos % (Auto) Baso % (Auto) Neut # Lymph # [place] # Eos # Baso # Neutrophils % (Manual) Lymphocytes % (Manual) Monocytes % (Manual) Platelet Estimate Large Platelets Hypochromasia (manual) Poikilocytosis (manual Anisocytosis (manual) Target Cells [place] Cells Sodium Potassium Chloride Carbon Dioxide Anion Gap BUN Creatinine Est GFR ( Amer) Est GFR (Non-Af Amer) POC Glucose (mg/dL) 204 H 211 H 217 H Random Glucose Calcium Phosphorus Magnesium Total Bilirubin AST ALT Alkaline Phosphatase Total Protein Albumin Globulin Albumin/Globulin Ratio Procalcitonin Random Vancomycin 07/06/17 07/06/17 07/06/17 06:24 06:24 06:24 WBC 19.2 H RBC 2.83 L Hgb 8.0 L Hct 25.1 L MCV 88.6 MCH 28.4 MCHC 32.0 L RDW 17.3 H Plt Count 290 MPV 9.4 Neut % (Auto) 87.1 H Lymph % (Auto) 5.0 L [place] % (Auto) 7.5 Eos % (Auto) 0.2 Baso % (Auto) 0.2 Neut # 16.8 H Lymph # 1.0 [place] # 1.4 H Eos # 0.0 Baso # 0.0 Neutrophils % (Manual) 85 H Lymphocytes % (Manual) 7 L Monocytes % (Manual) 8 Platelet Estimate Normal Large Platelets Present Hypochromasia (manual) Slight Poikilocytosis (manual Slight Anisocytosis (manual) Slight Target Cells Slight [place] Cells Slight Sodium 154 H Potassium 3.0 L Chloride 111 H Carbon Dioxide 22 Anion Gap 24 H BUN 50 H Creatinine 3.7 H Est GFR ( Amer) 19 Est GFR (Non-Af Amer) 16 POC Glucose (mg/dL) Random Glucose 200 H Calcium 8.9 Phosphorus 4.1 Magnesium 2.1 Total Bilirubin 0.6 AST 21 ALT 41 Alkaline Phosphatase 160 H Total Protein 6.1 L Albumin 2.7 L Globulin 3.5 Albumin/Globulin Ratio 0.8 L Procalcitonin Random Vancomycin 20.64 07/06/17 07/06/17 10:51 11:50 WBC RBC Hgb Hct MCV MCH MCHC RDW Plt Count MPV Neut % (Auto) Lymph % (Auto) [place] % (Auto) Eos % (Auto) Baso % (Auto) Neut # Lymph # [place] # Eos # Baso # Neutrophils % (Manual) Lymphocytes % (Manual) Monocytes % (Manual) Platelet Estimate Large Platelets Hypochromasia (manual) Poikilocytosis (manual Anisocytosis (manual) Target Cells [place] Cells Sodium Potassium Chloride Carbon Dioxide Anion Gap BUN Creatinine Est GFR ( Amer) Est GFR (Non-Af Amer) POC Glucose (mg/dL) 243 H Random Glucose Calcium Phosphorus Magnesium Total Bilirubin AST ALT Alkaline Phosphatase Total Protein Albumin Globulin Albumin/Globulin Ratio Procalcitonin 7.53 H Random Vancomycin Fingerstick Blood Sugar Results: 217 Review of Systems - Review of Systems Systems not reviewed;Unavailable: Altered Mental Status Assessment/Plan (1) Severe sepsis Assessment and plan: Patient is a 76 year old male with medical history of CVA, dementai, Renal CA, CKD, and hypercholesterolemia, presents with respiratory failure and coffee ground emesis. Patient was a CODE blue and sepsis. Patient was intubated (07/01/17 ). Patient was extubated on 07/04/17 and on nasal cannula. Patient has failed swallow eval. NG tube placed. Procalcitonin is elevated. Patient likely has pneumonia. Neuro: - Alert, not oriented. Eyes are tracking; able to follow some commands. - Left sided weakness, likely secondary to history of CVA - Off sedation (DC propofol) Pulm: - Duonebs - CXR: dense confluent consolidative changes seen in right mid to lower lung zone with adjacent prominent confluent areas of linear consolidative changes, focal nodular consolidative changes at right lung base laterally. - ABG: pH 7.47, pCO2 30 - Chest CT: right middle lobe consolidation-- likely pneumonia; mild bibasilar atelectasis; patchy infiltrate within inferior right upper lobe. - Swallow eval: failed CV: - Hypotension, likely secondary to sepsis - Hypotension resolved - Hx of HTN: metoprolol 2.5mg IV Q6 - Monitor vitals - ROMIs: negative, 0.1020 - ECHO: pending official report; EF 37.4% Endo: - History of DM - Monitor blood glucose, Accuchecks Q6 - ISS - On Chest CT: showed heterogenous appearance of inferior thyroid gland with suspected 1.2cm left lower pole nodule. GI: - Bloody output in OG tube - WBC 34, Bandemia 10 (repeat CBC-9) - C.Diff: negative - On Chest CT: showed distended gallbladder with gallstones, perihepatic ascites , left nephrectomy; fluid collection in right retroperitoneum Heme: - Monitor H/H Renal: - Acute kidney failure, possibly secondary to hyperkalemia. - Hyperkalemia (6.1)- resovled - Hypokalemic- given KCl 20meq - Metabolic acidosis - Hypernatremic: 1/2NS ID: - ID consulted- Dr. Booker, help appreciated - WBC 34, Bandemia 10 (repeat CBC-9) - WBC (07/02): 26.9, Bandemia 15 - Zosyn 2.25gm IV Q6 - Vanco 1gm IV - Blood cx: no growth for 3 days - Urine cx: no growth - C.Diff: negative - Hepatitis panel: negative - L.pneumophilia Ag: negative - Procalcitonin: 7.53 Prophylaxis: DVT: Heparin 5,000 units SC Q12 - SCDs GI: Protonix 40mg IV Q12 PT/OT Current Visit: Yes Status: Acute <Gerard Cabral S - Last Filed: 07/06/17 18:29> CCU Objective - Vital Signs / Intake & Output Vital Signs (Last 4 hours): Vital Signs Temp Pulse Resp BP Pulse Ox 07/06/17 18:01 91 H 23 145/71 70 L 07/06/17 17:01 104 H 17 134/61 100 07/06/17 16:01 98 H 20 166/82 H 100 07/06/17 16:00 98.3 F 07/06/17 15:01 97 H 21 156/78 H Intake and Output (Last 8hrs): Intake & Output 07/06/17 07/06/17 07/06/17 06:59 14:59 22:59 Intake Total 500 800 470 Output Total 410 295 105 Balance 90 505 365 Weight 166 lb 3.657 oz Intake: Intake, IV Amount 500 800 450 Left Distal Port 400 650 400 Subclavian Left Medial Port 100 150 50 Subclavian Oral 0 20 Output: Urine 410 295 105 Urethral ([place]) 410 295 105 Other: # Bowel Movements 1 0 0 - Medications Active Medications: Active Medications Generic Name Dose Route Start Last Admin Trade Name Vincenzoq PRN Reason Stop Dose Admin Albuterol/Ipratropium 3 ml 07/02/17 14:00 07/06/17 13:57 Duoneb 3 Mg/0.5 Mg (3 Ml) Ud INH 3 ml RQ6 KESHA Administration Heparin Sodium (Porcine) 5,000 units 07/02/17 22:00 07/06/17 09:20 Heparin SC 5,000 units Q12 KESHA Administration Piperacillin Sod/Tazobactam Sod 2.25 gm in 50 mls @ 100 mls/hr 07/01/17 11:00 07/06/17 17:50 Zosyn 2.25 Gm Iv Premix IVPB 100 mls/hr Q6H KESHA Administration Vancomycin/Sodium Chloride 1 gm in 200 mls @ 133 mls/hr 07/04/17 15:00 14:53 Vancocin IVPB 133 mls/hr Q24H KESHA Administration Sodium Chloride 500 mls @ 100 mls/hr 07/06/17 09:49 07/06/17 16:18 Sodium Chloride 0.45% IV Not Given .Q5H KESHA Insulin Human Regular 0 unit 07/06/17 09:47 07/06/17 17:50 Novolin R SC 2 unit Q6 KESHA Administration Protocol Metoprolol Tartrate 2.5 mg 07/05/17 00:00 07/06/17 17:50 Lopressor IVP 2.5 mg Q6 KESHA Administration Pantoprazole Sodium 40 mg 07/01/17 10:45 07/06/17 09:20 Protonix Inj IVP 40 mg Q12 KESHA Administration - Patient Studies Lab Studies: Microbiology Studies 07/01/17 06:30 Blood Culture - Final Blood-Venous NO GROWTH AFTER 5 DAYS Gram Stain - Final TEST NOT PERFORMED Lab Studies 07/06/17 07/06/17 07/06/17 Range/Units 17:32 14:58 11:50 WBC (4.8-10.8) K/uL RBC (4.40-5.90) Mil/uL Hgb (12.0-18.0) g/dL Hct (35.0-51.0) % MCV (80.0-94.0) fL MCH (27.0-31.0) pg MCHC (33.0-37.0) g/dL RDW (11.5-14.5) % Plt Count (130-400) K/uL MPV (7.2-11.7) fL Neut % (Auto) (50.0-75.0) % Lymph % (Auto) (20.0-40.0) % [place] % (Auto) (0.0-10.0) % Eos % (Auto) (0.0-4.0) % Baso % (Auto) (0.0-2.0) % Neut # (1.8-7.0) K/uL Lymph # (1.0-4.3) K/uL [place] # (0.0-0.8) K/uL Eos # (0.0-0.7) K/uL Baso # (0.0-0.2) K/uL Neutrophils % (Manual) (50-75) % Lymphocytes % (Manual) (20-40) % Monocytes % (Manual) (0-10) % Platelet Estimate (NORMAL) Large Platelets Hypochromasia (manual) Poikilocytosis (manual Anisocytosis (manual) Target Cells [place]avin Cells Sodium (132-148) mmol/L Potassium (3.6-5.2) mmol/L Chloride (98-107) mmol/L Carbon Dioxide (22-30) mmol/L Anion Gap (10-20) BUN (9-20) mg/dL Creatinine (0.8-1.5) MG/DL Est GFR ( Amer) Est GFR (Non-Af Amer) POC Glucose (mg/dL) 237 H 243 H (65-110) mg/dL Random Glucose (75-110) mg/dL Calcium (8.6-10.4) mg/dl Phosphorus (2.5-4.5) mg/dL Magnesium (1.6-2.3) mg/dL Total Bilirubin (0.2-1.3) mg/dL AST (17-59) U/L ALT (21-72) U/L Alkaline Phosphatase (38-126) U/L Total Protein (6.3-8.3) g/dL Albumin (3.5-5.0) g/dL Globulin (2.2-3.9) gm/dL Albumin/Globulin Ratio (1.0-2.1) Procalcitonin (0.19-0.49) NG/ML Random Vancomycin ug/mL Ur L.pneumophila Ag Negative (NEGATIVE) Mycoplasma pneumon IgM Negative (NEGATIVE) 07/06/17 07/06/17 07/06/17 Range/Units 10:51 06:24 06:24 WBC 19.2 H (4.8-10.8) K/uL RBC 2.83 L (4.40-5.90) Mil/uL Hgb 8.0 L (12.0-18.0) g/dL Hct 25.1 L (35.0-51.0) % MCV 88.6 (80.0-94.0) fL MCH 28.4 (27.0-31.0) pg MCHC 32.0 L (33.0-37.0) g/dL RDW 17.3 H (11.5-14.5) % Plt Count 290 (130-400) K/uL MPV 9.4 (7.2-11.7) fL Neut % (Auto) 87.1 H (50.0-75.0) % Lymph % (Auto) 5.0 L (20.0-40.0) % [place] % (Auto) 7.5 (0.0-10.0) % Eos % (Auto) 0.2 (0.0-4.0) % Baso % (Auto) 0.2 (0.0-2.0) % Neut # 16.8 H (1.8-7.0) K/uL Lymph # 1.0 (1.0-4.3) K/uL [place] # 1.4 H (0.0-0.8) K/uL Eos # 0.0 (0.0-0.7) K/uL Baso # 0.0 (0.0-0.2) K/uL Neutrophils % (Manual) 85 H (50-75) % Lymphocytes % (Manual) 7 L (20-40) % Monocytes % (Manual) 8 (0-10) % Platelet Estimate Normal (NORMAL) Large Platelets Present Hypochromasia (manual) Slight Poikilocytosis (manual Slight Anisocytosis (manual) Slight Target Cells Slight [place] Cells Slight Sodium 154 H (132-148) mmol/L Potassium 3.0 L (3.6-5.2) mmol/L Chloride 111 H (98-107) mmol/L Carbon Dioxide 22 (22-30) mmol/L Anion Gap 24 H (10-20) BUN 50 H (9-20) mg/dL Creatinine 3.7 H (0.8-1.5) MG/DL Est GFR ( Amer) 19 Est GFR (Non-Af Amer) 16 POC Glucose (mg/dL) (65-110) mg/dL Random Glucose 200 H (75-110) mg/dL Calcium 8.9 (8.6-10.4) mg/dl Phosphorus 4.1 (2.5-4.5) mg/dL Magnesium 2.1 (1.6-2.3) mg/dL Total Bilirubin 0.6 (0.2-1.3) mg/dL AST 21 (17-59) U/L ALT 41 (21-72) U/L Alkaline Phosphatase 160 H (38-126) U/L Total Protein 6.1 L (6.3-8.3) g/dL Albumin 2.7 L (3.5-5.0) g/dL Globulin 3.5 (2.2-3.9) gm/dL Albumin/Globulin Ratio 0.8 L (1.0-2.1) Procalcitonin 7.53 H (0.19-0.49) NG/ML Random Vancomycin ug/mL Ur L.pneumophila Ag (NEGATIVE) Mycoplasma pneumon IgM (NEGATIVE) 07/06/17 07/06/17 07/05/17 Range/Units 06:24 05:51 23:48 WBC (4.8-10.8) K/uL RBC (4.40-5.90) Mil/uL Hgb (12.0-18.0) g/dL Hct (35.0-51.0) % MCV (80.0-94.0) fL MCH (27.0-31.0) pg MCHC (33.0-37.0) g/dL RDW (11.5-14.5) % Plt Count (130-400) K/uL MPV (7.2-11.7) fL Neut % (Auto) (50.0-75.0) % Lymph % (Auto) (20.0-40.0) % [place] % (Auto) (0.0-10.0) % Eos % (Auto) (0.0-4.0) % Baso % (Auto) (0.0-2.0) % Neut # (1.8-7.0) K/uL Lymph # (1.0-4.3) K/uL [place] # (0.0-0.8) K/uL Eos # (0.0-0.7) K/uL Baso # (0.0-0.2) K/uL Neutrophils % (Manual) (50-75) % Lymphocytes % (Manual) (20-40) % Monocytes % (Manual) (0-10) % Platelet Estimate (NORMAL) Large Platelets Hypochromasia (manual) Poikilocytosis (manual Anisocytosis (manual) Target Cells [place] Cells Sodium (132-148) mmol/L Potassium (3.6-5.2) mmol/L Chloride (98-107) mmol/L Carbon Dioxide (22-30) mmol/L Anion Gap (10-20) BUN (9-20) mg/dL Creatinine (0.8-1.5) MG/DL Est GFR ( Amer) Est GFR (Non-Af Amer) POC Glucose (mg/dL) 217 H 211 H (65-110) mg/dL Random Glucose (75-110) mg/dL Calcium (8.6-10.4) mg/dl Phosphorus (2.5-4.5) mg/dL Magnesium (1.6-2.3) mg/dL Total Bilirubin (0.2-1.3) mg/dL AST (17-59) U/L ALT (21-72) U/L Alkaline Phosphatase (38-126) U/L Total Protein (6.3-8.3) g/dL Albumin (3.5-5.0) g/dL Globulin (2.2-3.9) gm/dL Albumin/Globulin Ratio (1.0-2.1) Procalcitonin (0.19-0.49) NG/ML Random Vancomycin 20.64 ug/mL Ur L.pneumophila Ag (NEGATIVE) Mycoplasma pneumon IgM (NEGATIVE) Laboratory Results - last 24 hr 07/05/17 07/06/17 07/06/17 23:48 05:51 06:24 WBC RBC Hgb Hct MCV MCH MCHC RDW Plt Count MPV Neut % (Auto) Lymph % (Auto) [place] % (Auto) Eos % (Auto) Baso % (Auto) Neut # Lymph # [place] # Eos # Baso # Neutrophils % (Manual) Lymphocytes % (Manual) Monocytes % (Manual) Platelet Estimate Large Platelets Hypochromasia (manual) Poikilocytosis (manual Anisocytosis (manual) Target Cells [place] Cells Sodium Potassium Chloride Carbon Dioxide Anion Gap BUN Creatinine Est GFR ( Amer) Est GFR (Non-Af Amer) POC Glucose (mg/dL) 211 H 217 H Random Glucose Calcium Phosphorus Magnesium Total Bilirubin AST ALT Alkaline Phosphatase Total Protein Albumin Globulin Albumin/Globulin Ratio Procalcitonin Random Vancomycin 20.64 Ur L.pneumophila Ag Mycoplasma pneumon IgM 08/07/1507/06/17 07/06/17 06:24 06:24 10:51 WBC 19.2 H RBC 2.83 L Hgb 8.0 L Hct 25.1 L MCV 88.6 MCH 28.4 MCHC 32.0 L RDW 17.3 H Plt Count 290 MPV 9.4 Neut % (Auto) 87.1 H Lymph % (Auto) 5.0 L [place] % (Auto) 7.5 Eos % (Auto) 0.2 Baso % (Auto) 0.2 Neut # 16.8 H Lymph # 1.0 [place] # 1.4 H Eos # 0.0 Baso # 0.0 Neutrophils % (Manual) 85 H Lymphocytes % (Manual) 7 L Monocytes % (Manual) 8 Platelet Estimate Normal Large Platelets Present Hypochromasia (manual) Slight Poikilocytosis (manual Slight Anisocytosis (manual) Slight Target Cells Slight [place] Cells Slight Sodium 154 H Potassium 3.0 L Chloride 111 H Carbon Dioxide 22 Anion Gap 24 H BUN 50 H Creatinine 3.7 H Est GFR ( Amer) 19 Est GFR (Non-Af Amer) 16 POC Glucose (mg/dL) Random Glucose 200 H Calcium 8.9 Phosphorus 4.1 Magnesium 2.1 Total Bilirubin 0.6 AST 21 ALT 41 Alkaline Phosphatase 160 H Total Protein 6.1 L Albumin 2.7 L Globulin 3.5 Albumin/Globulin Ratio 0.8 L Procalcitonin 7.53 H Random Vancomycin Ur L.pneumophila Ag Mycoplasma pneumon IgM 07/06/17 07/06/17 07/06/17 11:50 14:58 17:32 WBC RBC Hgb Hct MCV MCH MCHC RDW Plt Count MPV Neut % (Auto) Lymph % (Auto) [place] % (Auto) Eos % (Auto) Baso % (Auto) Neut # Lymph # [place] # Eos # Baso # Neutrophils % (Manual) Lymphocytes % (Manual) Monocytes % (Manual) Platelet Estimate Large Platelets Hypochromasia (manual) Poikilocytosis (manual Anisocytosis (manual) Target Cells [place] Cells Sodium Potassium Chloride Carbon Dioxide Anion Gap BUN Creatinine Est GFR ( Amer) Est GFR (Non-Af Amer) POC Glucose (mg/dL) 243 H 237 H Random Glucose Calcium Phosphorus Magnesium Total Bilirubin AST ALT Alkaline Phosphatase Total Protein Albumin Globulin Albumin/Globulin Ratio Procalcitonin Random Vancomycin Ur L.pneumophila Ag Negative Mycoplasma pneumon IgM Negative Attending/Attestation - Attestation I have personally seen and examined this patient.: Yes I have fully participated in the care of the patient.: Yes I have reviewed all pertinent clinical information: Yes Notes (Text): 07/06/17 18:28 Patient seen and examined in the intensive care unit. Extubated in no respiratory distress Patient is awake and responsive but does not follow commands CAT scan of the chest consistent with pneumonia with elevated pro calcitonin level Continue antibiotics
[2017-07-06 17:02] LABS: LEGIONELLA AG URINE NEGATIVE (NEGATIVE)
[2017-07-06 19:11] LABS: CARCINOEMBRYONIC ANTIGEN 1.6 ng/mL (0-3.0)
[2017-07-06 19:15] LABS: CA 19-9 19.1 U/mL (0-37)
--- NOTE | 2017-07-06 23:43 | CP.PCM.PN ---
Subjective - Date & Time of Evaluation Date of Evaluation: 07/06/17 Time of Evaluation: 20:27 - Subjective Subjective: BREATHING, NO SOB, NO CHEST PAIN, NO COUGH Objective - Vital Signs/Intake and Output Vital Signs (last 24 hours): Temp Pulse Resp BP Pulse Ox 98.3 F 104 H 19 149/65 99 07/06/17 16:00 07/06/17 23:01 07/06/17 23:01 07/06/17 23:01 07/06/17 23:01 Intake and Output: 07/06/17 07/07/17 18:59 06:59 Intake Total 1270 Output Total 400 Balance 870 - Medications Medications: Current Medications Albuterol/Ipratropium (Duoneb 3 Mg/0.5 Mg (3 Ml) Ud) 3 ml INH RQ6 [facility] Last Admin: 07/06/17 19:43 Dose: 3 ml Heparin Sodium (Porcine) (Heparin) 5,000 units SC Q12 [facility] Last Admin: 07/06/17 22:45 Dose: 5,000 units Piperacillin Sod/Tazobactam Sod (Zosyn 2.25 Gm Iv Premix) 2.25 gm in 50 mls @ 100 mls/hr IVPB Q6H [facility] Last Admin: 07/06/17 22:00 Dose: 100 mls/hr Vancomycin/Sodium Chloride (Vancocin) 1 gm in 200 mls @ 133 mls/hr IVPB Q24H [facility] Last Admin: 07/04/17 14:53 Dose: 133 mls/hr Sodium Chloride (Sodium Chloride 0.45%) 500 mls @ 100 mls/hr IV .Q5H [facility] Last Admin: 07/06/17 18:52 Dose: 100 mls/hr Insulin Human Regular (Novolin R) 0 unit SC Q6 [facility] PRN Reason: Protocol Last Admin: 07/06/17 17:50 Dose: 2 unit Metoprolol Tartrate (Lopressor) 2.5 mg IVP Q6 [facility] Last Admin: 07/06/17 17:50 Dose: 2.5 mg Pantoprazole Sodium (Protonix Inj) 40 mg IVP Q12 [facility] Last Admin: 07/06/17 22:45 Dose: 40 mg - Labs Labs: 07/06/17 06:24 07/06/17 06:24 PT 13.8 SECONDS (9.7-12.2) H 07/01/17 05:56 INR 1.2 07/01/17 05:56 APTT 28 SECONDS (21-34) 07/01/17 05:56 - Constitutional Appears: Non-toxic, No Acute Distress - Head Exam Head Exam: ATRAUMATIC, NORMAL INSPECTION, NORMOCEPHALIC - Eye Exam Eye Exam: EOMI - Respiratory Exam Respiratory Exam: Clear to Ausculation Bilateral, Rhonchi, NORMAL BREATHING PATTERN - Cardiovascular Exam Cardiovascular Exam: REGULAR RHYTHM, +S1, +S2, Murmur - GI/Abdominal Exam GI & Abdominal Exam: Soft, Normal Bowel Sounds - Rectal Exam Rectal Exam: NORMAL INSPECTION - Neurological Exam Neurological Exam: Abnormal Gait, Altered, Awake, CN II-XII Intact, Motor Sensory Deficit - Psychiatric Exam Psychiatric exam: Anxious, Depressed, Flat Affect Assessment and Plan (1) Cardiac arrest Status: Resolved (2) GI bleed Status: Resolved (3) Respiratory failure Status: Resolved (4) Acute on chronic renal insufficiency Status: Acute (5) Diabetes Status: Chronic
[2017-07-07] MEDS: Albuterol-Ipratrop 3 mg / 0.5 (3 ml) UD INH SCH ×4 (01:57→20:09)
[2017-07-07] MEDS: Piperacill/Tazo 2.25gm in Dex 2.25 GM/50 ML BAG IVPB SCH ×4 (05:00→23:00)
[2017-07-07] MEDS: Metoprolol 1 mg/ml Inj IVP SCH ×4 (05:21→18:56)
[2017-07-07] MEDS: (Novolin R) Insulin Human Regular 100 units/ml vial SC SCH ×4 (06:42→18:57)
[2017-07-07 06:48] LABS: BASO % 0.1 % (0.0-2.0); EOS # 0.2 K/uL (0.0-0.7); HEMATOCRIT 23.6 % (35.0-51.0); MEAN CELL VOLUME 88.4 fL (80.0-94.0); MEAN CORPUSCULAR HEMOGLOBIN 28.3 pg (27.0-31.0); MEAN PLATELET VOLUME 9.3 fL (7.2-11.7); MONO # 1.4 K/uL (0.0-0.8); MONO % 8.5 % (0.0-10.0); NRBC % 0.2 % (0.0-2.0); PLATELET COUNT 272 K/uL (130-400); RED CELL DISTRIBUTION WIDTH 17.7 % (11.5-14.5); WHITE BLOOD COUNT 16.4 K/uL (4.8-10.8)
[2017-07-07 06:51] LABS: ALB/GLOB RATIO 0.7 (1.0-2.1); BILIRUBIN,TOTAL 0.5 mg/dL (0.2-1.3); CALCIUM 8.5 mg/dl (8.6-10.4); MAGNESIUM 1.9 mg/dL (1.6-2.3); PHOSPHOROUS 3.3 mg/dL (2.5-4.5); POTASSIUM 2.7 mmol/L (3.6-5.2)
[2017-07-07] MEDS ORDERED: Potassium Chloride 20 mEq/15 ml LIQ UD PO ONE ×2 (08:00→11:00)
[2017-07-07 08:39] LABS: EOSINOPHIL 2 % (0-4); LARGE PLATELETS PRESENT; NEUTROPHIL 88 % (50-75); REACTIVE LYMPHOCYTES 1 % (0-0); TOTAL CELLS COUNTED 100
--- NOTE | 2017-07-07 08:50 | CON ---
DATE: 07/05/2017 HISTORY OF PRESENT ILLNESS: I was called for a GI consultation by the ICU staff as well as admitting medical team. The patient is seen and fully examined on 07/05/2017 in the presence of the ICU medical team. The entire chart was reviewed including, but not limited to the most recent lab and radiologic study results, current and previous medication list, current and previous medical events, allergy to medication list as well as all the available current and previous medical records. Case discussed with the staff at length. This is a 76-year-old male who was admitted to the hospital through the emergency room after being brought to the emergency room with recurrent episodes of nausea and vomiting of coffee-ground material, became unresponsive and subsequently was intubated in the emergency room. The patient is a resident of a care home and all the information are obtained from the medical record, medical staff, nursing staff as well as care home report. Due to the reported hematemesis with subsequent and significant drop of hemoglobin and hematocrit with very poor oral intake, I was called for GI consultation. PAST MEDICAL HISTORY: As reported including mainly, but not limited to; 1. CVA with hypertension. 2. Dementia. 3. Osteoarthritis. 4. Hyperlipidemia. 5. Diabetes mellitus. 6. Known history of chronic renal disease with renal CA. FAMILY HISTORY: Noncontributory. SOCIAL HISTORY: No reported recent history of cigarette smoking or alcohol intake. CURRENT MEDICATIONS: Medication list was reviewed post admission. ALLERGIES TO MEDICATION: UNCLEAR. Initial blood workup showed hemoglobin of 10.7 with hematocrit 34.4, which subsequently dropped down furthermore with thrombocytosis with excessive increase of white blood cells *------*. Initial creatinine was elevated at 1.8 with normal BUN. All the radiology study reports were reviewed. Initial chest x-ray showed evidence of cardiomegaly, possible congestive heart failure with mild pulmonary edema as well as questionable aspiration pneumonia. PHYSICAL EXAMINATION VITAL SIGNS: A 76-year-old male, intubated, sedated with low-grade temperature and pulse of 112, blood pressure 134/104. HEENT: Pale dry oral mucous membrane. Slightly icteric sclerae. LYMPH NODES: No lymphadenitis or lymphadenopathy. LUNGS: Scattered crepitations, decreased air entry at bases. HEART: S1, S2 with increased rate. ABDOMEN: Soft with mild distention. Bowel sounds are excessively hypoactive and an EG tube is in place. No mass or organomegaly could be appreciated. No rebound tenderness or guarding. EXTREMITIES: With edematous changes. There is no clubbing or cyanosis. NEUROLOGIC: No reported neurological deficits, sensory, or motor. ASSESSMENT: 1. Gastrointestinal bleeding, most likely upper, gastric vs duodenal ulcer. 2. Possible aspiration pneumonia with respiratory failure, the patient is intubated. 3. Malnutrition with hypoalbuminemia, hypoproteinemia. 4. Multiple past medical history including, but not limited to hypertension, cerebrovascular accident, osteoarthritis, diabetes mellitus, hyperlipidemia as well as renal carcinoma with chronic renal insufficiency. SUGGESTIONS: 1. Agree with your plan. 2. Peripheral hyperalimentation. 3. Blood transfusion as needed to get hemoglobin *------*. 4. Correct any underlying coagulopathy. 5. Endoscopic evaluation of the upper GI tract when the patient is more stable clinically. 6. Due to the patient's clinical status, PEG insertion should be kept in mind when the patient is more stable clinically. Case discussed at length with Dr. Thomas in the intensive care unit. Thank you for letting me to participate in your patient's case management. Glenn Epstein MD
--- NOTE | 2017-07-07 10:33 | CP.CCUPN ---
CCU Subjective - Physician Review Subjective (Free Text): Patient was seen and examined at bedside in the morning. Patient is alert, but unresponsive to review of systems and commands. Patient is extubated and on nasal canula. 07/07/17 10:32 CCU Objective - Vital Signs / Intake & Output Vital Signs (Last 4 hours): Vital Signs Pulse Resp BP Pulse Ox 07/07/17 07:01 87 22 141/75 100 07/07/17 07:00 89 100 Intake and Output (Last 8hrs): Intake & Output 07/06/17 07/07/17 07/07/17 22:59 06:59 14:59 Intake Total 1260 1190 100 Output Total 175 280 35 Balance 1085 910 65 Intake: Intake, IV Amount 800 750 100 Left Distal Port 750 750 100 Subclavian Left Medial Port 50 Subclavian Oral 20 Tube Feeding 240 240 Other 200 200 Output: Urine 175 280 35 Urethral ([place]) 175 280 35 Other: # Bowel Movements 0 - Physical Exam Head: Positive for: Atraumatic, Normocephalic Extroacular Muscles: Positive for: EOMI Mouth: Positive for: Moist Mucous Membranes Respiratory/Chest: Positive for: Decreased Breath Sounds, Rhonchi. Negative for : Wheezes Cardiovascular: Positive for: Regular Rate and Rhythm, Normal S1, S2 Abdomen: Positive for: Normal Bowel Sounds. Negative for: Tenderness, Distention Rectal: Positive for: Other (visible loose stool) Upper Extremity: Positive for: Normal Inspection. Negative for: Edema, Swelling Lower Extremity: Positive for: Normal Inspection. Negative for: Edema, Swelling Skin: Positive for: Warm, Dry, Normal Color Psychiatric: Positive for: Alert. Negative for: Oriented x 3 - Medications Active Medications: Active Medications Generic Name Dose Route Start Last Admin Trade Name Freq PRN Reason Stop Dose Admin Albuterol/Ipratropium 3 ml 07/02/17 14:00 07/07/17 07:43 Duoneb 3 Mg/0.5 Mg (3 Ml) Ud INH 3 ml RQ6 [facility] Administration Heparin Sodium (Porcine) 5,000 units 07/02/17 22:00 07/06/17 22:45 Heparin SC 5,000 units Q12 [facility] Administration Piperacillin Sod/Tazobactam Sod 2.25 gm in 50 mls @ 100 mls/hr 07/01/17 11:00 07/07/17 05:00 Zosyn 2.25 Gm Iv Premix IVPB 100 mls/hr Q6H [facility] Administration Vancomycin/Sodium Chloride 1 gm in 200 mls @ 133 mls/hr 07/04/17 15:00 14:53 Vancocin IVPB 133 mls/hr Q24H [facility] Administration Sodium Chloride 500 mls @ 100 mls/hr 07/06/17 09:49 07/07/17 01:00 Sodium Chloride 0.45% IV 100 mls/hr .Q5H [facility] Administration Insulin Human Regular 0 unit 07/07/17 09:11 Novolin R SC Q6 [facility] Protocol Metoprolol Tartrate 2.5 mg 07/05/17 00:00 07/07/17 05:21 Lopressor IVP 2.5 mg Q6 [facility] Administration Pantoprazole Sodium 40 mg 07/01/17 10:45 07/06/17 22:45 Protonix Inj IVP 40 mg Q12 [facility] Administration Potassium Chloride 40 meq 07/07/17 11:00 Potassium Chloride Oral Soln PO 07/07/17 11:01 ONCE ONE - Patient Studies Lab Studies: Microbiology Studies 07/01/17 06:30 Blood Culture - Final Blood-Venous NO GROWTH AFTER 5 DAYS Gram Stain - Final TEST NOT PERFORMED Lab Studies 07/07/17 07/07/17 07/07/17 Range/Units 06:27 06:27 05:27 WBC 16.4 H (4.8-10.8) K/uL RBC 2.67 L (4.40-5.90) Mil/uL Hgb 7.6 L (12.0-18.0) g/dL Hct 23.6 L (35.0-51.0) % MCV 88.4 (80.0-94.0) fL MCH 28.3 (27.0-31.0) pg MCHC 32.0 L (33.0-37.0) g/dL RDW 17.7 H (11.5-14.5) % Plt Count 272 (130-400) K/uL MPV 9.3 (7.2-11.7) fL Neut % (Auto) 84.4 H (50.0-75.0) % Lymph % (Auto) 6.0 L (20.0-40.0) % [place] % (Auto) 8.5 (0.0-10.0) % Eos % (Auto) 1.0 (0.0-4.0) % Baso % (Auto) 0.1 (0.0-2.0) % Neut # 13.8 H (1.8-7.0) K/uL Lymph # 1.0 (1.0-4.3) K/uL [place] # 1.4 H (0.0-0.8) K/uL Eos # 0.2 (0.0-0.7) K/uL Baso # 0.0 (0.0-0.2) K/uL Neutrophils % (Manual) 88 H (50-75) % Lymphocytes % (Manual) 6 L (20-40) % Reactive Lymphs % 1 H (0-0) % Monocytes % (Manual) 3 (0-10) % Eosinophils % (Manual) 2 (0-4) % Platelet Estimate Normal (NORMAL) Large Platelets Present Hypochromasia (manual) Slight Poikilocytosis (manual Slight Anisocytosis (manual) Slight Sodium 150 H (132-148) mmol/L Potassium 2.7 L (3.6-5.2) mmol/L Chloride 112 H (98-107) mmol/L Carbon Dioxide 21 L (22-30) mmol/L Anion Gap 20 (10-20) BUN 43 H (9-20) mg/dL Creatinine 3.2 H (0.8-1.5) MG/DL Est GFR ( Amer) 23 Est GFR (Non-Af Amer) 19 POC Glucose (mg/dL) 280 H (65-110) mg/dL Random Glucose 242 H (75-110) mg/dL Calcium 8.5 L (8.6-10.4) mg/dl Phosphorus 3.3 (2.5-4.5) mg/dL Magnesium 1.9 (1.6-2.3) mg/dL Total Bilirubin 0.5 (0.2-1.3) mg/dL AST 41 (17-59) U/L ALT 35 (21-72) U/L Alkaline Phosphatase 174 H (38-126) U/L Total Protein 6.0 L (6.3-8.3) g/dL Albumin 2.5 L (3.5-5.0) g/dL Globulin 3.5 (2.2-3.9) gm/dL Albumin/Globulin Ratio 0.7 L (1.0-2.1) Alpha Fetoprotein (0.0-7.5) ng/mL Carcinoembryonic Ag (0-3.0) ng/mL CA 19-9 Antigen (0-37) U/mL Procalcitonin (0.19-0.49) NG/ML Ur L.pneumophila Ag (NEGATIVE) Mycoplasma pneumon IgM (NEGATIVE) 07/06/17 07/06/17 07/06/17 Range/Units 23:30 18:23 18:23 WBC (4.8-10.8) K/uL RBC (4.40-5.90) Mil/uL Hgb (12.0-18.0) g/dL Hct (35.0-51.0) % MCV (80.0-94.0) fL MCH (27.0-31.0) pg MCHC (33.0-37.0) g/dL RDW (11.5-14.5) % Plt Count (130-400) K/uL MPV (7.2-11.7) fL Neut % (Auto) (50.0-75.0) % Lymph % (Auto) (20.0-40.0) % [place] % (Auto) (0.0-10.0) % Eos % (Auto) (0.0-4.0) % Baso % (Auto) (0.0-2.0) % Neut # (1.8-7.0) K/uL Lymph # (1.0-4.3) K/uL [place] # (0.0-0.8) K/uL Eos # (0.0-0.7) K/uL Baso # (0.0-0.2) K/uL Neutrophils % (Manual) (50-75) % Lymphocytes % (Manual) (20-40) % Reactive Lymphs % (0-0) % Monocytes % (Manual) (0-10) % Eosinophils % (Manual) (0-4) % Platelet Estimate (NORMAL) Large Platelets Hypochromasia (manual) Poikilocytosis (manual Anisocytosis (manual) Sodium (132-148) mmol/L Potassium (3.6-5.2) mmol/L Chloride (98-107) mmol/L Carbon Dioxide (22-30) mmol/L Anion Gap (10-20) BUN (9-20) mg/dL Creatinine (0.8-1.5) MG/DL Est GFR ( Amer) Est GFR (Non-Af Amer) POC Glucose (mg/dL) 225 H (65-110) mg/dL Random Glucose (75-110) mg/dL Calcium (8.6-10.4) mg/dl Phosphorus (2.5-4.5) mg/dL Magnesium (1.6-2.3) mg/dL Total Bilirubin (0.2-1.3) mg/dL AST (17-59) U/L ALT (21-72) U/L Alkaline Phosphatase (38-126) U/L Total Protein (6.3-8.3) g/dL Albumin (3.5-5.0) g/dL Globulin (2.2-3.9) gm/dL Albumin/Globulin Ratio (1.0-2.1) Alpha Fetoprotein 2.5 (0.0-7.5) ng/mL Carcinoembryonic Ag 1.6 (0-3.0) ng/mL CA 19-9 Antigen 19.1 (0-37) U/mL Procalcitonin (0.19-0.49) NG/ML Ur L.pneumophila Ag (NEGATIVE) Mycoplasma pneumon IgM (NEGATIVE) 07/06/17 07/06/17 07/06/17 Range/Units 17:32 14:58 11:50 WBC (4.8-10.8) K/uL RBC (4.40-5.90) Mil/uL Hgb (12.0-18.0) g/dL Hct (35.0-51.0) % MCV (80.0-94.0) fL MCH (27.0-31.0) pg MCHC (33.0-37.0) g/dL RDW (11.5-14.5) % Plt Count (130-400) K/uL MPV (7.2-11.7) fL Neut % (Auto) (50.0-75.0) % Lymph % (Auto) (20.0-40.0) % [place] % (Auto) (0.0-10.0) % Eos % (Auto) (0.0-4.0) % Baso % (Auto) (0.0-2.0) % Neut # (1.8-7.0) K/uL Lymph # (1.0-4.3) K/uL [place] # (0.0-0.8) K/uL Eos # (0.0-0.7) K/uL Baso # (0.0-0.2) K/uL Neutrophils % (Manual) (50-75) % Lymphocytes % (Manual) (20-40) % Reactive Lymphs % (0-0) % Monocytes % (Manual) (0-10) % Eosinophils % (Manual) (0-4) % Platelet Estimate (NORMAL) Large Platelets Hypochromasia (manual) Poikilocytosis (manual Anisocytosis (manual) Sodium (132-148) mmol/L Potassium (3.6-5.2) mmol/L Chloride (98-107) mmol/L Carbon Dioxide (22-30) mmol/L Anion Gap (10-20) BUN (9-20) mg/dL Creatinine (0.8-1.5) MG/DL Est GFR ( Amer) Est GFR (Non-Af Amer) POC Glucose (mg/dL) 237 H 243 H (65-110) mg/dL Random Glucose (75-110) mg/dL Calcium (8.6-10.4) mg/dl Phosphorus (2.5-4.5) mg/dL Magnesium (1.6-2.3) mg/dL Total Bilirubin (0.2-1.3) mg/dL AST (17-59) U/L ALT (21-72) U/L Alkaline Phosphatase (38-126) U/L Total Protein (6.3-8.3) g/dL Albumin (3.5-5.0) g/dL Globulin (2.2-3.9) gm/dL Albumin/Globulin Ratio (1.0-2.1) Alpha Fetoprotein (0.0-7.5) ng/mL Carcinoembryonic Ag (0-3.0) ng/mL CA 19-9 Antigen (0-37) U/mL Procalcitonin (0.19-0.49) NG/ML Ur L.pneumophila Ag Negative (NEGATIVE) Mycoplasma pneumon IgM Negative (NEGATIVE) 07/06/17 Range/Units 10:51 WBC (4.8-10.8) K/uL RBC (4.40-5.90) Mil/uL Hgb (12.0-18.0) g/dL Hct (35.0-51.0) % MCV (80.0-94.0) fL MCH (27.0-31.0) pg MCHC (33.0-37.0) g/dL RDW (11.5-14.5) % Plt Count (130-400) K/uL MPV (7.2-11.7) fL Neut % (Auto) (50.0-75.0) % Lymph % (Auto) (20.0-40.0) % [place] % (Auto) (0.0-10.0) % Eos % (Auto) (0.0-4.0) % Baso % (Auto) (0.0-2.0) % Neut # (1.8-7.0) K/uL Lymph # (1.0-4.3) K/uL [place] # (0.0-0.8) K/uL Eos # (0.0-0.7) K/uL Baso # (0.0-0.2) K/uL Neutrophils % (Manual) (50-75) % Lymphocytes % (Manual) (20-40) % Reactive Lymphs % (0-0) % Monocytes % (Manual) (0-10) % Eosinophils % (Manual) (0-4) % Platelet Estimate (NORMAL) Large Platelets Hypochromasia (manual) Poikilocytosis (manual Anisocytosis (manual) Sodium (132-148) mmol/L Potassium (3.6-5.2) mmol/L Chloride (98-107) mmol/L Carbon Dioxide (22-30) mmol/L Anion Gap (10-20) BUN (9-20) mg/dL Creatinine (0.8-1.5) MG/DL Est GFR ( Amer) Est GFR (Non-Af Amer) POC Glucose (mg/dL) (65-110) mg/dL Random Glucose (75-110) mg/dL Calcium (8.6-10.4) mg/dl Phosphorus (2.5-4.5) mg/dL Magnesium (1.6-2.3) mg/dL Total Bilirubin (0.2-1.3) mg/dL AST (17-59) U/L ALT (21-72) U/L Alkaline Phosphatase (38-126) U/L Total Protein (6.3-8.3) g/dL Albumin (3.5-5.0) g/dL Globulin (2.2-3.9) gm/dL Albumin/Globulin Ratio (1.0-2.1) Alpha Fetoprotein (0.0-7.5) ng/mL Carcinoembryonic Ag (0-3.0) ng/mL CA 19-9 Antigen (0-37) U/mL Procalcitonin 7.53 H (0.19-0.49) NG/ML Ur L.pneumophila Ag (NEGATIVE) Mycoplasma pneumon IgM (NEGATIVE) Laboratory Results - last 24 hr 07/06/17 07/06/17 07/06/17 10:51 11:50 14:58 WBC RBC Hgb Hct MCV MCH MCHC RDW Plt Count MPV Neut % (Auto) Lymph % (Auto) [place] % (Auto) Eos % (Auto) Baso % (Auto) Neut # Lymph # [place] # Eos # Baso # Neutrophils % (Manual) Lymphocytes % (Manual) Reactive Lymphs % Monocytes % (Manual) Eosinophils % (Manual) Platelet Estimate Large Platelets Hypochromasia (manual) Poikilocytosis (manual Anisocytosis (manual) Sodium Potassium Chloride Carbon Dioxide Anion Gap BUN Creatinine Est GFR ( Amer) Est GFR (Non-Af Amer) POC Glucose (mg/dL) 243 H Random Glucose Calcium Phosphorus Magnesium Total Bilirubin AST ALT Alkaline Phosphatase Total Protein Albumin Globulin Albumin/Globulin Ratio Alpha Fetoprotein Carcinoembryonic Ag CA 19-9 Antigen Procalcitonin 7.53 H Ur L.pneumophila Ag Negative Mycoplasma pneumon IgM Negative 07/06/17 07/06/17 07/06/17 17:32 18:23 18:23 WBC RBC Hgb Hct MCV MCH MCHC RDW Plt Count MPV Neut % (Auto) Lymph % (Auto) [place] % (Auto) Eos % (Auto) Baso % (Auto) Neut # Lymph # [place] # Eos # Baso # Neutrophils % (Manual) Lymphocytes % (Manual) Reactive Lymphs % Monocytes % (Manual) Eosinophils % (Manual) Platelet Estimate Large Platelets Hypochromasia (manual) Poikilocytosis (manual Anisocytosis (manual) Sodium Potassium Chloride Carbon Dioxide Anion Gap BUN Creatinine Est GFR ( Amer) Est GFR (Non-Af Amer) POC Glucose (mg/dL) 237 H Random Glucose Calcium Phosphorus Magnesium Total Bilirubin AST ALT Alkaline Phosphatase Total Protein Albumin Globulin Albumin/Globulin Ratio Alpha Fetoprotein 2.5 Carcinoembryonic Ag 1.6 CA 19-9 Antigen 19.1 Procalcitonin Ur L.pneumophila Ag Mycoplasma pneumon IgM 07/06/17 07/07/17 07/07/17 23:30 05:27 06:27 WBC 16.4 H RBC 2.67 L Hgb 7.6 L Hct 23.6 L MCV 88.4 MCH 28.3 MCHC 32.0 L RDW 17.7 H Plt Count 272 MPV 9.3 Neut % (Auto) 84.4 H Lymph % (Auto) 6.0 L [place] % (Auto) 8.5 Eos % (Auto) 1.0 Baso % (Auto) 0.1 Neut # 13.8 H Lymph # 1.0 [place] # 1.4 H Eos # 0.2 Baso # 0.0 Neutrophils % (Manual) 88 H Lymphocytes % (Manual) 6 L Reactive Lymphs % 1 H Monocytes % (Manual) 3 Eosinophils % (Manual) 2 Platelet Estimate Normal Large Platelets Present Hypochromasia (manual) Slight Poikilocytosis (manual Slight Anisocytosis (manual) Slight Sodium Potassium Chloride Carbon Dioxide Anion Gap BUN Creatinine Est GFR ( Amer) Est GFR (Non-Af Amer) POC Glucose (mg/dL) 225 H 280 H Random Glucose Calcium Phosphorus Magnesium Total Bilirubin AST ALT Alkaline Phosphatase Total Protein Albumin Globulin Albumin/Globulin Ratio Alpha Fetoprotein Carcinoembryonic Ag CA 19-9 Antigen Procalcitonin Ur L.pneumophila Ag Mycoplasma pneumon IgM 07/07/17 06:27 WBC RBC Hgb Hct MCV MCH MCHC RDW Plt Count MPV Neut % (Auto) Lymph % (Auto) [place] % (Auto) Eos % (Auto) Baso % (Auto) Neut # Lymph # [place] # Eos # Baso # Neutrophils % (Manual) Lymphocytes % (Manual) Reactive Lymphs % Monocytes % (Manual) Eosinophils % (Manual) Platelet Estimate Large Platelets Hypochromasia (manual) Poikilocytosis (manual Anisocytosis (manual) Sodium 150 H Potassium 2.7 L Chloride 112 H Carbon Dioxide 21 L Anion Gap 20 BUN 43 H Creatinine 3.2 H Est GFR ( Amer) 23 Est GFR (Non-Af Amer) 19 POC Glucose (mg/dL) Random Glucose 242 H Calcium 8.5 L Phosphorus 3.3 Magnesium 1.9 Total Bilirubin 0.5 AST 41 ALT 35 Alkaline Phosphatase 174 H Total Protein 6.0 L Albumin 2.5 L Globulin 3.5 Albumin/Globulin Ratio 0.7 L Alpha Fetoprotein Carcinoembryonic Ag CA 19-9 Antigen Procalcitonin Ur L.pneumophila Ag Mycoplasma pneumon IgM Fingerstick Blood Sugar Results: 217 Assessment/Plan (1) Severe sepsis Assessment and plan: Patient is a 76 year old male with medical history of CVA, dementai, Renal CA, CKD, and hypercholesterolemia, presents with respiratory failure and coffee ground emesis. Patient was a CODE blue and sepsis. Patient was intubated (07/01/17 ). Patient was extubated on 07/04/17 and on nasal cannula. Patient has failed swallow eval. NG tube placed. Procalcitonin is elevated. Patient likely has pneumonia. Neuro: - Alert, not oriented. Eyes are tracking; able to follow some commands. - Left sided weakness, likely secondary to history of CVA - Off sedation (DC propofol) Pulm: - Duonebs - CXR: dense confluent consolidative changes seen in right mid to lower lung zone with adjacent prominent confluent areas of linear consolidative changes, focal nodular consolidative changes at right lung base laterally. - ABG: pH 7.47, pCO2 30 - Chest CT: right middle lobe consolidation-- likely pneumonia; mild bibasilar atelectasis; patchy infiltrate within inferior right upper lobe. - Swallow eval: failed CV: - Hypotension, likely secondary to sepsis - Hypotension resolved - Hx of HTN: metoprolol 2.5mg IV Q6 - Monitor vitals - ROMIs: negative, 0.1020 - ECHO: pending official report; EF 37.4% Endo: - History of DM - Monitor blood glucose, Accuchecks Q6 - ISS - On Chest CT: showed heterogenous appearance of inferior thyroid gland with suspected 1.2cm left lower pole nodule. GI: - Bloody output in OG tube - WBC 34, Bandemia 10 (repeat CBC-9) - C.Diff: negative - On Chest CT: showed distended gallbladder with gallstones, perihepatic ascites , left nephrectomy; fluid collection in right retroperitoneum Heme: - Monitor H/H Renal: - Acute kidney failure, possibly secondary to hyperkalemia. - Hyperkalemia (6.1)- resovled - Hypokalemic- given KCl 20meq - Metabolic acidosis - Hypernatremic: 1/2NS ID: - ID consulted- Dr. Booker, help appreciated - WBC 34, Bandemia 10 (repeat CBC-9) - WBC (8/4): 26.9, Bandemia 15 - Zosyn 2.25gm IV Q6 - Vanco 1gm IV - Blood cx: no growth for 3 days - Urine cx: no growth - C.Diff: negative - Hepatitis panel: negative - L.pneumophilia Ag: negative - Procalcitonin: 7.53 Prophylaxis: DVT: Heparin 5,000 units SC Q12 - SCDs GI: Protonix 40mg IV Q12 PT/OT Current Visit: Yes Status: Acute
--- NOTE | 2017-07-07 13:06 | RAD ---
HISTORY: pneumonia COMPARISON: Chest x-ray performed 07/04/17; CT chest without contrast performed 07/06/17 TECHNIQUE: Chest, one view. FINDINGS: The side hole of the nasogastric tube resides within the mid esophagus ; nasogastric tube should be repositioned so that side hole extends to the expected location of the stomach. Left-sided central venous catheter terminates at the left SVC/brachiocephalic junction. Endotracheal tube is been removed. LUNGS: Moderate-sized right pleural effusion and/or consolidation. Mild left basilar atelectasis. No definite pneumothorax. Please note that chest x-ray has limited sensitivity for the detection of pulmonary masses. CARDIOVASCULAR: Partially obscured. Dense atherosclerotic calcifications of the aortic knob. OSSEOUS STRUCTURES: Degenerative changes. VISUALIZED UPPER ABDOMEN: Unremarkable. OTHER FINDINGS: None. IMPRESSION: The side hole of the nasogastric tube resides within the mid esophagus ; nasogastric tube should be repositioned so that side hole extends to the expected location of the stomach. Left-sided central venous catheter terminates at the left SVC/brachiocephalic junction. Endotracheal tube is been removed. Moderate right-sided pleural effusion and/or consolidation. Mild left basilar atelectasis. Line placement discussed with the patient's RN Sidney Resendiz on 07/07/17 at 12:58 p.m.
--- NOTE | 2017-07-07 17:35 | CP.PCM.PN ---
Subjective - Date & Time of Evaluation Date of Evaluation: 07/07/17 Time of Evaluation: 09:00 - Subjective Subjective: lethargic extubated nad Objective - Vital Signs/Intake and Output Vital Signs (last 24 hours): Temp Pulse Resp BP Pulse Ox 98.0 F 94 H 21 163/82 H 100 07/07/17 17:26 07/07/17 17:26 07/07/17 17:26 07/07/17 17:26 07/07/17 07:01 Intake and Output: 07/07/17 07/07/17 06:59 18:59 Intake Total 1980 100 Output Total 350 35 Balance 1630 65 - Medications Medications: Current Medications Albuterol/Ipratropium (Duoneb 3 Mg/0.5 Mg (3 Ml) Ud) 3 ml INH RQ6 [facility] Last Admin: 07/07/17 13:23 Dose: 3 ml Heparin Sodium (Porcine) (Heparin) 5,000 units SC Q12 [facility] Last Admin: 07/07/17 11:06 Dose: 5,000 units Piperacillin Sod/Tazobactam Sod (Zosyn 2.25 Gm Iv Premix) 2.25 gm in 50 mls @ 100 mls/hr IVPB Q6H [facility] Last Admin: 07/07/17 11:06 Dose: 100 mls/hr Vancomycin/Sodium Chloride (Vancocin) 1 gm in 200 mls @ 133 mls/hr IVPB Q24H [facility] Last Admin: 07/04/17 14:53 Dose: 133 mls/hr Sodium Chloride (Sodium Chloride 0.45%) 500 mls @ 100 mls/hr IV .Q5H [facility] Last Admin: 07/07/17 16:29 Dose: Not Given Insulin Human Regular (Novolin R) 0 unit SC Q6 [facility] PRN Reason: Protocol Last Admin: 07/07/17 11:14 Dose: 2 unit Metoprolol Tartrate (Lopressor) 2.5 mg IVP Q6 [facility] Last Admin: 07/07/17 11:05 Dose: 2.5 mg Pantoprazole Sodium (Protonix Inj) 40 mg IVP Q12 [facility] Last Admin: 07/07/17 11:05 Dose: 40 mg - Labs Labs: 07/07/17 06:27 07/07/17 06:27 PT 13.8 SECONDS (9.7-12.2) H 07/01/17 05:56 INR 1.2 07/01/17 05:56 APTT 28 SECONDS (21-34) 07/01/17 05:56 - Constitutional Appears: Non-toxic - Head Exam Head Exam: NORMAL INSPECTION - Eye Exam Eye Exam: PERRL - ENT Exam ENT Exam: Mucous Membranes Dry - Neck Exam Neck Exam: absent: Thyromegaly - Respiratory Exam Respiratory Exam: Decreased Breath Sounds - Cardiovascular Exam Cardiovascular Exam: REGULAR RHYTHM - GI/Abdominal Exam GI & Abdominal Exam: Distended, Soft - Rectal Exam Rectal Exam: Deferred - Exam Exam: NORMAL INSPECTION Assessment and Plan (1) Pneumonia Status: Acute (2) Pneumonia Status: Acute (3) Cardiac arrest Status: Resolved (4) GI bleed Status: Resolved (5) Respiratory failure Status: Suspected (6) Sepsis Status: Acute (7) Acute on chronic renal insufficiency Status: Acute (8) Anemia Status: Acute (9) Chronic renal disease, stage 2, mildly decreased glomerular filtration rate between 60-89 mL/min/1.73 square meter Status: Acute (10) Leukocytosis Status: Acute (11) Renal cell carcinoma Status: Acute - Assessment and Plan (Free Text) Assessment: will follow anastacio diehl
[2017-07-08] MEDS: (Novolin R) Insulin Human Regular 100 units/ml vial SC SCH ×4 (00:34→17:07)
[2017-07-08] MEDS: Metoprolol 1 mg/ml Inj IVP SCH ×4 (00:34→17:08)
[2017-07-08] MEDS: Albuterol-Ipratrop 3 mg / 0.5 (3 ml) UD INH SCH ×4 (01:18→19:45)
--- NOTE | 2017-07-08 03:25 | CP.PCM.PN ---
Subjective - Date & Time of Evaluation Date of Evaluation: 07/07/17 Time of Evaluation: 20:32 - Subjective Subjective: MORE ALERT, NO SOB, NO COUGH, NO CHEST PAIN Objective - Vital Signs/Intake and Output Vital Signs (last 24 hours): Temp Pulse Resp BP Pulse Ox 98.8 F 96 H 17 137/82 100 07/08/17 00:00 07/08/17 02:00 07/08/17 02:00 07/08/17 00:34 07/07/17 22:00 Intake and Output: 07/07/17 07/08/17 18:59 06:59 Intake Total 1900 675 Output Total 515 40 Balance 1385 635 - Medications Medications: Current Medications Albuterol/Ipratropium (Duoneb 3 Mg/0.5 Mg (3 Ml) Ud) 3 ml INH RQ6 [facility] Last Admin: 07/08/17 01:18 Dose: 3 ml Heparin Sodium (Porcine) (Heparin) 5,000 units SC Q12 [facility] Last Admin: 07/07/17 21:47 Dose: 5,000 units Piperacillin Sod/Tazobactam Sod (Zosyn 2.25 Gm Iv Premix) 2.25 gm in 50 mls @ 100 mls/hr IVPB Q6H [facility] Last Admin: 07/07/17 23:00 Dose: 100 mls/hr Vancomycin/Sodium Chloride (Vancocin) 1 gm in 200 mls @ 133 mls/hr IVPB Q24H [facility] Last Admin: 07/04/17 14:53 Dose: 133 mls/hr Sodium Chloride (Sodium Chloride 0.45%) 500 mls @ 100 mls/hr IV .Q5H [facility] Last Admin: 07/08/17 03:17 Dose: 100 mls/hr Insulin Human Regular (Novolin R) 0 unit SC Q6 [facility] PRN Reason: Protocol Last Admin: 07/08/17 00:34 Dose: Not Given Metoprolol Tartrate (Lopressor) 2.5 mg IVP Q6 [facility] Last Admin: 07/08/17 00:34 Dose: 2.5 mg Pantoprazole Sodium (Protonix Inj) 40 mg IVP Q12 [facility] Last Admin: 07/07/17 21:47 Dose: 40 mg - Labs Labs: 07/07/17 06:27 07/07/17 06:27 PT 13.8 SECONDS (9.7-12.2) H 07/01/17 05:56 INR 1.2 07/01/17 05:56 APTT 28 SECONDS (21-34) 07/01/17 05:56 - Constitutional Appears: Non-toxic, No Acute Distress, Chronically Ill - Head Exam Head Exam: ATRAUMATIC, NORMAL INSPECTION, NORMOCEPHALIC - Eye Exam Eye Exam: EOMI, Normal appearance, PERRL Pupil Exam: NORMAL ACCOMODATION - ENT Exam ENT Exam: Mucous Membranes Moist, Normal Exam, Normal Oropharynx, TM's Normal Bilaterally - Neck Exam Neck Exam: Normal Inspection - Respiratory Exam Respiratory Exam: Clear to Ausculation Bilateral, Rales, Rhonchi, NORMAL BREATHING PATTERN - Cardiovascular Exam Cardiovascular Exam: REGULAR RHYTHM, +S1, +S2 - GI/Abdominal Exam GI & Abdominal Exam: Soft, Normal Bowel Sounds - Extremities Exam Extremities Exam: Normal Capillary Refill, Normal Inspection, Pedal Edema - Back Exam Back Exam: NORMAL INSPECTION - Neurological Exam Neurological Exam: Alert, Awake Assessment and Plan (1) Cardiac arrest Status: Resolved (2) GI bleed Assessment & Plan: DROP IN H/H Status: Resolved (3) Respiratory failure Status: Resolved (4) Acute on chronic renal insufficiency Status: Acute (5) Diabetes Status: Chronic
[2017-07-08] MEDS: Piperacill/Tazo 2.25gm in Dex 2.25 GM/50 ML BAG IVPB SCH ×4 (05:18→22:19)
[2017-07-08 06:37] LABS: ALB/GLOB RATIO 0.7 (1.0-2.1); BILIRUBIN,TOTAL 0.5 mg/dL (0.2-1.3); CALCIUM 8.3 mg/dl (8.6-10.4); POTASSIUM 2.9 mmol/L (3.6-5.2); TOTAL PROTEIN 5.9 g/dL (6.3-8.3)
[2017-07-08 06:39] LABS: BASO % 0.2 % (0.0-2.0); EOS # 0.2 K/uL (0.0-0.7); MEAN CORPUSCULAR HEMOGLOBIN 28.3 pg (27.0-31.0); NRBC % 0.2 % (0.0-2.0)
[2017-07-08 06:41] LABS: EOS % 1.3 % (0.0-4.0); HEMATOCRIT 27.3 % (35.0-51.0); LYMPH # 1.1 K/uL (1.0-4.3); LYMPH % 6.9 % (20.0-40.0); MEAN CELL VOLUME 87.4 fL (80.0-94.0); MEAN CORPUSCULAR HGB CONC 32.4 g/dL (33.0-37.0); MONO # 1.1 K/uL (0.0-0.8); MONO % 7.1 % (0.0-10.0); PLATELET COUNT 259 K/uL (130-400); RED CELL DISTRIBUTION WIDTH 16.7 % (11.5-14.5); WHITE BLOOD COUNT 15.2 K/uL (4.8-10.8)
[2017-07-08 08:54] LABS: NEUTROPHIL 85 % (50-75); REACTIVE LYMPHOCYTES 1 % (0-0); TOTAL CELLS COUNTED 100
--- NOTE | 2017-07-08 09:10 | PN ---
LOCATION: ICU 6. SUBJECTIVE: A [id number] male seen and examined in rounds today in the presence of the intensive care unit, was found to have negative swallow evaluation for which the patient required PEG insertion. All the information was obtained from the nursing and medical staff as the patient appeared to be somewhat lethargic today with very poor oral intake to near 0 and the patient is unresponsive was extubated and still on oxygen supplement by nasal cannula. The entire chart is reviewed including but not limited to the most lab and radiological results, current and previous medication list, current and previous medical events. Today's lab showed white blood count of 16.4 with low hemoglobin 7.9, low hematocrit 23.6 with increased sodium 115 with potassium 2.7, low CO2 content of 21 indicative of metabolic acidosis with decreased BUN at 43, creatinine 3.2 with blood glucose level 158 with low calcium as well as low albumin 2.5 and low total protein 6.0. Today's chest x-ray official report is still pending. PHYSICAL EXAMINATION VITAL SIGNS: A 83-fuiyl[age]eil male, afebrile with heart rate of 96, respiratory rate 20 to 22, blood pressure of 154/72. HEENT: Show pale dry oral mucous membrane. Nonicteric sclerae. LUNGS: She has got crepitations, decreased air entry at bases. HEART: Positive S1 and S2 with increased rate. ABDOMEN: Soft, some slight generalized tenderness. No mass or organomegaly. No rebound tenderness or guarding. EXTREMITIES: Lower extremities with edematous changes. No clubbing or cyanosis. The patient has residual weakness especially the upper extremity. NEUROLOGIC: No neurological deficits, sensory, or motor. Energy tube is in place for feeding purposes. ASSESSMENT: 1. Cerebrovascular accident. 2. Dysphagia with malnutrition. 3. Hypoalbuminemia. 4. Possible aspiration pneumonia. 5. . 6. Acute renal failure. 7. The patient has episode of hematemesis before . 8. Anemia secondary to above. SUGGESTION: 1. Continue current management. 2. The patient is to be scheduled for PEG insertion after receiving consent from the family. Glenn Epstein MD cc: Glenn Epstein MD
--- NOTE | 2017-07-08 09:10 | PN ---
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 Glenn Epstein MD
--- NOTE | 2017-07-08 14:21 | PN ---
DATE: LOCATION: ICU 6. SUBJECTIVE: This is a [id number] male seen and examined on rounds without significant clinical changes, having to remove his NG tube late yesterday more than 1 time apparently without reported active bleeding. The most recent lab and radiology study results, current and previous medication list, current and previous medical events were reviewed and the patient still has white blood count of 15.2 with low hemoglobin 8.8 with hematocrit 27.3 with increased potassium low 2.9 and CO2 content of 19 indicative of metabolic acidosis with increased BUN at 34, creatinine 2.7 with blood glucose level 196 and low albumin 2.4 and low total protein 5.6. PHYSICAL EXAMINATION VITAL SIGNS: A 76-year-old male, afebrile with heart rate of 88, respiratory rate reported to be 18 to 20 with blood pressure of 146/80. HEENT: Show pale dry oral mucous membrane. Nonicteric sclerae. LUNGS: She has got crepitations, decreased air entry at bases. HEART: Positive S1 and S2. ABDOMEN: Soft, bowel sounds are present with mild distention. No mass or organomegaly. No rebound tenderness or guarding. EXTREMITIES: Lower extremities with edematous changes. No clubbing or cyanosis. NEUROLOGIC: No neurological deficits, sensory, or motor. IMPRESSION: 1. Dysphagia with malnutrition. 2. Hypoalbuminemia and proteinemia. 3. Anemia most likely secondary to chronic disease. 4. Acute renal insufficiency with dehydration. 5. Recent history of episode of hematemesis. SUGGESTION: 1. Continue current management. 2. Again for PEG insertion upon a legal guardian approval, otherwise peripheral versus central hyperalimentation to be kept in mind. 3. We will followup closely with you. Glenn Epstein MD
--- NOTE | 2017-07-08 17:15 | CP.PCM.PN ---
Subjective - Date & Time of Evaluation Date of Evaluation: 07/08/17 Time of Evaluation: 09:00 - Subjective Subjective: awake alert confused afebrile NAD Objective - Vital Signs/Intake and Output Vital Signs (last 24 hours): Temp Pulse Resp BP Pulse Ox 97.5 F L 90 18 161/80 H 100 07/08/17 12:00 07/08/17 13:00 07/08/17 13:00 07/08/17 12:52 07/07/17 22:00 Intake and Output: 07/08/17 07/08/17 06:59 18:59 Intake Total 1775 Output Total 940 Balance 835 - Medications Medications: Current Medications Albuterol/Ipratropium (Duoneb 3 Mg/0.5 Mg (3 Ml) Ud) 3 ml INH RQ6 [facility] Last Admin: 07/08/17 13:22 Dose: 3 ml Heparin Sodium (Porcine) (Heparin) 5,000 units SC Q12 [facility] Last Admin: 07/08/17 10:07 Dose: 5,000 units Piperacillin Sod/Tazobactam Sod (Zosyn 2.25 Gm Iv Premix) 2.25 gm in 50 mls @ 100 mls/hr IVPB Q6H [facility] Last Admin: 07/08/17 16:35 Dose: 100 mls/hr Sodium Chloride (Sodium Chloride 0.45%) 500 mls @ 100 mls/hr IV .Q5H [facility] Last Admin: 07/08/17 16:26 Dose: 100 mls/hr Potassium Chloride (Potassium Chloride 20 Meq/100 Ml) 20 meq in 100 mls @ 50 mls/hr IVPB Q2 [facility] Stop: 07/08/17 19:59 Last Admin: 07/08/17 17:08 Dose: 50 mls/hr Vancomycin HCl 1 gm/ Sodium (Chloride) 250 mls @ 166.7 mls/hr IVPB Q48H [facility] Insulin Human Regular (Novolin R) 0 unit SC Q6 [facility] PRN Reason: Protocol Last Admin: 07/08/17 17:07 Dose: Not Given Metoprolol Tartrate (Lopressor) 2.5 mg IVP Q6 [facility] Last Admin: 07/08/17 17:08 Dose: 2.5 mg Pantoprazole Sodium (Protonix Inj) 40 mg IVP Q12 [facility] Last Admin: 07/08/17 10:07 Dose: 40 mg - Labs Labs: 07/08/17 06:10 07/08/17 06:10 PT 13.8 SECONDS (9.7-12.2) H 07/01/17 05:56 INR 1.2 07/01/17 05:56 APTT 28 SECONDS (21-34) 07/01/17 05:56 - Constitutional Appears: Non-toxic, Cachectic, Chronically Ill - Head Exam Head Exam: NORMOCEPHALIC - Eye Exam Eye Exam: PERRL - ENT Exam ENT Exam: Mucous Membranes Dry - Neck Exam Neck Exam: absent: Lymphadenopathy - Respiratory Exam Respiratory Exam: Decreased Breath Sounds, Rhonchi - Cardiovascular Exam Cardiovascular Exam: REGULAR RHYTHM, +S1, +S2 - GI/Abdominal Exam GI & Abdominal Exam: Distended, Soft. absent: Tenderness - Rectal Exam Rectal Exam: Deferred - Exam Exam: NORMAL INSPECTION - Extremities Exam Extremities Exam: absent: Calf Tenderness, Pedal Edema - Back Exam Back Exam: absent: CVA tenderness (L), CVA tenderness (R) - Neurological Exam Neurological Exam: Alert, Altered Neuro motor strength exam: Left Upper Extremity: 2/1, Right Upper Extremity: 2/1 , Left Lower Extremity: 4, Right Lower Extremity: 4 - Psychiatric Exam Psychiatric exam: Depressed - Skin Skin Exam: Dry Assessment and Plan (1) Pneumonia Status: Acute (2) Pneumonia Status: Acute (3) Cardiac arrest Status: Resolved (4) GI bleed Status: Resolved (5) Respiratory failure Status: Suspected (6) Sepsis Status: Acute (7) Acute on chronic renal insufficiency Status: Acute (8) Anemia Status: Acute (9) Chronic renal disease, stage 2, mildly decreased glomerular filtration rate between 60-89 mL/min/1.73 square meter Status: Acute (10) Leukocytosis Status: Acute (11) Renal cell carcinoma Status: Acute - Assessment and Plan (Free Text) Assessment: resolving pneumonia/ sepsis/ resp failure/ chf cont iv rx restart Vanco IV q 48h
[2017-07-09] MEDS: (Novolin R) Insulin Human Regular 100 units/ml vial SC SCH ×4 (00:59→18:17)
[2017-07-09] MEDS: Metoprolol 1 mg/ml Inj IVP SCH ×4 (01:01→18:18)
[2017-07-09] MEDS: Albuterol-Ipratrop 3 mg / 0.5 (3 ml) UD INH SCH ×4 (01:16→19:15)
--- NOTE | 2017-07-09 02:06 | CP.PCM.PN ---
Subjective - Date & Time of Evaluation Date of Evaluation: 07/08/17 Time of Evaluation: 20:35 - Subjective Subjective: CALM, NO AGITATION, NO SOB, NO COUGH, NO FEVER Objective - Vital Signs/Intake and Output Vital Signs (last 24 hours): Temp Pulse Resp BP Pulse Ox 98.4 F 93 H 22 136/75 95 07/08/17 22:00 07/08/17 22:07 07/08/17 22:07 07/08/17 22:07 07/08/17 22:00 Intake and Output: 07/08/17 07/09/17 18:59 06:59 Intake Total 1100 350 Output Total 700 400 Balance 400 -50 - Medications Medications: Current Medications Albuterol/Ipratropium (Duoneb 3 Mg/0.5 Mg (3 Ml) Ud) 3 ml INH RQ6 [facility] Last Admin: 07/09/17 01:16 Dose: 3 ml Heparin Sodium (Porcine) (Heparin) 5,000 units SC Q12 [facility] Last Admin: 07/08/17 21:31 Dose: 5,000 units Piperacillin Sod/Tazobactam Sod (Zosyn 2.25 Gm Iv Premix) 2.25 gm in 50 mls @ 100 mls/hr IVPB Q6H [facility] Last Admin: 07/08/17 22:19 Dose: 100 mls/hr Sodium Chloride (Sodium Chloride 0.45%) 500 mls @ 100 mls/hr IV .Q5H [facility] Last Admin: 07/08/17 22:19 Dose: 100 mls/hr Vancomycin HCl 1 gm/ Sodium (Chloride) 250 mls @ 166.7 mls/hr IVPB Q48H [facility] Last Admin: 07/08/17 17:42 Dose: 166.7 mls/hr Insulin Human Regular (Novolin R) 0 unit SC Q6 [facility] PRN Reason: Protocol Last Admin: 07/09/17 00:59 Dose: Not Given Metoprolol Tartrate (Lopressor) 2.5 mg IVP Q6 [facility] Last Admin: 07/09/17 01:01 Dose: 2.5 mg Pantoprazole Sodium (Protonix Inj) 40 mg IVP Q12 [facility] Last Admin: 07/08/17 21:31 Dose: 40 mg - Labs Labs: 07/08/17 06:10 07/08/17 06:10 PT 13.8 SECONDS (9.7-12.2) H 07/01/17 05:56 INR 1.2 07/01/17 05:56 APTT 28 SECONDS (21-34) 07/01/17 05:56 - Constitutional Appears: Non-toxic, No Acute Distress, Older Than Stated Age, Confused, Chronically Ill - Head Exam Head Exam: ATRAUMATIC, NORMAL INSPECTION, NORMOCEPHALIC - Eye Exam Eye Exam: EOMI, Normal appearance, PERRL Pupil Exam: NORMAL ACCOMODATION - ENT Exam ENT Exam: Mucous Membranes Moist, Normal Exam, Normal Oropharynx, TM's Normal Bilaterally - Neck Exam Neck Exam: Normal Inspection - Respiratory Exam Respiratory Exam: Clear to Ausculation Bilateral, NORMAL BREATHING PATTERN - Cardiovascular Exam Cardiovascular Exam: Tachycardia, REGULAR RHYTHM, +S1, +S2, Murmur - GI/Abdominal Exam GI & Abdominal Exam: Soft, Normal Bowel Sounds - Rectal Exam Rectal Exam: NORMAL INSPECTION - Extremities Exam Extremities Exam: Normal Capillary Refill, Normal Inspection, Pedal Edema - Back Exam Back Exam: NORMAL INSPECTION - Neurological Exam Neurological Exam: Abnormal Gait, Alert, Awake Neuro motor strength exam: Left Upper Extremity: 5, Right Upper Extremity: 5, Left Lower Extremity: 5, Right Lower Extremity: 5 Assessment and Plan (1) Cardiac arrest Status: Resolved (2) GI bleed Status: Resolved (3) Respiratory failure Status: Resolved (4) Acute on chronic renal insufficiency Status: Acute (5) Diabetes Status: Chronic
[2017-07-09] MEDS: Piperacill/Tazo 2.25gm in Dex 2.25 GM/50 ML BAG IVPB SCH ×4 (04:42→23:02)
--- NOTE | 2017-07-09 20:01 | PN ---
LOCATION: Room #668, bed B. SUBJECTIVE: The patient is a 76-year-old male, seen and examined out of the Intensive Care Unit, appeared to be somewhat disoriented with inappropriate response to verbal stimuli at times. The entire chart is reviewed including but not limited to the most recent lab and radiological results, current and previous medication list, current and previous medical events. The patient still has low hemoglobin and hematocrit with leukocytosis, but normal platelet count with increased creatinine as well increased blood glucose level as per yesterday. PHYSICAL EXAMINATION: GENERAL: A 76-year-old male. VITAL SIGNS: Afebrile with pulse of 90, respiratory rate 22, blood pressure of 156/54. HEENT: Pale, dry oral mucous membrane. Anicteric sclerae. LUNGS: She has got crepitations, decreased air entry at bases. HEART: Positive S1 and S2. ABDOMEN: Soft. Bowel sounds are present. No mass or organomegaly. No rebound tenderness or guarding. EXTREMITIES: Lower extremities with mild edematous changes. NEUROLOGIC: No neurological deficits, sensory, or motor. ASSESSMENT: 1. Dysphagia with malnutrition. 2. Hypoalbuminemia. 3. Acute renal insufficiency and dehydration, gradually improving. 4. Recent history of episode of hematemesis. SUGGESTION: 1. Continue current management. 2. The patient is a candidate for PEG insertion with upper endoscopy. 3. Central hyperalimentation. Proton pump inhibitors. We will follow up closely with you. Glenn Epstein MD
[2017-07-10] MEDS: (Novolin R) Insulin Human Regular 100 units/ml vial SC SCH ×4 (00:30→19:27)
[2017-07-10] MEDS: Metoprolol 1 mg/ml Inj IVP SCH ×4 (01:08→19:25)
--- NOTE | 2017-07-10 01:44 | CP.PCM.PN ---
Subjective - Date & Time of Evaluation Date of Evaluation: 07/09/17 Time of Evaluation: 11:01 - Subjective Subjective: CALM, NO CHEST PAIN, NO NAUSEA, ON PT Objective - Vital Signs/Intake and Output Vital Signs (last 24 hours): Temp Pulse Resp BP Pulse Ox 98 F 96 H 20 183/87 H 97 07/09/17 23:35 07/09/17 23:35 07/09/17 23:35 07/09/17 23:35 07/09/17 23:35 Intake and Output: 07/09/17 07/10/17 18:59 06:59 Intake Total 800 Output Total 550 Balance 250 - Medications Medications: Current Medications Albuterol/Ipratropium (Duoneb 3 Mg/0.5 Mg (3 Ml) Ud) 3 ml INH RQ6 [facility] Last Admin: 07/09/17 19:15 Dose: 3 ml Heparin Sodium (Porcine) (Heparin) 5,000 units SC Q12 [facility] Last Admin: 07/09/17 21:30 Dose: 5,000 units Piperacillin Sod/Tazobactam Sod (Zosyn 2.25 Gm Iv Premix) 2.25 gm in 50 mls @ 100 mls/hr IVPB Q6H [facility] Last Admin: 07/09/17 23:02 Dose: 100 mls/hr Vancomycin HCl 1 gm/ Sodium (Chloride) 250 mls @ 166.7 mls/hr IVPB Q48H [facility] Last Admin: 07/08/17 17:42 Dose: 166.7 mls/hr Insulin Human Regular (Novolin R) 0 unit SC Q6 [facility] PRN Reason: Protocol Last Admin: 07/10/17 00:30 Dose: Not Given Metoprolol Tartrate (Lopressor) 2.5 mg IVP Q6 [facility] Last Admin: 07/10/17 01:08 Dose: 2.5 mg Pantoprazole Sodium (Protonix Inj) 40 mg IVP Q12 [facility] Last Admin: 07/09/17 21:30 Dose: 40 mg - Labs Labs: 07/08/17 06:10 07/08/17 06:10 PT 13.8 SECONDS (9.7-12.2) H 07/01/17 05:56 INR 1.2 07/01/17 05:56 APTT 28 SECONDS (21-34) 07/01/17 05:56 - Constitutional Appears: Non-toxic, No Acute Distress, Chronically Ill - Head Exam Head Exam: ATRAUMATIC, NORMAL INSPECTION, NORMOCEPHALIC - Eye Exam Eye Exam: EOMI, Normal appearance, PERRL Pupil Exam: NORMAL ACCOMODATION - ENT Exam ENT Exam: Mucous Membranes Moist, Normal Exam, Normal Oropharynx, TM's Normal Bilaterally - Neck Exam Neck Exam: Normal Inspection - Respiratory Exam Respiratory Exam: Rhonchi, NORMAL BREATHING PATTERN - Cardiovascular Exam Cardiovascular Exam: Tachycardia, REGULAR RHYTHM, +S1, +S2, Murmur - GI/Abdominal Exam GI & Abdominal Exam: Soft, Normal Bowel Sounds - Rectal Exam Rectal Exam: NORMAL INSPECTION - Extremities Exam Extremities Exam: Full ROM, Normal Capillary Refill, Normal Inspection - Back Exam Back Exam: NORMAL INSPECTION - Neurological Exam Neurological Exam: Alert, Awake, CN II-XII Intact, Normal Gait, Oriented x3 Neuro motor strength exam: Left Upper Extremity: 5, Right Upper Extremity: 5, Left Lower Extremity: 5, Right Lower Extremity: 5 - Psychiatric Exam Psychiatric exam: Flat Affect - Skin Skin Exam: Intact Assessment and Plan (1) Cardiac arrest Status: Resolved (2) GI bleed Status: Resolved (3) Respiratory failure Status: Resolved (4) Acute on chronic renal insufficiency Assessment & Plan: IMPROVED, ON ANTIBIOTICS Status: Acute (5) Diabetes Status: Chronic
[2017-07-10] MEDS: Albuterol-Ipratrop 3 mg / 0.5 (3 ml) UD INH SCH ×4 (02:12→22:43)
[2017-07-10] MEDS: Piperacill/Tazo 2.25gm in Dex 2.25 GM/50 ML BAG IVPB SCH ×4 (05:41→22:45)
[2017-07-10] MEDS: Sodium Chloride 0.45% 1,000 ML IV SCH (19:26)
--- NOTE | 2017-07-10 22:16 | PN ---
DATE: LOCATION: Room 668, bed B. SUBJECTIVE: This is a 76-year-old male seen and examined on rounds, appeared to be somewhat awake with period of disorientation and mild confusion. Occasionally, follows simple commands but not adequately. Nursing staff reported no active bleeding, but patient is still incontinent of loose, greenish in color bowel movement. The entire chart reviewed including but not limited to the most recent lab and radiologic studies, current and previous medication and current and previous medical events and latest blood glucose level was 145 as well as low hemoglobin of 8.18, hematocrit 27.3 with leukocytosis of 15.2, with low potassium, but increased BUN and creatinine with low albumin and low total protein with low calcium. PHYSICAL EXAMINATION GENERAL: A 76-year-old male, afebrile who has very poor oral intake in general. VITAL SIGNS: Pulse of 94, respiratory rate 20 to 22 with blood pressure 128/76. HEENT: Show pale, dry oral mucous membrane. Anicteric sclerae. LUNGS: Few scattered crepitations, decreased air entry at bases. HEART: Positive S1 and S2. ABDOMEN: Soft. Bowel sounds are present with mild distention. No mass or organomegaly. No rebound tenderness or guarding. EXTREMITIES: He has got edematous changes, no clubbing, no cyanosis. NEUROLOGIC: No reported neurological deficit, sensory or motor. IMPRESSION: 1. Malnutrition with hypoalbuminemia. 2. Pleural effusion, pneumonia. 3. Clinical septicemia. 4. Known history of but not limited to respiratory failure, acute on top chronic renal insufficiency as well as diabetes mellitus. 5. Status post cardiac arrest. 6. Electrolyte imbalance with hypocalcemia, hypokalemia. 7. Recent history of gastrointestinal bleeding of unknown source so far. 8. Reported history of renal cell carcinoma. SUGGESTIONS: 1. Continue current management. 2. Patient will need upper endoscopy and also PEG insertion due to his poor oral intake, that needs to be discussed with the admitting MD as well as family members. Glenn Epstein MD
--- NOTE | 2017-07-10 23:54 | CP.PCM.PN ---
Subjective - Date & Time of Evaluation Date of Evaluation: 07/10/17 Time of Evaluation: 11:13 - Subjective Subjective: ABLE TO TALK, MORE ALERT FOR PEG, NO NAUSEA, NO FEVER, FOR REPEAT LABS IN AM, NO CHEST PAIN Objective - Vital Signs/Intake and Output Vital Signs (last 24 hours): Temp Pulse Resp BP Pulse Ox 98.1 F 103 H 20 179/87 H 99 07/10/17 17:51 07/10/17 17:51 07/10/17 17:51 07/10/17 17:51 07/10/17 17:51 Intake and Output: 07/10/17 07/11/17 18:59 06:59 Intake Total 560 Output Total 550 Balance 10 - Medications Medications: Current Medications Albuterol/Ipratropium (Duoneb 3 Mg/0.5 Mg (3 Ml) Ud) 3 ml INH RQ6 [facility] Last Admin: 07/10/17 22:43 Dose: 3 ml Heparin Sodium (Porcine) (Heparin) 5,000 units SC Q12 [facility] Last Admin: 07/10/17 22:43 Dose: 5,000 units Piperacillin Sod/Tazobactam Sod (Zosyn 2.25 Gm Iv Premix) 2.25 gm in 50 mls @ 100 mls/hr IVPB Q6H [facility] Last Admin: 07/10/17 22:45 Dose: 100 mls/hr Vancomycin HCl 1 gm/ Sodium (Chloride) 250 mls @ 166.7 mls/hr IVPB Q48H [facility] Last Admin: 07/10/17 19:28 Dose: 166.7 mls/hr Sodium Chloride (Sodium Chloride 0.45%) 1,000 mls @ 70 mls/hr IV .[id number] [facility] Last Admin: 07/10/17 19:26 Dose: 70 mls/hr Insulin Human Regular (Novolin R) 0 unit SC Q6 [facility] PRN Reason: Protocol Last Admin: 07/10/17 19:27 Dose: Not Given Losartan Potassium (Cozaar) 25 mg PO DAILY [facility] Metoprolol Tartrate (Lopressor) 2.5 mg IVP Q6 [facility] Last Admin: 07/10/17 19:25 Dose: 2.5 mg Pantoprazole Sodium (Protonix Inj) 40 mg IVP Q12 [facility] Last Admin: 07/10/17 22:43 Dose: 40 mg - Labs Labs: 07/08/17 06:10 07/08/17 06:10 PT 13.8 SECONDS (9.7-12.2) H 07/01/17 05:56 INR 1.2 07/01/17 05:56 APTT 28 SECONDS (21-34) 07/01/17 05:56 - Constitutional Appears: Non-toxic, No Acute Distress - Head Exam Head Exam: ATRAUMATIC, NORMAL INSPECTION, NORMOCEPHALIC - Eye Exam Eye Exam: EOMI, Normal appearance, PERRL Pupil Exam: NORMAL ACCOMODATION - ENT Exam ENT Exam: Mucous Membranes Moist, Normal Exam, Normal Oropharynx, TM's Normal Bilaterally - Respiratory Exam Respiratory Exam: Clear to Ausculation Bilateral, NORMAL BREATHING PATTERN - Cardiovascular Exam Cardiovascular Exam: REGULAR RHYTHM, +S1, +S2 - GI/Abdominal Exam GI & Abdominal Exam: Soft, Normal Bowel Sounds - Extremities Exam Extremities Exam: Normal Capillary Refill, Pedal Edema - Neurological Exam Neurological Exam: Abnormal Gait, Alert, Awake, CN II-XII Intact, Motor Sensory Deficit Assessment and Plan (1) Cardiac arrest Status: Resolved (2) GI bleed Status: Resolved (3) Respiratory failure Status: Resolved (4) Acute on chronic renal insufficiency Status: Acute (5) Diabetes Status: Chronic (6) Encephalopathy acute Status: Acute
[2017-07-11] MEDS: (Novolin R) Insulin Human Regular 100 units/ml vial SC SCH ×4 (00:57→17:44)
[2017-07-11] MEDS: Albuterol-Ipratrop 3 mg / 0.5 (3 ml) UD INH SCH ×3 (01:18→13:21)
[2017-07-11] MEDS: Metoprolol 1 mg/ml Inj IVP SCH ×4 (01:19→17:43)
[2017-07-11] MEDS: Sodium Chloride 0.45% 1,000 ML IV SCH ×2 (05:23→17:46)
[2017-07-11] MEDS: Piperacill/Tazo 2.25gm in Dex 2.25 GM/50 ML BAG IVPB SCH ×2 (05:23→11:00)
[2017-07-11 07:44] LABS: HEMATOCRIT 24.7 % (35.0-51.0); MEAN CELL VOLUME 87.6 fL (80.0-94.0); MEAN CORPUSCULAR HGB CONC 33.1 g/dL (33.0-37.0); MEAN PLATELET VOLUME 7.4 fL (7.2-11.7); RED CELL DISTRIBUTION WIDTH 16.9 % (11.5-14.5); WHITE BLOOD COUNT 13.2 K/uL (4.8-10.8)
[2017-07-11 07:46] LABS: POTASSIUM 2.9 mmol/L (3.6-5.2)
[2017-07-11] MEDS: Nitroglycerin 2% Ointment Foilpak UD TOP SCH ×2 (13:00→17:52)
--- NOTE | 2017-07-11 13:15 | CP.PCM.PN ---
Subjective - Date & Time of Evaluation Date of Evaluation: 07/11/17 Time of Evaluation: 06:00 - Subjective Subjective: no fever wbc trending down Objective - Vital Signs/Intake and Output Vital Signs (last 24 hours): Temp Pulse Resp BP Pulse Ox 98.4 F 91 H 20 199/85 H 100 07/11/17 09:08 07/11/17 09:08 07/11/17 09:08 07/11/17 09:08 07/11/17 09:08 Intake and Output: 07/11/17 07/11/17 06:59 18:59 Intake Total 560 Output Total 1150 Balance -590 - Medications Medications: Current Medications Albuterol/Ipratropium (Duoneb 3 Mg/0.5 Mg (3 Ml) Ud) 3 ml INH RQ6 [facility] Last Admin: 07/11/17 08:05 Dose: 3 ml Heparin Sodium (Porcine) (Heparin) 5,000 units SC Q12 [facility] Last Admin: 07/11/17 09:57 Dose: 5,000 units Piperacillin Sod/Tazobactam Sod (Zosyn 2.25 Gm Iv Premix) 2.25 gm in 50 mls @ 100 mls/hr IVPB Q6H [facility] Last Admin: 07/11/17 05:23 Dose: 100 mls/hr Vancomycin HCl 1 gm/ Sodium (Chloride) 250 mls @ 166.7 mls/hr IVPB Q48H [facility] Last Admin: 07/10/17 19:28 Dose: 166.7 mls/hr Sodium Chloride (Sodium Chloride 0.45%) 1,000 mls @ 70 mls/hr IV .[id number] [facility] Last Admin: 07/11/17 05:23 Dose: Not Given Potassium Chloride (Potassium Chloride 20 Meq/100 Ml) 20 meq in 100 mls @ 50 mls/hr IVPB Q2 [facility] Stop: 07/11/17 19:59 Insulin Human Regular (Novolin R) 0 unit SC Q6 [facility] PRN Reason: Protocol Last Admin: 07/11/17 06:54 Dose: Not Given Losartan Potassium (Cozaar) 25 mg PO DAILY [facility] Last Admin: 07/11/17 09:55 Dose: 25 mg Metoprolol Tartrate (Lopressor) 2.5 mg IVP Q6 [facility] Last Admin: 07/11/17 05:27 Dose: 2.5 mg Nitroglycerin (Nitro-Bid 2% Oint) 1 ea TOP Q6 [facility] Pantoprazole Sodium (Protonix Inj) 40 mg IVP Q12 [facility] Last Admin: 07/11/17 09:55 Dose: 40 mg - Labs Labs: 07/11/17 07:23 07/11/17 07:23 PT 13.8 SECONDS (9.7-12.2) H 07/01/17 05:56 INR 1.2 07/01/17 05:56 APTT 28 SECONDS (21-34) 07/01/17 05:56 - Constitutional Appears: Non-toxic, Confused, Cachectic, Chronically Ill - Head Exam Head Exam: NORMOCEPHALIC - Eye Exam Eye Exam: PERRL. absent: Scleral icterus - ENT Exam ENT Exam: Mucous Membranes Dry - Neck Exam Neck Exam: absent: Lymphadenopathy - Respiratory Exam Respiratory Exam: Decreased Breath Sounds, Rhonchi - Cardiovascular Exam Cardiovascular Exam: REGULAR RHYTHM, +S1, +S2 - GI/Abdominal Exam GI & Abdominal Exam: Distended, Soft - Rectal Exam Rectal Exam: Deferred - Exam Exam: NORMAL INSPECTION - Extremities Exam Extremities Exam: absent: Pedal Edema - Back Exam Back Exam: absent: CVA tenderness (L), CVA tenderness (R), paraspinal tenderness - Neurological Exam Neurological Exam: Altered, Awake, CN II-XII Intact Neuro motor strength exam: Left Upper Extremity: 2/1, Right Upper Extremity: 4, Left Lower Extremity: 2/1, Right Lower Extremity: 4 - Psychiatric Exam Psychiatric exam: Depressed - Skin Skin Exam: Dry Assessment and Plan (1) Pneumonia Status: Acute (2) Pneumonia Status: Acute (3) Cardiac arrest Status: Resolved (4) GI bleed Status: Resolved (5) Respiratory failure Status: Resolved (6) Sepsis Status: Acute (7) Acute on chronic renal insufficiency Status: Acute (8) Anemia Status: Acute (9) Chronic renal disease, stage 2, mildly decreased glomerular filtration rate between 60-89 mL/min/1.73 square meter Status: Acute (10) Leukocytosis Status: Acute (11) Renal cell carcinoma Status: Suspected - Assessment and Plan (Free Text) Assessment: cont iv antibiotics for pneumonia / sepsis
--- NOTE | 2017-07-11 22:40 | CP.PCM.PN ---
Subjective - Date & Time of Evaluation Date of Evaluation: 07/11/17 Time of Evaluation: 11:18 - Subjective Subjective: NO FEVER, FOR PEG, NO NAUSEA, MORE ALERT, NO AGITATION Objective - Vital Signs/Intake and Output Vital Signs (last 24 hours): Temp Pulse Resp BP Pulse Ox 97.8 F 97 H 20 167/93 H 97 07/11/17 16:00 07/11/17 16:00 07/11/17 16:00 07/11/17 16:00 07/11/17 16:00 - Medications Medications: Current Medications Heparin Sodium (Porcine) (Heparin) 5,000 units SC Q12 [facility] Last Admin: 07/11/17 21:48 Dose: 5,000 units Sodium Chloride (Sodium Chloride 0.45%) 1,000 mls @ 70 mls/hr IV .[id number] [facility] Last Admin: 07/11/17 17:46 Dose: 70 mls/hr Insulin Human Regular (Novolin R) 0 unit SC Q6 [facility] PRN Reason: Protocol Last Admin: 07/11/17 17:44 Dose: Not Given Losartan Potassium (Cozaar) 50 mg PO DAILY [facility] Metoprolol Tartrate (Lopressor) 2.5 mg IVP Q6 [facility] Last Admin: 07/11/17 17:43 Dose: 2.5 mg Nitroglycerin (Nitro-Bid 2% Oint) 1 ea TOP Q6 [facility] Last Admin: 07/11/17 17:52 Dose: 1 ea Pantoprazole Sodium (Protonix Inj) 40 mg IVP Q12 [facility] Last Admin: 07/11/17 21:48 Dose: 40 mg - Labs Labs: 07/11/17 07:23 07/11/17 07:23 PT 13.8 SECONDS (9.7-12.2) H 07/01/17 05:56 INR 1.2 07/01/17 05:56 APTT 28 SECONDS (21-34) 07/01/17 05:56 - Constitutional Appears: Non-toxic, No Acute Distress, Chronically Ill - Head Exam Head Exam: NORMOCEPHALIC - Eye Exam Eye Exam: Normal appearance Pupil Exam: NORMAL ACCOMODATION - ENT Exam ENT Exam: Mucous Membranes Moist, Normal Exam, Normal Oropharynx, TM's Normal Bilaterally - Neck Exam Neck Exam: Normal Inspection - Respiratory Exam Respiratory Exam: Clear to Ausculation Bilateral, NORMAL BREATHING PATTERN - Cardiovascular Exam Cardiovascular Exam: REGULAR RHYTHM, +S1, +S2 - GI/Abdominal Exam GI & Abdominal Exam: Normal Bowel Sounds - Extremities Exam Extremities Exam: Normal Capillary Refill - Neurological Exam Neurological Exam: Abnormal Gait, Alert, CN II-XII Intact Assessment and Plan (1) Cardiac arrest Status: Resolved (2) GI bleed Status: Resolved (3) Respiratory failure Status: Resolved (4) Acute on chronic renal insufficiency Status: Acute (5) Diabetes Status: Chronic (6) Encephalopathy acute Assessment & Plan: FOR PEG IF FAILS SWALLOWING EVAL Status: Acute
[2017-07-12] MEDS: Nitroglycerin 2% Ointment Foilpak UD TOP SCH ×4 (00:41→17:32)
[2017-07-12] MEDS: Metoprolol 1 mg/ml Inj IVP SCH ×4 (00:41→17:31)
[2017-07-12] MEDS: (Novolin R) Insulin Human Regular 100 units/ml vial SC SCH ×4 (00:56→17:32)
[2017-07-12 07:37] LABS: HEMATOCRIT 25.1 % (35.0-51.0); MEAN CORPUSCULAR HEMOGLOBIN 27.8 pg (27.0-31.0); MEAN CORPUSCULAR HGB CONC 31.6 g/dL (33.0-37.0); MEAN PLATELET VOLUME 7.5 fL (7.2-11.7); WHITE BLOOD COUNT 13.6 K/uL (4.8-10.8)
[2017-07-12 07:50] LABS: POTASSIUM 3.5 mmol/L (3.6-5.2)
[2017-07-12] MEDS: Sodium Chloride 0.45% 1,000 ML IV SCH ×2 (09:58→18:45)
--- NOTE | 2017-07-12 19:00 | PN ---
LOCATION: Room #668, bed B. SUBJECTIVE: This is a 76-year-old male, seen and examined in rounds, again with very poor oral intake but no reported actual active bleeding. The entire chart is reviewed including, but not limited to, the most recent lab and radiologist results, current and previous medication list, current and the previous medical events. Case discussed with the ID media consultant on the case as well as staff in the floor. It has to be mentioned that I have been waiting for the family for a consent from the legal guardian, so far none. PHYSICAL EXAMINATION: VITAL SIGNS: A 76-year-old male, afebrile with pulse of 92, respiratory rate 20 to 22, blood pressure 176/92. HEENT: Pale dry oral mucous membrane. Nonicteric sclerae. LUNGS: He has got crepitations, decreased air entry at bases. HEART: Positive S1 and S2. ABDOMEN: Soft, with quite a lot of tenderness. No mass or organomegaly. No rebound tenderness or guarding. EXTREMITIES: Lower extremities with edematous changes. No clubbing or cyanosis. NEUROLOGIC: No neurological deficits, sensory or motor. LABORATORY DATA: Today's lab workup showed leucocytosis of 13.6 with low hemoglobin 7.9, low hematocrit 25.1, with low potassium 3.5 and low CO2 content 14, indicative of metabolic acidosis, with previous lab result showing low hemoglobin and low hematocrit. Physical examination as above. IMPRESSION: 1. Malnutrition with hypoalbuminemia. 2. Failure to thrive. 3. History of upper GI bleeding, none for now, with re-exacerbation of peptic ulcer disease. 4. Anemia secondary to history of upper GI bleeding.. 6. Plural effusion with pneumonia, gradually improving. 7. Clinical septicemia. 8. Known history of, but not limited to, respiratory failure, acute on top of chronic renal insufficiency. 9. Known history of diabetes mellitus. 10. Status post cardiac arrest. 11. Electrolyte imbalance with hypocalcemia, hypokalemia. 12. Reported history of renal cell carcinoma. SUGGESTIONS: 1. Continue current management. 2. Central hyperalimentation. 3. Awaiting the family consent for potential PEG insertion. Glenn Epstein MD
--- NOTE | 2017-07-12 23:07 | CP.PCM.PN ---
Subjective - Date & Time of Evaluation Date of Evaluation: 07/12/17 Time of Evaluation: 11:25 - Subjective Subjective: FOR PEG, HE IS MORE ALERT, NO CHEST PAIN, BP IS HIGH, NO FEVER, NO NAUSEA Objective - Vital Signs/Intake and Output Vital Signs (last 24 hours): Temp Pulse Resp BP Pulse Ox 98.2 F 101 H 18 183/100 H 96 07/12/17 16:00 07/12/17 16:00 07/12/17 16:00 07/12/17 16:00 07/12/17 16:00 Intake and Output: 07/12/17 07/13/17 18:59 06:59 Output Total 500 Balance -500 - Medications Medications: Current Medications Heparin Sodium (Porcine) (Heparin) 5,000 units SC Q12 [facility] Last Admin: 07/12/17 22:43 Dose: 5,000 units Sodium Chloride (Sodium Chloride 0.45%) 1,000 mls @ 70 mls/hr IV .[id number] [facility] Last Admin: 07/12/17 18:45 Dose: Not Given Insulin Human Regular (Novolin R) 0 unit SC Q6 [facility] PRN Reason: Protocol Last Admin: 07/12/17 17:32 Dose: Not Given Losartan Potassium (Cozaar) 50 mg PO DAILY [facility] Last Admin: 07/12/17 09:56 Dose: 50 mg Metoprolol Tartrate (Lopressor) 2.5 mg IVP Q6 [facility] Last Admin: 07/12/17 17:31 Dose: 2.5 mg Nitroglycerin (Nitro-Bid 2% Oint) 1 ea TOP Q6 [facility] Last Admin: 07/12/17 17:32 Dose: 1 ea Pantoprazole Sodium (Protonix Inj) 40 mg IVP DAILY [facility] - Labs Labs: 07/12/17 07:18 07/12/17 07:18 PT 13.8 SECONDS (9.7-12.2) H 07/01/17 05:56 INR 1.2 07/01/17 05:56 APTT 28 SECONDS (21-34) 07/01/17 05:56 - Constitutional Appears: Non-toxic, No Acute Distress, Older Than Stated Age, Chronically Ill - Head Exam Head Exam: ATRAUMATIC, NORMAL INSPECTION, NORMOCEPHALIC - Eye Exam Eye Exam: EOMI, Normal appearance, PERRL Pupil Exam: NORMAL ACCOMODATION - ENT Exam ENT Exam: Mucous Membranes Moist, Normal Exam, Normal Oropharynx, TM's Normal Bilaterally - Neck Exam Neck Exam: Normal Inspection - Respiratory Exam Respiratory Exam: Clear to Ausculation Bilateral, NORMAL BREATHING PATTERN - Cardiovascular Exam Cardiovascular Exam: REGULAR RHYTHM, +S1, +S2 - GI/Abdominal Exam GI & Abdominal Exam: Soft, Normal Bowel Sounds - Rectal Exam Rectal Exam: NORMAL INSPECTION - Extremities Exam Extremities Exam: Normal Capillary Refill - Back Exam Back Exam: NORMAL INSPECTION - Neurological Exam Neurological Exam: Abnormal Gait, Altered - Psychiatric Exam Psychiatric exam: Anxious, Flat Affect - Skin Skin Exam: Intact Assessment and Plan (1) Cardiac arrest Status: Resolved (2) GI bleed Status: Resolved (3) Respiratory failure Status: Resolved (4) Acute on chronic renal insufficiency Status: Acute (5) Diabetes Status: Chronic (6) Encephalopathy acute Assessment & Plan: PEG IN AM, AND REHAB Status: Acute
[2017-07-13] MEDS: Metoprolol 1 mg/ml Inj IVP SCH ×5 (00:25→18:25)
[2017-07-13] MEDS: Nitroglycerin 2% Ointment Foilpak UD TOP SCH ×5 (00:26→18:26)
[2017-07-13] MEDS: Sodium Chloride 0.45% 1,000 ML IV SCH ×3 (00:26→17:04)
[2017-07-13] MEDS: (Novolin R) Insulin Human Regular 100 units/ml vial SC SCH ×4 (00:27→18:00)
[2017-07-13 06:33] LABS: BASO # 0.1 K/uL (0.0-0.2); BASO % 0.5 % (0.0-2.0); EOS # 0.2 K/uL (0.0-0.7); EOS % 2.4 % (0.0-4.0); HEMATOCRIT 24.6 % (35.0-51.0); LYMPH # 1.2 K/uL (1.0-4.3); LYMPH % 12.2 % (20.0-40.0); MEAN CELL VOLUME 87.7 fL (80.0-94.0); MEAN CORPUSCULAR HGB CONC 33.1 g/dL (33.0-37.0); MEAN PLATELET VOLUME 7.6 fL (7.2-11.7); MONO # 0.8 K/uL (0.0-0.8); MONO % 7.6 % (0.0-10.0); RED CELL DISTRIBUTION WIDTH 17.2 % (11.5-14.5); WHITE BLOOD COUNT 10.2 K/uL (4.8-10.8)
[2017-07-13 07:20] LABS: POTASSIUM 3.2 mmol/L (3.6-5.2)
[2017-07-13 07:23] LABS: CALCIUM 8.9 mg/dl (8.6-10.4)
--- NOTE | 2017-07-13 11:52 | CARD ---
APPROVED REPORT EXAM: Two-dimensional and M-mode echocardiogram with Doppler and color Doppler. Other Information Quality : PoorRhythm : Technically limited study due to ventilator and dressing INDICATION Syncope RISK FACTORS Hyperlipidemia Diabetes 2D DIMENSIONS IVSd1.1 (0.7-1.1cm)LVDd2.6 (3.9-5.9cm) PWd1.0 (0.7-1.1cm)IVSs1.4 (0.8-1.2cm) LVDs2.2 (2.5-4.0cm)FS (%) 17.1 % PWs1.4 (0.8-1.2cm)LVEF (%)37.4 (>50%) M-Mode DIMENSIONS Left Atrium (MM)4.09 (2.5-4.0cm)Aortic Root3.91 (2.2-3.7cm) Aortic Cusp Exc.1.36 (1.5-2.0cm) Aortic Valve AoV Peak Flnriqth656.5cm/Berta Peak GR.19mmHgLVOT Peak Ekigalok25.2cm/s Mitral Valve E/A ratio0.0 TDI E/Lateral E'0.0E/Medial E'0.0 Tricuspid Valve TR Peak Xspelwhq382kt/sTR Peak Gr.04gjQsDZDO36idGk <Conclusion> SUB OPTIMAL STUDY NORMAL LVEF NO SEGMENTAL WALL MOTION ABNORMALITY MILD AR MILD TR . PULM. SYSTOLIC PRESSURE , 31 MM OF HG
--- NOTE | 2017-07-13 17:56 | PN ---
LOCATION: Room 668, bed B. SUBJECTIVE: This is a 76-year-old male seen and examined in rounds without significant clinical changes. Case discussed with the staff in the floor. PHYSICAL EXAMINATION: GENERAL: Showed no significant clinical changes and the patient still has very poor oral intake with . VITAL SIGNS: The patient is afebrile with pulse of 92, respiratory rate 20 to 22 with blood pressure 164/88. LABORATORY DATA: Most recent laboratory showed low hemoglobin of 8.2 with hematocrit 24.6 with low potassium 3.2 and increased creatinine to 1.6. IMPRESSION: 1. Malnutrition. 2. Anemia. 3. Failure to thrive. 4. Dehydration. 5. History of gastrointestinal bleeding. 6. Plural effusion with pneumonia, improving. 7. Status post cardiac arrest. SUGGESTION: 1. Continue current management. 2. Still awaiting family consent for possible PEG insertion. Glenn Epstein MD
--- NOTE | 2017-07-13 23:17 | CP.PCM.PN ---
Subjective - Date & Time of Evaluation Date of Evaluation: 07/13/17 Time of Evaluation: 10:14 - Subjective Subjective: FOR PEG, MORE ALERT, NO FEVER , NO SOB, NO COUGH, NO CHEST PAIN Objective - Vital Signs/Intake and Output Vital Signs (last 24 hours): Temp Pulse Resp BP Pulse Ox 98.4 F 99 H 20 193/103 H 100 07/13/17 16:00 07/13/17 20:34 07/13/17 16:00 07/13/17 20:34 07/13/17 16:00 Intake and Output: 07/13/17 07/14/17 18:59 06:59 Intake Total 660 Output Total 350 Balance 310 - Medications Medications: Current Medications Sodium Chloride (Sodium Chloride 0.45%) 1,000 mls @ 70 mls/hr IV .[id number] [facility] Last Admin: 07/13/17 17:04 Dose: 70 mls/hr Insulin Human Regular (Novolin R) 0 unit SC Q6 [facility] PRN Reason: Protocol Last Admin: 07/13/17 18:00 Dose: Not Given Losartan Potassium (Cozaar) 50 mg PO DAILY [facility] Last Admin: 07/13/17 20:38 Dose: 50 mg Metoprolol Tartrate (Lopressor) 2.5 mg IVP Q6 [facility] Last Admin: 07/13/17 18:25 Dose: Not Given Nitroglycerin (Nitro-Bid 2% Oint) 1 ea TOP Q6 [facility] Last Admin: 07/13/17 18:26 Dose: Not Given Pantoprazole Sodium (Protonix Inj) 40 mg IVP DAILY [facility] Last Admin: 07/13/17 10:01 Dose: 40 mg - Labs Labs: 07/13/17 06:07 07/13/17 06:07 PT 13.8 SECONDS (9.7-12.2) H 07/01/17 05:56 INR 1.2 07/01/17 05:56 APTT 28 SECONDS (21-34) 07/01/17 05:56 - Constitutional Appears: Non-toxic, No Acute Distress, Confused, Chronically Ill - Head Exam Head Exam: NORMAL INSPECTION, NORMOCEPHALIC - Eye Exam Eye Exam: EOMI, Normal appearance, PERRL Pupil Exam: NORMAL ACCOMODATION - ENT Exam ENT Exam: Mucous Membranes Moist, Normal Exam - Neck Exam Neck Exam: Normal Inspection - Respiratory Exam Respiratory Exam: Clear to Ausculation Bilateral, NORMAL BREATHING PATTERN - Cardiovascular Exam Cardiovascular Exam: REGULAR RHYTHM, +S1, +S2, Murmur - GI/Abdominal Exam GI & Abdominal Exam: Soft, Normal Bowel Sounds - Back Exam Back Exam: NORMAL INSPECTION - Neurological Exam Neurological Exam: Alert, Awake Neuro motor strength exam: Left Upper Extremity: 5, Right Upper Extremity: 5, Left Lower Extremity: 5, Right Lower Extremity: 5 Assessment and Plan (1) Cardiac arrest Status: Resolved (2) GI bleed Status: Resolved (3) Respiratory failure Status: Resolved (4) Acute on chronic renal insufficiency Status: Acute (5) Diabetes Status: Chronic
[2017-07-14] MEDS: Metoprolol 1 mg/ml Inj IVP SCH ×4 (00:28→19:26)
[2017-07-14] MEDS: Nitroglycerin 2% Ointment Foilpak UD TOP SCH ×4 (00:29→19:26)
[2017-07-14] MEDS: (Novolin R) Insulin Human Regular 100 units/ml vial SC SCH ×4 (00:43→19:27)
[2017-07-14] MEDS ORDERED: Metoprolol 1 mg/ml Inj IVP ONE (04:49)
[2017-07-14] MEDS ORDERED: diltiaZEM 180 mg/24 Hours CD Cap PO SCH (10:00)
[2017-07-14] MEDS ORDERED: Etomidate 20 mg/10ml Inj IV ONE (12:22)
[2017-07-14] MEDS ORDERED: Phenylephrine 10 mg/ml Inj ONE (12:22)
[2017-07-14] MEDS ORDERED: Propofol 10 mg/ml Inj (20 ML) ONE (12:25)
[2017-07-14] MEDS ORDERED: Phytonadione 10 mg/ml Inj (Adult) IV STA (14:20)
[2017-07-14] MEDS ORDERED: Phytonadione 10 mg/ml Inj (Adult) SC ONE (14:30)
[2017-07-14 15:56] VITALS: RESP 20
--- NOTE | 2017-07-14 23:04 | CP.PCM.PN ---
Subjective - Date & Time of Evaluation Date of Evaluation: 07/14/17 Time of Evaluation: 10:24 - Subjective Subjective: s/p peg, no distress, no fever, no sob Objective - Vital Signs/Intake and Output Vital Signs (last 24 hours): Temp Pulse Resp BP Pulse Ox 97.9 F 102 H 20 168/92 H 100 07/14/17 15:51 07/14/17 15:51 07/14/17 15:51 07/14/17 15:51 07/14/17 15:51 Intake and Output: 07/14/17 07/15/17 18:59 06:59 Intake Total 740 Output Total 200 Balance 740 -200 - Medications Medications: Current Medications Diltiazem HCl (Cardizem Cd) 180 mg PO DAILY [facility] Last Admin: 07/14/17 11:07 Dose: Not Given Insulin Human Regular (Novolin R) 0 unit SC Q6 [facility] PRN Reason: Protocol Last Admin: 07/14/17 19:27 Dose: Not Given Losartan Potassium (Cozaar) 50 mg PO DAILY [facility] Last Admin: 07/14/17 11:07 Dose: Not Given Metoprolol Tartrate (Lopressor) 2.5 mg IVP Q6 [facility] Last Admin: 07/14/17 19:26 Dose: 2.5 mg Nitroglycerin (Nitro-Bid 2% Oint) 1 ea TOP Q6 [facility] Last Admin: 07/14/17 19:26 Dose: 1 ea Pantoprazole Sodium (Protonix Inj) 40 mg IVP DAILY [facility] Last Admin: 07/14/17 10:53 Dose: 40 mg - Labs Labs: 07/13/17 06:07 07/13/17 06:07 PT 13.8 SECONDS (9.7-12.2) H 07/01/17 05:56 INR 1.2 07/01/17 05:56 APTT 28 SECONDS (21-34) 07/01/17 05:56 - Constitutional Appears: Non-toxic, No Acute Distress, Chronically Ill - Head Exam Head Exam: ATRAUMATIC, NORMAL INSPECTION, NORMOCEPHALIC - Eye Exam Eye Exam: EOMI, Normal appearance Pupil Exam: NORMAL ACCOMODATION, PERRL - ENT Exam ENT Exam: Mucous Membranes Moist, Normal Exam - Neck Exam Neck Exam: Full ROM - Respiratory Exam Respiratory Exam: Clear to Ausculation Bilateral, NORMAL BREATHING PATTERN - Cardiovascular Exam Cardiovascular Exam: REGULAR RHYTHM, +S1, +S2, Murmur - GI/Abdominal Exam GI & Abdominal Exam: Normal Bowel Sounds - Rectal Exam Rectal Exam: NORMAL INSPECTION - Exam Exam: NORMAL INSPECTION - Extremities Exam Extremities Exam: Full ROM, Normal Capillary Refill, Normal Inspection - Neurological Exam Neurological Exam: Abnormal Gait, Altered - Psychiatric Exam Psychiatric exam: Depressed, Flat Affect Assessment and Plan (1) Cardiac arrest Status: Resolved (2) GI bleed Status: Resolved (3) Respiratory failure Status: Resolved (4) Acute on chronic renal insufficiency Status: Acute (5) Diabetes Status: Chronic (6) Encephalopathy acute Status: Acute
[2017-07-14] MEDS ORDERED: Dextrose 5%/0.33% NS 1,000 ML IV SCH (23:15)
[2017-07-15] MEDS: Metoprolol 1 mg/ml Inj IVP SCH ×2 (00:32→05:45)
[2017-07-15] MEDS: Nitroglycerin 2% Ointment Foilpak UD TOP SCH ×4 (00:32→17:09)
[2017-07-15] MEDS: (Novolin R) Insulin Human Regular 100 units/ml vial SC SCH ×3 (00:39→11:31)
[2017-07-15 08:34] LABS: BASO # 0.1 K/uL (0.0-0.2); BASO % 0.8 % (0.0-2.0); EOS # 0.2 K/uL (0.0-0.7); EOS % 2.2 % (0.0-4.0); HEMATOCRIT 24.3 % (35.0-51.0); LYMPH % 12.6 % (20.0-40.0); MEAN CELL VOLUME 86.7 fL (80.0-94.0); MEAN CORPUSCULAR HEMOGLOBIN 29.5 pg (27.0-31.0); MEAN CORPUSCULAR HGB CONC 34.1 g/dL (33.0-37.0); MEAN PLATELET VOLUME 7.3 fL (7.2-11.7); MONO # 0.7 K/uL (0.0-0.8); MONO % 8.6 % (0.0-10.0); RED CELL DISTRIBUTION WIDTH 16.9 % (11.5-14.5); WHITE BLOOD COUNT 8.3 K/uL (4.8-10.8)
[2017-07-15 08:56] LABS: POTASSIUM 3.1 mmol/L (3.6-5.2)
[2017-07-15 08:58] LABS: ALB/GLOB RATIO 0.6 (1.0-2.1); BILIRUBIN,TOTAL 0.4 mg/dL (0.2-1.3); TOTAL PROTEIN 6.2 g/dL (6.3-8.3)
[2017-07-15 08:59] LABS: CALCIUM 9.1 mg/dl (8.6-10.4)
--- NOTE | 2017-07-15 15:31 | PN ---
DATE: Location 668, bed B. SUBJECTIVE: A 76 years old male seen and examined in rounds, post PEG insertion without any significant clinical changes, tolerating PEG feeding well without residual or resistance. Patient poorly respond to verbal stimuli. The entire chart is reviewed including, but not limited to the most recent laboratory and radiology study results, current and previous medication list, current and previous medical events. Case discussed with the staff at length on the floor. PHYSICAL EXAMINATION: GENERAL: This is a 76 years old male. VITAL SIGNS: Afebrile with pulse of 96, respiratory rate 20 to 22, blood pressure of 162/94. HEENT: Showed pale and dry oral mucoid membrane, nonicteric sclerae. HEART: Positive S1 and S2. LUNGS: Few scattered crepitation, decreased air entry at bases. ABDOMEN: Soft. Bowel sounds are present. PEG tube is in place, well formed stoma. EXTREMITIES: Lower extremities with mild edematous changes and some left-sided residual weakness. No clubbing or cyanosis. NEUROLOGIC: No new or reported neurological deficits, sensory or motor. LABORATORY DATA: Today's lab showed hemoglobin of 8.3, hematocrit 24.3, with thrombocytosis of 409, but with low potassium of 3.1 and low CO2 content of 15 indicative of metabolic acidosis with increased blood glucose level to 159, with low albumin of 2.2, and low total protein at 6.2. IMPRESSION: 1. Status post cardiac arrest. 2. Dysphagia. 3. Hypoalbuminemia with malnutrition. 4. Status post percutaneous endoscopic gastrostomy insertion. 5. Reported recent history of gastrointestinal bleeding, subsided. 6. Anemia secondary to above. 7. Recent history of bilateral pneumonia with respiratory failure. 8. Known history of chronic renal insufficiency. 9. Diabetes mellitus by history, well controlled. SUGGESTION: 1. Continue current management. 2. Subsequent increase of PEG feeding. 3. Antireflux measure. Glenn Epstein MD cc: Glenn Epstein MD
[2017-07-15 16:08] VITALS: BP 158/78; PULSE 103; TEMP 98.4; O2SAT 98
--- NOTE | 2017-07-15 16:48 | CP.PCM.PN ---
Subjective - Date & Time of Evaluation Date of Evaluation: 07/15/17 Time of Evaluation: 11:00 - Subjective Subjective: Pt seen today, awake, alert, comfortable, NAD s/p peg insertion yesterday , feeding started and tolerating Objective - Vital Signs/Intake and Output Vital Signs (last 24 hours): Temp Pulse Resp BP Pulse Ox 98.4 F 103 H 20 158/78 H 98 07/15/17 16:00 07/15/17 16:00 07/15/17 16:00 07/15/17 16:00 07/15/17 16:00 Intake and Output: 07/15/17 07/15/17 06:59 18:59 Intake Total 860 Output Total 1250 Balance -390 - Medications Medications: Current Medications Diltiazem HCl (Cardizem) 60 mg PO Q8 [facility] Last Admin: 07/15/17 14:49 Dose: 60 mg Potassium Chloride (Potassium Chloride 20 Meq/100 Ml) 20 meq in 100 mls @ 50 mls/hr IVPB Q2 [facility] Stop: 07/15/17 17:59 Last Admin: 07/15/17 14:59 Dose: 50 mls/hr Insulin Human Regular (Novolin R) 0 unit SC Q6 [facility] PRN Reason: Protocol Last Admin: 07/15/17 11:31 Dose: 2 unit Losartan Potassium (Cozaar) 50 mg PO DAILY [facility] Last Admin: 07/15/17 09:53 Dose: 50 mg Nitroglycerin (Nitro-Bid 2% Oint) 1 ea TOP Q6 [facility] Last Admin: 07/15/17 12:30 Dose: 1 ea Pantoprazole Sodium (Protonix Inj) 40 mg IVP DAILY [facility] Last Admin: 07/15/17 09:53 Dose: 40 mg - Labs Labs: 07/15/17 08:03 07/15/17 08:03 PT 11.3 SECONDS (9.7-12.2) 07/15/17 08:03 INR 1.0 07/15/17 08:03 APTT 33 SECONDS (21-34) 07/15/17 08:03 - Constitutional Appears: Well, No Acute Distress - Respiratory Exam Respiratory Exam: Clear to Ausculation Bilateral, NORMAL BREATHING PATTERN - Cardiovascular Exam Cardiovascular Exam: REGULAR RHYTHM, +S1, +S2 - GI/Abdominal Exam GI & Abdominal Exam: Soft, Normal Bowel Sounds Assessment and Plan - Assessment and Plan (Free Text) Assessment: 76 yr old male admitted from [facility] with GI BLLED/ Cardiac arrest / sepsis/ s/p intubation, extubation s/p peg tube today feeding started this am and tolerating wbc- normal hgb- stable hk- 3.1 today an d replaced seen by Dr. Venegas today, stable discharge back to [facility] today and Dr. Venegas will follow the patient at [facility]
--- NOTE | 2017-07-15 22:44 | CP.PCM.PN ---
Subjective - Date & Time of Evaluation Date of Evaluation: 07/15/17 - Subjective Subjective: PT IS MORE ALERT S/P PEG AND IS ON PEG FEEDS AND IS FOR OMAR, NO FEVER Objective - Vital Signs/Intake and Output Vital Signs (last 24 hours): Temp Pulse Resp BP Pulse Ox 98.4 F 103 H 20 158/78 H 98 07/15/17 16:00 07/15/17 16:00 07/15/17 16:00 07/15/17 16:00 07/15/17 16:00 Intake and Output: 07/15/17 07/16/17 18:59 06:59 Intake Total 530 Output Total 200 Balance 330 - Labs Labs: 07/15/17 08:03 07/15/17 08:03 PT 11.3 SECONDS (9.7-12.2) 07/15/17 08:03 INR 1.0 07/15/17 08:03 APTT 33 SECONDS (21-34) 07/15/17 08:03 - Constitutional Appears: Non-toxic, No Acute Distress, Chronically Ill - Head Exam Head Exam: ATRAUMATIC, NORMAL INSPECTION, NORMOCEPHALIC - Eye Exam Eye Exam: EOMI, Normal appearance - ENT Exam ENT Exam: Mucous Membranes Moist, Normal Exam - Neck Exam Neck Exam: Normal Inspection - Respiratory Exam Respiratory Exam: Clear to Ausculation Bilateral, NORMAL BREATHING PATTERN - Cardiovascular Exam Cardiovascular Exam: REGULAR RHYTHM, +S1, +S2 - GI/Abdominal Exam GI & Abdominal Exam: Soft, Normal Bowel Sounds - Extremities Exam Extremities Exam: Full ROM, Normal Capillary Refill, Normal Inspection - Neurological Exam Neurological Exam: Abnormal Gait, Awake Assessment and Plan (1) Acute on chronic renal insufficiency Status: Acute (2) Diabetes Status: Chronic (3) Encephalopathy acute Status: Acute
== END 2017-07-15 21:39 | DRG 871 ==
LOC: C.ER 05:09 → C.9E 06:13 → C.9I 06:32 → C.6T 07-08 22:58
PROVIDERS: ADMIT Internal Medicine; ATTEND Internal Medicine
PROC: 0BH17EZ Insertion of Endotracheal Airway into Trachea, Via Natural or Artificial Opening (ICD-10-PCS; principal; 2017-07-01)
PROC: 5A1945Z Respiratory Ventilation, 24-96 Consecutive Hours (ICD-10-PCS; 2017-07-01)
PROC: 0DH63UZ Insertion of Feeding Device into Stomach, Percutaneous Approach (ICD-10-PCS; 2017-07-14)
DX: A41.9 Sepsis, unspecified organism (principal); G93.40 Encephalopathy, unspecified; J96.00 Acute respiratory failure, unspecified whether with hypoxia or hypercapnia; R57.1 Hypovolemic shock; I46.9 Cardiac arrest, cause unspecified; N17.9 Acute kidney failure, unspecified; J18.9 Pneumonia, unspecified organism; I13.0 Hypertensive heart and chronic kidney disease with heart failure and stage 1 through stage 4 chronic kidney disease, or unspecified chronic kidney disease; I50.9 Heart failure, unspecified; R65.21 Severe sepsis with septic shock; E87.4 Mixed disorder of acid-base balance; E46 Unspecified protein-calorie malnutrition; J98.11 Atelectasis; I69.254 Hemiplegia and hemiparesis following other nontraumatic intracranial hemorrhage affecting left non-dominant side; R13.10 Dysphagia, unspecified; F03.90 Unspecified dementia, unspecified severity, without behavioral disturbance, psychotic disturbance, mood disturbance, and anxiety; E87.5 Hyperkalemia; E86.0 Dehydration; E83.51 Hypocalcemia; D63.8 Anemia in other chronic diseases classified elsewhere; E78.5 Hyperlipidemia, unspecified; E87.6 Hypokalemia; K21.9 Gastro-esophageal reflux disease without esophagitis; N18.2 Chronic kidney disease, stage 2 (mild); R62.7 Adult failure to thrive; Z79.4 Long term (current) use of insulin; Z87.891 Personal history of nicotine dependence; Z68.23 Body mass index [BMI] 23.0-23.9, adult; K44.9 Diaphragmatic hernia without obstruction or gangrene

== ENCOUNTER 2017-07-23 17:13 | Inpatient (IN) | payer MEDICARE, MEDICAID ==
[2017-07-23 17:32] VITALS: BMI 25.1
[2017-07-23] MEDS ORDERED: Sodium Chloride 0.9% 1,000 ML IV ONE (17:47)
[2017-07-23 18:02] LABS: BASO # 0.1 K/uL (0.0-0.2); BASO % 0.5 % (0.0-2.0); EOS # 0.1 K/uL (0.0-0.7); EOS % 1.2 % (0.0-4.0); HEMATOCRIT 25.3 % (35.0-51.0); LYMPH # 1.2 K/uL (1.0-4.3); MEAN CELL VOLUME 86.3 fL (80.0-94.0); MEAN CORPUSCULAR HEMOGLOBIN 28.8 pg (27.0-31.0); MEAN CORPUSCULAR HGB CONC 33.4 g/dL (33.0-37.0); MEAN PLATELET VOLUME 7.8 fL (7.2-11.7); MONO # 0.8 K/uL (0.0-0.8); MONO % 8.1 % (0.0-10.0); NRBC % 0.1 % (0.0-2.0); RED CELL DISTRIBUTION WIDTH 17.8 % (11.5-14.5); WHITE BLOOD COUNT 9.9 K/uL (4.8-10.8)
[2017-07-23 18:04] LABS: VENOUS BLOOD GAS PCO2 37 mmHg (40-60); VENOUS BLOOD PH 7.48 (7.32-7.43)
[2017-07-23 18:13] LABS: POTASSIUM 4.7 mmol/L (3.6-5.2)
[2017-07-23 18:15] LABS: BILIRUBIN,TOTAL 0.4 mg/dL (0.2-1.3)
[2017-07-23 18:16] LABS: ALB/GLOB RATIO 0.6 (1.0-2.1); CALCIUM 9.2 mg/dl (8.6-10.4); TOTAL PROTEIN 6.7 g/dL (6.3-8.3)
[2017-07-23 18:19] LABS: RBC URINE 4 /hpf (0-3); TRANSITIONAL EPITHIAL < 1 /hpf (0-3); URINE BACTERIA RARE (<OCC); URINE BILIRUBIN NEGATIVE (NEGATIVE); URINE BLOOD NEGATIVE (NEGATIVE); URINE COLOR Yellow (YELLOW); URINE GLUCOSE (UA) 2+ mg/dL (Normal); URINE KETONE NEGATIVE (NEGATIVE); URINE LEUKOCYTE ESTERASE NEG Leu/uL (Negative); URINE PROTEIN 2+ mg/dL (NEGATIVE); URINE UROBILINOGEN NORMAL mg/dL (0.2-1.0); WBC URINE 1 /hpf (0-5)
--- NOTE | 2017-07-23 18:31 | RAD ---
PROCEDURE: CHEST RADIOGRAPH, 1 VIEW HISTORY: Seizure COMPARISON: 07/07/2017. FINDINGS: LUNGS: There is subsegmental atelectasis in the right lower lobe. There is low lung volume on the right. The left lung is clear. PLEURA: There is a small right pleural effusion No pneumothorax or left pleural fluid seen. CARDIOVASCULAR: The heart is normal in size. Atherosclerotic aortic arch calcifications are present. OSSEOUS STRUCTURES: Status post right thoracotomy. VISUALIZED UPPER ABDOMEN: Normal. OTHER FINDINGS: None. IMPRESSION: Status post right thoracotomy, small right pleural effusion and subsegmental atelectasis in the right lower lobe.
--- NOTE | 2017-07-23 18:38 | CT ---
PROCEDURE: CT HEAD WITHOUT CONTRAST. HISTORY: status epilepticus COMPARISON: Comparison is made to 06/01/2017 TECHNIQUE: Axial computed tomography images were obtained through the head/brain without intravenous contrast. Radiation dose: Total exam DLP = 920.63 mGy-cm. This CT exam was performed using one or more of the following dose reduction techniques: Automated exposure control, adjustment of the mA and/or kV according to patient size, and/or use of iterative reconstruction technique. FINDINGS: HEMORRHAGE: No intracranial hemorrhage. BRAIN: Re- demonstration of large encephalomalacia at the left temporal frontal and right lentiform nucleus again seen suggestive of old right MCA infarct. Moderate atrophy and moderate to large chronic microvascular white matter ischemic disease are again seen. VENTRICLES: Unremarkable. No hydrocephalus. CALVARIUM: Unremarkable. PARANASAL SINUSES: Unremarkable as visualized. No significant inflammatory changes. MASTOID AIR CELLS: Unremarkable as visualized. No inflammatory changes. OTHER FINDINGS: None. IMPRESSION: No evidence of acute intracranial hemorrhage intracranial collection mass effect or midline shift. Re- demonstration of large encephalomalacia at the right hemisphere consistent with old left MCA territory infarct. Moderate atrophy and moderate chronic microvascular white matter ischemic disease.
--- NOTE | 2017-07-23 20:27 | C.PDOC ---
History Of Present Illness 76 y/o male, with PMHx of seizures, and CVA, is brought to ED via ambulance from assisted for recurrent seizures. Ativan IV was given on field. Patient is non-verbal, limited history at this time. Time Seen by Provider: 07/23/17 17:46 Chief Complaint (Nursing): Altered Mental Status History Per: EMS History/Exam Limitations: clinical condition Recent Seizure Activity Began: Unknown Number Of Seizures: Multiple Length Of Seizures (Duration): Unknown Additional History Per: Correction Past Medical History Reviewed: Historical Data, Nursing Documentation, Vital Signs Vital Signs: Last Vital Signs Temp 97.0 F L 07/23/17 21:30 Pulse 93 H 07/23/17 21:57 Resp 20 07/23/17 21:57 BP 162/67 H 07/23/17 21:57 Pulse Ox 99 07/23/17 21:57 - Medical History PMH: Arthritis, CVA, Dementia, Diabetes, HTN, Hypercholesterolemia, Malignancy ( renal CA), Chronic Kidney Disease, Seizures - [facility] Procedures INCIS W REM OF FORIEGN BODY OR DEV FROM SKIN & SUBCUT TISSUE (10/12/13) INSERTION OF ENDOTRACHEAL AIRWAY INTO TRACHEA, VIA OPENING (07/01/17) INSERTION OF FEEDING DEVICE INTO STOMACH, PERC APPROACH (07/01/17) RESPIRATORY VENTILATION, 24-96 CONSECUTIVE HOURS (07/01/17) Family History: States: Unknown Family Hx - Social History Hx Tobacco Use: No Hx Alcohol Use: No Hx Substance Use: No - Immunization History Hx Tetanus Toxoid Vaccination: No Hx Influenza Vaccination: Yes (08/2014) Hx Pneumococcal Vaccination: Yes (2012) Review Of Systems Review Of Systems: ROS cannot be obtained secondary to pt's inabilty to answer questions. Physical Exam - Physical Exam Appears: Non-toxic, No Acute Distress, Other (elderly black man, hypersomnolent) Skin: Normal Color, Warm, Dry Head: Atraumatic, Normacephalic Eye(s): bilateral: Normal Inspection Oral Mucosa: Moist Neck: Supple Cardiovascular: Rhythm Regular, No Murmur Respiratory: Normal Breath Sounds, No Rales, No Rhonchi, No Wheezing Gastrointestinal/Abdominal: Soft, No Tenderness Extremity: Bilateral: Atraumatic Neurological/Psych: Other (mild response to painful stimulus, weakness to left arm and leg (baseline)) ED Course And Treatment - Laboratory Results Result Diagrams: 07/23/17 17:59 07/23/17 17:59 Lab Interpretation: Abnormal (+ mild anemia, + elev glu) ECG: Interpreted By Me, Viewed By Me ECG Rhythm: Sinus Rhythm Interpretation Of ECG: Q waves at v1-v3 Rate From EC O2 Sat by Pulse Oximetry: 100 Pulse Ox Interpretation: Normal - Radiology CXR: Interpreted by Me CXR Interpretation: Yes: No Acute Disease Reevaluation Time: 20:00 (arousably mild to deep painful stim) Reassessment Condition: Improved - Physician Consult Information Outcome Of Conversation: 2000: d/w ICU-ok to ICU Medical Decision Making Medical Decision Making: seizure vs psych issues @ NH, large doses of Ativan, now difficult to arouse w/u neg. head CT unchanged. Disposition Doctor Will See Patient In The: Hospital Counseled Patient/Family Regarding: Studies Performed, Diagnosis - Disposition Disposition: HOSPITALIZED Disposition Time: 20:27 Condition: GOOD - Clinical Impression Clinical Impression: Mental status, decreased, Seizure - Scribe Statement The provider has reviewed the documentation as recorded by the Efrain Cochran All medical record entries made by the Efrain were at my direction and personally dictated by me. I have reviewed the chart and agree that the record accurately reflects my personal performance of the history, physical exam, medical decision making, and the department course for this patient. I have also personally directed, reviewed, and agree with the discharge instructions and disposition.
[2017-07-23] MEDS ORDERED: (Novolin R) Insulin Human Regular 100 units/ml vial SC SCH (22:00)
--- NOTE | 2017-07-23 22:58 | CP.PCM.CON ---
History of Present Illness - History of Present Illness History of Present Illness: Attending: Theo Mccarty Reason for Consult : Critical care Management Chief Complaint: Witnessed Seizure The patient was seen and examined in the ED HPI: This is a 76 years old male with hx of Dementia, Seizure, CVA with PEG feeding and noncompliant with medications, last admitted on 07/01/17 for GI bleed and went into cardiac arrest, improved and discharged to Rehab. He is now transferred from the [facility] after a witnessed recurrent seizure. He was given Ativan in the field and arrived at the ED sedated. PMH: Arthritis; CVA; Dementia; DM II; HTN; HLD; Stage 4 Renal Cell Carcinoma; CKD; Seizures; GERD; Multiple falls; Chronic Back Pain; PEG tube feeding PSH: Hernia repair; Left Nephrectomy; Right Thoracotomy SH: Former smoker; ETOH in the past; No illegal drug use; Patient is nonverbal; resides at [facility] FH: Unknown family history Allergies: Acetaminophen; Aspirin - C Review of Systems - Review of Systems Review of Systems: No information obtainable as the patient is deeply sedated. Past Patient History - Infectious Disease Hx of Infectious Diseases: None - Past Medical History & Family History Past Medical History?: Yes - Past Social History Smoking Status: Former Smoker Chewing Tobacco Use: No Cigar Use: No Alcohol: None Drugs: Denies Home Situation {Lives}: [facility]sp - CARDIAC Hx Hypercholesterolemia: Yes Hx Hypertension: Yes - PULMONARY Hx Tuberculosis: No - NEUROLOGICAL Hx Dementia: Yes Hx Seizures: Yes - HEENT Hx HEENT Problems: No - RENAL Hx Chronic Kidney Disease: No - ENDOCRINE/METABOLIC Hx Diabetes Mellitus Type 2: Yes - HEMATOLOGICAL/ONCOLOGICAL Hx Human Immunodeficiency Virus (HIV): No - INTEGUMENTARY Hx Dermatological Problems: No - MUSCULOSKELETAL/RHEUMATOLOGICAL Hx Arthritis: Yes - GASTROINTESTINAL Hx Gastrointestinal Disorders: Yes Hx Gastroesophageal Reflux: Yes - GENITOURINARY/GYNECOLOGICAL Hx Sexually Transmitted Disorders: No - PSYCHIATRIC Hx Substance Use: No - SURGICAL HISTORY Hx Surgeries: Yes Hx Herniorrhaphy: Yes Other/Comment: left nephrectomy, left lung sx, - ANESTHESIA Hx Anesthesia: Yes Hx Anesthesia Reactions: No Hx Malignant Hyperthermia: No Meds Allergies/Adverse Reactions: Allergies Allergy/AdvReac Type Severity Reaction Status Date / Time acetaminophen [From Tylenol] Allergy Intermediate Tinnitus Verified 07/23/17 17: 28 aspirin Allergy Intermediate Tinnitus Verified 07/23/17 17:28 - Medications Medications: Current Medications Clopidogrel Bisulfate (Plavix) 75 mg PO DAILY [facility] Diltiazem HCl (Cardizem) 60 mg PO Q8 [facility] Last Admin: 07/23/17 21:52 Dose: 60 mg Donepezil HCl (Aricept) 5 mg PO HS [facility] Last Admin: 07/23/17 21:53 Dose: 5 mg Enoxaparin Sodium (Lovenox) 30 mg SC DAILY [facility] Famotidine (Pepcid) 20 mg PO BID [facility] Ferrous Sulfate (Feosol) 325 mg PO BID [facility] Levetiracetam 500 mg/ Dextrose 105 mls @ 420 mls/hr IVPB Q12H [facility] Last Admin: 07/23/17 18:32 Dose: 420 mls/hr Insulin Human Regular (Novolin R) 0 unit SC ACHS [facility] PRN Reason: Protocol Last Admin: 07/23/17 21:58 Dose: Not Given Losartan Potassium (Cozaar) 100 mg PO DAILY [facility] Rosuvastatin Calcium (Crestor) 10 mg PO HS [facility] Last Admin: 07/23/17 21:52 Dose: 10 mg Thiamine HCl (Vitamin B1 Tab) 100 mg PO BID [facility] Physical Exam - Constitutional Additional comments: Sedated - Head Exam Head Exam: ATRAUMATIC, NORMAL INSPECTION - Eye Exam Additional comments: Pupils equal and reacting poorly to light. - ENT Exam ENT Exam: Mucous Membranes Dry, Normal External Ear Exam - Respiratory Exam Additional comments: mild inspiratory and expiratory wheezes in both lung marcus - Cardiovascular Exam Cardiovascular Exam: REGULAR RHYTHM ( ), RRR, +S1, +S2 - GI/Abdominal Exam GI & Abdominal Exam: Normal Bowel Sounds, Soft. absent: Mass, Organomegaly - Rectal Exam Rectal Exam: Deferred - Extremities Exam Extremities exam: Positive for: normal inspection, pedal pulses present - Back Exam Back exam: NORMAL INSPECTION - Neurological Exam Additional comments: Sedated after Ativan, responds to painful stimuli, moving both upper and lower extremities. - Skin Skin Exam: Dry, Intact, Normal Color, Warm Results - Vital Signs Recent Vital Signs: Last Vital Signs Temp 97.0 F L 07/23/17 21:30 Pulse 93 H 07/23/17 21:57 Resp 20 07/23/17 21:57 BP 162/67 H 07/23/17 21:57 Pulse Ox 99 07/23/17 21:57 - Labs Result Diagrams: 07/23/17 17:59 07/23/17 17:59 Labs: Laboratory Results - last 24 hr 07/23/17 07/23/17 21:33 21:55 PT 11.4 INR 1.0 APTT 34 POC Glucose (mg/dL) 222 H - Imaging and Cardiology Chest x-ray Status: Image reviewed by me Additional comment: Elevated right diaphragm Right costo-vertivral is obliterated CT scan - head Status: Image reviewed by me, Report reviewed by me Additional comment: Large encehalomalacia at right hemisphere consistent with old CVA No acute intracraneal hemorrhage or masses. Assessment & Plan - Assessment and Plan (Free Text) Assessment: #. Seizure #. CKD #. Anemia #. DM with hyperglycemia #. Dementia #. Old CVA #. s/p Cardiac Arrest Plan: 76 years old male with hx of Dementia, Seizure, CVA with PEG feeding and noncompliant with medications, last admitted on 07/01/17 for GI bleed and went into cardiac arrest, improved and discharged to Rehab. He is now transferred from the [facility] after a witnessed recurrent seizure. He was given Ativan in the field and arrived at the ED sedated. #. Seizure probably secondary to noncompliance in medication, r/o new ischemic stroke - Seizure precaution with bed rails up and bed side paddings - Follow up CT head - Gabe bentley - Dr Burk neurology on consult #. CKD III - IV Fluids NS at 100mls/hr - follow rnal labs #. Anemia - Continue Ferrous Sulfate - Follow Hb #. DM with hyperglycemia - On tube feeding when feeding starts - Regular insulin sliding scale according to Accucheck #. Dementia - Aricept #. Old CVA - Plavix/ Crestor #. DVT Prophylaxis with lovenox #. s/p Cardiac Arrest #. Code Status: Full - Date & Time Date: 07/23/17 Time: 22:58
[2017-07-24] MEDS: (Novolin R) Insulin Human Regular 100 units/ml vial SC SCH ×4 (06:00→18:09)
--- NOTE | 2017-07-24 07:17 | CP.PCM.CON ---
History of Present Illness - History of Present Illness History of Present Illness: CONSULT DICTATED POST SEIZURE WITH ATIVAN INDUCED LEATHERINESS [employer] TO 750 MG BID CORRECT ELECTROLYTES EMPIRICAL ANTIBIOTICS IF NEEDED CORRECT HYDRATION WORK UP PER ORDER Past Patient History - Infectious Disease Hx of Infectious Diseases: None - Past Medical History & Family History Past Medical History?: Yes - Past Social History Smoking Status: Former Smoker Chewing Tobacco Use: No Cigar Use: No Alcohol: None Drugs: Denies Home Situation {Lives}: Care Home - CARDIAC Hx Hypercholesterolemia: Yes Hx Hypertension: Yes - PULMONARY Hx Tuberculosis: No - NEUROLOGICAL Hx Dementia: Yes Hx Seizures: Yes - HEENT Hx HEENT Problems: No - RENAL Hx Chronic Kidney Disease: No - ENDOCRINE/METABOLIC Hx Diabetes Mellitus Type 2: Yes - HEMATOLOGICAL/ONCOLOGICAL Hx Human Immunodeficiency Virus (HIV): No - INTEGUMENTARY Hx Dermatological Problems: No - MUSCULOSKELETAL/RHEUMATOLOGICAL Hx Arthritis: Yes - GASTROINTESTINAL Hx Gastrointestinal Disorders: Yes Hx Gastroesophageal Reflux: Yes - GENITOURINARY/GYNECOLOGICAL Hx Sexually Transmitted Disorders: No - PSYCHIATRIC Hx Substance Use: No - SURGICAL HISTORY Hx Surgeries: Yes Hx Herniorrhaphy: Yes Other/Comment: left nephrectomy, left lung sx, - ANESTHESIA Hx Anesthesia: Yes Hx Anesthesia Reactions: No Hx Malignant Hyperthermia: No Meds Allergies/Adverse Reactions: Allergies Allergy/AdvReac Type Severity Reaction Status Date / Time acetaminophen [From Tylenol] Allergy Intermediate Tinnitus Verified 07/23/17 17: 28 aspirin Allergy Intermediate Tinnitus Verified 07/23/17 17:28 - Medications Medications: Current Medications Clopidogrel Bisulfate (Plavix) 75 mg PO DAILY [facility] Diltiazem HCl (Cardizem) 60 mg PO Q8 [facility] Last Admin: 07/24/17 06:28 Dose: 60 mg Donepezil HCl (Aricept) 5 mg PO HS [facility] Last Admin: 07/23/17 21:53 Dose: 5 mg Enoxaparin Sodium (Lovenox) 30 mg SC DAILY [facility] Famotidine (Pepcid) 20 mg PO BID [facility] Ferrous Sulfate (Feosol) 325 mg PO BID [facility] Levetiracetam 500 mg/ Dextrose 105 mls @ 420 mls/hr IVPB Q12H [facility] Last Admin: 07/23/17 18:32 Dose: 420 mls/hr Sodium Chloride (Sodium Chloride 0.9%) 1,000 mls @ 100 mls/hr IV .Q10H [facility] Insulin Human Regular (Novolin R) 0 unit SC Q6 [facility] PRN Reason: Protocol Losartan Potassium (Cozaar) 100 mg PO DAILY [facility] Rosuvastatin Calcium (Crestor) 10 mg PO HS [facility] Last Admin: 07/23/17 21:52 Dose: 10 mg Thiamine HCl (Vitamin B1 Tab) 100 mg PO BID [facility] Results - Vital Signs Recent Vital Signs: Last Vital Signs Temp 97.0 F L 07/23/17 21:30 Pulse 93 H 07/23/17 21:57 Resp 20 07/23/17 21:57 BP 162/67 H 07/23/17 21:57 Pulse Ox 100 07/23/17 23:09 - Labs Result Diagrams: 07/23/17 17:59 07/23/17 17:59 Labs: Laboratory Results - last 24 hr 07/23/17 07/23/17 07/24/17 21:33 21:55 00:04 PT 11.4 INR 1.0 APTT 34 POC Glucose (mg/dL) 222 H 157 H 07/24/17 06:21 PT INR APTT POC Glucose (mg/dL) 166 H
[2017-07-24 08:01] LABS: POTASSIUM 4.1 mmol/L (3.6-5.2)
[2017-07-24 08:03] LABS: ALB/GLOB RATIO 0.6 (1.0-2.1); BILIRUBIN,TOTAL 0.4 mg/dL (0.2-1.3); TOTAL PROTEIN 6.5 g/dL (6.3-8.3)
[2017-07-24 08:04] LABS: MAGNESIUM 1.8 mg/dL (1.6-2.3)
--- NOTE | 2017-07-24 08:07 | HP ---
CHIEF COMPLAINT: Altered mental status and shaking movements. HISTORY OF PRESENT ILLNESS: This is a 76-year-old -[place] male who has history of dementia, renal cell CA, hypertension, CKD, and recently, he had a PEG tube placed. He had a history of cardiac arrest on his prior admission. After that, the patient was stabilized, discharged. He went to subacute rehab and in rehab, he remained nonverbal. On the day of admission, he was found to have recurrent seizures that was described as generalized shaking movement of entire body, and at one point, it became consistent. The patient received Ativan in the field, and he came to the emergency room. He continued to have seizures and the patient was given 4 mg of Ativan, and his seizures were controlled. After that, he was drowsy and unresponsive but breathing with normal saturation and he was admitted to ICU. The patient has cardiac arrest and extent of damage to his brain is unknown. There is no history of fever, chills or rigors. There is incontinence. There is no history of sneezing, itchy eyes, or itchy nose. There is no history of head injury. There is no history of cough, sore throat, or runny nose. There is no history polyuria, polydipsia, or polyphagia. There is no history of hematuria or pyuria. There is no history of skin rash, itchy eyes or itchy nose. There is no history of trauma, fall or loss of consciousness or seizure, and there is no dysuria. The patient denies any rectal bleeding. ALLERGIES: UNKNOWN. CURRENT MEDICATIONS: She is on Aricept, vitamin A and D, thiamine, simvastatin, Plavix, zinc oxide, ferrous sulfate, Cardizem, losartan, and insulin sliding scale. SOCIAL HISTORY: Nonsmoker, non-EtOH user. PAST MEDICAL HISTORY: Renal cell CA, hypertension, diabetes, CKD, and hyperlipidemia. PHYSICAL EXAMINATION GENERAL: An elderly male who is sedated. He has no shaking movement, but he is not responding. VITAL SIGNS: Blood pressure 162/67, pulse 93, respiratory rate 16, and temperature 99. SKIN: Senile turgor. No bruises. No purpura. No petechiae. Positive pallor. HEENT: Atraumatic and normocephalic. Extraocular movements are intact. NECK: Supple. Flat neck veins. No JVD. CHEST WALL: Bilateral symmetrical expansion. No rales. No rhonchi. CARDIOVASCULAR: S1 and S2 regular. ABDOMEN: Soft and nontender. Bowel sounds are positive. RECTAL: Enlarged prostate. No mass. EXTREMITIES: No clubbing, cyanosis or edema. CENTRAL NERVOUS SYSTEM: The patient is not responding. He is deeply sedated with Ativan 4 mg and deep tendon reflexes are diminished. ASSESSMENT: 1. Status epilepticus, etiology unclear, rule out anoxic brain damage. 2. Chronic kidney disease. 3. Type 2 diabetes. 4. Hypertension. 5. Renal cell carcinoma. PLAN: Admit, detailed orders written. I personally seen and examined the patient. I personally ordered plan of care on the patient. Nico Venegas MD
[2017-07-24 08:24] LABS: BASO # 0.1 K/uL (0.0-0.2); BASO % 0.8 % (0.0-2.0); EOS # 0.3 K/uL (0.0-0.7); HEMATOCRIT 26.9 % (35.0-51.0); LYMPH # 1.4 K/uL (1.0-4.3); LYMPH % 13.3 % (20.0-40.0); MEAN CELL VOLUME 87.5 fL (80.0-94.0); MEAN CORPUSCULAR HEMOGLOBIN 28.9 pg (27.0-31.0); MEAN CORPUSCULAR HGB CONC 33.1 g/dL (33.0-37.0); MEAN PLATELET VOLUME 7.7 fL (7.2-11.7); MONO # 0.8 K/uL (0.0-0.8); MONO % 7.5 % (0.0-10.0); NRBC % 0.1 % (0.0-2.0); RED CELL DISTRIBUTION WIDTH 17.8 % (11.5-14.5); WHITE BLOOD COUNT 10.5 K/uL (4.8-10.8)
[2017-07-24] MEDS: Sodium Chloride 0.9% 1,000 ML IV SCH ×3 (08:36→19:41)
[2017-07-24] MEDS: Enoxaparin 30 mg Syringe SC SCH (09:16)
--- NOTE | 2017-07-24 15:06 | CP.PCM.PN ---
Objective - Vital Signs/Intake and Output Vital Signs (last 24 hours): Temp Pulse Resp BP Pulse Ox 98.3 F 86 16 153/66 H 100 07/24/17 12:00 07/24/17 14:20 07/24/17 14:20 07/24/17 13:58 07/24/17 14:20 Intake and Output: 07/24/17 07/24/17 06:59 18:59 Intake Total 800 Output Total 725 Balance 75 - Medications Medications: Current Medications Clopidogrel Bisulfate (Plavix) 75 mg PO DAILY [facility] Last Admin: 07/24/17 09:16 Dose: 75 mg Diltiazem HCl (Cardizem) 60 mg PO Q8 [facility] Last Admin: 07/24/17 06:28 Dose: 60 mg Donepezil HCl (Aricept) 5 mg PO HS [facility] Last Admin: 07/23/17 21:53 Dose: 5 mg Enoxaparin Sodium (Lovenox) 30 mg SC DAILY [facility] Last Admin: 07/24/17 09:16 Dose: 30 mg Famotidine (Pepcid) 20 mg PO BID [facility] Last Admin: 07/24/17 09:16 Dose: 20 mg Ferrous Sulfate (Feosol) 325 mg PO BID [facility] Last Admin: 07/24/17 09:16 Dose: 325 mg Sodium Chloride (Sodium Chloride 0.9%) 1,000 mls @ 100 mls/hr IV .Q10H [facility] Last Admin: 07/24/17 10:41 Dose: Not Given Levetiracetam 750 mg/ Dextrose 107.5 mls @ 420 mls/hr IVPB Q12H [facility] Last Admin: 07/24/17 09:10 Dose: 420 mls/hr Insulin Human Regular (Novolin R) 0 unit SC Q6 [facility] PRN Reason: Protocol Last Admin: 07/24/17 12:29 Dose: 3 unit Losartan Potassium (Cozaar) 100 mg PO DAILY [facility] Last Admin: 07/24/17 09:16 Dose: 100 mg Rosuvastatin Calcium (Crestor) 10 mg PO HS [facility] Last Admin: 07/23/17 21:52 Dose: 10 mg Thiamine HCl (Vitamin B1 Tab) 100 mg PO BID [facility] Last Admin: 07/24/17 09:16 Dose: 100 mg - Labs Labs: 07/24/17 08:17 07/24/17 07:10 PT 11.4 SECONDS (9.7-12.2) 07/23/17 21:33 INR 1.0 07/23/17 21:33 APTT 34 SECONDS (21-34) 07/23/17 21:33
--- NOTE | 2017-07-24 17:31 | CP.CCUPN ---
CCU Subjective - Physician Review Events Since Last Encounter (Free Text): 07/24/17 17:30 Patient is a group home resident, 76-year-old male with history of seizure disorder, dementia, CVA, status post a PEG. Recently was hospitalized with the GI bleed. He also had an episode of cardiac arrest at this time. Patient readmitted to the hospital with the altered mental status. And the suspected seizure disorder. Patient was seen by neurologist to today. Currently on anti-seizure medication Patient is not responding at this time, but he is breathing okay, with the deep stimuli he is responding with the pain only Vital signs stable. Chest good air entry regular heart sound nontender abdomen extremities edema 1+ Labs reviewed Assessment and recommendation: 76-year-old male now admitted with altered mental status. Most likely postictal. Currently on medications. Seen by neurologist. We'll start the supportive care, GI prophylaxis. We'll start the feeding. If continues to be stable can be transferred tomorrow CCU Objective - Vital Signs / Intake & Output Vital Signs (Last 4 hours): Vital Signs Pulse Resp BP Pulse Ox 07/24/17 16:30 95 H 20 100 07/24/17 16:20 85 17 100 07/24/17 16:10 88 17 97 07/24/17 16:00 92 H 14 92 L 07/24/17 15:58 86 17 138/78 94 L 07/24/17 15:50 89 18 100 07/24/17 15:40 93 H 17 100 07/24/17 15:30 89 17 100 07/24/17 15:20 88 17 100 07/24/17 15:10 89 17 100 07/24/17 15:00 87 21 100 07/24/17 14:59 91 H 14 161/77 H 100 07/24/17 14:50 82 15 100 07/24/17 14:40 89 12 100 07/24/17 14:30 86 18 100 07/24/17 14:20 86 16 100 07/24/17 14:10 86 15 100 07/24/17 14:00 93 H 15 100 07/24/17 13:58 88 15 153/66 H 100 07/24/17 13:50 89 15 100 07/24/17 13:40 92 H 16 100 Intake and Output (Last 8hrs): Intake & Output 07/24/17 07/24/17 07/24/17 06:59 14:59 22:59 Intake Total 800 180 Output Total 725 60 Balance 75 120 Weight 172 lb 12.8 oz Intake: Intake, IV Amount 700 100 Left hand 700 100 Other 100 80 Output: Urine 725 60 Urethral ([place]) 725 60 Other: Voiding Method Indwelling Catheter # Bowel Movements 1 - Medications Active Medications: Active Medications Generic Name Dose Route Start Last Admin Trade Name Freq PRN Reason Stop Dose Admin Clopidogrel Bisulfate 75 mg 07/24/17 10:00 07/24/17 09:16 Plavix PO 75 mg DAILY KEHSA Administration Diltiazem HCl 60 mg 07/23/17 22:00 07/24/17 15:18 Cardizem PO 60 mg Q8 KESHA Administration Donepezil HCl 5 mg 07/23/17 22:00 07/23/17 21:53 Aricept PO 5 mg HS KESHA Administration Enoxaparin Sodium 30 mg 07/24/17 10:00 07/24/17 09:16 Lovenox SC 30 mg DAILY KESHA Administration Famotidine 20 mg 07/24/17 10:00 07/24/17 17:22 Pepcid PO 20 mg BID KESHA Administration Ferrous Sulfate 325 mg 07/24/17 10:00 07/24/17 17:22 Feosol PO 325 mg BID KESHA Administration Sodium Chloride 1,000 mls @ 100 mls/hr 07/23/17 23:15 07/24/17 10:41 Sodium Chloride 0.9% IV Not Given .Q10H KESHA Levetiracetam 750 mg/ Dextrose 107.5 mls @ 420 mls/hr 07/24/17 08:00 09:10 IVPB 420 mls/hr Q12H KESHA Administration Insulin Human Regular 0 unit 07/24/17 00:00 07/24/17 12:29 Novolin R SC 3 unit Q6 KESHA Administration Protocol Losartan Potassium 100 mg 07/24/17 10:00 07/24/17 09:16 Cozaar PO 100 mg DAILY KESHA Administration Rosuvastatin Calcium 10 mg 07/23/17 22:00 07/23/17 21:52 Crestor PO 10 mg HS KESHA Administration Thiamine HCl 100 mg 07/24/17 10:00 07/24/17 17:22 Vitamin B1 Tab PO 100 mg BID KESHA Administration - Patient Studies Lab Studies: Lab Studies 07/24/17 07/24/17 07/24/17 Range/Units 11:31 08:17 07:10 WBC 10.5 (4.8-10.8) K/uL RBC 3.08 L (4.40-5.90) Mil/uL Hgb 8.9 L (12.0-18.0) g/dL Hct 26.9 L (35.0-51.0) % MCV 87.5 (80.0-94.0) fL MCH 28.9 (27.0-31.0) pg MCHC 33.1 (33.0-37.0) g/dL RDW 17.8 H (11.5-14.5) % Plt Count 475 H (130-400) K/uL MPV 7.7 (7.2-11.7) fL Neut % (Auto) 75.4 H (50.0-75.0) % Lymph % (Auto) 13.3 L (20.0-40.0) % [place] % (Auto) 7.5 (0.0-10.0) % Eos % (Auto) 3.0 (0.0-4.0) % Baso % (Auto) 0.8 (0.0-2.0) % Neut # 7.9 H (1.8-7.0) K/uL Lymph # 1.4 (1.0-4.3) K/uL [place] # 0.8 (0.0-0.8) K/uL Eos # 0.3 (0.0-0.7) K/uL Baso # 0.1 (0.0-0.2) K/uL PT (9.7-12.2) SECONDS INR APTT (21-34) SECONDS Sodium 135 (132-148) mmol/L Potassium 4.1 (3.6-5.2) mmol/L Chloride 101 (98-107) mmol/L Carbon Dioxide 24 (22-30) mmol/L Anion Gap 13 (10-20) BUN 21 H (9-20) mg/dL Creatinine 1.4 (0.8-1.5) MG/DL Est GFR ( Amer) 59 Est GFR (Non-Af Amer) 49 POC Glucose (mg/dL) 220 H (65-110) mg/dL Random Glucose 157 H (75-110) mg/dL Calcium 9.0 (8.6-10.4) mg/dl Phosphorus 4.0 (2.5-4.5) mg/dL Magnesium 1.8 (1.6-2.3) mg/dL Total Bilirubin 0.4 (0.2-1.3) mg/dL AST 16 L (17-59) U/L ALT 26 (21-72) U/L Alkaline Phosphatase 112 (38-126) U/L Total Protein 6.5 (6.3-8.3) g/dL Albumin 2.5 L (3.5-5.0) g/dL Globulin 4.0 H (2.2-3.9) gm/dL Albumin/Globulin Ratio 0.6 L (1.0-2.1) 07/24/17 07/24/17 07/23/17 Range/Units 06:21 00:04 21:55 WBC (4.8-10.8) K/uL RBC (4.40-5.90) Mil/uL Hgb (12.0-18.0) g/dL Hct (35.0-51.0) % MCV (80.0-94.0) fL MCH (27.0-31.0) pg MCHC (33.0-37.0) g/dL RDW (11.5-14.5) % Plt Count (130-400) K/uL MPV (7.2-11.7) fL Neut % (Auto) (50.0-75.0) % Lymph % (Auto) (20.0-40.0) % [place] % (Auto) (0.0-10.0) % Eos % (Auto) (0.0-4.0) % Baso % (Auto) (0.0-2.0) % Neut # (1.8-7.0) K/uL Lymph # (1.0-4.3) K/uL [place] # (0.0-0.8) K/uL Eos # (0.0-0.7) K/uL Baso # (0.0-0.2) K/uL PT (9.7-12.2) SECONDS INR APTT (21-34) SECONDS Sodium (132-148) mmol/L Potassium (3.6-5.2) mmol/L Chloride (98-107) mmol/L Carbon Dioxide (22-30) mmol/L Anion Gap (10-20) BUN (9-20) mg/dL Creatinine (0.8-1.5) MG/DL Est GFR ( Amer) Est GFR (Non-Af Amer) POC Glucose (mg/dL) 166 H 157 H 222 H (65-110) mg/dL Random Glucose (75-110) mg/dL Calcium (8.6-10.4) mg/dl Phosphorus (2.5-4.5) mg/dL Magnesium (1.6-2.3) mg/dL Total Bilirubin (0.2-1.3) mg/dL AST (17-59) U/L ALT (21-72) U/L Alkaline Phosphatase (38-126) U/L Total Protein (6.3-8.3) g/dL Albumin (3.5-5.0) g/dL Globulin (2.2-3.9) gm/dL Albumin/Globulin Ratio (1.0-2.1) 07/23/17 Range/Units 21:33 WBC (4.8-10.8) K/uL RBC (4.40-5.90) Mil/uL Hgb (12.0-18.0) g/dL Hct (35.0-51.0) % MCV (80.0-94.0) fL MCH (27.0-31.0) pg MCHC (33.0-37.0) g/dL RDW (11.5-14.5) % Plt Count (130-400) K/uL MPV (7.2-11.7) fL Neut % (Auto) (50.0-75.0) % Lymph % (Auto) (20.0-40.0) % [place] % (Auto) (0.0-10.0) % Eos % (Auto) (0.0-4.0) % Baso % (Auto) (0.0-2.0) % Neut # (1.8-7.0) K/uL Lymph # (1.0-4.3) K/uL [place] # (0.0-0.8) K/uL Eos # (0.0-0.7) K/uL Baso # (0.0-0.2) K/uL PT 11.4 (9.7-12.2) SECONDS INR 1.0 APTT 34 (21-34) SECONDS Sodium (132-148) mmol/L Potassium (3.6-5.2) mmol/L Chloride (98-107) mmol/L Carbon Dioxide (22-30) mmol/L Anion Gap (10-20) BUN (9-20) mg/dL Creatinine (0.8-1.5) MG/DL Est GFR ( Amer) Est GFR (Non-Af Amer) POC Glucose (mg/dL) (65-110) mg/dL Random Glucose (75-110) mg/dL Calcium (8.6-10.4) mg/dl Phosphorus (2.5-4.5) mg/dL Magnesium (1.6-2.3) mg/dL Total Bilirubin (0.2-1.3) mg/dL AST (17-59) U/L ALT (21-72) U/L Alkaline Phosphatase (38-126) U/L Total Protein (6.3-8.3) g/dL Albumin (3.5-5.0) g/dL Globulin (2.2-3.9) gm/dL Albumin/Globulin Ratio (1.0-2.1) Laboratory Results - last 24 hr 07/23/17 07/23/17 07/24/17 21:33 21:55 00:04 WBC RBC Hgb Hct MCV MCH MCHC RDW Plt Count MPV Neut % (Auto) Lymph % (Auto) [place] % (Auto) Eos % (Auto) Baso % (Auto) Neut # Lymph # [place] # Eos # Baso # PT 11.4 INR 1.0 APTT 34 Sodium Potassium Chloride Carbon Dioxide Anion Gap BUN Creatinine Est GFR ( Amer) Est GFR (Non-Af Amer) POC Glucose (mg/dL) 222 H 157 H Random Glucose Calcium Phosphorus Magnesium Total Bilirubin AST ALT Alkaline Phosphatase Total Protein Albumin Globulin Albumin/Globulin Ratio 07/24/17 07/24/17 07/24/17 06:21 07:10 08:17 WBC 10.5 RBC 3.08 L Hgb 8.9 L Hct 26.9 L MCV 87.5 MCH 28.9 MCHC 33.1 RDW 17.8 H Plt Count 475 H MPV 7.7 Neut % (Auto) 75.4 H Lymph % (Auto) 13.3 L [place] % (Auto) 7.5 Eos % (Auto) 3.0 Baso % (Auto) 0.8 Neut # 7.9 H Lymph # 1.4 [place] # 0.8 Eos # 0.3 Baso # 0.1 PT INR APTT Sodium 135 Potassium 4.1 Chloride 101 Carbon Dioxide 24 Anion Gap 13 BUN 21 H Creatinine 1.4 Est GFR ( Amer) 59 Est GFR (Non-Af Amer) 49 POC Glucose (mg/dL) 166 H Random Glucose 157 H Calcium 9.0 Phosphorus 4.0 Magnesium 1.8 Total Bilirubin 0.4 AST 16 L ALT 26 Alkaline Phosphatase 112 Total Protein 6.5 Albumin 2.5 L Globulin 4.0 H Albumin/Globulin Ratio 0.6 L 07/24/17 11:31 WBC RBC Hgb Hct MCV MCH MCHC RDW Plt Count MPV Neut % (Auto) Lymph % (Auto) [place] % (Auto) Eos % (Auto) Baso % (Auto) Neut # Lymph # [place] # Eos # Baso # PT INR APTT Sodium Potassium Chloride Carbon Dioxide Anion Gap BUN Creatinine Est GFR ( Amer) Est GFR (Non-Af Amer) POC Glucose (mg/dL) 220 H Random Glucose Calcium Phosphorus Magnesium Total Bilirubin AST ALT Alkaline Phosphatase Total Protein Albumin Globulin Albumin/Globulin Ratio Fingerstick Blood Sugar Results: 220 Critical Care Progress Note - Nutrition Nutrition: Nutrition Category Date Time Status NPO Diet [DIET] Diets 07/23/17 Breakfast Active
--- NOTE | 2017-07-24 17:37 | CON ---
DATE: 07/24/2017 ATTENDING PHYSICIAN: Dr. Nico Venegas. Patient is in room ICU bed 4. REASON FOR CONSULTATION: Seizures. CHIEF COMPLAINT: Patient was brought in from snf with history of witnessed seizure activities. Following this, the patient was given Ativan multiple times in the field. Patient was brought in with postictal state in the emergency room. From neurologic point of view, I was called in to evaluate him for further management. HISTORY OF PRESENT ILLNESS: Mr. Domenico Puente is a 76-year-old -[place] male brought in from snf with history of witnessed seizure activities. Patient had Ativan to break the seizures. Seizure was under control. Patient was brought into emergency room of the [facility] ever since he could not able to wake up by himself. CT of the head was done, ruled out intracranial bleed. PAST MEDICAL HISTORY: Stroke resulting with left hemiparesis, diabetes, hypertension, dyslipidemia, renal cell carcinoma, chronic renal disease, and seizures. Patient had PEG placement on 07/01/2017. REVIEW OF SYSTEMS: A 12-point system been reviewed from neuro referring to seizures and dementia. MEDICATIONS: Donepezil, Cardizem, Cozaar, Crestor, Feosol, IV fluids with Lovenox and insulin, Pepcid, Plavix, thiamine. PHYSICAL EXAMINATION: VITAL SIGNS: Blood pressure 162/67, mean artery pressure of 98, respiratory rate 16, temperature afebrile. NECK: Supple. No carotid bruit. HEART: Sounds tachycardia. NEUROLOGIC: Patient is not arousable on verbal stimuli or noxious stimuli, he could able to move his right side. Eyes are closed. On forcibly opening the eyelid, pupil reactive to light. Cornea reflux is present. Rolling conjugate gaze noted. Facial asymmetry is noted. Mouth is dry. EXTREMITIES: Left extremities are increased tone with diffused atrophy to compare with the right side. DEEP TENDON REFLEXES: Trace on both sides, left leg externally rotated. Plantars are upgoing on left. Right side was downgoing. SENSORY: Respond to pain mostly on his right side. LABORATORY DATA: Workup, CT of the head reviewed showed right encephalomalacia from old anterior stroke. Periventricular ischemic changes also noted. Blood workup; WBC 9.9, hemoglobin 8.4, hematocrit 25.3, platelets of 468 (previous platelets are not available). Sodium 133, potassium 4.7, chloride 96, bicarbonate 26, BUN 23, creatinine 1.5, glucose 166, albumin 2.6, globulin 4.1. Urine shows 2+ proteinuria, 2+ glucose, RBCs 4+, ferritin level less than 3. CONCLUSION: Upon reviewing his history and neurological examination, Mr. Domenico Puente has been presenting with possible postictal phenomenon secondary to his seizures as well as from iatrogenic affect of Ativan. The recurrent seizures cause is multifactorial from his old stroke versus a new stroke process and other metabolic causes of electrolyte imbalance or occult infectious source. RECOMMENDATIONS: 1. Continue hydration. 2. Keppra dosage increased to 750 mg twice a day. 3. Correct electrolytes. 4. Repeat CT of the head tomorrow morning. 5. Continue hydration as well as improve nutritional status. 6. Patient would be followed closely with you. Alejandro Burk MD MTDD
[2017-07-25] MEDS: (Novolin R) Insulin Human Regular 100 units/ml vial SC SCH ×4 (01:27→18:40)
[2017-07-25] MEDS: Sodium Chloride 0.9% 1,000 ML IV SCH (06:00)
[2017-07-25 06:39] LABS: BASO # 0.1 K/uL (0.0-0.2); BASO % 0.8 % (0.0-2.0); EOS # 0.3 K/uL (0.0-0.7); EOS % 2.7 % (0.0-4.0); HEMATOCRIT 25.9 % (35.0-51.0); LYMPH # 1.3 K/uL (1.0-4.3); MEAN CELL VOLUME 87.7 fL (80.0-94.0); MEAN CORPUSCULAR HEMOGLOBIN 28.1 pg (27.0-31.0); MEAN CORPUSCULAR HGB CONC 32.1 g/dL (33.0-37.0); MEAN PLATELET VOLUME 7.7 fL (7.2-11.7); MONO # 0.7 K/uL (0.0-0.8); RED CELL DISTRIBUTION WIDTH 17.8 % (11.5-14.5); WHITE BLOOD COUNT 10.7 K/uL (4.8-10.8)
[2017-07-25 06:59] LABS: CHLORIDE 105 mmol/L (98-107); POTASSIUM 4.1 mmol/L (3.6-5.2); SODIUM 142 mmol/L (132-148)
[2017-07-25 07:01] LABS: ALB/GLOB RATIO 0.6 (1.0-2.1); ALKALINE PHOSPHATASE 117 U/L (38-126); AST/SGOT 20 U/L (17-59); BILIRUBIN,TOTAL 0.4 mg/dL (0.2-1.3); BLOOD UREA NITROGEN 17 mg/dL (9-20); GFR AFRICAN-AMERICAN > 60; GLUCOSE,RANDOM 157 mg/dL (75-110); TOTAL PROTEIN 6.6 g/dL (6.3-8.3)
[2017-07-25 07:02] LABS: ALT/SGPT 19 U/L (21-72); CALCIUM 9.1 mg/dl (8.6-10.4); MAGNESIUM 1.9 mg/dL (1.6-2.3); PHOSPHOROUS 3.6 mg/dL (2.5-4.5)
[2017-07-25 07:18] LABS: CARBON DIOXIDE 23 mmol/L (22-30)
[2017-07-25] MEDS: Enoxaparin 30 mg Syringe SC SCH (10:10)
--- NOTE | 2017-07-25 10:40 | CT ---
PROCEDURE: CT HEAD WITHOUT CONTRAST. HISTORY: FOLLOW UP STROKE AN SEIZURE DO IT 07/25/2017 COMPARISON: None available. TECHNIQUE: Axial computed tomography images were obtained through the head/brain without intravenous contrast. Radiation dose: Total exam DLP = 1203 mGy-cm. This CT exam was performed using one or more of the following dose reduction techniques: Automated exposure control, adjustment of the mA and/or kV according to patient size, and/or use of iterative reconstruction technique. FINDINGS: HEMORRHAGE: No intracranial hemorrhage. BRAIN: Chronic infarction at the right frontotemporal distribution is stable. No acute intracranial hemorrhage or significant mass effect. No interval acute cortical edema is identified or positive mass effect. Mild diffuse cerebral atrophy chronic microangiopathy is reiterated. VENTRICLES: Unremarkable. No hydrocephalus. CALVARIUM: Unremarkable. PARANASAL SINUSES: Unremarkable as visualized. No significant inflammatory changes. MASTOID AIR CELLS: Unremarkable as visualized. No inflammatory changes. OTHER FINDINGS: None. IMPRESSION: 1. No acute intracranial findings by standard CT criteria. 2. Right frontotemporal chronic infarcts again identified appearing unchanged. 3. Age-related age-appropriate neuro degenerative changes again identified.
--- NOTE | 2017-07-25 17:53 | CP.CCUPN ---
CCU Subjective - Physician Review Events Since Last Encounter (Free Text): 07/25/17 17:53 Patient today is more awake and responding. Not in any distress. Vital signs stable 76-year-old male with history of seizure disorder dementia CVS status post PEG Clinical stable otherwise. Labs reviewed X-ray reviewed Assessment and recommendation: 76-year-old male now admitted with altered mental status, secondary to seizure activities. Currently doing well. Continue the current treatment, supportive treatment. Start the feeding. Transferred to floor CCU Objective - Vital Signs / Intake & Output Vital Signs (Last 4 hours): Vital Signs Temp Pulse Resp 07/25/17 16:00 98.4 F 07/25/17 15:00 85 17 07/25/17 14:00 89 18 Intake and Output (Last 8hrs): Intake & Output 07/25/17 07/25/17 07/25/17 06:59 14:59 22:59 Intake Total 1045 535 120 Output Total 725 650 450 Balance 320 -115 -330 Intake: Intake, IV Amount 800 200 Left hand 800 200 Tube Feeding 245 235 120 Other 100 Output: Urine 725 650 450 Urethral ([place]) 725 650 450 - Medications Active Medications: Active Medications Generic Name Dose Route Start Last Admin Trade Name Freq PRN Reason Stop Dose Admin Clopidogrel Bisulfate 75 mg 07/24/17 10:00 07/25/17 10:10 Plavix PO 75 mg DAILY KESHA Administration Diltiazem HCl 60 mg 07/23/17 22:00 07/25/17 13:26 Cardizem PO 60 mg Q8 KESHA Administration Donepezil HCl 5 mg 07/23/17 22:00 07/24/17 21:47 Aricept PO 5 mg HS KESHA Administration Enoxaparin Sodium 30 mg 07/24/17 10:00 07/25/17 10:10 Lovenox SC 30 mg DAILY KESHA Administration Famotidine 20 mg 07/24/17 10:00 07/25/17 10:10 Pepcid PO 20 mg BID KESHA Administration Ferrous Sulfate 325 mg 07/24/17 10:00 07/25/17 10:10 Feosol PO 325 mg BID KESHA Administration Levetiracetam 750 mg/ Dextrose 107.5 mls @ 420 mls/hr 07/24/17 08:00 07:56 IVPB 420 mls/hr Q12H KESHA Administration Insulin Human Regular 0 unit 07/24/17 00:00 07/25/17 13:26 Novolin R SC 2 unit Q6 KESHA Administration Protocol Losartan Potassium 100 mg 07/24/17 10:00 07/25/17 10:10 Cozaar PO 100 mg DAILY KESHA Administration Rosuvastatin Calcium 10 mg 07/23/17 22:00 07/24/17 21:47 Crestor PO 10 mg HS KESHA Administration Thiamine HCl 100 mg 07/24/17 10:00 07/25/17 10:10 Vitamin B1 Tab PO 100 mg BID KESHA Administration - Patient Studies Lab Studies: Microbiology Studies 07/23/17 Unknown MRSA Culture (Admit) - Final Naris MRSA NOT DETECTED 07/23/17 Unknown Urine Culture - Final Urine No Growth (<1,000 CFU/ML) Lab Studies 07/25/17 07/25/17 07/25/17 Range/Units 12:02 06:34 06:34 WBC 10.7 (4.8-10.8) K/uL RBC 2.95 L (4.40-5.90) Mil/uL Hgb 8.3 L (12.0-18.0) g/dL Hct 25.9 L (35.0-51.0) % MCV 87.7 (80.0-94.0) fL MCH 28.1 (27.0-31.0) pg MCHC 32.1 L (33.0-37.0) g/dL RDW 17.8 H (11.5-14.5) % Plt Count 445 H (130-400) K/uL MPV 7.7 (7.2-11.7) fL Neut % (Auto) 77.5 H (50.0-75.0) % Lymph % (Auto) 12.0 L (20.0-40.0) % White % (Auto) 7.0 (0.0-10.0) % Eos % (Auto) 2.7 (0.0-4.0) % Baso % (Auto) 0.8 (0.0-2.0) % Neut # 8.3 H (1.8-7.0) K/uL Lymph # 1.3 (1.0-4.3) K/uL White # 0.7 (0.0-0.8) K/uL Eos # 0.3 (0.0-0.7) K/uL Baso # 0.1 (0.0-0.2) K/uL Sodium 142 (132-148) mmol/L Potassium 4.1 (3.6-5.2) mmol/L Chloride 105 (98-107) mmol/L Carbon Dioxide 23 (22-30) mmol/L Anion Gap 15 (10-20) BUN 17 (9-20) mg/dL Creatinine 1.2 (0.8-1.5) MG/DL Est GFR ( Amer) > 60 Est GFR (Non-Af Amer) 59 POC Glucose (mg/dL) 188 H (65-110) mg/dL Random Glucose 157 H (75-110) mg/dL Calcium 9.1 (8.6-10.4) mg/dl Phosphorus 3.6 (2.5-4.5) mg/dL Magnesium 1.9 (1.6-2.3) mg/dL Total Bilirubin 0.4 (0.2-1.3) mg/dL AST 20 (17-59) U/L ALT 19 L D (21-72) U/L Alkaline Phosphatase 117 (38-126) U/L Total Protein 6.6 (6.3-8.3) g/dL Albumin 2.5 L (3.5-5.0) g/dL Globulin 4.1 H (2.2-3.9) gm/dL Albumin/Globulin Ratio 0.6 L (1.0-2.1) 07/25/17 07/24/17 07/24/17 Range/Units 06:25 23:58 18:06 WBC (4.8-10.8) K/uL RBC (4.40-5.90) Mil/uL Hgb (12.0-18.0) g/dL Hct (35.0-51.0) % MCV (80.0-94.0) fL MCH (27.0-31.0) pg MCHC (33.0-37.0) g/dL RDW (11.5-14.5) % Plt Count (130-400) K/uL MPV (7.2-11.7) fL Neut % (Auto) (50.0-75.0) % Lymph % (Auto) (20.0-40.0) % White % (Auto) (0.0-10.0) % Eos % (Auto) (0.0-4.0) % Baso % (Auto) (0.0-2.0) % Neut # (1.8-7.0) K/uL Lymph # (1.0-4.3) K/uL White # (0.0-0.8) K/uL Eos # (0.0-0.7) K/uL Baso # (0.0-0.2) K/uL Sodium (132-148) mmol/L Potassium (3.6-5.2) mmol/L Chloride (98-107) mmol/L Carbon Dioxide (22-30) mmol/L Anion Gap (10-20) BUN (9-20) mg/dL Creatinine (0.8-1.5) MG/DL Est GFR ( Amer) Est GFR (Non-Af Amer) POC Glucose (mg/dL) 76 172 H 115 H (65-110) mg/dL Random Glucose (75-110) mg/dL Calcium (8.6-10.4) mg/dl Phosphorus (2.5-4.5) mg/dL Magnesium (1.6-2.3) mg/dL Total Bilirubin (0.2-1.3) mg/dL AST (17-59) U/L ALT (21-72) U/L Alkaline Phosphatase (38-126) U/L Total Protein (6.3-8.3) g/dL Albumin (3.5-5.0) g/dL Globulin (2.2-3.9) gm/dL Albumin/Globulin Ratio (1.0-2.1) Laboratory Results - last 24 hr 07/24/17 07/24/17 07/25/17 18:06 23:58 06:25 WBC RBC Hgb Hct MCV MCH MCHC RDW Plt Count MPV Neut % (Auto) Lymph % (Auto) White % (Auto) Eos % (Auto) Baso % (Auto) Neut # Lymph # White # Eos # Baso # Sodium Potassium Chloride Carbon Dioxide Anion Gap BUN Creatinine Est GFR ( Amer) Est GFR (Non-Af Amer) POC Glucose (mg/dL) 115 H 172 H 76 Random Glucose Calcium Phosphorus Magnesium Total Bilirubin AST ALT Alkaline Phosphatase Total Protein Albumin Globulin Albumin/Globulin Ratio 07/25/17 07/25/17 07/25/17 06:34 06:34 12:02 WBC 10.7 RBC 2.95 L Hgb 8.3 L Hct 25.9 L MCV 87.7 MCH 28.1 MCHC 32.1 L RDW 17.8 H Plt Count 445 H MPV 7.7 Neut % (Auto) 77.5 H Lymph % (Auto) 12.0 L White % (Auto) 7.0 Eos % (Auto) 2.7 Baso % (Auto) 0.8 Neut # 8.3 H Lymph # 1.3 White # 0.7 Eos # 0.3 Baso # 0.1 Sodium 142 Potassium 4.1 Chloride 105 Carbon Dioxide 23 Anion Gap 15 BUN 17 Creatinine 1.2 Est GFR ( Amer) > 60 Est GFR (Non-Af Amer) 59 POC Glucose (mg/dL) 188 H Random Glucose 157 H Calcium 9.1 Phosphorus 3.6 Magnesium 1.9 Total Bilirubin 0.4 AST 20 ALT 19 L D Alkaline Phosphatase 117 Total Protein 6.6 Albumin 2.5 L Globulin 4.1 H Albumin/Globulin Ratio 0.6 L Fingerstick Blood Sugar Results: 188 Critical Care Progress Note - Nutrition Nutrition: Nutrition Category Date Time Status NPO Diet [DIET] Diets 07/23/17 Breakfast Active
--- NOTE | 2017-07-25 23:33 | CP.PCM.PN ---
Subjective - Date & Time of Evaluation Date of Evaluation: 07/25/17 - Subjective Subjective: more alert, NO SOB, NO CHEST PAIN, NO FEVER Objective - Vital Signs/Intake and Output Vital Signs (last 24 hours): Temp Pulse Resp BP Pulse Ox 98.4 F 85 17 171/87 H 100 07/25/17 16:00 07/25/17 15:00 07/25/17 15:00 07/25/17 17:23 07/25/17 10:20 Intake and Output: 07/25/17 07/26/17 18:59 06:59 Intake Total 875 Output Total 1200 Balance -325 - Medications Medications: Current Medications Clopidogrel Bisulfate (Plavix) 75 mg PO DAILY [facility] Last Admin: 07/25/17 10:10 Dose: 75 mg Diltiazem HCl (Cardizem) 60 mg PO Q8 [facility] Last Admin: 07/25/17 21:00 Dose: 60 mg Donepezil HCl (Aricept) 5 mg PO HS [facility] Last Admin: 07/25/17 21:00 Dose: 5 mg Enoxaparin Sodium (Lovenox) 30 mg SC DAILY [facility] Last Admin: 07/25/17 10:10 Dose: 30 mg Famotidine (Pepcid) 20 mg PO BID [facility] Last Admin: 07/25/17 18:40 Dose: 20 mg Ferrous Sulfate (Feosol) 325 mg PO BID [facility] Last Admin: 07/25/17 18:40 Dose: 325 mg Levetiracetam 750 mg/ Dextrose 107.5 mls @ 420 mls/hr IVPB Q12H [facility] Last Admin: 07/25/17 20:35 Dose: 420 mls/hr Insulin Human Regular (Novolin R) 0 unit SC Q6 [facility] PRN Reason: Protocol Last Admin: 07/25/17 18:40 Dose: 3 unit Losartan Potassium (Cozaar) 100 mg PO DAILY [facility] Last Admin: 07/25/17 10:10 Dose: 100 mg Rosuvastatin Calcium (Crestor) 10 mg PO HS [facility] Last Admin: 07/25/17 21:00 Dose: 10 mg Thiamine HCl (Vitamin B1 Tab) 100 mg PO BID [facility] Last Admin: 07/25/17 18:40 Dose: 100 mg - Labs Labs: 07/25/17 06:34 07/25/17 06:34 PT 11.4 SECONDS (9.7-12.2) 07/23/17 21:33 INR 1.0 07/23/17 21:33 APTT 34 SECONDS (21-34) 07/23/17 21:33 - Constitutional Appears: Non-toxic, No Acute Distress - Head Exam Head Exam: ATRAUMATIC, NORMAL INSPECTION, NORMOCEPHALIC - Eye Exam Eye Exam: EOMI, Normal appearance, PERRL Pupil Exam: NORMAL ACCOMODATION - ENT Exam ENT Exam: Mucous Membranes Moist, Normal Exam, Normal Oropharynx, TM's Normal Bilaterally - Neck Exam Neck Exam: Normal Inspection - Respiratory Exam Respiratory Exam: Clear to Ausculation Bilateral, NORMAL BREATHING PATTERN - Cardiovascular Exam Cardiovascular Exam: REGULAR RHYTHM, +S1, +S2 - GI/Abdominal Exam GI & Abdominal Exam: Soft, Normal Bowel Sounds - Extremities Exam Extremities Exam: Full ROM, Normal Capillary Refill, Normal Inspection - Neurological Exam Neurological Exam: Abnormal Gait, Alert, Awake, Motor Sensory Deficit - Psychiatric Exam Psychiatric exam: Flat Affect - Skin Skin Exam: Intact Assessment and Plan (1) Seizure Status: Acute (2) Diabetes Status: Chronic (3) Renal cell carcinoma Status: Chronic (4) Hypertension Status: Chronic
[2017-07-26] MEDS: (Novolin R) Insulin Human Regular 100 units/ml vial SC SCH ×4 (05:40→17:50)
[2017-07-26] MEDS: Enoxaparin 30 mg Syringe SC SCH (09:44)
--- NOTE | 2017-07-26 19:44 | CP.PCM.PN ---
Subjective - Date & Time of Evaluation Date of Evaluation: 07/26/17 - Subjective Subjective: MORE ALERT AND TALKING, NO FEVER, ON PEG FEEDS, NO CHEST PAIN, NO COUGH, NO FEVER Objective - Vital Signs/Intake and Output Vital Signs (last 24 hours): Temp Pulse Resp BP Pulse Ox 97.7 F 84 20 170/98 H 100 07/26/17 15:57 07/26/17 18:29 07/26/17 15:57 07/26/17 18:29 07/26/17 15:57 Intake and Output: 07/26/17 07/27/17 18:59 06:59 Intake Total 390 Output Total 700 Balance -310 - Medications Medications: Current Medications Clopidogrel Bisulfate (Plavix) [address] [facility] Last Admin: 07/26/17 09:44 Dose: 75 mg Diltiazem HCl (Cardizem) [address] [facility] Last Admin: 07/26/17 18:30 Dose: 90 mg Donepezil HCl (Aricept) [address] [facility] Last Admin: 07/25/17 21:00 Dose: 5 mg Enoxaparin Sodium (Lovenox) [address] [facility] Last Admin: 07/26/17 09:44 Dose: 30 mg Famotidine (Pepcid) [address] [facility] Last Admin: 07/26/17 17:50 Dose: 20 mg Ferrous Sulfate (Feosol) [address] [facility] Last Admin: 07/26/17 17:50 Dose: 325 mg Levetiracetam 750 mg/ Dextrose 107.5 mls @ 420 mls/hr IVPB Q12H [facility] Last Admin: 07/26/17 08:23 Dose: 420 mls/hr Insulin Human Regular (Novolin R) [address] [facility] PRN Reason: Protocol Last Admin: 07/26/17 17:50 Dose: 2 unit Losartan Potassium (Cozaar) [address] [facility] Last Admin: 07/26/17 09:44 Dose: 100 mg Rosuvastatin Calcium (Crestor) [address] [facility] Last Admin: 07/25/17 21:00 Dose: 10 mg Thiamine HCl (Vitamin B1 Tab) [address] [facility] Last Admin: 07/26/17 17:50 Dose: 100 mg - Labs Labs: 07/25/17 06:34 07/25/17 06:34 PT 11.4 SECONDS (9.7-12.2) 07/23/17 21:33 INR 1.0 07/23/17 21:33 APTT 34 SECONDS (21-34) 07/23/17 21:33 - Constitutional Appears: Non-toxic, No Acute Distress, Chronically Ill - Head Exam Head Exam: ATRAUMATIC, NORMAL INSPECTION, NORMOCEPHALIC - Eye Exam Eye Exam: EOMI, Normal appearance, PERRL Pupil Exam: NORMAL ACCOMODATION - ENT Exam ENT Exam: Mucous Membranes Moist, Normal Exam, Normal Oropharynx, TM's Normal Bilaterally - Neck Exam Neck Exam: Normal Inspection - Respiratory Exam Respiratory Exam: Clear to Ausculation Bilateral, NORMAL BREATHING PATTERN - Cardiovascular Exam Cardiovascular Exam: REGULAR RHYTHM, +S1, +S2 - GI/Abdominal Exam GI & Abdominal Exam: Soft, Normal Bowel Sounds - Rectal Exam Rectal Exam: NORMAL INSPECTION - Extremities Exam Extremities Exam: Normal Capillary Refill, Normal Inspection - Back Exam Back Exam: NORMAL INSPECTION - Neurological Exam Neurological Exam: Abnormal Gait, Alert, Awake, CN II-XII Intact, Motor Sensory Deficit - Psychiatric Exam Psychiatric exam: Normal Mood - Skin Skin Exam: Intact Assessment and Plan (1) Seizure Assessment & Plan: R/O ANOXIC ENCEPHALOPATHY Status: Acute (2) Diabetes Status: Chronic (3) Renal cell carcinoma Status: Chronic (4) Hypertension Status: Chronic
[2017-07-27] MEDS: (Novolin R) Insulin Human Regular 100 units/ml vial SC SCH ×5 (00:18→23:02)
[2017-07-27] MEDS: Enoxaparin 30 mg Syringe SC SCH (09:42)
--- NOTE | 2017-07-27 11:10 | PN ---
DATE: 07/27/2017 TIME OF EVALUATION: 7:05 a.m. NEUROLOGICAL PROBLEM: Recurrent seizures. PHYSICAL EXAMINATION: VITAL SIGNS: Blood pressure of 175/89, mean arterial pressure of 117, respiratory rate of 16 to 18, temperature of 98 degrees Fahrenheit, and pulse rate of 85. NEUROLOGIC: The patient is lying comfortably. Not arousable on verbally. On tactile stimuli, the patient is arousable and following one step command. Then went back to sleep. Rest of the exam is unchanged. ASSESSMENT AND PLAN: Electroencephalogram has been reviewed shows generalized 2 to 3 Hz of moderate voltage theta activity seen in bilateral cortical leads. Most of the activities are contaminated with loose electrode artifact and muscle artifact. The real pathological changes which cannot be reviewed at present electroencephalogram. Recommended to have a repeat electroencephalogram if clinically indicated. The patient is not seizing clinically at present. The patient has been getting medications as recommended, Keppra 750 mg twice a day. Continue the present management. Alejandro Burk MD
--- NOTE | 2017-07-27 19:41 | CARD ---
APPROVED REPORT EKG Measurement Heart [id number] <Conclusion> Normal sinus rhythm Left axis deviation Anteroseptal infarct, age undetermined Abnormal ECG
[2017-07-28 00:53] VITALS: RESP 20
--- NOTE | 2017-07-28 03:50 | EEG ---
DATE: 07/26/2017 The resting electroencephalogram shows diffuse 30 to 40 microvolt delta activity seen in parietal and occipital leads. Persistent frontal and temporal muscle artifact contaminated the background rhythm from the beginning. This slow activities continuously noted from the beginning. Photic stimulation did not evoke driving response noted at 2-20 Hz. IMPRESSION: This is an abnormal electroencephalogram because of persistent slowing throughout the record suggestive of bilateral cerebral dysfunction. Most of the records been contaminated with loose electrode artifact and muscle artifact. If clinically indicated, consider to repeat the study. Alejandro Burk MD
[2017-07-28] MEDS: (Novolin R) Insulin Human Regular 100 units/ml vial SC SCH ×3 (05:08→13:22)
[2017-07-28 08:28] LABS: BASO # 0.1 K/uL (0.0-0.2); BASO % 0.9 % (0.0-2.0); EOS # 0.3 K/uL (0.0-0.7); EOS % 2.4 % (0.0-4.0); LYMPH # 1.6 K/uL (1.0-4.3); LYMPH % 15.2 % (20.0-40.0); MEAN CELL VOLUME 87.5 fL (80.0-94.0); MEAN CORPUSCULAR HEMOGLOBIN 29.9 pg (27.0-31.0); MEAN CORPUSCULAR HGB CONC 34.1 g/dL (33.0-37.0); MEAN PLATELET VOLUME 7.9 fL (7.2-11.7); MONO # 0.5 K/uL (0.0-0.8); RED CELL DISTRIBUTION WIDTH 17.2 % (11.5-14.5); WHITE BLOOD COUNT 10.7 K/uL (4.8-10.8)
[2017-07-28 09:00] LABS: CHLORIDE 102 mmol/L (98-107); POTASSIUM 4.2 mmol/L (3.6-5.2); SODIUM 142 mmol/L (132-148)
[2017-07-28 09:02] LABS: AST/SGOT 25 U/L (17-59); BILIRUBIN,TOTAL 0.2 mg/dL (0.2-1.3); CARBON DIOXIDE 28 mmol/L (22-30); GFR AFRICAN-AMERICAN > 60
[2017-07-28 09:03] LABS: ALB/GLOB RATIO 0.6 (1.0-2.1); ALKALINE PHOSPHATASE 140 U/L (38-126); ALT/SGPT 21 U/L (21-72); BLOOD UREA NITROGEN 21 mg/dL (9-20); CALCIUM 9.8 mg/dl (8.6-10.4); GLUCOSE,RANDOM 160 mg/dL (75-110); TOTAL PROTEIN 7.4 g/dL (6.3-8.3)
[2017-07-28] MEDS: Enoxaparin 30 mg Syringe SC SCH (10:43)
--- NOTE | 2017-07-28 15:12 | CP.PCM.PN ---
Subjective - Date & Time of Evaluation Date of Evaluation: 07/28/17 Time of Evaluation: 11:15 - Subjective Subjective: pateint seen today , awake, alert, non verbal seems comfortable No seizure activity reported overnight a febrile Objective - Vital Signs/Intake and Output Vital Signs (last 24 hours): Temp Pulse Resp BP Pulse Ox 98.6 F 96 H 20 165/90 H 100 07/28/17 07:05 07/28/17 10:04 07/28/17 07:05 07/28/17 07:05 07/28/17 10:04 Intake and Output: 07/28/17 07/28/17 06:59 18:59 Intake Total 347.5 Output Total 475 375 Balance -475 -27.5 - Medications Medications: Current Medications Clopidogrel Bisulfate (Plavix) 75 mg PO DAILY [facility] Last Admin: 07/28/17 10:43 Dose: 75 mg Diltiazem HCl (Cardizem) 90 mg PO Q8H [facility] Last Admin: 07/28/17 10:43 Dose: 90 mg Donepezil HCl (Aricept) 5 mg PO HS [facility] Last Admin: 07/27/17 22:31 Dose: 5 mg Enoxaparin Sodium (Lovenox) 30 mg SC DAILY [facility] Last Admin: 07/28/17 10:43 Dose: 30 mg Famotidine (Pepcid) 20 mg PO BID [facility] Last Admin: 07/28/17 10:43 Dose: 20 mg Ferrous Sulfate (Feosol) 325 mg PO BID [facility] Last Admin: 07/28/17 10:43 Dose: 325 mg Levetiracetam 750 mg/ Dextrose 107.5 mls @ 420 mls/hr IVPB Q12H [facility] Last Admin: 07/28/17 08:57 Dose: 420 mls/hr Insulin Human Regular (Novolin R) 0 unit SC Q6 [facility] PRN Reason: Protocol Last Admin: 07/28/17 13:22 Dose: 2 unit Losartan Potassium (Cozaar) 100 mg PO DAILY [facility] Last Admin: 07/28/17 10:43 Dose: 100 mg Rosuvastatin Calcium (Crestor) 10 mg PO HS [facility] Last Admin: 07/27/17 22:31 Dose: 10 mg Thiamine HCl (Vitamin B1 Tab) 100 mg PO BID [facility] Last Admin: 07/28/17 10:43 Dose: 100 mg - Labs Labs: 07/28/17 08:11 07/28/17 08:11 PT 11.4 SECONDS (9.7-12.2) 07/23/17 21:33 INR 1.0 07/23/17 21:33 APTT 34 SECONDS (21-34) 07/23/17 21:33 - Constitutional Appears: Well, No Acute Distress - Respiratory Exam Respiratory Exam: Clear to Ausculation Bilateral, NORMAL BREATHING PATTERN - GI/Abdominal Exam GI & Abdominal Exam: Normal Bowel Sounds (peg tube intact ) - Neurological Exam Neurological Exam: Alert, Awake (aphasic ) Assessment and Plan - Assessment and Plan (Free Text) Assessment: A/P 76 yr old male admitted from [facility] for seizure
[2017-07-28 15:24] VITALS: BP 165/88; PULSE 88; TEMP 98.4; O2SAT 96
--- NOTE | 2017-07-28 23:37 | CP.PCM.PN ---
Subjective - Date & Time of Evaluation Date of Evaluation: 07/27/17 - Subjective Subjective: MORE ALERT, NO FEVER, NO SOB, COUGH, ON PEG FEEDS AND IS ON PT AND IS SAYING FEW WORDS Objective - Vital Signs/Intake and Output Vital Signs (last 24 hours): Temp Pulse Resp BP Pulse Ox 98.4 F 88 20 165/88 H 96 07/28/17 15:21 07/28/17 15:21 07/28/17 15:21 07/28/17 15:21 07/28/17 15:21 Intake and Output: 07/28/17 07/29/17 18:59 06:59 Intake Total 347.5 Output Total 375 Balance -27.5 - Labs Labs: 07/28/17 08:11 07/28/17 08:11 PT 11.4 SECONDS (9.7-12.2) 07/23/17 21:33 INR 1.0 07/23/17 21:33 APTT 34 SECONDS (21-34) 07/23/17 21:33 - Constitutional Appears: Non-toxic, No Acute Distress, Chronically Ill - Head Exam Head Exam: ATRAUMATIC, NORMAL INSPECTION, NORMOCEPHALIC - Eye Exam Eye Exam: EOMI, Normal appearance, PERRL Pupil Exam: NORMAL ACCOMODATION - Neck Exam Neck Exam: Normal Inspection - Respiratory Exam Respiratory Exam: Clear to Ausculation Bilateral, NORMAL BREATHING PATTERN - Cardiovascular Exam Cardiovascular Exam: Tachycardia, REGULAR RHYTHM, +S1, +S2, Murmur - GI/Abdominal Exam GI & Abdominal Exam: Soft, Normal Bowel Sounds - Rectal Exam Rectal Exam: NORMAL INSPECTION - Extremities Exam Extremities Exam: Normal Capillary Refill - Neurological Exam Neurological Exam: Abnormal Gait, Alert, Awake, CN II-XII Intact Assessment and Plan (1) Seizure Assessment & Plan: ON KEPPRA AND IS STABLE Status: Acute (2) Diabetes Status: Chronic (3) Renal cell carcinoma Status: Chronic (4) Hypertension Status: Chronic
--- NOTE | 2017-07-28 23:39 | CP.PCM.DIS ---
Provider - Provider Date of Admission: 07/23/17 20:24 Attending physician: Nico Venegas MD Diagnosis - Discharge Diagnosis (1) Seizure Status: Acute (2) Diabetes Status: Chronic (3) Renal cell carcinoma Status: Chronic (4) Hypertension Status: Chronic Hospital Course - Lab Results Lab Results: Micro Results 07/26/17 08:16 Nose MRSA Culture - Final MRSA NOT DETECTED 07/23/17 Unknown Naris MRSA Culture (Admit) - Final MRSA NOT DETECTED 07/23/17 Unknown Urine Urine Culture - Final No Growth (<1,000 CFU/ML) Most Recent Lab Values WBC 10.7 K/uL (4.8-10.8) 07/28/17 08:11 RBC 2.97 Mil/uL (4.40-5.90) L 07/28/17 08:11 Hgb 8.9 g/dL (12.0-18.0) L 07/28/17 08:11 Hct 26.0 % (35.0-51.0) L 07/28/17 08:11 MCV 87.5 fL (80.0-94.0) 07/28/17 08:11 MCH 29.9 pg (27.0-31.0) 07/28/17 08:11 MCHC 34.1 g/dL (33.0-37.0) 07/28/17 08:11 RDW 17.2 % (11.5-14.5) H 07/28/17 08:11 Plt Count 483 K/uL (130-400) H 07/28/17 08:11 MPV 7.9 fL (7.2-11.7) 07/28/17 08:11 Neut % (Auto) 76.5 % (50.0-75.0) H 07/28/17 08:11 Lymph % (Auto) 15.2 % (20.0-40.0) L 07/28/17 08:11 [place] % (Auto) 5.0 % (0.0-10.0) 07/28/17 08:11 Eos % (Auto) 2.4 % (0.0-4.0) 07/28/17 08:11 Baso % (Auto) 0.9 % (0.0-2.0) 07/28/17 08:11 Neut # 8.2 K/uL (1.8-7.0) H 07/28/17 08:11 Lymph # 1.6 K/uL (1.0-4.3) 07/28/17 08:11 [place] # 0.5 K/uL (0.0-0.8) 07/28/17 08:11 Eos # 0.3 K/uL (0.0-0.7) 07/28/17 08:11 Baso # 0.1 K/uL (0.0-0.2) 07/28/17 08:11 PT 11.4 SECONDS (9.7-12.2) 07/23/17 21:33 INR 1.0 07/23/17 21:33 APTT 34 SECONDS (21-34) 07/23/17 21:33 pO2 45 mm/Hg (30-55) 07/23/17 18:00 VBG pH 7.48 (7.32-7.43) H 07/23/17 18:00 VBG pCO2 37 mmHg (40-60) L 07/23/17 18:00 VBG HCO3 27.7 mmol/L 07/23/17 18:00 VBG Total CO2 28.7 mmol/L (22-28) H 07/23/17 18:00 VBG O2 Sat (Calc) 90.1 % (40-65) H 07/23/17 18:00 VBG Base Excess 4.0 mmol/L (0.0-2.0) H 07/23/17 18:00 VBG Potassium 4.8 mmol/L (3.6-5.2) 07/23/17 18:00 Sodium 131.0 mmol/l (132-148) L 07/23/17 18:00 Chloride 102.0 mmol/L (98-107) 07/23/17 18:00 Glucose 252 mg/dl (75-110) H 07/23/17 18:00 Lactate 1.1 mmol/L (0.7-2.1) 07/23/17 18:00 Sodium 142 mmol/L (132-148) 07/28/17 08:11 Potassium 4.2 mmol/L (3.6-5.2) 07/28/17 08:11 Chloride 102 mmol/L (98-107) 07/28/17 08:11 Carbon Dioxide 28 mmol/L (22-30) 07/28/17 08:11 Anion Gap 17 (10-20) 07/28/17 08:11 BUN 21 mg/dL (9-20) H 07/28/17 08:11 Creatinine 1.3 MG/DL (0.8-1.5) 07/28/17 08:11 Est GFR ( Amer) > 60 07/28/17 08:11 Est GFR (Non-Af Amer) 54 07/28/17 08:11 POC Glucose (mg/dL) 195 mg/dL (65-110) H 07/28/17 11:56 Random Glucose 160 mg/dL (75-110) H 07/28/17 08:11 Calcium 9.8 mg/dl (8.6-10.4) 07/28/17 08:11 Phosphorus 3.6 mg/dL (2.5-4.5) 07/25/17 06:34 Magnesium 1.9 mg/dL (1.6-2.3) 07/25/17 06:34 Total Bilirubin 0.2 mg/dL (0.2-1.3) 07/28/17 08:11 AST 25 U/L (17-59) 07/28/17 08:11 ALT 21 U/L (21-72) 07/28/17 08:11 Alkaline Phosphatase 140 U/L (38-126) H 07/28/17 08:11 Total Creatine Kinase 44 U/L (55-170) L 07/23/17 17:59 Total Protein 7.4 g/dL (6.3-8.3) 07/28/17 08:11 Albumin 2.9 g/dL (3.5-5.0) L 07/28/17 08:11 Globulin 4.5 gm/dL (2.2-3.9) H 07/28/17 08:11 Albumin/Globulin Ratio 0.6 (1.0-2.1) L 07/28/17 08:11 Venous Blood Potassium 4.8 mmol/L (3.6-5.2) 07/23/17 18:00 Urine Color Yellow (YELLOW) 07/23/17 17:59 Urine Clarity Clear (Clear) 07/23/17 17:59 Urine pH 7.0 (5.0-8.0) 07/23/17 17:59 Ur Specific Benedict 1.011 (1.003-1.030) 07/23/17 17:59 Urine Protein 2+ mg/dL (NEGATIVE) H 07/23/17 17:59 Urine Glucose (UA) 2+ mg/dL (Normal) H 07/23/17 17:59 Urine Ketones Negative mg/dL (NEGATIVE) 07/23/17 17:59 Urine Blood Negative (NEGATIVE) 07/23/17 17:59 Urine Nitrate Negative (NEGATIVE) 07/23/17 17:59 Urine Bilirubin Negative (NEGATIVE) 07/23/17 17:59 Urine Urobilinogen Normal mg/dL (0.2-1.0) 07/23/17 17:59 Ur Leukocyte Esterase Neg Edwin/uL (Negative) 07/23/17 17:59 Urine WBC (Auto) 1 /hpf (0-5) 07/23/17 17:59 Urine RBC (Auto) 4 /hpf (0-3) H 07/23/17 17:59 Ur Transition Epith Cell < 1 /hpf (0-3) 07/23/17 17:59 Urine Bacteria Rare (<OCC) 07/23/17 17:59 Phenytoin < 3.0 ug/mL (10-20) L 07/23/17 17:59 - Hospital Course Hospital Course: ADMITTED WITH SEIZURE, AMS WEAKNESS, AND RESPONDED WELL TO KEPPRA AND HE IS STABLE TO GO TO [facility] Discharge Exam - Head Exam Head Exam: ATRAUMATIC, NORMAL INSPECTION, NORMOCEPHALIC - Eye Exam Eye Exam: EOMI, Normal appearance, PERRL Pupil Exam: NORMAL ACCOMODATION - ENT Exam ENT Exam: Mucous Membranes Moist, Normal Exam, Normal Oropharynx, TM's Normal Bilaterally - Neck Exam Neck exam: Normal Inspection - Respiratory Exam Respiratory Exam: NORMAL BREATHING PATTERN - Cardiovascular Exam Cardiovascular Exam: REGULAR RHYTHM, +S1, +S2, Systolic Murmur - GI/Abdominal Exam GI & Abdominal Exam: Normal Bowel Sounds - Rectal Exam Rectal Exam: NORMAL INSPECTION - Neurological Exam Neurological exam: Abnormal Gait, Alert, CN II-XII Intact, Reflexes Normal - Psychiatric Exam Psychiatric exam: Flat Affect - Skin Skin Exam: Intact Discharge Plan - Discharge Medications Prescriptions: levETIRAcetam Solution [Keppra] 750 mg PEG Q12 30 Days - Follow Up Plan Condition: GOOD Disposition: REHAB FACILITY/REHAB UNIT Instructions: Nonepileptic Seizures (DC), Chronic Hypertension (DC), Altered Mental Status (GEN) Additional Instructions: Please call Dr. Venegas upon patient arrival to the facility continue GTube feeding at 50 ml/hr , check residual q 6hrs if >100 hold for 2 hrs and less than 20 restart feeding HOB >45 all times Seizure precautions Please repeat CBC, bmp WEDNESDAY and q weekly
== END 2017-07-28 16:59 | DRG 100 ==
LOC: C.ER 17:13 → C.9E 20:24 → C.9I 21:26 → C.5T 07-26 07:59
PROVIDERS: ADMIT Internal Medicine; ATTEND Internal Medicine
DX: G40.901 Epilepsy, unspecified, not intractable, with status epilepticus (principal); I46.9 Cardiac arrest, cause unspecified; G93.1 Anoxic brain damage, not elsewhere classified; C64.9 Malignant neoplasm of unspecified kidney, except renal pelvis; F03.90 Unspecified dementia, unspecified severity, without behavioral disturbance, psychotic disturbance, mood disturbance, and anxiety; D64.9 Anemia, unspecified; I69.354 Hemiplegia and hemiparesis following cerebral infarction affecting left non-dominant side; E11.22 Type 2 diabetes mellitus with diabetic chronic kidney disease; E11.65 Type 2 diabetes mellitus with hyperglycemia; I12.9 Hypertensive chronic kidney disease with stage 1 through stage 4 chronic kidney disease, or unspecified chronic kidney disease; Z79.4 Long term (current) use of insulin; E78.00 Pure hypercholesterolemia, unspecified; Z93.1 Gastrostomy status; Z91.14 Patient's other noncompliance with medication regimen; K21.9 Gastro-esophageal reflux disease without esophagitis; G89.29 Other chronic pain; M54.9 Dorsalgia, unspecified; Z87.891 Personal history of nicotine dependence; N18.3 Chronic kidney disease, stage 3 (moderate); E87.8 Other disorders of electrolyte and fluid balance, not elsewhere classified